=== PATIENT | female | born 1940 | race Caucasian/White ===

== ENCOUNTER 2019-07-05 15:13 | Outpatient (CLI) | payer MEDICARE, SELFPAY ==
--- NOTE | ~2019-07-05 | MM_ITS ---
EXAMINATION: MM screening [facility] BI w malika HISTORY: Screening mammogram TECHNIQUE: Craniocaudal and mediolateral oblique 3-D tomosynthesis images were obtained and synthetic 2-D images were generated. CAD analysis was submitted and interpreted. COMPARISON: 05/12/2018, 04/06/2017, 03/13/2016 BREAST PARENCHYMAL COMPOSITION: The breasts are heterogeneously dense, which may obscure small masses . FINDINGS: There is no evidence of suspicious mass, calcification, or architectural distortion to sugg est malignancy in either breast. There has been no suspicious interval change. IMPRESSION: 1. No mammographic evidence of malignancy. 2. Recommend routine screening mammography while the patient remains in good health. BI-RADS Category 1: Negative Reviewed, dictated and finalized at location A. 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 No mammographic evidence of malignancy. 2. Recommend routine screening mammography while the patient remains in good he alth. BI-RADS Category 1: Negative
== END 2019-07-05 15:14 | disposition home or self-care (01) ==
LOC: CHSIMG 15:14
PROVIDERS: PCP Internal Medicine; Visit Provider Internal Medicine
DX: Z12.31 Encounter for screening mammogram for malignant neoplasm of breast (principal)
CPT/HCPCS: 77063; 77067

== ENCOUNTER 2019-12-20 14:01 | Outpatient (CLI) | payer MEDICARE, SELFPAY ==
--- NOTE | ~2019-12-20 | XR_ITS ---
XR shoulder RT min 2V DATE: 12/20/2019 14:32 INDICATION: Acute right shoulder pain TECHNIQUE: 4 views COMPARISON: None FINDINGS: Right internal jugular Port-A-Cath catheter overlying superior vena cava. Dual-lead left-si ded pacemaker device. Moderate osteopenia. No fracture or dislocation, periosteal reaction or bone destruction or abnormal soft tissue calcifica tion of the right shoulder. IMPRESSION: Osteopenia Right Port-A-Cath Dual-lead left pacemaker device Reviewed, dictated and finalized at location B.
== END 2019-12-20 14:02 | disposition home or self-care (01) ==
PROVIDERS: PCP Internal Medicine; Visit Provider Internal Medicine Hematology & Oncology
DX: M85.811 Other specified disorders of bone density and structure, right shoulder (principal); Z95.0 Presence of cardiac pacemaker
CPT/HCPCS: 73030

== ENCOUNTER 2020-07-22 11:31 | Outpatient (CLI) | payer MEDICARE, SELFPAY ==
--- NOTE | ~2020-07-22 | XR_ITS ---
EXAMINATION: XR knee LT 3V DATE: 07/22/2020 12:00 INDICATION: Left knee pain. TECHNIQUE: 3 views of left knee were obtained. COMPARISON: None. FINDINGS: Bone alignment is normal. No fracture. There is mild tricompartmental osteoarthritis. There is chondrocalcinosis of the menisci. No knee joint effusion. IMPRESSION: 1. Mild left knee osteoarthritis. Reviewed, dictated and finalized at location A. 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
[2020-07-22 11:52] LABS: Basophils Absolute Auto 0.04 K/mm3 (0.00-0.10); Basophils Percent Auto 0.7 % (0.0-1.0); Eosinophils Absolute Auto 0.08 K/mm3 (0.02-0.50); Eosinophils Percent Auto 1.4 % (1.0-6.0); Hemoglobin 12.2 g/dL (11.7-13.8); Immature Granulocyte Absolute 0.02 K/mm3 (0.00-0.00); Immature Granulocyte Percent A 0.3 % (0.0-0.0); Lymphocytes Absolute Auto 1.53 K/mm3 (1.10-4.50); Lymphocytes Percent Auto 25.9 % (18.0-42.0); Mean Platelet Volume 9.5 fl (9.2-11.8); Monocytes Absolute Auto 0.82 K/mm3 (0.10-0.90); Monocytes Percent Auto 13.9 % (2.0-11.0); Neutrophils Absolute Auto 3.4 K/mm3 (1.7-7.2); Neutrophils Percent Auto 57.8 % (50.0-70.0); Nucleated Red Blood Cells Absolute Auto 0.02 K/mm3 (0.00-0.00); Nucleated Red Blood Cells Perc 0.3 % (0-0.0); Platelet Count Result 266 K/mm3 (150-420); Red Cell Distribution Width 13.5 % (11.6-14.4); White Blood Count 5.9 K/mm3 (4.8-10.8)
[2020-07-22 12:04] LABS: Add Urine Microscopic? NO; Appearance Urine Clear (Clear); Bilirubin Urine Negative (Negative); Blood Urine Negative (Negative); Color Urine Yellow (Yellow); Glucose Urine UA Negative (Negative); Ketones Urine Negative (Negative); Leukocyte Esterase Ur Negative (Negative); Nitrate Urine Negative (Negative); Protein Urine Negative (Negative); Urobilinogen Urine 0.2 mg/dL (0.2-1.0)
[2020-07-22 13:01] LABS: Alanine Aminotransferase 24 U/L (14-59); Albumin Level 4.1 g/dL (3.4-5.0); Alkaline Phosphatase 52 U/L (46-116); Anion Gap 7 mmol/L (8-16); Aspartate Amino Transferase 12 U/L (15-37); Bilirubin,Total 0.5 mg/dL (0.00-1.00); Blood Urea Nitrogen 26 mg/dL (7-18); Calcium 11.8 mg/dL (8.5-10.1); Carbon Dioxide 29 mmol/L (21-32); Chloride 98 mmol/L (98-108); Cholesterol 204 mg/dL (0-200); Estimated Glomerular Filt Rate 42; Ferritin 66 ng/mL (8-252); Glucose 102 mg/dL (70-99); HDL Direct 66 mg/dL (40-60); Iron 49 ug/dL (50-170); LDL Cholesterol Calculated 108 mg/dL (<130); Osmolality Calculated 282 mOsm/kg (285-295); Percent Iron Saturation 17 % (12-57); Potassium 4.6 mmol/L (3.5-5.1); Sodium 134 mmol/L (136-145); Total Protein 6.6 g/dL (6.4-8.2); Triglycerides 148 mg/dL (0-150); Vitamin B12 877 pg/mL (193-986)
[2020-07-24 12:11] LABS: Parathyroid Intact 44 pg/mL (14-64); Vitamin D 25 Hydroxy 36 ng/mL (30-100)
== END 2020-07-22 11:32 | disposition home or self-care (01) ==
LOC: CHSLAB 11:33
PROVIDERS: PCP Internal Medicine; Visit Provider Internal Medicine
DX: S89.92XA Unspecified injury of left lower leg, initial encounter (principal); I10 Essential (primary) hypertension; E21.0 Primary hyperparathyroidism; C90.00 Multiple myeloma not having achieved remission; M81.0 Age-related osteoporosis without current pathological fracture
CPT/HCPCS: 36415; 73562; 80053; 80061; 81003; 82306; 82607; 82728; 83540; 83550; 83970; 85025

== ENCOUNTER 2020-07-24 16:34 | Outpatient (CLI) | payer MEDICARE, SELFPAY ==
[2020-07-30 12:42] LABS: Parathyroid Intact 93 pg/mL (14-64)
== END 2020-07-24 16:35 | disposition home or self-care (01) ==
LOC: CHSLAB 16:37
PROVIDERS: PCP Internal Medicine; Visit Provider Internal Medicine
DX: E83.52 Hypercalcemia (principal)
CPT/HCPCS: 36415; 82330; 83970

== ENCOUNTER 2020-08-01 13:47 | Outpatient (CLI) | payer MEDICARE, SELFPAY ==
--- NOTE | ~2020-08-01 | CT_ITS ---
EXAMINATION: CT knee LT wo con DATE: 08/01/2020 14:07 INDICATION: Left knee pain post fall 6 months prior. TECHNIQUE: High resolution computed tomography (CT) of the left knee was performed without intravenou s contrast. Additional sagittal and coronal reconstructions were performed. Automated exposure contro l and iterative reconstruction technique were employed. The dose-length product was 445.01 mGy-cm. COMPARISON: Radiograph dated 07/22/2020 FINDINGS: Bone alignment is normal. No fracture. Chondrocalcinosis in the medial compartment along the posterio r weightbearing medial femoral condyle and in the lateral compartment along the tibial plateau, anter ior weightbearing lateral femoral condyle and body of the lateral meniscus. Mild joint space narrowin g in the medial and lateral compartments which could be underestimated on nonweightbearing imaging. T here is subarticular cystic change suggesting overlying high-grade chondromalacia at the central and posterior medial aspects of the lateral tibial plateau as well as along the patellar apical ridge. No joint effusion. Nonspecific asymmetric mild to moderate fatty atrophy of the medial head of the mary carmen rocnemius muscle relative to the lateral head. IMPRESSION: 1. Chondrocalcinosis and mild tricompartmental osteoarthritis with centimeters cystic change suggesti ng overlying high-grade chondral malacia the lateral tibial plateau and patellar apical ridge. 2. Nonspecific asymmetric mild to moderate fatty atrophy of the medial head of the gastrocnemius whic h could be related to prior trauma or denervation. Reviewed, dictated and finalized at location B. IMPRESSION: 1. Chondrocalcinosis and mild tricompartmental osteoarthritis with centimeters cystic change suggesting overlying high-grade chondral malacia the lateral tibi al plateau and patellar apical ridge. 2. Nonspecific asymmetric mild to moderate fatty atrophy of the medial head of the gastrocnemius which could be related to prior trauma or denervation.
== END 2020-08-01 13:48 | disposition home or self-care (01) ==
LOC: CHSIMG 13:48
PROVIDERS: PCP Internal Medicine; Visit Provider Internal Medicine
DX: M25.562 Pain in left knee (principal)
CPT/HCPCS: 73700

== ENCOUNTER 2020-08-06 17:03 | Outpatient (RCR) | payer MEDICARE, SELFPAY ==
--- NOTE | 2020-08-06 18:09 | PTOPEVAL ---
Thank you for referring Aurea Hussein to [facility].? The patient is scheduled to be seen for therapy? ____x/week for ___ weeks. Please review, sign, date and return this plan of care SHANNON. I agree with and certify that the following plan of care is medically necessary. Referring Physician Date Admitting Provider: Attending Provider: Eros Layne MD Referring Provider: *PT Outpatient Evaluation Start: 08/06/20 17:08 Freq: Status: Active Protocol: Document 08/06/20 17:00 ACR (Rec: 08/06/20 18:08 ACR [id number]) Therapy Assessment Status Assessment Status Assessment Status Evaluation Evaluation Information Problem Diagnosis L knee pain, unsteadiness Onset 10/07/19 Subjective Information Patient states she fell last Query Text:As Reported By Patient/ summer and has been having Family trouble with it since. She states that when she walks she feels the joint is slipping. Patient states she has multiple myeloma and the chemo has zapped her strength. She has been in treatment since last february. Patient states she lives alone and has family near and watches her great grand daughter all day. Patient states she is having difficulty with lifting, walking long distances, standing for long periods of time, navigating stairs, bending to get something off of the floor. Prior Level of Function Activity Level (Last 3 Months) Occupation retired Hand Dominance Right Activity of Daily Living Ability Independent Indoor/Home Mobility Independent Community Mobility Independent Stairs Ability Independent Functional Cognition (Planning, Shopping Independent , Taking Medications) Cooking Yes Cleaning Yes Laundry Yes Shopping Yes Driving Yes Pain Assessment Timing of Pain Assessment Timing of Pain Assessment Pre-Treatment Pain Scale Pain Scale Used Numeric (1 - 10) Self Report Pain Assessment Left Knee(s) Reported Pain Level 4 Pain Score Pain Score 4: Self Report Interventions Used Interventions Used By Clinicians Activity or ADL's
--- NOTE | 2020-09-05 17:55 | PTOPEVAL ---
Thank you for referring Aurea Hussein to [facility].? The patient is scheduled to be seen for therapy? ____x/week for ___ weeks. Please review, sign, date and return this plan of care SHANNON. I agree with and certify that the following plan of care is medically necessary. Referring Physician Date Admitting Provider: Attending Provider: Eros Layne MD Referring Provider: *PT Outpatient Evaluation Start: 08/06/20 17:08 Freq: Status: Active Protocol: Document 09/05/20 16:55 ACR (Rec: 09/05/20 17:55 ACR [id number]) Therapy Assessment Status Assessment Status Assessment Status Discharge Evaluation Information Problem Diagnosis L knee pain, unsteadiness Onset 10/07/19 Subjective Information Patient states that her Query Text:As Reported By Patient/ balance is the same and she is Family weak, but feels that she is going to be this way until she is done with the chemo treatments and is unsure when that is going to be. The patient has not fallen, but becomes unsteady easily and is unable to pick something off of the floor without holding onto something. She states that when she has the cane, she does fine on the stairs but standing and walking for long periods of time is difficult because her body aches. Pain Assessment Timing of Pain Assessment Timing of Pain Assessment Pre-Treatment Pain Scale Pain Scale Used Numeric (1 - 10) Self Report Pain Assessment Left Knee(s) Reported Pain Level 0 Greatest Pain Intensity 0 Pain Score Pain Score 0: Self Report Interventions Used Interventions Used By Clinicians Activity or ADL's,Education, Exercise Balance Assessment Tinetti Balance Assessment Sitting Balance Steady, safe Ability to Arise Able, uses arms to help Attempts to Arise Arises on 1st attempt Immediate Standing Balance Steady with support Standing Balance Steady, wide stance Nudged Response Staggers, catches self Standing with Eyes Closed Unsteady Step Pattern Turning 360 Degrees Continuous steps Stability Turning 360 Degrees Steady Sitting Down Uses arms or unsteady Initiation of Gait No hesitancy Right Foot Step Length Does p
== END 2020-09-05 18:18 | disposition home or self-care (01) ==
LOC: CHSPT 17:03
PROVIDERS: PCP Internal Medicine; Visit Provider Internal Medicine
DX: M25.562 Pain in left knee (principal); R26.89 Other abnormalities of gait and mobility
CPT/HCPCS: 97110; 97112; 97161

== ENCOUNTER 2020-09-06 17:19 | Outpatient (CLI) | payer MEDICARE, SELFPAY ==
[2020-09-06 18:41] LABS: Anion Gap 5 mmol/L (8-16); Blood Urea Nitrogen 27 mg/dL (7-18); Calcium 10.5 mg/dL (8.5-10.1); Carbon Dioxide 28 mmol/L (21-32); Chloride 102 mmol/L (98-108); Estimated Glomerular Filt Rate 40; Glucose 106 mg/dL (70-99); Osmolality Calculated 285 mOsm/kg (285-295); Potassium 4.4 mmol/L (3.5-5.1); Sodium 135 mmol/L (136-145)
[2020-09-11 05:54] LABS: Ionized Calcium 6.1 mg/dL (4.8-5.6)
== END 2020-09-06 17:20 | disposition home or self-care (01) ==
LOC: CHSLAB 17:20
PROVIDERS: PCP Internal Medicine; Visit Provider Internal Medicine
DX: E21.0 Primary hyperparathyroidism (principal)
CPT/HCPCS: 36415; 80048; 82330

== ENCOUNTER 2020-09-09 14:52 | Outpatient (CLI) | payer MEDICARE, SELFPAY | END 2020-09-09 14:53 | disposition home or self-care (01) | PROVIDERS: PCP Internal Medicine; Visit Provider Internal Medicine | DX: Z53.8 Procedure and treatment not carried out for other reasons (principal) | CPT/HCPCS: 99199 ==

== ENCOUNTER 2020-09-30 08:08 | Outpatient (CLI) | payer MEDICARE, SELFPAY ==
--- NOTE | ~2020-09-30 | US_ITS ---
EXAMINATION: US thyroid DATE: 09/30/2020 08:47 INDICATION: Hyperparathyroidism. TECHNIQUE: Multiple ultrasound images of the thyroid were obtained. COMPARISON: Ultrasound 12/14/2017 FINDINGS: The right thyroid lobe measures 4.7 x 1.3 x 1.2 cm. The left thyroid lobe measures 3.9 x 1.0 x 1.2 c m. There are multiple subcentimeter nodules in the thyroid. In the right thyroid lobe, there is a 6 mm peripherally calcified nodule where shadowing obscures the interior of the nodule. In the left thy roid lobe, there is a 5 mm solid, hypoechoic, [id number] nodule with lobulated margin without ec hogenic foci (TI-RADS TR4). IMPRESSION: 1. Stable thyroid nodules, likely not clinically significant. No follow-up is needed. Reviewed, dictated and finalized at location A. IMPRESSION: 1. Stable thyroid nodules, likely not clinically significant. No follow-up is n eeded.
--- NOTE | ~2020-09-30 | NM_ITS ---
EXAMINATION: NM thyroid scan w uptake DATE: 10/01/2020 08:42 INDICATION: Hypercalcemia. Hyperparathyroidism. Abnormal thyroid. COMPARISON: Thyroid ultrasound 09/30/2020 TECHNIQUE: 0.2 mCi I-123 was administered orally. Scintigraphic images of the thyroid gland were obt ained at 24 hours. Thyroid uptake was calculated by the technologist. FINDINGS: The thyroid uptake is 14% (normal 10-30%). There is no focal area of decreased or increased activity to suggest hypofunctioning or hyperfunctioning nodule. IMPRESSION: 1. Normal thyroid scintigraphy and 24-hour iodine uptake. Reviewed, dictated and finalized at location A.
== END 2020-09-30 08:09 | disposition home or self-care (01) ==
LOC: CHSIMG 08:09
PROVIDERS: PCP Internal Medicine; Visit Provider Internal Medicine
DX: E21.3 Hyperparathyroidism, unspecified (principal); R94.6 Abnormal results of thyroid function studies; N19 Unspecified kidney failure
CPT/HCPCS: 76536; 78014; A9516

== ENCOUNTER 2020-10-07 07:00 | Outpatient (CLI) | payer MEDICARE, SELFPAY ==
--- NOTE | ~2020-10-07 | MM_ITS ---
EXAMINATION: MM screening [facility] BI w malika HISTORY: Screening mammogram TECHNIQUE: Craniocaudal and mediolateral oblique 3-D tomosynthesis images were obtained and synthetic 2-D images were generated. CAD analysis was submitted and interpreted. COMPARISON: 07/05/2019, 05/12/2018, 04/06/2017 bilateral digital screening mammogram examinations BREAST PARENCHYMAL COMPOSITION: The breasts are heterogeneously dense, which may obscure small masses . FINDINGS: There is no evidence of suspicious mass, calcification, or architectural distortion to sugg est malignancy in either breast. There has been no suspicious interval change. IMPRESSION: 1. No mammographic evidence of malignancy. 2. Recommend routine screening mammography in one year. BI-RADS Category 1: Negative Reviewed, dictated and finalized at location A.
== END 2020-10-07 07:01 | disposition home or self-care (01) ==
LOC: CHSIMG 07:03
PROVIDERS: PCP Internal Medicine; Visit Provider Internal Medicine
DX: Z12.31 Encounter for screening mammogram for malignant neoplasm of breast (principal)
CPT/HCPCS: 77063; 77067

== ENCOUNTER 2020-11-22 06:55 | Outpatient (CLI) | payer MEDICARE, SELFPAY ==
[2020-11-22 08:15] LABS: Albumin Level 3.9 g/dL (3.4-5.0); Anion Gap 13 mmol/L (8-16); Blood Urea Nitrogen 14 mg/dL (7-18); Calcium 9.5 mg/dL (8.5-10.1); Carbon Dioxide 23 mmol/L (21-32); Chloride 105 mmol/L (98-108); Estimated Glomerular Filt Rate 58; Glucose 92 mg/dL (70-99); Osmolality Calculated 292 mOsm/kg (285-295); Phosphorus 2.6 mg/dL (2.6-4.7); Potassium 4.8 mmol/L (3.5-5.1); Sodium 141 mmol/L (136-145)
[2020-11-24 23:14] LABS: Ionized Calcium 5.7 mg/dL (4.8-5.6)
[2020-11-26 00:46] LABS: Vitamin D 1,25 (OH)2 Total 74 pg/mL (18-72); Vitamin D2 1,25 (OH)2 <8 pg/mL; Vitamin D3 1,25 (OH)2 74 pg/mL
[2020-11-26 11:01] LABS: Parathyroid Intact 245 pg/mL (14-64)
[2020-11-26 20:02] LABS: Vitamin D 25 Hydroxy 29 ng/mL (30-100)
== END 2020-11-22 06:56 | disposition home or self-care (01) ==
LOC: CHSLAB 06:58
PROVIDERS: PCP Internal Medicine; Visit Provider Internal Medicine Endocrinology, Diabetes & Metabolism
DX: C90.00 Multiple myeloma not having achieved remission (principal); N18.4 Chronic kidney disease, stage 4 (severe); D63.1 Anemia in chronic kidney disease; E83.52 Hypercalcemia; M81.0 Age-related osteoporosis without current pathological fracture
CPT/HCPCS: 36415; 80069; 82306; 82330; 82652; 83519; 83970

== ENCOUNTER 2020-12-05 07:44 | Outpatient (CLI) | payer MEDICARE, SELFPAY ==
--- NOTE | ~2020-12-05 | DEXA_ITS ---
Bone Density Report Name: Aurea Hussein Age: 80 Sex: Female Ethnicity: White Date of : 1940 Indication: postmenopausal osteoporosis; prior fracture; cancer; Referring Provider: Delmi Chen Study: Bone densitometry was performed. Exam Date: December 05, 2020 Accession number: [id number] Bone Density: Region BMD T-score Z-score Classification AP Spine(L1, L2, L4) 0.821 -1.9 0.8 Osteopenia Femoral Neck (Left) 0.486 -3.3 -0.9 Osteoporosis Total Hip (Left) 0.615 -2.7 -0.5 Osteoporosis Femoral Neck (Right) 0.500 -3.1 -0.8 Osteoporosis Total Hip (Right) 0.614 -2.7 -0.5 Osteoporosis Femoral Neck Mean 0.493 -3.2 -0.8 Osteoporosis Total Hip Mean 0.614 -2.7 -0.5 Osteoporosis World Health Organization criteria for BMD impression classify patients as: Normal (T-score at or above -1.0), Osteopenia (T-score between -1.0 and -2.5), or Osteoporosis (T-score at or below -2.5). 10-year Fracture Risk: FRAX not reported because: Some T-score for Spine Total or Hip Total or Femoral Neck at or below -2.5 Previous Exams: Region Exam Age BMD T-score BMD Change BMD Change Date g/cm2 vs Baseline vs Previous AP Spine (L1-L2,L4) 12/05/2020 80 0.821 -1.9 0.070 (9.3%)# -0.076 (-8.5%) 08/13/2017 77 0.897 -1.2 0.146 (19.5%)* 0.044 (5.1%)* 01/25/2015 74 0.853 -1.6 0.102 (13.6%)* 0.087 (11.3%)* 01/02/2013 72 0.767 -2.4 0.016 (2.1%)! 0.016 (2.1%) 06/22/2008 68 0.751 -2.6 Total Hip(Left) 12/05/2020 80 0.615 -2.7 -0.027 (-4.2%) -0.001 (-0.1%) 08/13/2017 77 0.615 -2.7 -0.026 (-4.0%) -0.025 (-4.0%) 01/25/2015 74 0.641 -2.5 -0.001 (-0.1%) 0.024 (4.0%) 01/02/2013 72 0.616 -2.7 -0.025 (-3.9%) -0.045 (-6.8%) 11/28/2010 70 0.661 -2.3 0.020 (3.1%) 0.020 (3.1%) 06/22/2008 68 0.641 -2.5 Total Hip(Right) 12/05/2020 80 0.614 -2.7 -0.022 (-3.5%) 0.012 (2.0%)# 01/02/2013 72 0.602 -2.8 -0.035 (-5.4%) -0.019 (-3.0%) 11/28/2010 70 0.620 -2.6 -0.016 (-2.5%) -0.016 (-2.5%) 06/22/2008 68 0.636 -2.5 *Denotes significance at 95% confidence level, LSC for AP Spine = 0.022 g/cm2, LSC for Total Hip = 0.027 g/cm2 # Denotes dissimilar scan types or analysis methods Clinical Information Provided by Patient: Has had a low trauma fracture Has used the following medications: Vitamin D, Calcium Has the following medical conditions: Cancer No regular weight bearing exercise Onset of menses at age 13 Number of children 1
--- NOTE | ~2020-12-05 | NM_ITS ---
EXAMINATION: NM parathyroid imaging w spect DATE: 12/05/2020 12:15 INDICATION: Hypercalcemia TECHNIQUE: 19.7 mCi Tc99m sestamibi (Cardiolite) was administered by intravenous route. Anterior imag es of the neck were obtained at 10 minutes and 3 hours. COMPARISON: None. FINDINGS/IMPRESSION: There is no focus of persistent activity in the area of the thyroid or mediastinum to suggest parathy roid adenoma. Reviewed, dictated and finalized at location A.
== END 2020-12-05 07:45 | disposition home or self-care (01) ==
PROVIDERS: PCP Internal Medicine; Visit Provider Internal Medicine Endocrinology, Diabetes & Metabolism
DX: M81.0 Age-related osteoporosis without current pathological fracture (principal); E83.52 Hypercalcemia; R79.89 Other specified abnormal findings of blood chemistry
CPT/HCPCS: 77080; 78071; A9500

== ENCOUNTER 2021-06-02 09:52 | Outpatient (CLI) | payer MEDICARE, SELFPAY ==
[2021-06-02 13:53] LABS: Anion Gap 9 mmol/L (8-16); Blood Urea Nitrogen 23 mg/dL (7-17); Calcium 10.5 mg/dL (8.4-10.2); Carbon Dioxide 22 mmol/L (22-30); Chloride 102 mmol/L (98-107); Estimated Glomerular Filt Rate 48; Glucose 95 mg/dL (65-110); Phosphorus 2.8 mg/dL (2.5-4.5); Potassium 4.3 mmol/L (3.4-5.0); Sodium 133 mmol/L (137-145)
[2021-06-02 14:02] LABS: Vitamin D 25 Hydroxy 61.4 ng/mL
[2021-06-02 14:05] LABS: Parathyroid Intact 177.7 pg/mL (7.5-53.5)
[2021-06-05 20:46] LABS: Vitamin D 1,25 (OH)2 Total 59 pg/mL (18-72); Vitamin D2 1,25 (OH)2 <8 pg/mL; Vitamin D3 1,25 (OH)2 59 pg/mL
== END 2021-06-02 09:53 | disposition home or self-care (01) ==
LOC: ANHWCLAB 09:55
PROVIDERS: PCP Internal Medicine; Visit Provider Internal Medicine Endocrinology, Diabetes & Metabolism
DX: M81.0 Age-related osteoporosis without current pathological fracture (principal); E83.52 Hypercalcemia
CPT/HCPCS: 36415; 80069; 82306; 82652; 83970

== ENCOUNTER 2021-06-25 17:39 | Outpatient (CLI) | payer MEDICARE, SELFPAY ==
--- NOTE | ~2021-06-25 | XR_ITS ---
XR pelvis 1-2V DATE: 06/25/2021 18:07 INDICATION: Acute low back pain radiating down right leg TECHNIQUE: AP pelvis COMPARISON: None FINDINGS: Prominent rotatory levoscoliosis and multilevel degenerative disc disease of the lumbar spi ne with leftward translation at L3-4. There is degenerative change at the pubic symphysis, without displacement. The sacroiliac joints are intact. Osteopenia. No pelvic fracture or bone destruction is detected. Hip joint spaces appear symmetric and relatively preserved. 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
--- NOTE | ~2021-06-25 | XR_ITS ---
XR lumbar spine 2-3V DATE: 06/25/2021 18:07 INDICATION: Acute low back pain radiating to right lower extremity TECHNIQUE: AP, lateral, coned lateral lumbosacral views COMPARISON: None FINDINGS: There is diffuse osteopenia. There is prominent rotatory levoscoliosis of the lumbar spine, measuring 44 degrees from T12 to L4. T here is associated degenerative disc disease, particularly prominent on the right at L2-3 and L3-4 an d on the left at L4-5. There is approximately 1.1 cm leftward translation at L3 with respect to L4. No lumbar spine fracture or bone destruction is evident. The sacroiliac joints are intact. IMPRESSION: Diffuse osteopenia 44 degrees rotatory levoscoliosis of the lumbar spine with associated multilevel severe degenerative disc disease, 1.1 cm leftward translation at L3-4 Reviewed, dictated and finalized at location A. 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
== END 2021-06-25 17:40 | disposition home or self-care (01) ==
LOC: CHSIMG 17:42
PROVIDERS: PCP Internal Medicine; Visit Provider Internal Medicine
DX: M54.50 Low back pain, unspecified (principal); C90.00 Multiple myeloma not having achieved remission
CPT/HCPCS: 72100; 72170

== ENCOUNTER 2021-06-27 15:48 | Outpatient (CLI) | payer MEDICARE, SELFPAY ==
--- NOTE | ~2021-06-27 | CT_ITS ---
EXAMINATION: CT lumbar spine wo con DATE: 06/27/2021 16:15 INDICATION: Right-sided low back pain radiating down the right leg. TECHNIQUE: Computed tomography (CT) of the lumbar spine was performed without intravenous contrast. A utomated exposure control and iterative reconstruction technique were employed. The dose-length produ ct was 473.35 mGy-cm. COMPARISON: Lumbar spine radiographs 06/25/21 FINDINGS: There is 35 degrees levoscoliosis of lumbar spine. Vertebral body heights are normal. There is mildly decreased disc height at L1-L2, severely decreased disc height at L2-L3, moderately decrea sed disc height at L3-L4 and L4-L5, and severely decreased disc height at L5-S1 with endplate remodel ing. The following disc levels are specifically discussed: L1-L2: The disc is bulging. There is mild bilateral facet joint osteoarthritis. There is mild bilater al neural foraminal stenosis. There is mild central canal stenosis. L2-L3: The disc is bulging. There is moderate right and mild left facet joint osteoarthritis. There i s moderate right and mild left neural foraminal stenosis. There is mild central canal stenosis. L3-L4: The disc is bulging. There is mild right and moderate left facet joint osteoarthritis. There i s mild bilateral neural foraminal stenosis. There is mild central canal stenosis. L4-L5: The disc is bulging. There is mild right and severe left facet joint osteoarthritis. There is mild bilateral neural foraminal stenosis. There is mild central canal stenosis. L5-S1: The disc is bulging. There is severe bilateral facet joint osteoarthritis. There is mild bilat eral neural foraminal stenosis. There is mild central canal stenosis. IMPRESSION: 1. Severe lumbar spondylosis. 2. Lumbar levoscoliosis. Reviewed, dictated and finalized at location E. R MIXER
== END 2021-06-27 15:49 | disposition home or self-care (01) ==
LOC: CHSIMG 15:49
PROVIDERS: PCP Internal Medicine; Visit Provider Internal Medicine
DX: M54.16 Radiculopathy, lumbar region (principal)
CPT/HCPCS: 72131

== ENCOUNTER 2021-07-01 15:57 | Outpatient (RCR) | payer MEDICARE, SELFPAY ==
--- NOTE | 2021-07-01 16:51 | PTOPEVAL ---
Thank you for referring Aurea Hussein to [facility].? The patient is scheduled to be seen for therapy? ____x/week for ___ weeks. Please review, sign, date and return this plan of care SHANNON. I agree with and certify that the following plan of care is medically necessary. Referring Physician Date Admitting Provider: Attending Provider: Eros Layne MD Referring Provider: *PT Outpatient Evaluation Start: 07/01/21 16:11 Freq: Status: Active Protocol: Document 07/01/21 16:10 [facility] (Rec: 07/01/21 16:51 [facility] [id number]) Therapy Assessment Status Assessment Status Assessment Status Evaluation Evaluation Information Problem Diagnosis lumbar radiculopathy Onset 06/23/21 Additional Evaluation Detail oswestry = 76% functionally declined Subjective Information patient reports she has had a Query Text:As Reported By Patient/ CT scan of the lumbar spine. Family she reports she has been told she has a bulged disc pressing on a nerve. she reports the pain goes down the R side from the hip down to the knee. she reports the pain runs from her R side lower back/ posterior hip and then down the side of the hip and R LE. she reports has been having symptoms for about 1 week. she reports no injury. she reports no falls. she reports usese a cane for ambulation. she reports she reports she lives alone. she reports she has trouble with any weight bearing/standing/walking activities. she reports she has relief of pain with pain meds, sitting in recliner, and using heating pad. Prior Level of Function Comments Additional Prior Level of Function prior to a week ago, no issues Comments with the lower back or the R LE. Pain Assessment Timing of Pain Assessment Timing of Pain Assessment Assessment Pain Scale Pain Scale Used Numeric (1 - 10) Self Report Pain Assessment Right Lower Back Reported Pain Level 5 Pain Radiation Right Leg Greatest Pain Intensity 10 Pain Score Pain Score 5: Self Report Interventions Used Interventions Used By Clinicians
--- NOTE | 2021-07-30 10:43 | PTOPEVAL ---
Thank you for referring Aurea Hussein to [facility].? The patient is scheduled to be seen for therapy? ____x/week for ___ weeks. Please review, sign, date and return this plan of care SHANNON. I agree with and certify that the following plan of care is medically necessary. Referring Physician Date Admitting Provider: Attending Provider: Eros Layne MD Referring Provider: *PT Outpatient Evaluation Start: 07/01/21 16:11 Freq: Status: Active Protocol: Document 07/25/21 17:00 [facility] (Rec: 07/30/21 10:42 [facility] [id number]) Therapy Assessment Status Assessment Status Assessment Status Evaluation Evaluation Information Problem Diagnosis lumbar radiculopathy Onset 06/23/21 Additional Evaluation Detail oswestry = 60% functionally declined Subjective Information patient reports she feels Query Text:As Reported By Patient/ About the same this date. she Family reports she continues to have pain in the R hip and LE. she reports she does not feel her symptoms have changed much with therapy. she reports she is going to ask her MD about injections. Pain Assessment Timing of Pain Assessment Timing of Pain Assessment Assessment Pain Scale Pain Scale Used Numeric (1 - 10) Self Report Pain Assessment Right Lower Back Reported Pain Level 6 Pain Score Pain Score 6: Self Report Interventions Used Interventions Used By Clinicians Activity or ADL's,Education, Exercise,Mobilization,Manual Therapy Techniques Cervical and Lumbar ROM Lumbar ROM Lumbar Flexion Active Knee Query Text:Hands to: Lumbar Extension (0-40) 0 Query Text:Active in Degrees Lumbar Lateral Flexion Right (0-40) 20 Query Text:Active in Degrees Lumbar Lateral Flexion Left (0-40) 15 Query Text:Active in Degrees Lower Extremity Range of Motion General Lower Extremity Range of Motion Gross Lower Extremity Range of Motion WFL bilateral hip and knee Comments mobility bilateral ankle mobility limited to 0 degrees passive DF bilaterally Lower Extremity Muscle Strength Testing General Lower Extremity Strength Gross Lower Extremity Strength 3+/5 bilateral hip flex 4/5 bilateral knee ext 4+/5 bilateral knee flex 3+/5 bilateral ankle DF Muscle Length Testing Muscle Length Testing Left Hamstring Length
== END 2021-07-25 14:14 | disposition home or self-care (01) ==
LOC: CHSPT 15:57
PROVIDERS: PCP Internal Medicine; Visit Provider Internal Medicine
DX: M54.16 Radiculopathy, lumbar region (principal); M51.36 Other intervertebral disc degeneration, lumbar region
CPT/HCPCS: 97110; 97140; 97161

== ENCOUNTER 2021-10-20 15:13 | Outpatient (CLI) | payer MEDICARE, SELFPAY ==
--- NOTE | ~2021-10-20 | MM_ITS ---
EXAMINATION: MM screening [facility] BI w malika HISTORY: Screening mammogram TECHNIQUE: Craniocaudal and mediolateral oblique 3-D tomosynthesis images were obtained and synthetic 2-D images were generated. CAD analysis was submitted and interpreted. COMPARISON: 10/07/2020, 07/05/2019, 05/12/2018 BREAST PARENCHYMAL COMPOSITION: The breasts are heterogeneously dense, which may obscure small masses . FINDINGS: There is no suspicious mass, calcification, or architectural distortion to suggest malignan cy in either breast. There has been no suspicious interval change. IMPRESSION: 1. No mammographic evidence of malignancy. 2. Recommend routine screening mammography while the patient remains in good health. BI-RADS Category 1: Negative Reviewed, dictated and finalized at location A. IMPRESSION: 1. No mammographic evidence of malignancy. 2. Recommend routine screening mammography while the patient remains in good he alth. BI-RADS Category 1: Negative
== END 2021-10-20 15:14 | disposition home or self-care (01) ==
LOC: CHSIMG 15:15
PROVIDERS: PCP Internal Medicine; Visit Provider Internal Medicine
DX: Z12.31 Encounter for screening mammogram for malignant neoplasm of breast (principal)
CPT/HCPCS: 77063; 77067

== ENCOUNTER 2021-12-06 08:39 | Outpatient (CLI) | payer MEDICARE, SELFPAY ==
[2021-12-06 08:52] LABS: Add Urine Microscopic? NO; Appearance Urine Clear (Clear); Basophils Absolute Auto 0.03 K/mm3 (0.00-0.10); Basophils Percent Auto 0.4 % (0.0-1.0); Bilirubin Urine Negative (Negative); Blood Urine Negative (Negative); Color Urine Light Yellow (Yellow); Eosinophils Absolute Auto 0.13 K/mm3 (0.02-0.50); Eosinophils Percent Auto 1.9 % (1.0-6.0); Glucose Urine UA Negative (Negative); Hemoglobin 11.7 g/dL (11.7-13.8); Immature Granulocyte Absolute 0.01 K/mm3 (0.00-0.00); Immature Granulocyte Percent A 0.1 % (0.0-0.0); Ketones Urine Negative (Negative); Leukocyte Esterase Ur Negative (Negative); Lymphocytes Absolute Auto 1.14 K/mm3 (1.10-4.50); Mean Corpuscular HGB Conc 32.5 g/dL (32.0-36.0); Mean Corpuscular Hemoglobin 33.1 pg (27.0-31.0); Mean Platelet Volume 9.7 fl (9.2-11.8); Monocytes Absolute Auto 0.84 K/mm3 (0.10-0.90); Monocytes Percent Auto 12.6 % (2.0-11.0); Neutrophils Absolute Auto 4.5 K/mm3 (1.7-7.2); Nitrate Urine Negative (Negative); Platelet Count Result 234 K/mm3 (150-420); Protein Urine Negative (Negative); Red Blood Count 3.53 M/mm3 (4.20-5.40); Red Cell Distribution Width 12.5 % (11.6-14.4); Specific Grav Ur <= 1.005 (1.010-1.020); Urobilinogen Urine 0.2 mg/dL (0.2-1.0); White Blood Count 6.7 K/mm3 (4.8-10.8)
[2021-12-06 09:58] LABS: Alanine Aminotransferase 22 U/L (14-59); Albumin Level 3.7 g/dL (3.4-5.0); Alkaline Phosphatase 58 U/L (46-116); Anion Gap 6 mmol/L (8-16); Aspartate Amino Transferase 14 U/L (15-37); Bilirubin,Total 0.5 mg/dL (0.00-1.00); Blood Urea Nitrogen 18 mg/dL (7-18); Calcium 10.6 mg/dL (8.5-10.1); Carbon Dioxide 28 mmol/L (21-32); Chloride 103 mmol/L (98-108); Cholesterol 164 mg/dL (0-200); Estimated Glomerular Filt Rate 49; Ferritin 67 ng/mL (8-252); Free T3 2.15 pg/mL (2.18-3.98); Free T4 Free Thyroxine 1.05 ng/dL (0.76-1.46); Glucose 98 mg/dL (70-99); HDL Direct 63 mg/dL (40-60); Iron 56 ug/dL (50-170); LDL Cholesterol Calculated 85 mg/dL (<130); Osmolality Calculated 285 mOsm/kg (285-295); Percent Iron Saturation 22 % (12-57); Potassium 4.6 mmol/L (3.5-5.1); Sodium 137 mmol/L (136-145); Thyroid Stimulating Hormone 2.73 uIU/mL (0.36-3.74); Triglycerides 81 mg/dL (0-150); Vitamin B12 716 pg/mL (193-986)
[2021-12-10 20:58] LABS: Vitamin D 25 Hydroxy 32 ng/mL (30-100)
== END 2021-12-06 08:40 | disposition home or self-care (01) ==
LOC: CHSLAB 08:41
PROVIDERS: PCP Internal Medicine; Visit Provider Internal Medicine
DX: E21.0 Primary hyperparathyroidism (principal); D63.8 Anemia in other chronic diseases classified elsewhere; I12.9 Hypertensive chronic kidney disease with stage 1 through stage 4 chronic kidney disease, or unspecified chronic kidney disease; N18.30 Chronic kidney disease, stage 3 unspecified; M81.0 Age-related osteoporosis without current pathological fracture
CPT/HCPCS: 36415; 80053; 80061; 81003; 82306; 82607; 82728; 83540; 83550; 84439; 84443; 84481; 85025

== ENCOUNTER 2022-05-21 08:03 | Outpatient (CLI) | payer MEDICARE, SELFPAY ==
[2022-05-21 08:15] LABS: Basophils Absolute Auto 0.04 K/mm3 (0.00-0.10); Basophils Percent Auto 0.6 % (0.0-1.0); Eosinophils Absolute Auto 0.01 K/mm3 (0.02-0.50); Eosinophils Percent Auto 0.1 % (1.0-6.0); Hematocrit 33.6 % (35.0-42.0); Hemoglobin 10.8 g/dL (11.7-13.8); Immature Granulocyte Absolute 0.03 K/mm3 (0.00-0.00); Immature Granulocyte Percent A 0.4 % (0.0-0.0); Lymphocytes Absolute Auto 1.59 K/mm3 (1.10-4.50); Mean Corpuscular HGB Conc 32.1 g/dL (32.0-36.0); Mean Corpuscular Volume 105.7 fL (78.0-102.0); Mean Platelet Volume 9.4 fl (9.2-11.8); Monocytes Absolute Auto 0.89 K/mm3 (0.10-0.90); Monocytes Percent Auto 12.9 % (2.0-11.0); Neutrophils Absolute Auto 4.4 K/mm3 (1.7-7.2); Platelet Count Result 248 K/mm3 (150-420); Red Blood Count 3.18 M/mm3 (4.20-5.40); Red Cell Distribution Width 13.7 % (11.6-14.4); White Blood Count 6.9 K/mm3 (4.8-10.8)
[2022-05-21 08:21] LABS: Add Urine Microscopic? YES; Appearance Urine Clear (Clear); Bilirubin Urine Negative (Negative); Blood Urine 1+ (Negative); Color Urine Light Yellow (Yellow); Glucose Urine UA Negative (Negative); Ketones Urine Negative (Negative); Leukocyte Esterase Ur Trace (Negative); Nitrate Urine Negative (Negative); Protein Urine Negative (Negative); Urobilinogen Urine 0.2 mg/dL (0.2-1.0)
[2022-05-21 08:26] LABS: Bacteria Urine Trace /hpf; Squamous Epithelial Cell Urine Few /hpf (Few); WBC Urine None seen /hpf (0-3)
[2022-05-21 08:43] LABS: Alanine Aminotransferase 27 U/L (14-59); Albumin Level 3.6 g/dL (3.4-5.0); Alkaline Phosphatase 60 U/L (46-116); Anion Gap 5 mmol/L (8-16); Aspartate Amino Transferase 20 U/L (15-37); Bilirubin,Total 0.3 mg/dL (0.00-1.00); Blood Urea Nitrogen 26 mg/dL (7-18); Calcium 10.3 mg/dL (8.5-10.1); Carbon Dioxide 30 mmol/L (21-32); Chloride 101 mmol/L (98-108); Estimated Glomerular Filt Rate 41; Glucose 84 mg/dL (70-99); Osmolality Calculated 285 mOsm/kg (285-295); Potassium 4.4 mmol/L (3.5-5.1); Sodium 136 mmol/L (136-145); Total Protein 7.5 g/dL (6.4-8.2)
[2022-05-26 20:38] LABS: Vitamin D 25 Hydroxy 39 ng/mL (30-100)
== END 2022-05-21 08:04 | disposition home or self-care (01) ==
LOC: CHSLAB 08:05
PROVIDERS: PCP Internal Medicine; Visit Provider Internal Medicine
DX: M81.0 Age-related osteoporosis without current pathological fracture (principal); I10 Essential (primary) hypertension; C90.00 Multiple myeloma not having achieved remission; D63.8 Anemia in other chronic diseases classified elsewhere
CPT/HCPCS: 36415; 80053; 81001; 82306; 85025

== ENCOUNTER 2022-09-25 03:00 | Day surgery (SDC) | payer MEDICARE, SELFPAY ==
[2022-09-24 14:16] VITALS: BMI 18.5
[2022-09-25] VITALS (8 sets, daily range): BP systolic 137–154; BP diastolic 61–78; PULSE 63–71; RESP 16–17; TEMP 36.6; O2SAT 97–100; BMI 18.5
--- NOTE | ~2022-09-25 | BM_ITS ---
EXAMINATION: CCL bone marrow asp w bx diag ORDER COMPLETED DATE: 09/25/2022 17:05 INDICATION: Multiple myeloma not having exceeded remission TECHNIQUE: A time-out was performed to verify the patient's name, date of , and procedure to b e performed. The procedure including the risks and benefits was discussed with the patient. Risks dis cussed included bleeding, infection, nerve injury and allergic reaction. The patient understood the r isks and agreed to proceed. The skin overlying the right posterior iliac spine was prepped and draped in usual sterile fashion. Anesthetic was administered with 1% lidocaine subcutaneously. Moderate co nscious sedation was achieved with 50 mcg fentanyl IV. An 11 gauge needle was inserted into the right ilium with fluoroscopic guidance. Bone marrow was aspirated. An 8 gauge needle was then inserted int o the right ilium with fluoroscopic guidance. A core bone marrow biopsy was obtained. The needle was removed and the entry site was cleaned and dressed. There were no immediate complications. A total o f 6 fluoroscopic images were recorded. Fluoroscopy exposure time was 0.1 minutes. FINDINGS: Real-time fluoroscopy demonstrates the biopsy needle tip overlying the right posterior mirna c spine. IMPRESSION: 1. Successful fluoroscopic guided bone marrow aspiration. 2. Successful fluoroscopic guided bone marrow biopsy. Reviewed, dictated and finalized at location A.
[2022-09-25 08:25] LABS: Hematocrit 34.3 % (37.0-47.0); Hemoglobin 11.1 g/dL (12.0-15.0); Mean Corpuscular HGB Conc 32.4 g/dl (32-36); Mean Corpuscular Hemoglobin 33.8 pg (26-34); Mean Corpuscular Volume 104.6 fl (80-100); Mean Platelet Volume 9.2 fl (7.4-10.4); Platelet Count Result 270 k/mm3 (150-375); Red Blood Count 3.28 M/mm3 (4.2-5.4); Red Cell Distribution Width 14.8 % (11.5-14.5); White Blood Count 5.1 K/mm3 (4.5-10.0)
[2022-09-25 08:37] LABS: Prothrombin Time 13.5 Seconds (11.1-14.7)
--- NOTE | 2022-09-25 09:03 | WPDMODSED ---
Moderate Sedation Note-Pt Data Patient Data Diagnosis: multiple myeloma Present Complaint: multiple myeloma Procedure to be performed/Plan: bone marrow biopsy Allergies Allergy/AdvReac Type Severity Reaction Status Date / Time clams Allergy Severe Difficulty Verified 09/25/22 08:20 Breathing crab Allergy Severe Difficulty Verified 09/25/22 08:20 Breathing spironolactone Allergy Severe RASH, Verified 09/25/22 08:20 FACIAL SWELLING tramadol Allergy Severe SEVERE RASH Verified 09/25/22 08:20 Iodinated Contrast Media Allergy Intermediate DIZZY, Verified 09/25/22 08:20 HEADACHE shellfish derived Allergy Intermediate Rash Verified 09/25/22 08:20 Sulfa (Sulfonamide Allergy Intermediate Rash Verified 09/25/22 08:20 Antibiotics) amlodipine Allergy Unknown Rash Verified 09/25/22 08:20 banana Allergy Unknown Rash Verified 09/25/22 08:20 clindamycin Allergy Unknown Rash Verified 09/25/22 08:20 codeine Allergy Unknown Rash Verified 09/25/22 08:20 iodine Allergy Unknown Rash Verified 09/25/22 08:20 kiwi Allergy Unknown Rash Verified 09/25/22 08:20 latex Allergy Unknown Rash Verified 09/25/22 08:20 lisinopril AdvReac Unknown Cough Verified 09/25/22 08:20 Lobster Allergy Severe CONGESTION, Uncoded 09/16/22 09:55 DIFFICULTY BREATHING Home Medications Medication Instructions Recorded Confirmed Type carvedilol 25 mg tablet 25 mg PO BID 03/29/19 09/24/22 History furosemide 20 mg tablet 20 mg PO DAILY 03/29/19 09/24/22 History losartan 100 mg tablet 100 mg PO DAILY 03/29/19 09/24/22 History multivitamin 1 tablet PO DAILY 03/29/19 09/24/22 History ondansetron HCl 4 mg tablet 4 mg PO Q8H PRN Nausea 03/29/19 09/24/22 History verapamil 240 mg tablet,extended 240 mg PO BID 03/29/19 09/24/22 History release ferrous sulfate 325 mg (65 mg 325 mg PO EVERY OTHER DAY 06/15/19 09/24/22 History iron) tablet aspirin 81 mg tablet,delayed 81 mg PO DAILY 05/20/20 09/24/22 History release omeprazole magnesium 20 mg 20 mg PO DAILY 11/05/20 09/24/22 History tablet,delayed release (Prilosec OTC) hydralazine 10 mg tablet See Rx Instructions .Route .COMPLEX 12/02/20 09/24/22 History cetirizine 10 mg tablet 10 mg PO DAILY 01/26/22 09/24/22 History Sedation/Anesthesia: No previous sedation/anesthesia problems (including family history). [facility] Past Medical History Medical History (Updated 05/19/22 @ 19:14 by Roberto Carlos Gonzalez MD) Allergies Cancer Family History Family History (Updated 11/05/20 @ 16:19 by Rene Davila) Other Cerebrovascular accident Family history of migraine headaches Heart disease Hypertension Malignant neoplasm of prostate Social History Social History Smoking status: Never smoker Second hand tobacco smoke exposure: Yes Alcohol intake: never Substance use: never Substance use type: does not use Living arrangements: alone Spiritual care concerns: No Mod Sed Physical Exam Physical Exam Pre Procedural Exam: Normal: Appearance, Throat, Lungs, Heart Rate, Heart Rhythm and Abdomen Hours since solid foods: 9 Hours since liquid intake: 9 Mallampati Classification: class III Internal Medicine - PN: Obj Da Vital Signs Vital Signs: Vital Signs - 24 hr 09/25/22 08:21 Temperature 97.8 F Pulse Rate 69 Respiratory Rate 17 Blood Pressure 137/68 Pulse Oximetry 98 Oxygen Delivery Room Air Labs 09/25/22 08:16 Labs: Laboratory Results - last 24 hr 09/25/22 08:16 WBC 5.1 RBC 3.28 L Hgb 11.1 L Hct 34.3 L MCV 104.6 H MCH 33.8 MCHC 32.4 RDW 14.8 H Plt Count 270 MPV 9.2 PT 13.5 INR 1.0 ASA Classification/Sedation ASA Classification/Sedation ASA Class: III Emergent: No Risks: Risks, benefits and alternatives explained and patient/family accepted plan for sedation. Patient re-evaluated immediately prior to sedation.
[2022-09-25] MEDS: HYDROcodone/acetaminophen (*CRX) 5-325 MG TABLET 1 TAB PO (10:07)
== END 2022-09-25 12:00 | disposition home or self-care (01) ==
LOC: ANHCATHLAB 03:06 → ANHCPCTRAN 07:57 → ANHCATHLAB 08:01
PROVIDERS: PCP Internal Medicine; Referring Provider Internal Medicine Hematology & Oncology; Visit Provider Radiology Diagnostic Radiology
DX: C90.00 Multiple myeloma not having achieved remission (principal); Z79.82 Long term (current) use of aspirin
CPT/HCPCS: 36415; 38222; 85027; 85610; 88184; 88185; 88305; 88311; 88313; A9270; J1642; J2250; J3010; J7040

== ENCOUNTER 2022-09-28 10:06 | Outpatient (CLI) | payer MEDICARE, SELFPAY ==
--- NOTE | ~2022-09-28 | XR_ITS ---
Left Knee Technique: AP, lateral, and sunrise views were obtained. Clinical History: Pain Findings: No fracture or dislocation is seen. Osseous alignment is anatomic. Minimal degenerative spu rring noted. Soft tissues are unremarkable. No joint effusion is seen. Impression: Minimal degenerative spurring. Reviewed, dictated and finalized at location . Impression: Minimal degenerative spurring.
--- NOTE | ~2022-09-28 | XR_ITS ---
Lumbosacral Spine: AP and lateral views Clinical History: Pain COMPARISON: 06/25/2021 Findings: There is 38 degrees levoscoliosis, which is similar to prior exam. There is severe degenera tive disc narrowing at L2-L3 at L3-L4. There is moderate to advanced facet arthropathy throughout the lumbar spine. The intervertebral disc spaces are preserved. The sacroiliac joints are normally outl ined. Impression: 38 degrees levoscoliosis with moderate to advanced degenerative spondylosis, which is similar in appe arance to prior exam. Reviewed, dictated and finalized at location . Impression: 38 degrees levoscoliosis with moderate to advanced degenerative spondylosis, wh ich is similar in appearance to prior exam.
--- NOTE | ~2022-09-28 | XR_ITS ---
AP view of the pelvis and AP and lateral views of the bilateral hips Clinical history: Pain Findings: No acute fracture or dislocation is seen. Osseous alignment is anatomic. Bilateral hip and SI joint spaces are preserved. Small calcified fibroid present. Impression: No significant abnormality is seen. Reviewed, dictated and finalized at [facility]. Impression: No significant abnormality is seen.
== END 2022-09-28 10:07 | disposition home or self-care (01) ==
LOC: CHSIMG 10:09
PROVIDERS: PCP Internal Medicine; Visit Provider Internal Medicine
DX: C90.00 Multiple myeloma not having achieved remission (principal); M25.552 Pain in left hip; M25.551 Pain in right hip; M54.50 Low back pain, unspecified; M43.06 Spondylolysis, lumbar region; M41.86 Other forms of scoliosis, lumbar region
CPT/HCPCS: 72100; 73521; 73562

== ENCOUNTER 2022-10-28 16:02 | Outpatient (CLI) | payer MEDICARE, SELFPAY ==
--- NOTE | ~2022-10-28 | XR_ITS ---
EXAMINATION: XR sacroiliac jt inj w imag LT DATE: 10/28/2022 19:07 INDICATION: Left sacroiliac joint pain. TECHNIQUE: A time-out was performed to verify the patient's name, date of , and procedure to b e performed. The procedure including the risks, benefits, and alternatives was discussed with the pat ient. Risks discussed included bleeding and infection. The patient understood the risks and agreed to proceed. The skin overlying the left sacroiliac joint was prepped and draped in usual sterile fashi on. Anesthetic was administered with 1% lidocaine subcutaneously. A 22 G needle was advanced under fluoroscopic guidance into the joint. Subsequently, injectate consisting of 2 mL 1% lidocaine, 1 mL 40 mg/mL Kenalog, and 1 mL 4 mg/mL dexamethasone was instilled. The needle was removed and the entry site was cleaned and dressed. There were no immediate complications. Fluoroscopy exposure time was 0.1 minutes. The total number of images was 1. FINDINGS: Real-time fluoroscopy demonstrates the needle in the left sacroiliac joint. Patient's pain prior to procedure:4/10. Patient's pain following the procedure: 0/10. IMPRESSION: 1. Fluoroscopy guided left sacroiliac joint injection of local anesthetic and steroid with decrease i n the patient's presenting pain. Reviewed, dictated and finalized at location A. IMPRESSION: 1. Fluoroscopy guided left sacroiliac joint injection of local anesthetic and s teroid with decrease in the patient's presenting pain.
== END 2022-10-28 16:03 | disposition home or self-care (01) ==
LOC: ANHIMG 16:03
PROVIDERS: PCP Internal Medicine; Visit Provider Internal Medicine
DX: M53.3 Sacrococcygeal disorders, not elsewhere classified (principal); M54.16 Radiculopathy, lumbar region
CPT/HCPCS: 27096; G0260; J1100; J3301

== ENCOUNTER 2022-12-03 17:47 | Emergency (ER) | payer MEDICARE, SELFPAY ==
--- NOTE | ~2022-12-03 | XR_ITS ---
EXAMINATION: XR chest 2V Exam Date/Time: 12/03/2022 19:35 CDT HISTORY: cough AND SHORT OF BREATH X 1 DAY Comparison: 03/10/2019, 09/24/2008. RESULT: Lines, tubes, and devices: Implanted right chest port terminating at the cavoatrial junction. Left c hest pacer with intact leads. Lungs and pleura: Senescent and emphysematous change. Mild bilateral costophrenic angle blunting str eaky bibasilar subsegmental opacities. Cardiomediastinal silhouette: Stable. Other: No acute osseous or upper abdominal finding. IMPRESSION: Bibasilar subsegmental opacities, likely atelectasis, infection is not excluded. Small bilateral effu sions. Reviewed, dictated and finalized at location K. IMPRESSION: Bibasilar subsegmental opacities, likely atelectasis, infection is not excluded . Small bilateral effusions.
[2022-12-03 17:57] VITALS: BP 144/74; PULSE 67; RESP 21; TEMP 36.5; O2SAT 96
--- NOTE | 2022-12-03 17:59 | ECG_ITS ---
Measurements Intervals [place] Rate: 64 P: 92 NV: 151 QRS: 34 QRSD: 89 T: 44 QT: 386 QTc: 400 Interpretive Statements SINUS RHYTHM BASELINE ARTIFACT- I, III, AVR, AVL, AVF NORMAL ECG COMPARED TO ECG 08/10/2018 15:44:34 NO SIGNIFICANT CHANGES Electronically Signed On 12-03-2022 21:04:51 CDT by Darrian Butcher D.O.
[2022-12-03 18:26] LABS: Basophils Percent Auto 0.3 % (0.2-1.2); Hematocrit 28.6 % (37.0-47.0); Hemoglobin 9.1 g/dL (12.0-15.0); Immature Granulocyte Absolute 0.31 K/mm3 (0.00-0.031); Lymphocytes Absolute Auto 0.61 K/mm3 (0.9-3.2); Lymphocytes Percent Auto 7.9 % (18.3-44.2); Mean Corpuscular HGB Conc 31.8 g/dl (32-36); Mean Corpuscular Volume 103.6 fl (80-100); Monocytes Absolute Auto 1.1 K/mm3 (0.1-0.6); Monocytes Percent Auto 13.9 % (2.6-8.5); Neutrophils Absolute Auto 5.7 K/mm3 (1.3-6.7); Neutrophils Percent Auto 73.9 % (45.5-73.1); Nucleated Red Blood Cells Absolute Auto 0.1 K/mm3 (0.0-0.012); Nucleated Red Blood Cells Perc 1.4 % (0.0-0.2); Platelet Count Result 380 k/mm3 (150-375); Red Blood Count 2.76 M/mm3 (4.2-5.4); Red Cell Distribution Width 13.3 % (11.5-14.5); White Blood Count 7.7 K/mm3 (4.5-10.0)
[2022-12-03 18:40] LABS: Alanine Aminotransferase 34 U/L (6-35); Albumin Level 3.1 g/dL (3.5-5.1); Alkaline Phosphatase 60 U/L (38-126); Anion Gap 5 mmol/L (8-16); Aspartate Amino Transferase 29 U/L (14-36); Bilirubin,Total 0.2 mg/dL (0.2-1.3); Blood Urea Nitrogen 25 mg/dL (7-17); Calcium 9.2 mg/dL (8.4-10.2); Carbon Dioxide 23 mmol/L (22-30); Chloride 104 mmol/L (98-107); Estimated CRCL calculation 29 ml/min; Estimated Glomerular Filt Rate 53; Glucose 83 mg/dL (65-110); Potassium 3.9 mmol/L (3.4-5.0); Sodium 132 mmol/L (137-145)
[2022-12-03 20:08] LABS: Appearance Urine Clear (Clear); Bilirubin Urine Negative (Negative); Blood Urine Negative (Negative); Color Urine Yellow (Yellow); Glucose Urine UA Negative (Negative); Ketones Urine Negative (Negative); Leukocyte Esterase Ur Negative LEU/UL (Negative); Nitrate Urine Negative (Negative); Protein Urine Negative (Negative); Specific Grav Ur 1.013 (1.001-1.035); Urobilinogen Urine 0.2 mg/dL (<2.0); pH Urine 6.5 (5.0-9.0)
[2022-12-03 20:22] VITALS: PULSE 62; RESP 16; O2SAT 97
[2022-12-03 20:24] LABS: Add Urine Microscopic? NO
--- NOTE | 2022-12-03 21:04 | ED.GENADULT ---
HPI - General Adult General Chief complaint: Recheck/Abnormal Lab/Rx Stated complaint: shaky, sob, low blood count Time Seen by Provider: 12/03/22 19:21 History of Present Illness HPI narrative: Patient is an 82-year-old female who presents ER with shortness of breath and weakness. Patient is receiving chemotherapy treatments for multiple myeloma. She reports that she had a recent low hemoglobin. She has had also cough for several days. Is productive of blackwell sputum. No fevers or chills or sweats. No chest pain or chest pressure. She is without any nausea or vomiting. No additional concerns. No falls. Related Data Home Medications Medication Instructions Recorded Confirmed carvedilol 25 mg tablet 25 mg PO BID 03/29/19 12/01/22 furosemide 20 mg tablet 20 mg PO DAILY 03/29/19 12/01/22 losartan 100 mg tablet 100 mg PO DAILY 03/29/19 12/01/22 multivitamin 1 tablet PO DAILY 03/29/19 12/01/22 ondansetron HCl 4 mg tablet 4 mg PO Q8H PRN Nausea 03/29/19 12/01/22 verapamil 240 mg tablet,extended 240 mg PO BID 03/29/19 12/01/22 release ferrous sulfate 325 mg (65 mg 325 mg PO DAILY 06/15/19 12/01/22 iron) tablet aspirin 81 mg tablet,delayed 81 mg PO DAILY 05/20/20 12/01/22 release omeprazole magnesium 20 mg 20 mg PO DAILY 11/05/20 12/01/22 tablet,delayed release (Prilosec OTC) hydralazine 10 mg tablet See Rx Instructions .Route .COMPLEX 12/02/20 12/01/22 cetirizine 10 mg tablet 10 mg PO DAILY 01/26/22 12/01/22 Allergies Allergy/AdvReac Type Severity Reaction Status Date / Time clams Allergy Severe Difficulty Verified 12/01/22 09:40 Breathing crab Allergy Severe Difficulty Verified 12/01/22 09:40 Breathing spironolactone Allergy Severe RASH, Verified 12/01/22 09:40 FACIAL SWELLING tramadol Allergy Severe SEVERE RASH Verified 12/01/22 09:40 Iodinated Contrast Media Allergy Intermediate DIZZY, Verified 12/01/22 09:40 HEADACHE shellfish derived Allergy Intermediate Rash Verified 12/01/22 09:40 Sulfa (Sulfonamide Allergy Intermediate Rash Verified 12/01/22 09:40 Antibiotics) amlodipine Allergy Unknown Rash Verified 12/01/22 09:40 banana Allergy Unknown Rash Verified 12/01/22 09:40 clindamycin Allergy Unknown Rash Verified 12/01/22 09:40 codeine Allergy Unknown Rash Verified 12/01/22 09:40 iodine Allergy Unknown Rash Verified 12/01/22 09:40 kiwi Allergy Unknown Rash Verified 12/01/22 09:40 latex Allergy Unknown Rash Verified 12/01/22 09:40 lisinopril AdvReac Unknown Cough Verified 12/01/22 09:40 Lobster Allergy Severe CONGESTION, Uncoded 12/01/22 09:40 DIFFICULTY BREATHING Review of Systems Review of Systems: All systems reviewed & are unremarkable except as noted in HPI and below Constitutional: Constitutional: Denies chills, Reports fatigue and Denies fever(s) ENT: Denies nasal congestion and Denies sore throat Cardiovascular: Cardiovascular: Denies chest pain, Denies rapid heart rate and Denies radiating jaw, neck or arm pain Respiratory: Respiratory: Reports cough, Reports dyspnea and Denies wheezing Gastrointestinal: Gastrointestinal: Denies abdominal pain, Denies nausea and Denies vomiting [facility] [place] Past Medical History Medical History (Updated 12/03/22 @ 21:13 by Ankur Isaac MD) Allergies Bone metastases Cancer Hyperparathyroidism Multiple myeloma Family History Family History (Updated 11/05/20 @ 16:19 by Rene Davila) Other Cerebrovascular accident Family history of migraine headaches Heart disease Hypertension Malignant neoplasm of prostate Social History Social History Smoking status: Never smoker Second hand tobacco smoke exposure: Yes Alcohol intake: never Substance use: never Substance use type: does not use Living arrangements: alone Spiritual care concerns: No Exam Narrative: GENERAL: Frail-appearing, and in no acute distress. HEAD: Normocepha
[2022-12-03 21:26] VITALS: BP 138/106; PULSE 66; RESP 20; TEMP 36.6; O2SAT 98
== END 2022-12-03 21:27 | disposition home or self-care (01) ==
PROVIDERS: Emergency Provider Emergency Medicine; PCP Internal Medicine
DX: J18.9 Pneumonia, unspecified organism (principal); R53.1 Weakness; C90.00 Multiple myeloma not having achieved remission; C79.51 Secondary malignant neoplasm of bone; E21.3 Hyperparathyroidism, unspecified; Z79.82 Long term (current) use of aspirin; Z79.899 Other long term (current) drug therapy
CPT/HCPCS: 36415; 71046; 80053; 81003; 85025; 93005; 99283

== ENCOUNTER 2022-12-07 15:25 | Outpatient (CLI) | payer MEDICARE, SELFPAY ==
--- NOTE | ~2022-12-07 | XR_ITS ---
Clinical Indication: Cough PA and lateral views of the chest: Comparison: 12/03/2022 Findings: Right-sided Mediport in place. Stable probable COPD pattern of the lungs. No definite conso lidation or pleural effusion.. Cardiomediastinal silhouette is stable, with pacemaker device. Bones and soft tissues are unremarkable. Impression: COPD pattern of the lungs. Mediport and pacemaker device remain in place. Reviewed, dictated and finalized at location . Impression: COPD pattern of the lungs. Mediport and pacemaker device remain in place.
[2022-12-07 15:47] LABS: Hematocrit 29.6 % (35.0-42.0); Hemoglobin 9.8 g/dL (11.7-13.8); Mean Corpuscular HGB Conc 33.1 g/dL (32.0-36.0); Mean Corpuscular Hemoglobin 34.6 pg (27.0-31.0); Mean Corpuscular Volume 104.6 fL (78.0-102.0); Platelet Count Result 433 K/mm3 (150-420); Red Blood Count 2.83 M/mm3 (4.20-5.40); Red Cell Distribution Width 14.2 % (11.6-14.4); White Blood Count 8.4 K/mm3 (4.8-10.8)
[2022-12-07 16:09] LABS: Alanine Aminotransferase 31 U/L (14-59); Albumin Level 2.6 g/dL (3.4-5.0); Alkaline Phosphatase 73 U/L (46-116); Anion Gap 10 mmol/L (8-16); Aspartate Amino Transferase 20 U/L (15-37); Bilirubin,Total 0.2 mg/dL (0.00-1.00); Blood Urea Nitrogen 20 mg/dL (7-18); Calcium 10.1 mg/dL (8.5-10.1); Carbon Dioxide 22 mmol/L (21-32); Chloride 102 mmol/L (98-108); Estimated Glomerular Filt Rate 50; Glucose 103 mg/dL (70-99); NT Pro B Type Natriuretic Pept 905 pg/mL (0-450); Osmolality Calculated 280 mOsm/kg (285-295); Potassium 4.4 mmol/L (3.5-5.1); Sodium 134 mmol/L (136-145); Total Protein 5.9 g/dL (6.4-8.2)
[2022-12-07 16:48] LABS: Band Neutrophils Percent 0 % (0-6); Basophils Percent Manual 0 % (0-1); Eosinophils Absolute Manual 0.08 K/mm3 (0.02-0.5); Eosinophils Percent Manual 1 % (1-6); Lymphocytes Absolute Manual 0.84 K/mm3 (1.1-4.5); Lymphocytes Percent Manual 10 % (18-44); Monocytes Absolute Manual 0.75 K/mm3 (0.1-0.90); Monocytes Percent Manual 9 % (3-9); Myelocytes Percent 1 %; Neutrophils Absolute Manual 6.63 K/mm3 (1.7-7.2); Neutrophils Percent Manual 79 % (46-73); Nucleated Red Blood Cells 1 %; Platelet Estimate Adequate (Adequate); Total Cells Counted 100
== END 2022-12-07 15:26 | disposition home or self-care (01) ==
LOC: CHSLAB 15:28
PROVIDERS: PCP Internal Medicine; Visit Provider Internal Medicine
DX: R05.9 Cough, unspecified (principal); R50.9 Fever, unspecified; R06.00 Dyspnea, unspecified; J44.9 Chronic obstructive pulmonary disease, unspecified; Z95.0 Presence of cardiac pacemaker
CPT/HCPCS: 36415; 71046; 80053; 83880; 85025; 87040

== ENCOUNTER 2022-12-25 16:38 | Emergency (ER) | payer MEDICARE, SELFPAY ==
[2022-12-25] VITALS (9 sets, daily range): BP systolic 103–123; BP diastolic 61–71; PULSE 59–65; RESP 14–20; TEMP 36.2–37.1; O2SAT 97–98
[2022-12-25 17:01] LABS: Glucose Point of Care 132 mg/dl (65-105)
--- NOTE | 2022-12-25 17:14 | ED.GENADULT ---
HPI - General Adult General Chief complaint: Weakness Stated complaint: low blood pressure at home Time Seen by Provider: 12/25/22 17:14 Source: patient and family Mode of arrival: ambulatory Limitations: no limitations History of Present Illness HPI narrative: patient is 82-year-old white female with history of multiple myeloma fish for chemotherapy today and she said she has had feelings of shakiness for the last 2 months since starting chemo. She said her blood pressure at home was 54/40. Here it was 119/54 complain of generalized weakness she said when she was at the chemotherapy place they gave her some fluids before they sent her home after an hour and half. She denies any chest pain nausea vomiting does feel shaky her blood sugar was 132 denies any problems walking talking seeing or hearing although she said the other day she lost her balance and fell to the ground without injury. She uses a walker. Denies any problems eating or drinking voiding or stooling bleeding or bruising lumps or bumps or swelling numbness or weakness. She has had a tremor for the last 2 months. Denies any cough shortness of breath she has had a little bit of runny nose. denies any sore throat or fever. She has had some tingling in the tips of her fingers at times. Past medical history multiple myeloma hyperparathyroidism she has a port in her right chest she has a pacemaker has history of emphysema. No history of [place] congestive heart failure AFib or venous thromboembolism. Related Data Home Medications Medication Instructions Recorded Confirmed carvedilol 25 mg tablet 25 mg PO BID 03/29/19 12/25/22 furosemide 20 mg tablet 20 mg PO DAILY 03/29/19 12/25/22 losartan 100 mg tablet 100 mg PO DAILY 03/29/19 12/25/22 multivitamin 1 tablet PO DAILY 03/29/19 12/25/22 ondansetron HCl 4 mg tablet 4 mg PO Q8H PRN Nausea 03/29/19 12/25/22 verapamil 240 mg tablet,extended 240 mg PO BID 03/29/19 12/25/22 release ferrous sulfate 325 mg (65 mg 325 mg PO DAILY 06/15/19 12/25/22 iron) tablet aspirin 81 mg tablet,delayed 81 mg PO DAILY 05/20/20 12/25/22 release omeprazole magnesium 20 mg 20 mg PO DAILY 11/05/20 12/25/22 tablet,delayed release (Prilosec OTC) hydralazine 10 mg tablet See Rx Instructions .Route .COMPLEX 12/02/20 12/25/22 cetirizine 10 mg tablet 10 mg PO DAILY 01/26/22 12/25/22 Allergies Allergy/AdvReac Type Severity Reaction Status Date / Time clams Allergy Severe Difficulty Verified 12/25/22 09:57 Breathing crab Allergy Severe Difficulty Verified 12/25/22 09:57 Breathing spironolactone Allergy Severe RASH, Verified 12/25/22 09:57 FACIAL SWELLING tramadol Allergy Severe SEVERE RASH Verified 12/25/22 09:57 Iodinated Contrast Media Allergy Intermediate DIZZY, Verified 12/25/22 09:57 HEADACHE shellfish derived Allergy Intermediate Rash Verified 12/25/22 09:57 Sulfa (Sulfonamide Allergy Intermediate Rash Verified 12/25/22 09:57 Antibiotics) amlodipine Allergy Unknown Rash Verified 12/25/22 09:57 banana Allergy Unknown Rash Verified 12/25/22 09:57 clindamycin Allergy Unknown Rash Verified 12/25/22 09:57 codeine Allergy Unknown Rash Verified 12/25/22 09:57 iodine Allergy Unknown Rash Verified 12/25/22 09:57 kiwi Allergy Unknown Rash Verified 12/25/22 09:57 latex Allergy Unknown Rash Verified 12/25/22 09:57 lisinopril AdvReac Unknown Cough Verified 12/25/22 09:57 Lobster Allergy Severe CONGESTION, Uncoded 12/25/22 09:57 DIFFICULTY BREATHING Review of Systems Review of Systems: All systems reviewed & are unremarkable except as noted in HPI and below PMFSH Past Medical History Medical History (Updated 12/25/22 @ 19:02 by Bimal Capellan MD) Allergies Bone metastases Cancer Hyperparathyroidism Multiple myeloma Family History Family History (Updated 11/05/20 @ 16:19 by Rene Davila) Other Cerebrovascular accident Family history of migraine headaches Heart disease Hyperte
[2022-12-25 17:34] LABS: Hematocrit 28.4 % (35.0-42.0); Hemoglobin 9.2 g/dL (11.7-13.8); Mean Corpuscular HGB Conc 32.4 g/dL (32.0-36.0); Mean Corpuscular Hemoglobin 33.8 pg (27.0-31.0); Mean Corpuscular Volume 104.4 fL (78.0-102.0); Mean Platelet Volume 11.2 fl (9.2-11.8); Platelet Count Result 204 K/mm3 (150-420); Red Blood Count 2.72 M/mm3 (4.20-5.40); Red Cell Distribution Width 14.2 % (11.6-14.4); White Blood Count 3.5 K/mm3 (4.8-10.8)
[2022-12-25 17:53] LABS: Lactic Acid Reflex 1.3 mmol/L (0.4-2.0)
[2022-12-25 17:57] LABS: Appearance Urine Clear (Clear); Bilirubin Urine Negative (Negative); Blood Urine Negative (Negative); Color Urine Light Yellow (Yellow); Glucose Urine UA Negative (Negative); Ketones Urine Negative (Negative); Leukocyte Esterase Ur Negative LEU/UL (Negative); Nitrate Urine Negative (Negative); Protein Urine Negative (Negative); Urobilinogen Urine 0.2 mg/dL (0.2-1.0)
[2022-12-25 17:58] LABS: Add Urine Microscopic? NO
[2022-12-25 18:03] LABS: Alanine Aminotransferase 18 U/L (14-59); Albumin Level 2.8 g/dL (3.4-5.0); Alkaline Phosphatase 64 U/L (46-116); Anion Gap 8 mmol/L (8-16); Aspartate Amino Transferase 10 U/L (15-37); Bilirubin,Total 0.5 mg/dL (0.00-1.00); Blood Urea Nitrogen 28 mg/dL (7-18); Calcium 8.6 mg/dL (8.5-10.1); Carbon Dioxide 26 mmol/L (21-32); Chloride 103 mmol/L (98-108); Estimated CRCL calculation 26 ml/min; Estimated Glomerular Filt Rate 46; Glucose 127 mg/dL (70-99); Magnesium 2.1 mg/dL (1.8-2.4); Osmolality Calculated 291 mOsm/kg (285-295); Sodium 137 mmol/L (136-145); Total Protein 5.7 g/dL (6.4-8.2); Troponin I 9.8 ng/L (0.00-60.4)
[2022-12-25] MEDS: SODIUM CHLORIDE 0.9% IV 1,000 ML 500 ML IV CONT (18:03)
--- NOTE | 2022-12-25 18:26 | PC.NURSE ---
pt resting eyes closed. call jordan in reach.
--- NOTE | 2022-12-25 18:47 | PC.NURSE ---
report to abdulaziz clarke. all questions answered.
== END 2022-12-25 19:21 | disposition home or self-care (01) ==
PROVIDERS: Emergency Provider Emergency Medicine; PCP Internal Medicine
DX: R25.1 Tremor, unspecified (principal); E86.9 Volume depletion, unspecified; C90.00 Multiple myeloma not having achieved remission; Z79.82 Long term (current) use of aspirin; Z79.899 Other long term (current) drug therapy
CPT/HCPCS: 36415; 80053; 81003; 82948; 83605; 83735; 84484; 85027; 96360; 99284; J7030

== ENCOUNTER 2023-01-31 11:41 | Inpatient (IN) | payer MEDICARE, SELFPAY ==
[2023-01-31] VITALS (49 sets, daily range): BP systolic 125–177; BP diastolic 66–110; PULSE 60–72; RESP 12–20; TEMP 36.3–36.5; O2SAT 98–100; BMI 18.1
--- NOTE | ~2023-01-31 | XR_ITS ---
MODIFIED ESOPHAGRAM HISTORY: Failed bedside swallow evaluation TECHNIQUE: Modified barium esophagram was performed on 02/03/2023. I administered fluoroscopy and perf ormed the exam with speech pathologist. Patient was seated for lateral fluoroscopic imaging for henna stion of thin liquids, pudding, solids and quantified amounts, followed by thin liquids in uncontroll ed amounts. This was recorded on tape. A single fluoroscopic spot image was also recorded. The DAP fo r this procedure was 1.2 Gycm2. The amount of fluoroscopy time used during this procedure was 1.9 min utes. FINDINGS: Oral stage: Adequate function. Pharyngeal stage: Reduced laryngeal elevation. Flash laryngeal penetration with uncontrolled thin liq uids without aspiration. Cervical/esophageal stage: There is a posteriorly bulging cricopharyngeal bar. IMPRESSION: Bulging cricopharyngeal bar and mild pharyngeal dysphagia resulting in flash laryngeal pe netration without aspiration with thin liquids. Please correlate with speech pathologist findings an d specific feeding recommendations. Reviewed, dictated and finalized at location A. IMPRESSION: Bulging cricopharyngeal bar and mild pharyngeal dysphagia resulting in flash laryngeal penetration without aspiration with thin liquids. Please c orrelate with speech pathologist findings and specific feeding recommendations.
--- NOTE | ~2023-01-31 | XR_ITS ---
XR ankle LT min 3V DATE: 01/31/2023 13:47 INDICATION: Fall. Pain and bruising of both ankles. TECHNIQUE: 4 views COMPARISON: August 26, 2014 left foot FINDINGS: There is mild medial soft tissue swelling. There is an approximately 1.2 x 5 mm bony density overlying the dorsal aspect of the anterior process of the talus, not present on August 26, 2014, likely representing an interval cortical avulsion fract ure of the anterior process of the talus of uncertain age. No other fracture or dislocation of the ankle or disruption of the ankle mortise is detected. Diffuse osteopenia. IMPRESSION: Cortical avulsion fracture from the anterior process of the talus of undetermined age Mild medial left ankle soft tissue swelling Osteopenia Reviewed, dictated and finalized at location A. IMPRESSION: Cortical avulsion fracture from the anterior process of the talus o f undetermined age Mild medial left ankle soft tissue swelling Osteopenia
--- NOTE | ~2023-01-31 | XR_ITS ---
XR chest 2V DATE: 01/31/2023 12:29 INDICATION: Cough TECHNIQUE: AP and lateral views COMPARISON: 12/03/2022 PA and lateral chest FINDINGS: Right Port-A-Cath catheter is again noted in superior vena cava. Left dual-lead pacemaker d evice with leads overlying right atrium and right ventricle. Stable cardiomediastinal silhouette. Aortic arch calcification. No hilar or mediastinal mass lesion o r adenopathy is evident. The lungs are hyperinflated but clear of infiltrate or consolidation. Diffuse osteopenia. Thoracic dextroscoliosis. IMPRESSION: No active cardiopulmonary disease or significant change since 12/03/2022 Reviewed, dictated and finalized at location A. IMPRESSION: No active cardiopulmonary disease or significant change since 2022
--- NOTE | ~2023-01-31 | US_ITS ---
EXAMINATION:US venous doppler LE BI INDICATION:Bilateral lower extremity edema TECHNIQUE: Multiple grayscale, color flow and Doppler images of the right and left lower extremity de ep venous systems were obtained and reviewed. COMPARISON:No prior studies for comparison. FINDINGS: The common femoral, superficial femoral and popliteal veins demonstrate normal respiratory variation, augmentation and compressibility. Color flow is also seen within the posterior tibial, pe roneal, greater saphenous and profunda veins. IMPRESSION: 1: No lower extremity deep venous thrombosis. Reviewed, dictated and finalized at location A.
--- NOTE | ~2023-01-31 | CT_ITS ---
EXAMINATION: CT brain wo con DATE: 01/31/2023 13:37 INDICATION: Fall. TECHNIQUE: Computed tomography (CT) of the head was performed without intravenous contrast. The mA wa s adjusted according to patient size. Iterative reconstruction technique was employed. Exam dose: 60 5.33 mGy-cm total exam DLP. COMPARISON: None FINDINGS: There is nonspecific diminished attenuation of the cerebral white matter, likely due to chr onic small vessel ischemic changes. No intracranial mass lesion or hemorrhage or cerebrovascular accident is evident. No midline shift or mass effect. Moderately prominent central and cortical cerebral and cerebellar vo lume loss. No subdural or epidural hematoma is detected. Mild mucoperiosteal thickening of the maxillary sinuses. The remainder of the paranasal sinuses and t he mastoid air cells are normally developed and aerated. No fracture or bone destruction of the cranial vault. IMPRESSION: No skull fracture or acute intracranial finding Reviewed, dictated and finalized at Location A. Reviewed, dictated and finalized at location A.
--- NOTE | ~2023-01-31 | CT_ITS ---
EXAMINATION: CT cervical spine wo con DATE: 01/31/2023 13:37 INDICATION: Fall. TECHNIQUE: Computed tomography (CT) of the cervical spine was performed without intravenous contrast. Automated exposure control and iterative reconstruction technique were employed. Exam dose: 94.98 m Gy-cm total exam DLP. COMPARISON: None FINDINGS: Levoscoliosis of the cervical spine. C1 and C2 are normally aligned and the odontoid process is intact. There is degenerative disc disease throughout the cervical spine, moderately severe at C2 and C3-4 wi th retrolisthesis at each of these levels. Severe degenerative disc disease noted at C5-6 and C6-7 as well. There is degenerative change at the apophyseal and uncovertebral joints throughout the cervical spine .. IMPRESSION: Cervical spondylosis; no fracture or dislocation or locked facet is detected Reviewed, dictated and finalized at Location A. Reviewed, dictated and finalized at location A. IMPRESSION: Cervical spondylosis; no fracture or dislocation or locked facet i s detected
--- NOTE | ~2023-01-31 | XR_ITS ---
XR ankle RT min 3V DATE: 01/31/2023 13:48 INDICATION: Fall. Pain, swelling TECHNIQUE: 4 views COMPARISON: None FINDINGS: There is osteopenia. There is generalized moderate soft tissue swelling of the right ankle. No fracture or dislocation of the ankle or disruption of the ankle mortise is detected. No periosteal reaction or bone destruction. IMPRESSION: Right ankle soft tissue swelling; no fracture or dislocation Osteopenia Reviewed, dictated and finalized at location A.
--- NOTE | 2023-01-31 11:48 | ECG_ITS ---
Measurements Intervals [place] Rate: 66 P: 91 OR: 155 QRS: 27 QRSD: 89 T: 91 QT: 391 QTc: 410 Interpretive Statements SINUS RHYTHM NONSPECIFIC ST & T-WAVE ABNORMALITY- DIFFUSE LEADS BASELINE ARTIFACT- I, II, III, AVR, AVL, AVF, V1-V6 BORDERLINE ECG COMPARED TO ECG 12/03/2022 18:06:49 ST-T WAVE ABNORMALITY NOW PRESENT Electronically Signed On 01-31-2023 15:59:01 CDT by Darrian Butcher D.O.
[2023-01-31 12:11] LABS: Hemoglobin 8.4 g/dL (12.0-15.0); Immature Platelet Fraction Pct 16.7 % (0.9-11.2); Mean Corpuscular HGB Conc 33.6 g/dl (32-36); Mean Corpuscular Hemoglobin 33.9 pg (26-34); Mean Corpuscular Volume 100.8 fl (80-100); Mean Platelet Volume 14.7 fl (7.4-10.4); Platelet Count Result 36 k/mm3 (150-375); Red Blood Count 2.48 M/mm3 (4.2-5.4); Red Cell Distribution Width 15.2 % (11.5-14.5); White Blood Count 5.8 K/mm3 (4.5-10.0)
[2023-01-31 12:25] LABS: Band Neutrophils Percent 11 % (0-6); Hypochromasia 1+ (NORMAL); Lymphocytes Absolute Manual 0.81 K/mm3 (1.1-4.5); Monocytes Absolute Manual 0.23 K/mm3 (0.1-0.90); Monocytes Percent Manual 4 % (3-9); Neutrophils Absolute Manual 4.75 K/mm3 (1.7-7.2); Neutrophils Percent Manual 71 % (46-73); Nucleated Red Blood Cells 3 %; Platelet Estimate Decreased (Adequate); Schistocytes None Seen (NORMAL); Total Cells Counted 100
[2023-01-31 12:36] LABS: Alanine Aminotransferase 28 U/L (6-35); Albumin Level 2.8 g/dL (3.5-5.1); Alkaline Phosphatase 50 U/L (38-126); Anion Gap 4 mmol/L (8-16); Aspartate Amino Transferase 40 U/L (14-36); Bilirubin,Total 0.5 mg/dL (0.2-1.3); Blood Urea Nitrogen 34 mg/dL (7-17); Calcium 9.3 mg/dL (8.4-10.2); Carbon Dioxide 25 mmol/L (22-30); Chloride 98 mmol/L (98-107); Estimated CRCL calculation 16 ml/min; Estimated Glomerular Filt Rate 25; Glucose 104 mg/dL (65-110); Potassium 2.6 mmol/L (3.4-5.0); Sodium 127 mmol/L (137-145)
[2023-01-31 12:58] LABS: Appearance Urine Clear (Clear); Bilirubin Urine Negative (Negative); Blood Urine Negative (Negative); Color Urine Yellow (Yellow); Glucose Urine UA Negative (Negative); Ketones Urine Negative (Negative); Leukocyte Esterase Ur Negative LEU/UL (Negative); Nitrate Urine Negative (Negative); Protein Urine Negative (Negative); Specific Grav Ur 1.012 (1.001-1.035); Urobilinogen Urine 0.2 mg/dL (<2.0); pH Urine 5.5 (5.0-9.0)
[2023-01-31 13:04] LABS: Add Urine Microscopic? NO
--- NOTE | 2023-01-31 13:12 | ED.WEAKNESS ---
HPI - Weakness General Chief complaint: Weakness Stated complaint: weakness post cx treatment Time Seen by Provider: 01/31/23 12:27 History of Present Illness HPI Narrative: Patient is an 82-year-old female with a history of multiple myeloma, hypertension, GERD presenting after a fall. Patient had chemotherapy approximately 2 days ago. Family states that she often has a lot of diarrhea following the shots which she has had for the last 2 days. Patient states that she fell sometime in the middle of the night and was too weak to stand up so she laid there until morning when she thought it was an appropriate time to call her family. Family came and found her on the floor. They were able to help her up and she was able to dress herself. She went to the bathroom and was unable to stand up after sitting on the toilet. Currently, she denies any complaints. She does not think she struck her head but she is not sure. No headache, chest pain, abdominal pain, hip pain. Patient complains of acute on chronic bilateral ankle pain. Related Data Home Medications Medication Instructions Recorded Confirmed carvedilol 25 mg tablet (Coreg) 25 mg PO BID 03/29/19 02/04/23 losartan 100 mg tablet (Cozaar) 100 mg PO DAILY 03/29/19 02/04/23 multivitamin (Daily Multi-Vitamin 1 tablet PO DAILY 03/29/19 02/04/23 tablet) ondansetron HCl 4 mg tablet 4 mg PO Q8H PRN Nausea 03/29/19 02/04/23 verapamil 240 mg tablet,extended 240 mg PO BID 03/29/19 02/04/23 release ferrous sulfate 325 mg (65 mg 325 mg PO DAILY 06/15/19 02/04/23 iron) tablet (Iron (ferrous sulfate)) aspirin 81 mg tablet,delayed 81 mg PO DAILY 05/20/20 02/04/23 release (Adult Low Dose Aspirin) omeprazole magnesium 20 mg 20 mg PO DAILY 11/05/20 02/04/23 tablet,delayed release (Prilosec OTC) hydralazine 10 mg tablet See Rx Instructions .Route .COMPLEX 12/02/20 02/04/23 cetirizine 10 mg tablet (Zyrtec) 10 mg PO DAILY 01/26/22 02/04/23 furosemide 20 mg tablet (Lasix) 20 mg PO DAILY 01/31/23 02/04/23 Allergies Allergy/AdvReac Type Severity Reaction Status Date / Time clams Allergy Severe Difficulty Verified 01/31/23 12:02 Breathing crab Allergy Severe Difficulty Verified 01/31/23 12:02 Breathing spironolactone Allergy Severe RASH, Verified 01/31/23 12:02 FACIAL SWELLING tramadol Allergy Severe SEVERE RASH Verified 01/31/23 12:02 Iodinated Contrast Media Allergy Intermediate DIZZY, Verified 01/31/23 12:02 HEADACHE shellfish derived Allergy Intermediate Rash Verified 01/31/23 12:02 Sulfa (Sulfonamide Allergy Intermediate Rash Verified 01/31/23 12:02 Antibiotics) amlodipine Allergy Unknown Rash Verified 01/31/23 12:02 banana Allergy Unknown Rash Verified 01/31/23 12:02 clindamycin Allergy Unknown Rash Verified 01/31/23 12:02 codeine Allergy Unknown Rash Verified 01/31/23 12:02 iodine Allergy Unknown Rash Verified 01/31/23 12:02 kiwi Allergy Unknown Rash Verified 01/31/23 12:02 latex Allergy Unknown Rash Verified 01/31/23 12:02 lisinopril AdvReac Unknown Cough Verified 01/31/23 12:02 Lobster Allergy Severe CONGESTION, Uncoded 01/31/23 12:02 DIFFICULTY BREATHING Review of Systems Review of Systems: All systems reviewed & are unremarkable except as noted in HPI and below PMFSH Past Medical History Medical History Chronic anemia Chronic kidney disease, stage 3 Hyperparathyroidism Multiple myeloma Osteoporosis Surgical History Surgical History History of bilateral cataract extraction History of permanent cardiac pacemaker placement Family History Family History Father Malignant neoplasm of prostate Acute myocardial infarction Heart disease Sibling Chronic obstructive pulmonary disease Other Family history of migraine headaches Social History Socia
[2023-01-31] MEDS: POTASSIUM CHLORIDE INJ 40 MEQ in SODIUM CHLORIDE 0.9% IV 500 ML 130 MEQ IVPB (13:59)
[2023-01-31] MEDS: SODIUM CHLORIDE 0.9% IV 1,000 ML 999 ML IV CONT (14:00)
[2023-01-31 14:40] LABS: Creatine Kinase 161 U/L (30-135); Lactic Acid Reflex 0.7 mmol/L (0.7-2.0)
[2023-01-31 14:41] LABS: Magnesium 2.1 mg/dL (1.6-2.3)
--- NOTE | 2023-01-31 18:30 | ADMGEN ---
This patient, Aurea Hussein, was admitted to Medical Room 248-01. Patient/family oriented to hospital policies and general routines including ID bracelet, bed and alarms, visiting hours, pain management, procedures, bathroom and other care routines, personal items, smoking policy, room service/diet, and visiting hours. Information on how to activate the Rapid Response Team has been discussed. Patient/Family are encouraged to report perceived risks to care and to ask questions if they do not understand what they are told or what they should do.
[2023-01-31 20:40] LABS: Potassium 3.2 mmol/L (3.4-5.0)
--- NOTE | 2023-01-31 22:09 | PM.IMHP ---
H&P: [facility] History of Present Illness Date/Time: 01/31/23 21:30 Chief Complaint: Weakness. Narrative: This is a very pleasant 82-year-old female with multiple myeloma, chronic kidney disease, anemia, and hypertension who presented to the emergency department via EMS from home for evaluation of weakness. The patient provides the following history. She is a patient of Dr. Gonzalez and she had her last chemotherapy treatment 2 days ago. It is not unusual for her to have quite a bit of diarrhea following this treatment and this time was no different. She went to bed last night around 21:00 and sometime in the middle the night she got up to have a bowel movement. She was extremely weak at that time and she tells me she was unable to hold herself up and she fell down onto the ground onto her bottom. She was unable to get herself up and she did not want to disturb her family members so she lie on the floor until morning. She thinks that she rolled her ankles in the fall and was complaining of ankle discomfort on arrival to the ED. She denied head trauma and loss of consciousness in the fall. Her vital signs have been stable since arrival to the ED. Her labs were significant for hemoglobin of 8.4 which is near baseline, platelet 36, 11% bands, sodium 127, potassium 2.6, BUN 34, creatinine 1.90, lactic acid 0.7, total protein 5.0, albumin 2.8. Left ankle x-ray showed a cortical avulsion fracture from the anterior process of the talus of undetermined age and mild medial ankle soft tissue swelling. Right ankle soft tissue swelling was also noted on x-ray. CT of the head and cervical spine showed no acute findings. Chest x-ray was unremarkable. She is being admitted in this setting for IV fluid rehydration and potassium replacement. Review of Systems Review of Systems: Twelve systems were reviewed. She denies syncope and near syncope. No fever, chills, or sweats. No sinus congestion, sore throat, or cough. She denies chest pain, pleuritic pain, palpitations, and sensations of racing heart. No shortness of breath. Appetite has been diminished. She denies vomiting. Frequent diarrhea detailed in HPI. No melena or hematochezia. Except as documented, all other systems were reviewed and are negative. [facility] Past Medical History Medical History (Updated 01/31/23 @ 22:28 by Teresa Barcenas PA-C) Chronic anemia Chronic kidney disease, stage 3 Hyperparathyroidism Multiple myeloma Osteoporosis Surgical History Surgical History (Updated 01/31/23 @ 22:16 by Teresa Barcenas PA-C) History of bilateral cataract extraction History of permanent cardiac pacemaker placement Family History Family History Father Malignant neoplasm of prostate Acute myocardial infarction Heart disease Sibling Chronic obstructive pulmonary disease Other Family history of migraine headaches Social History Social History (Updated 01/31/23 @ 22:17 by Teresa Barcenas PA-C) Social History: Surrogate medical decision maker: Shirley or Jem Oliver (daughter and son-in-law). Code status: Full code. Smoking status: Never smoker Second hand tobacco smoke exposure: No Alcohol intake: never Substance use: never Substance use type: does not use Lack of Transportation: No Lack of Food: Never True Current Housing: I Have Housing Concerned About Future Housing: No Difficulty Paying Gas/Electric Bills: No Difficulty Paying for Meds: No Currently Unemployed: No Education: Trade/Vocational Certificate Difficulty w/ Childcare or Family Care: No Living arrangements: alone Spiritual care concerns: Yes (would like teacher home therapy) Meds Home Medications and Allergies Home Medications Medication Instructions Recorded Confirmed Type carvedilol 25 mg tablet (Coreg) 25 mg PO BID 03/29/19 01/31/23 History losartan 100 mg tablet (Cozaar) 100 mg PO DAILY 03/29/19 01/31/23 History multivitami
[2023-02-01] VITALS (23 sets, daily range): BP systolic 95–152; BP diastolic 49–84; PULSE 61–72; RESP 12–18; TEMP 36.1–36.9; O2SAT 96–100; BMI 18.1
[2023-02-01] MEDS: POTASSIUM CHLORIDE 20 MEQ PACKET (FOR LIQUID) 40 MEQ PO (00:21)
[2023-02-01] MEDS: PIPERACILLN/TAZ 3.375GM/NS50ML 3.375 GM/50 ML BAG IVPB (00:22)
[2023-02-01] MEDS: VERAPAMIL HCL ER 240 MG TABLET.ER PO ×2 (00:22→08:24)
[2023-02-01] MEDS: carvediloL 25 MG TABLET PO ×2 (00:22→08:23)
[2023-02-01] MEDS: SODIUM CHLORIDE 0.9% IV 1,000 ML 75 ML IV CONT (00:23)
[2023-02-01 05:57] LABS: Immature Granulocyte Absolute 0.11 K/mm3 (0.00-0.031); Immature Granulocyte Percent A 3.5 % (0-0.5); Immature Platelet Fraction Pct 12.1 % (0.9-11.2); Lymphocytes Absolute Auto 0.21 K/mm3 (0.9-3.2); Lymphocytes Percent Auto 6.8 % (18.3-44.2); Mean Corpuscular HGB Conc 32.5 g/dl (32-36); Mean Corpuscular Hemoglobin 33.7 pg (26-34); Mean Corpuscular Volume 103.5 fl (80-100); Monocytes Absolute Auto 0.6 K/mm3 (0.1-0.6); Monocytes Percent Auto 19.6 % (2.6-8.5); Neutrophils Absolute Auto 2.2 K/mm3 (1.3-6.7); Neutrophils Percent Auto 70.1 % (45.5-73.1); Nucleated Red Blood Cells Absolute Auto 0.1 K/mm3 (0.0-0.012); Nucleated Red Blood Cells Perc 2.3 % (0.0-0.2); Platelet Count Result 26 k/mm3 (150-375); Red Blood Count 2.02 M/mm3 (4.2-5.4); Red Cell Distribution Width 15.3 % (11.5-14.5); White Blood Count 3.1 K/mm3 (4.5-10.0)
[2023-02-01] MEDS: PIPERACILLIN/TAZ 2.25G/NS 50ML 2.25 GM/50 ML BAG IVPB ×3 (06:04→22:00)
[2023-02-01 06:08] LABS: Hematocrit 20.9 % (37.0-47.0); Hemoglobin 6.8 g/dL (12.0-15.0)
[2023-02-01 06:09] LABS: Alanine Aminotransferase 26 U/L (6-35); Albumin Level 2.4 g/dL (3.5-5.1); Alkaline Phosphatase 44 U/L (38-126); Anion Gap 3 mmol/L (8-16); Aspartate Amino Transferase 34 U/L (14-36); Bilirubin,Total 0.5 mg/dL (0.2-1.3); Blood Urea Nitrogen 26 mg/dL (7-17); Calcium 8.4 mg/dL (8.4-10.2); Carbon Dioxide 22 mmol/L (22-30); Chloride 106 mmol/L (98-107); Creatine Kinase 101 U/L (30-135); Estimated CRCL calculation 21 ml/min; Estimated Glomerular Filt Rate 33; Glucose 71 mg/dL (65-110); Potassium 3.5 mmol/L (3.4-5.0); Sodium 131 mmol/L (137-145)
--- NOTE | 2023-02-01 06:23 | PC.NURSE ---
pt's Hgb 6.8. Dr Infante notified via phone. New orders received to transfuse 1 unit of packed RBCs. order entered and critical results charted.
--- NOTE | 2023-02-01 06:24 | PC.NURSE ---
stool specomen needed. pt did not have a BM during this shift. Hat for stool sample placed in pt's toilet
[2023-02-01] MEDS: MULTIVITAMINS THERAPEUTIC TAB (*BKC) 1 TABLET PO (08:23)
[2023-02-01] MEDS: FERROUS SULFATE 325 MG TABLET DR BY MOUTH (08:24)
[2023-02-01] MEDS: PANTOPRAZOLE 40 MG TABLET PO (08:24)
[2023-02-01] MEDS: LORATADINE 10 MG TABLET PO (08:25)
--- NOTE | 2023-02-01 09:10 | PCPTNOTE ---
Pt has a known fracture in R foot and pending US for DVTs. Attempted to contact hospitalist to see if there was any precautions for therapy, but hospitalist did not answer. Will follow.
--- NOTE | 2023-02-01 10:24 | PM.IMPN ---
Progress Note: A&P Assessment and Plan (1) Acute on chronic kidney failure: Code(s): N17.9 - Acute kidney failure, unspecified; N18.9 - Chronic kidney disease, unspecified Status: Acute Assessment and Plan: She is dehydrated from ongoing diarrhea and has acute on chronic kidney injury. BUN and creatinine on admission 34/1.9 Continue IV fluid rehydration. BUN creatinine today 20/1.4 Continue to monitor (2) Fall from ground level: Code(s): W18.30XA - Fall on same level, unspecified, initial encounter Status: Acute Assessment and Plan: Patient had a ground level fall at home. She has had increasing weakness. Avulsion fracture of the left foot without pain. Continue to monitor this. Patient not experience loss of consciousness or hit her head. PT and OT ordered. (3) Generalized weakness: Code(s): R53.1 - Weakness Status: Acute Assessment and Plan: Likely due to diarrhea and dehydration. PT and OT ordered. (4) Chemotherapy induced diarrhea: Code(s): K52.1 - Toxic gastroenteritis and colitis; T45.1X5A - Adverse effect of antineoplastic and immunosuppressive drugs, initial encounter Status: Acute Assessment and Plan: She has had multiple episodes of diarrhea since she received chemotherapy 2 days ago and that is not necessarily unusual for her. Diarrhea has since resolved. Continue IV antibiotics. (5) Dehydration: Code(s): E86.0 - Dehydration Status: Acute Assessment and Plan: Dehydration likely due to diarrhea. Continue IV fluids. (6) Hypokalemia: Code(s): E87.6 - Hypokalemia Status: Acute Assessment and Plan: Please from Diarrhea Replace as necessary. (7) Multiple myeloma: Code(s): C90.00 - Multiple myeloma not having achieved remission Status: Acute Assessment and Plan: Receiving chemotherapy (8) Chronic anemia: Code(s): D64.9 - Anemia, unspecified Status: Acute Assessment and Plan: Likely due to cancer. Patient sees Hematology/Oncology. H&H is morning was 6.8/20.9. 1 unit of PRBCs ordered and repeat H&H 1 hour post transfusion. (9) Thrombocytopenia: Code(s): D69.6 - Thrombocytopenia, unspecified Status: Acute Assessment and Plan: Sees hematology/oncology Likely from cancer /Chemotherapy (10) Avulsion fracture of talus: Code(s): S92.153A - Displaced avulsion fracture (chip fracture) of unspecified talus, initial encounter for closed fracture Status: Acute Assessment and Plan: Patient not having any active pain. No intervention necessary at this time. If she develops pain will put in walking boot and have her follow-up with orthopedics. (11) Lower extremity edema: Code(s): R60.0 - Localized edema Status: Acute Assessment and Plan: Patient states that she does get and intermittent edema and she has to be on a water pill for it. Doppler ultrasounds negative for DVT Plan Abdominal exam is benign thus will hold on imaging for now. Her diarrhea is likely related to the chemotherapy however as she is technically immunocompromised and she has an increased number of bands on her differential, she will be started on empiric Zosyn pending stool studies. Hemoglobin and hematocrit are stable on review of previous labs. Her platelet count is lower than what she typically runs, likely due to the chemotherapy. She sustained an avulsion fracture of the left talus in the fall. Analgesics available as needed. Her home medications will be reviewed and resumed as appropriate. Subjective Date/time seen: 02/01/23 10:24 Interval history: Patient doing well today. She states that her diarrhea has stopped. She does feel increasing weakness in PT and OT year going to evaluate air. She was found have a hemoglobin of 6.8 and will rece
[2023-02-01 11:20] LABS: Iron 49 ug/dL (37-170)
[2023-02-01 11:29] LABS: Percent Iron Saturation 22 % (20-50)
[2023-02-01 11:53] LABS: Transferrin 124 mg/dL (206-381)
[2023-02-01] MEDS: SODIUM CHLORIDE 0.9% IV 250 ML 30 ML IV CONT (12:50)
[2023-02-01] MEDS: TUBING, BLOOD PLUM PUMP TUBING 1 EACH XX (13:04)
[2023-02-01 13:05] LABS: Folic Acid > 20.0 ng/mL (2.76->20)
--- NOTE | 2023-02-01 14:34 | PC.NURSE ---
Physical assessment by Student Nurse Tiff Engel/[facility] reviewed. Agree with same. Any procedures, care or medications that were given by student nurse were completed under direct supervision of this instructor or assigned staff nurse. Of note, patient was present for infusion of unit of PRBC ordered for today and assisted with assessment and reassessment of patient during this time.
[2023-02-01 19:32] LABS: Hemoglobin 8.7 g/dL (12.0-15.0)
[2023-02-02] VITALS (14 sets, daily range): BP systolic 81–160; BP diastolic 52–89; PULSE 63–83; RESP 16–18; TEMP 36.2–36.9; O2SAT 98–100
--- NOTE | 2023-02-02 | ECHO_ITS ---
Patient Info Name: Aurea Hussein Age: 82 years : 1940 Gender: Female Ht: 67 in Wt: 121 lbs BSA: 1.60 m2 HR: 76 bpm Heart Rhythm: Sinus Rhythm Technical Quality: Good Exam Date: 02/02/2023 1:36 PM Exam Location: [facility] Patient Status: Inpatient Admit Date: 02/01/2023 Staff Ordering Physician: Bonnie Seymour PA-C Slide Attendant: Carlos Bradley RDCS Attending Provider: Racquel Wiley MD Referring Physician: Lion SIDHU; Exam Type: CA echo doppler color flow Study Info Indications - Lower extremity swelling Complete two-dimensional, color flow and Doppler transthoracic echocardiogram is performed. Summary 1. Complete two-dimensional, color flow and Doppler transthoracic echocardiogram is performed. 2. Left ventricular chamber dimension is normal. 3. Left ventricular systolic function is normal, estimated at 60-65%. 4. There is mildly increased left ventricular wall thickness. 5. The left ventricular diastolic function is grade I diastolic dysfunction. 6. Right ventricular systolic function is normal. 7. Left atrial chamber dimension is mildly enlarged. 8. There is mild to moderate mitral valve regurgitation. 9. There is mild tricuspid valve regurgitation. Left Ventricle Left ventricular chamber dimension is normal. Left ventricular systolic function is normal, estimated at 60-65%. There is mildly increased left ventricular wall thickness. The left ventricular diastolic function is grade I diastolic dysfunction. Right Ventricle Right ventricular chamber dimension is normal. Right ventricular systolic function is normal. Left Atria Left atrial chamber dimension is mildly enlarged. Right Atria Right atrial chamber dimension is normal. Atrial Septum Intact interatrial septum visualized by color flow imaging. Aortic Valve There is mild aortic valve sclerosis. There is no aortic valve stenosis. There is no aortic valve regurgitation. Pulmonic Valve The pulmonic valve is not well visualized. Mitral Valve There is mild to moderate mitral valve regurgitation. Tricuspid Valve There is mild tricuspid valve regurgitation. Pericardium/Pleural There is no pericardial effusion. Inferior Vena Cava Dilated inferior vena cava with <50% collapse upon inspiration consistent with elevated right atrial pressure, 15 mmHg. Aorta The aortic root size at the sinus of Valsalva is normal. Left Ventricular Outflow Tract Name Value Normal LVOT 2D LVOT Diameter 1.7 cm LVOT Doppler LVOT Peak Gradient 8 mmHg LVOT Mean Gradient 4 mmHg LVOT VTI 35 cm LVOT VTI/AV VTI Ratio 0.8 LVOT Stroke Volume 80 ml LVOT CO 5.1 l/min LVOT CI 3.2 l/min/m2 Pulmonic Valve Name Value Normal RVOT Doppler RVOT Peak Gradient 1
[2023-02-02 05:54] LABS: Alanine Aminotransferase 26 U/L (6-35); Albumin Level 2.5 g/dL (3.5-5.1); Alkaline Phosphatase 47 U/L (38-126); Anion Gap 3 mmol/L (8-16); Aspartate Amino Transferase 33 U/L (14-36); Bilirubin,Total 0.6 mg/dL (0.2-1.3); Blood Urea Nitrogen 20 mg/dL (7-17); Calcium 8.3 mg/dL (8.4-10.2); Carbon Dioxide 23 mmol/L (22-30); Chloride 103 mmol/L (98-107); Estimated CRCL calculation 26 ml/min; Estimated Glomerular Filt Rate 43; Glucose 78 mg/dL (65-110); Hematocrit 26.4 % (37.0-47.0); Hemoglobin 8.8 g/dL (12.0-15.0); Immature Platelet Fraction Pct 11.8 % (0.9-11.2); Mean Corpuscular HGB Conc 33.3 g/dl (32-36); Mean Corpuscular Hemoglobin 31.2 pg (26-34); Mean Corpuscular Volume 93.6 fl (80-100); Potassium 3.4 mmol/L (3.4-5.0); Red Blood Count 2.82 M/mm3 (4.2-5.4); Red Cell Distribution Width 19.4 % (11.5-14.5); Sodium 129 mmol/L (137-145); White Blood Count 4.7 K/mm3 (4.5-10.0)
[2023-02-02 06:11] LABS: Platelet Count Result 23 k/mm3 (150-375)
[2023-02-02] MEDS: PIPERACILLIN/TAZ 2.25G/NS 50ML 2.25 GM/50 ML BAG IVPB (06:34)
[2023-02-02] MEDS: FERROUS SULFATE 325 MG TABLET DR BY MOUTH (09:15)
[2023-02-02] MEDS: PANTOPRAZOLE 40 MG TABLET PO (09:15)
[2023-02-02] MEDS: MULTIVITAMINS THERAPEUTIC TAB (*BKC) 1 TABLET PO (09:16)
[2023-02-02] MEDS: LORATADINE 10 MG TABLET PO (09:18)
[2023-02-02] MEDS: VERAPAMIL HCL ER 240 MG TABLET.ER PO (09:18)
[2023-02-02] MEDS: carvediloL 25 MG TABLET PO (09:20)
--- NOTE | 2023-02-02 12:48 | PM.IMPN ---
Progress Note: A&P Assessment and Plan (1) Acute on chronic kidney failure: Code(s): N17.9 - Acute kidney failure, unspecified; N18.9 - Chronic kidney disease, unspecified Status: Acute Assessment and Plan: She is dehydrated from ongoing diarrhea and has acute on chronic kidney injury. BUN and creatinine on admission 34/1.9 Continue IV fluid rehydration. BUN creatinine today 20/1.2 Continue to monitor (2) Fall from ground level: Code(s): W18.30XA - Fall on same level, unspecified, initial encounter Status: Acute Assessment and Plan: Patient had a ground level fall at home. She has had increasing weakness. Avulsion fracture of the left foot without pain. Continue to monitor this. Patient not experience loss of consciousness or hit her head. PT and OT ordered. (3) Generalized weakness: Code(s): R53.1 - Weakness Status: Acute Assessment and Plan: Likely due to diarrhea and dehydration. PT and OT ordered. (4) Chemotherapy induced diarrhea: Code(s): K52.1 - Toxic gastroenteritis and colitis; T45.1X5A - Adverse effect of antineoplastic and immunosuppressive drugs, initial encounter Status: Acute Assessment and Plan: She has had multiple episodes of diarrhea since she received chemotherapy 2 days ago and that is not necessarily unusual for her. Diarrhea has since resolved. IV antibiotics discontinued due to this most likely being from chemotherapy.. (5) Dehydration: Code(s): E86.0 - Dehydration Status: Acute Assessment and Plan: Dehydration likely due to diarrhea. Continue IV fluids. (6) Hypokalemia: Code(s): E87.6 - Hypokalemia Status: Acute Assessment and Plan: Please from Diarrhea Replace as necessary. (7) Multiple myeloma: Code(s): C90.00 - Multiple myeloma not having achieved remission Status: Acute Assessment and Plan: Receiving chemotherapy oncology consulted (8) Chronic anemia: Code(s): D64.9 - Anemia, unspecified Status: Acute Assessment and Plan: Likely due to cancer. Patient sees Hematology/Oncology. 02/01 H&H is morning was 6.8/20.9. 1 unit of PRBCs ordered and repeat H&H 1 hour post transfusion. 02/02 H&H has remained 8.8/26.4 (9) Thrombocytopenia: Code(s): D69.6 - Thrombocytopenia, unspecified Status: Acute Assessment and Plan: Sees hematology/oncology Likely from cancer /Chemotherapy Platelet count 23 this morning. Transfuse if less than 15 (10) Avulsion fracture of talus: Code(s): S92.153A - Displaced avulsion fracture (chip fracture) of unspecified talus, initial encounter for closed fracture Status: Acute Assessment and Plan: Patient not having any active pain. No intervention necessary at this time. If she develops pain will put in walking boot and have her follow-up with orthopedics. (11) Lower extremity edema: Code(s): R60.0 - Localized edema Status: Acute Assessment and Plan: Patient states that she does get and intermittent edema and she has to be on a water pill for it. Doppler ultrasounds negative for DVT lower extremity edema could very well be to chemotherapy. Hold off on diuretics due to MIGUELITO low sodium. Echocardiogram ordered. Subjective Date/time seen: 02/02/23 12:48 Interval history: Patient doing well today. She continues to have lower extremity edema which is usual for her. She is not have any tenderness over fracture site. She continues to have weakness. Having difficulty on placement due to her receiving chemotherapy. Waiting on acceptance from [facility]. Exam Narrative: GENERAL: Comfortable, no acute distress HENMT: moist mucous membranes EYES: EOM intact b/l NECK: no lymphadenopathy RESPIRATORY: clear to auscultation CARDIO: RRR GI: s
--- NOTE | 2023-02-02 17:44 | PCSTNOTE ---
Please refer to the Bedside Swallow Evaluation in the EMR. Please note, silent aspiration cannot be ruled out at bedside.
--- NOTE | 2023-02-02 18:59 | PDONCCN ---
HPI - Date of Consult Date/Time: 02/02/23 18:59 Requesting Physician: Racquel Wiley MD Primary Care Provider: Eros Layne MD - Consult Narrative Reason for consult: Multiple myeloma Narrative: Aurea Hussein is a 82 year old female with history of multiple myeloma status post bone marrow aspiration and biopsy that showed bone marrow involvement with 63% plasma cell neoplasm. She started chemotherapy with VRD regimen on November 10, 2022. Previously she was on Darzalex maintenance treatment but was discontinued due to progressive disease. She came into the hospital with generalized weakness and diarrhea after the treatment. Her last treatment was about 5 days ago. Labs on admission showed hemoglobin of 8.4 [place] [address]. Creatinine was elevated at 1.9. Subsequent labs showed hemoglobin of 6.8. Patient received 1 unit of packed red blood cell with improvement in hemoglobin. She denies any bleeding. CT head showed no acute findings. Doppler studies were performed due to swelling that showed no evidence of DVT. Other labs showed normal iron of 49 with iron saturation of 22%. Vitamin B12 was elevated at 950. Serum protein electrophoresis done on January 26 showed drop in M spike down to 0.2 g from 1.5 g previously. Review of Systems - Review of Systems All systems reviewed & are unremarkable except as noted in HPI and [facility] Medical History: Medical History (Last Updated 01/31/23 @ 22:17 by Teresa Barcenas PA-C) Chronic anemia Chronic kidney disease, stage 3 Hyperparathyroidism Multiple myeloma Osteoporosis Surgical History: Surgical History (Last Updated 01/31/23 @ 22:16 by Teresa Barcenas PA-C) History of bilateral cataract extraction History of permanent cardiac pacemaker placement Family History: Family History (Last Reviewed 01/31/23 @ 22:17 by Teresa Barcenas PA-C) Father Malignant neoplasm of prostate Acute myocardial infarction Heart disease Sibling Chronic obstructive pulmonary disease Other Family history of migraine headaches - Social History Social History: Social History (Last Updated 01/31/23 @ 22:17 by Teresa Barcenas PA-C) Alcohol Use: Alcohol intake: never Substance Use: Substance use: never Substance use type: does not use Others: Spiritual care concerns: No Living Arrangements: Living arrangements: alone Smoking Status: Smoking status: Never smoker Second hand tobacco smoke exposure: No Social Determinants of Health: Has the Lack of Transportation Kept You From Medical Appointments or From Getting Medications?: No Within the Past 12 Months, Were You Worried Whether Your Food Would Run Out Before You Got Money to Buy More?: Never True What is Your Housing Situation Today?: I Have Housing Are You Worried That in the Next 2 Months, You May Not Have Your Own Housing to Live In?: No Do You Have Trouble Paying Your Heating Or Electricity Bill?: No Do You Have Trouble Paying For Medicines?: No Are You Currently Unemployed and Looking for Work?: No Highest Level of Education Completed: Trade/Vocational Certific Do You Have Trouble With Childcare or the Care of a Family Member?: No Exam - Vital Signs Vital Signs - 24 hr 02/01/23 19:43 02/01/23 19:49 02/01/23 19:52 Temperature 36.6 C 36.7 C 36.9 C Pulse Rate 63 72 68 Respiratory Rate 18 18 18 Blood Pressure 132/71 131/84 108/52 L Pulse Oximetry 100 100 99 Oxygen Delivery 02/01/23 22:00 02/01/23 20:00 02/02/23 00:00 Temperature 36.6 C Pulse Rate 63 63 66 Respiratory Rate 18 Blood Pressure 152/67 H Pulse Oximetry 99 Oxygen Delivery 02/02/23 04:00 02/02/23 06:00 02/02/23 09:20 Temperature 36.9 C Pulse Rate 63 63 83 Respiratory Rate 18 Blood Pressure 156/89 H Pulse Oximetry 99 Oxygen Delivery 02/02/23 09:20 02/02/23 14:30 02/02/23 08:00 Temperatu
[2023-02-03] VITALS (17 sets, daily range): BP systolic 92–166; BP diastolic 48–91; PULSE 60–82; RESP 16–18; TEMP 36.1–37.1; O2SAT 100
[2023-02-03 06:24] LABS: Hematocrit 27.1 % (37.0-47.0); Hemoglobin 8.9 g/dL (12.0-15.0); Immature Platelet Fraction Pct 11.8 % (0.9-11.2); Mean Corpuscular HGB Conc 32.8 g/dl (32-36); Mean Corpuscular Hemoglobin 31.7 pg (26-34); Mean Corpuscular Volume 96.4 fl (80-100); Platelet Count Result 35 k/mm3 (150-375); Red Blood Count 2.81 M/mm3 (4.2-5.4); Red Cell Distribution Width 19.2 % (11.5-14.5); White Blood Count 4.3 K/mm3 (4.5-10.0)
[2023-02-03 06:39] LABS: Alanine Aminotransferase 25 U/L (6-35); Albumin Level 2.5 g/dL (3.5-5.1); Alkaline Phosphatase 42 U/L (38-126); Anion Gap 2 mmol/L (8-16); Aspartate Amino Transferase 31 U/L (14-36); Bilirubin,Total 0.7 mg/dL (0.2-1.3); Blood Urea Nitrogen 16 mg/dL (7-17); Calcium 8.5 mg/dL (8.4-10.2); Carbon Dioxide 25 mmol/L (22-30); Chloride 102 mmol/L (98-107); Estimated CRCL calculation 36 ml/min; Estimated Glomerular Filt Rate 60; Glucose 81 mg/dL (65-110); Potassium 3.9 mmol/L (3.4-5.0); Sodium 129 mmol/L (137-145)
[2023-02-03] MEDS: carvediloL 25 MG TABLET PO ×2 (09:18→20:16)
[2023-02-03] MEDS: MULTIVITAMINS THERAPEUTIC TAB (*BKC) 1 TABLET PO (09:18)
[2023-02-03] MEDS: PANTOPRAZOLE 40 MG TABLET PO (09:18)
[2023-02-03] MEDS: FUROSEMIDE 20 MG TABLET PO (09:18)
[2023-02-03] MEDS: FERROUS SULFATE 325 MG TABLET DR BY MOUTH (09:18)
[2023-02-03] MEDS: VERAPAMIL HCL ER 240 MG TABLET.ER PO ×2 (09:18→20:16)
[2023-02-03] MEDS: LORATADINE 10 MG TABLET PO (09:18)
[2023-02-03] MEDS: LOSARTAN POTASSIUM 100 MG TABLET PO (09:18)
--- NOTE | 2023-02-03 09:58 | PCSTNOTE ---
Please refer to the Modified Barium Swallow Evaluation in the EMR.
--- NOTE | 2023-02-03 14:00 | PM.IMPN ---
Progress Note: A&P Assessment and Plan (1) Acute on chronic kidney failure: Qualifiers: Acute renal failure type: unspecified Chronic kidney disease stage: unspecified stage Qualified Code(s): N17.9 - Acute kidney failure, unspecified; N18.9 - Chronic kidney disease, unspecified Code(s): N17.9 - Acute kidney failure, unspecified; N18.9 - Chronic kidney disease, unspecified Status: Acute Assessment and Plan: BUN and creatinine on admission 34/1.9 Baseline creatinine 0.90-1.30 Chronic kidney disease appears to be stage 3a with a GFR of 36-60 Related to dehydration from diarrhea Discontinue fluids as BP is elevated BUN creatinine back to normal at 16/0.90 Continue to monitor Appears resolved Restart BP medications (2) Fall from ground level: Code(s): W18.30XA - Fall on same level, unspecified, initial encounter Status: Acute Assessment and Plan: Presented to the ED after sustaining a ground level fall Avulsion fracture of the left foot without pain Patient not experience loss of consciousness or hit her head. PT and OT ordered. PRN [place] and Tylenol ordered Fall precautions (3) Generalized weakness: Code(s): R53.1 - Weakness Status: Acute Assessment and Plan: Likely due to diarrhea and dehydration. Could also be related to chemo therapy PT and OT ordered. (4) Chemotherapy induced diarrhea: Code(s): K52.1 - Toxic gastroenteritis and colitis; T45.1X5A - Adverse effect of antineoplastic and immunosuppressive drugs, initial encounter Status: Acute Assessment and Plan: Multiple episodes of diarrhea noted since receiving chemotherapy 2 days ago Happens when she gets Chemo Diarrhea has since resolved. (5) Hypokalemia: Code(s): E87.6 - Hypokalemia Status: Acute Assessment and Plan: Potassium 2.6 as outpatient current K is 3.9 Secondary to diarrhea No arrhythmias noted Replace as indicated (6) Multiple myeloma: Qualifiers: Multiple myeloma remission status: in relapse Qualified Code(s): C90.02 - Multiple myeloma in relapse Code(s): C90.00 - Multiple myeloma not having achieved remission Status: Acute Assessment and Plan: Receiving chemotherapy oncology consulted (7) Chronic anemia: Code(s): D64.9 - Anemia, unspecified Status: Acute Assessment and Plan: Likely due to cancer. Hematology/Oncology consulted thank you for your help 02/01 H&H is morning was 6.8/20.9. 1 unit of PRBCs given on 02/01/ H/H trending up currently at 8.9/27.1 Continue to trend labs (8) Thrombocytopenia: Code(s): D69.6 - Thrombocytopenia, unspecified Status: Acute Assessment and Plan: hematology/oncology consulted Likely from cancer/Chemotherapy Platelet count 35 this morning. Transfuse if PLT is less 15 (9) Avulsion fracture of talus: Qualifiers: Encounter type: initial encounter Fracture alignment: nondisplaced Fracture type: closed Laterality: unspecified laterality Qualified Code(s): S92.156A - Nondisplaced avulsion fracture (chip fracture) of unspecified talus, initial encounter for closed fracture Code(s): S92.153A - Displaced avulsion fracture (chip fracture) of unspecified talus, initial encounter for closed fracture Status: Acute Assessment and Plan: Patient not having any active pain. No intervention necessary at this time. If she develops pain will put in walking boot and have her follow-up with orthopedics. (10) Lower extremity edema: Code(s): R60.0 - Localized edema Status: Acute Assessment and Plan: Presented with bilateral lower extremity edema Doppler ultrasounds negative for DVT lower extremity edema could very well be to chemotherapy. restart furosemide as renal funct
--- NOTE | 2023-02-03 14:00 | P.PNIM_ITS ---
Progress Note: A&P Assessment and Plan (1) Acute on chronic kidney failure: Qualifiers: Acute renal failure type: unspecified Chronic kidney disease stage: unspecified stage Qualified Code(s): N17.9 - Acute kidney failure, unspecified; N18.9 - Chronic kidney disease, unspecified Code(s): N17.9 - Acute kidney failure, unspecified; N18.9 - Chronic kidney disease, unsp ecified Status: Acute Assessment and Plan: * BUN and creatinine on admission 34/1.9 * Baseline creatinine 0.90-1.30 * Chronic kidney disease appears to be stage 3a with a GFR of 36-60 * Related to dehydration from diarrhea * Discontinue fluids as BP is elevated * BUN creatinine back to normal at 16/0.90 * Continue to monitor * Appears resolved * Restart BP medications (2) Fall from ground level: Code(s): W18.30XA - Fall on same level, unspecified, initial encounter Status: Acute Assessment and Plan: * Presented to the ED after sustaining a ground level fall * Avulsion fracture of the left foot without pain * Patient not experience loss of consciousness or hit her head. * PT and OT ordered. * PRN [place] and Tylenol ordered * Fall precautions (3) Generalized weakness: Code(s): R53.1 - Weakness Status: Acute Assessment and Plan: * Likely due to diarrhea and dehydration. * Could also be related to chemo therapy * PT and OT ordered. (4) Chemotherapy induced diarrhea: Code(s): K52.1 - Toxic gastroenteritis and colitis; T45.1X5A - Adverse effect of antineoplastic and immunosuppressive drugs, initial encounter Status: Acute Assessment and Plan: * Multiple episodes of diarrhea noted since receiving chemotherapy 2 days ago * Happens when she gets Chemo * Diarrhea has since resolved. (5) Hypokalemia: Code(s): E87.6 - Hypokalemia Status: Acute Assessment and Plan: * Potassium 2.6 as outpatient * current K is 3.9 * Secondary to diarrhea * No arrhythmias noted * Replace as indicated (6) Multiple myeloma: Qualifiers: Multiple myeloma remission status: in relapse Qualified Code(s): C90.02 - Multiple myeloma in relapse Code(s): C90.00 - Multiple myeloma not having achieved remission Status: Acute Assessment and Plan: * Receiving chemotherapy * oncology consulted (7) Chronic anemia: Code(s): D64.9 - Anemia, unspecified Status: Acute Assessment and Plan: * Likely due to cancer. * Hematology/Oncology consulted thank you for your help * 02/01 H&H is morning was 6.8/20.9. * 1 unit of PRBCs given on 02/01/23 * H/H trending up currently at 8.9/27.1 * Continue to trend labs (8) Thrombocytopenia: Code(s): D69.6 - Thrombocytopenia, unspecified Status: Acute Assessment and Plan: * hematology/oncology consulted * Likely from cancer/Chemotherapy * Platelet count 35 this morning. * Transfuse if PLT is less 15 (9) Avulsion fracture of talus: Qualifiers: Encounter type: initial encounter Fracture alignment: nondisplaced Fracture type: closed Laterality: unspecified laterality Qualified Code(s): S92.156A - Nondisplaced avulsion fracture (chip fracture) of unspecified talus, initial encounter for closed fracture Code(s): S92.153A - Displaced avulsion fracture (chip fracture) of unspecified talus, initial encounter for clos
--- NOTE | 2023-02-03 15:00 | PCPTNOTE ---
Attempted to see patient for PT, however patient was working with OT.
[2023-02-03] MEDS: FUROSEMIDE INJ 40 MG/4 ML VIAL IV PUSH (16:57)
[2023-02-03] MEDS: ALBUMIN HUMAN 25% 25 GM/100 ML 100 ML IVPB (16:58)
[2023-02-03 18:30] LABS: IFOB Positive Control Positive; Immunochemical Fecal Occult Bl Positive (N)
[2023-02-03 19:06] LABS: Toxigenic C. Diff NEGATIVE (NEGATIVE)
[2023-02-04] VITALS (8 sets, daily range): BP systolic 103–145; BP diastolic 57–71; PULSE 65–72; RESP 18; TEMP 36.9; O2SAT 98–99
[2023-02-04 06:43] LABS: Basophils Percent Auto 0.2 % (0.2-1.2); Eosinophils Percent Auto 0.5 % (0-4.4); Hematocrit 25.6 % (37.0-47.0); Hemoglobin 8.3 g/dL (12.0-15.0); Immature Granulocyte Absolute 0.04 K/mm3 (0.00-0.031); Immature Granulocyte Percent A 0.9 % (0-0.5); Lymphocytes Absolute Auto 0.35 K/mm3 (0.9-3.2); Lymphocytes Percent Auto 8.2 % (18.3-44.2); Mean Corpuscular HGB Conc 32.4 g/dl (32-36); Mean Corpuscular Hemoglobin 31.2 pg (26-34); Mean Corpuscular Volume 96.2 fl (80-100); Mean Platelet Volume 11.8 fl (7.4-10.4); Monocytes Absolute Auto 1.1 K/mm3 (0.1-0.6); Monocytes Percent Auto 24.9 % (2.6-8.5); Neutrophils Absolute Auto 2.8 K/mm3 (1.3-6.7); Neutrophils Percent Auto 65.3 % (45.5-73.1); Platelet Count Result 90 k/mm3 (150-375); Red Blood Count 2.66 M/mm3 (4.2-5.4); Red Cell Distribution Width 19.1 % (11.5-14.5); White Blood Count 4.3 K/mm3 (4.5-10.0)
[2023-02-04 06:49] LABS: Alanine Aminotransferase 22 U/L (6-35); Albumin Level 2.6 g/dL (3.5-5.1); Alkaline Phosphatase 38 U/L (38-126); Anion Gap -1 mmol/L (8-16); Aspartate Amino Transferase 25 U/L (14-36); Bilirubin,Total 0.7 mg/dL (0.2-1.3); Blood Urea Nitrogen 16 mg/dL (7-17); Calcium 8.4 mg/dL (8.4-10.2); Carbon Dioxide 29 mmol/L (22-30); Chloride 100 mmol/L (98-107); Estimated CRCL calculation 40 ml/min; Estimated Glomerular Filt Rate > 60; Glucose 82 mg/dL (65-110); Magnesium 1.6 mg/dL (1.6-2.3); Potassium 3.4 mmol/L (3.4-5.0); Sodium 128 mmol/L (137-145)
[2023-02-04] MEDS: VERAPAMIL HCL ER 240 MG TABLET.ER PO (08:29)
[2023-02-04] MEDS: LOSARTAN POTASSIUM 100 MG TABLET PO (08:29)
[2023-02-04] MEDS: FERROUS SULFATE 325 MG TABLET DR BY MOUTH (08:29)
[2023-02-04] MEDS: FUROSEMIDE 20 MG TABLET PO (08:30)
[2023-02-04] MEDS: PANTOPRAZOLE 40 MG TABLET PO (08:30)
[2023-02-04] MEDS: MULTIVITAMINS THERAPEUTIC TAB (*BKC) 1 TABLET PO (08:30)
[2023-02-04] MEDS: LORATADINE 10 MG TABLET PO (08:30)
[2023-02-04] MEDS: POTASSIUM CHLORIDE 20 MEQ ER TABLET 40 MEQ PO (09:43)
[2023-02-04] MEDS: MAGNESIUM SULF 4 GM/WATER100ML 4 GM/100 ML BAG IVPB (09:43)
--- NOTE | 2023-02-04 10:30 | P.DS_ITS ---
DS: Admitting Diagnosis Discharge Date 02/04/23 1030 Admitting Diagnosis Fall, MIGUELITO DS: Discharge Diagnosis Discharge Diagnosis (1) Acute on chronic kidney failure: Qualifiers: Acute renal failure type: unspecified Chronic kidney disease stage: unspecified stage Qualified Code(s): N17.9 - Acute kidney failure, unspecified; N18.9 - Chronic kidney disease, unspecified Code(s): N17.9 - Acute kidney failure, unspecified; N18.9 - Chronic kidney disease, unspecified Status: Acute Assessment and Plan: * BUN and creatinine on admission 34/1.9 * Baseline creatinine 0.90-1.30 * Chronic kidney disease appears to be stage 3a with a GFR of 36-60 * Related to dehydration from diarrhea * Discontinue fluids as BP is elevated * BUN creatinine back to normal at 16/0.90 * Continue to monitor * Appears resolved * Restart BP medications (2) Fall from ground level: Code(s): W18.30XA - Fall on same level, unspecified, initial encounter Status: Acute Assessment and Plan: * Presented to the ED after sustaining a ground level fall * Avulsion fracture of the left foot without pain * Patient not experience loss of consciousness or hit her head. * PT and OT ordered. * PRN [place] and Tylenol ordered * Fall precautions (3) Generalized weakness: Code(s): R53.1 - Weakness Status: Acute Assessment and Plan: * Likely due to diarrhea and dehydration. * Could also be related to chemo therapy * PT and OT ordered. (4) Chemotherapy induced diarrhea: Code(s): K52.1 - Toxic gastroenteritis and colitis; T45.1X5A - Adverse effect of antineoplastic and immunosuppressive drugs, initial encounter Status: Acute Assessment and Plan: * Multiple episodes of diarrhea noted since receiving chemotherapy 2 days ago * Happens when she gets Chemo * Diarrhea has since resolved. (5) Hypokalemia: Code(s): E87.6 - Hypokalemia Status: Acute Assessment and Plan: * Potassium 2.6 as outpatient * current K is 3.9 * Secondary to diarrhea * No arrhythmias noted * Replace as indicated (6) Multiple myeloma: Qualifiers: Multiple myeloma remission status: in relapse Qualified Code(s): C90.02 - Multiple myeloma in relapse Code(s): C90.00 - Multiple myeloma not having achieved remission Status: Acute Assessment and Plan: * Receiving chemotherapy * oncology consulted (7) Chronic anemia: Code(s): D64.9 - Anemia, unspecified Status: Acute Assessment and Plan: * Likely due to cancer. * Hematology/Oncology consulted thank you for your help * 02/01 H&H is morning was 6.8/20.9. * 1 unit of PRBCs given on 02/01/23 * H/H trending up currently at 8.9/27.1 * Continue to trend labs * Continue procrit and epogen as prescribed (8) Thrombocytopenia: Code(s): D69.6 - Thrombocytopenia, unspecified Status: Acute Assessment and Plan: * hematology/oncology consulted * Likely from cancer/Chemotherapy * Platelet count 35 this morning. * Transfuse if PLT is less 15 (9) Avulsion fracture of talus: Qualifiers: Encounter type: initial encounter Fracture alignment: nondisplaced Fracture type: closed Laterality: unspecified laterality Qualified Code(s): S92.156A - Nondisplaced avulsion fracture (chip fracture) of unspecified talus, in
--- NOTE | 2023-02-04 10:30 | PM.DS ---
DS: Admitting Diagnosis Discharge Date 02/04/23 1030 Admitting Diagnosis Fall, MIGUELITO DS: Discharge Diagnosis Discharge Diagnosis (1) Acute on chronic kidney failure: Qualifiers: Acute renal failure type: unspecified Chronic kidney disease stage: unspecified stage Qualified Code(s): N17.9 - Acute kidney failure, unspecified; N18.9 - Chronic kidney disease, unspecified Code(s): N17.9 - Acute kidney failure, unspecified; N18.9 - Chronic kidney disease, unspecified Status: Acute Assessment and Plan: BUN and creatinine on admission 34/1.9 Baseline creatinine 0.90-1.30 Chronic kidney disease appears to be stage 3a with a GFR of 36-60 Related to dehydration from diarrhea Discontinue fluids as BP is elevated BUN creatinine back to normal at 16/0.90 Continue to monitor Appears resolved Restart BP medications (2) Fall from ground level: Code(s): W18.30XA - Fall on same level, unspecified, initial encounter Status: Acute Assessment and Plan: Presented to the ED after sustaining a ground level fall Avulsion fracture of the left foot without pain Patient not experience loss of consciousness or hit her head. PT and OT ordered. PRN [place] and Tylenol ordered Fall precautions (3) Generalized weakness: Code(s): R53.1 - Weakness Status: Acute Assessment and Plan: Likely due to diarrhea and dehydration. Could also be related to chemo therapy PT and OT ordered. (4) Chemotherapy induced diarrhea: Code(s): K52.1 - Toxic gastroenteritis and colitis; T45.1X5A - Adverse effect of antineoplastic and immunosuppressive drugs, initial encounter Status: Acute Assessment and Plan: Multiple episodes of diarrhea noted since receiving chemotherapy 2 days ago Happens when she gets Chemo Diarrhea has since resolved. (5) Hypokalemia: Code(s): E87.6 - Hypokalemia Status: Acute Assessment and Plan: Potassium 2.6 as outpatient current K is 3.9 Secondary to diarrhea No arrhythmias noted Replace as indicated (6) Multiple myeloma: Qualifiers: Multiple myeloma remission status: in relapse Qualified Code(s): C90.02 - Multiple myeloma in relapse Code(s): C90.00 - Multiple myeloma not having achieved remission Status: Acute Assessment and Plan: Receiving chemotherapy oncology consulted (7) Chronic anemia: Code(s): D64.9 - Anemia, unspecified Status: Acute Assessment and Plan: Likely due to cancer. Hematology/Oncology consulted thank you for your help 02/01 H&H is morning was 6.8/20.9. 1 unit of PRBCs given on 02/01/ H/H trending up currently at 8.9/27.1 Continue to trend labs Continue procrit and epogen as prescribed (8) Thrombocytopenia: Code(s): D69.6 - Thrombocytopenia, unspecified Status: Acute Assessment and Plan: hematology/oncology consulted Likely from cancer/Chemotherapy Platelet count 35 this morning. Transfuse if PLT is less 15 (9) Avulsion fracture of talus: Qualifiers: Encounter type: initial encounter Fracture alignment: nondisplaced Fracture type: closed Laterality: unspecified laterality Qualified Code(s): S92.156A - Nondisplaced avulsion fracture (chip fracture) of unspecified talus, initial encounter for closed fracture Code(s): S92.153A - Displaced avulsion fracture (chip fracture) of unspecified talus, initial encounter for closed fracture Status: Acute Assessment and Plan: Patient not having any active pain. No intervention necessary at this time. If she develops pain will put in walking boot and have her follow-up with orthopedics. (10) Lower extremity edema: Code(s): R60.0 - Localized edema Status: Acute Assessment and Plan: Presented with bilateral lower extremity edema
--- NOTE | 2023-02-04 13:06 | PC.NURSE ---
On 02/04/23, the student, [Howard Traore], provided care and completed [facility] documentation on this patient. I have reviewed the student's documentation and agree with the findings.
== END 2023-02-04 13:25 | disposition swing bed (61) | DRG 683 ==
LOC: ANHED 12:27 → ANH2MED 17:51
PROVIDERS: Emergency Medicine; Internal Medicine Critical Care Medicine; Physician Assistant; Admitting Provider Family Medicine; Emergency Provider Emergency Medicine; PCP Internal Medicine; Visit Provider Nurse Practitioner
DX: N17.9 Acute kidney failure, unspecified (principal); C90.02 Multiple myeloma in relapse; K52.1 Toxic gastroenteritis and colitis; I13.0 Hypertensive heart and chronic kidney disease with heart failure and stage 1 through stage 4 chronic kidney disease, or unspecified chronic kidney disease; S92.152A Displaced avulsion fracture (chip fracture) of left talus, initial encounter for closed fracture; W18.30XA Fall on same level, unspecified, initial encounter; K21.9 Gastro-esophageal reflux disease without esophagitis; N18.31 Chronic kidney disease, stage 3a; I50.9 Heart failure, unspecified; E86.0 Dehydration; D69.59 Other secondary thrombocytopenia; T45.1X5A Adverse effect of antineoplastic and immunosuppressive drugs, initial encounter; D63.1 Anemia in chronic kidney disease; E87.6 Hypokalemia; D63.0 Anemia in neoplastic disease; M81.0 Age-related osteoporosis without current pathological fracture; K64.9 Unspecified hemorrhoids; Z79.82 Long term (current) use of aspirin; Z98.42 Cataract extraction status, left eye; Z98.41 Cataract extraction status, right eye; Z95.0 Presence of cardiac pacemaker
CPT/HCPCS: 36415; 36430; 70450; 71046; 72125; 73610; 80053; 81003; 82274; 82550; 82607; 82728; 82746; 83540; 83550; 83605; 83735; 84132; 84443; 84466; 85014; 85018; 85025; 85027; 85055; 86850; 86900; 86901; 86920; 87040; 87045; 87269; 87272; 87427; 87449; 87493; 92610; 92611; 93005; 93306; 93970; 96365; 96366; 96367; 96376; 97110; 97161; 97165; 97530; 97535; 99285; A9270; G0378; J1940; J2543; J3475; J3480; J7030; J7040; J7050; P9016; P9047

== ENCOUNTER 2023-02-04 13:57 | Inpatient (IN) | payer MEDICARE, SELFPAY ==
--- NOTE | ~2023-02-04 | US_ITS ---
EXAMINATION: US venous doppler LE RT DATE: 02/12/2023 09:56 INDICATION: Right lower limb pain TECHNIQUE: Grayscale ultrasound images without and with compression and Doppler ultrasound images of the right lower extremity veins were obtained. COMPARISON: None. FINDINGS: The visualized portions of right common femoral vein, profunda (deep) femoral vein, femoral vein, pop liteal vein, peroneal trunk, posterior tibial veins, peroneal veins, gastrocnemius vein and greater s aphenous vein outflow are patent. IMPRESSION: 1. No deep venous thrombosis in the right lower limb. Reviewed, dictated and finalized at location A.
--- NOTE | 2023-02-04 14:16 | PM.IMHP ---
H&P: HPI History of Present Illness Date/Time: 02/04/23 14:16 Chief Complaint: weakness, multiple myeloma Narrative: This is a pleasant 82-year-old female patient is admitted to swing bed program after acute hospitalization for diarrhea due to chemotherapy for treatment multiple myeloma. Patient reports she had multiple episodes of diarrhea after receiving recent dose of chemotherapy. This caused her to be acutely dehydrated and cause acute kidney injury with serum creatinine climbing to 1.9. this has improved back to normal reading of 0.8, baseline appears to be 0.9. Patient reports that she has become much weaker after this round of chemotherapy and bout of diarrhea. She reports that she is not able to stand and ambulate like usual. Most of the time patient is able to live independently and care for her great granddaughter but now she is having trouble transferring bed to chair and. Patient complains of lower extremity swelling bilaterally worse on the right. She notes bilateral ankle discomfort due to swelling. X-ray finding showed an avulsion fracture left talus but no point tenderness and unknown length of time for this injury. Labs indicate pancytopenia related to multiple myeloma and cancer treatment. Patient did receive 1 unit PRBC transfusion and had an improvement in platelet level without transfusion during acute hospitalization. Review of Systems Review of Systems: All systems reviewed & are unremarkable except as noted in HPI and below PMFSH Past Medical History Medical History Chronic anemia Chronic kidney disease, stage 3 Hyperparathyroidism Multiple myeloma Osteoporosis Surgical History Surgical History History of bilateral cataract extraction History of permanent cardiac pacemaker placement Family History Family History Father Malignant neoplasm of prostate Acute myocardial infarction Heart disease Sibling Chronic obstructive pulmonary disease Other Family history of migraine headaches Social History Social History Social History: Surrogate medical decision maker: Shirley or Jem Boyd (daughter and son-in-law). Code status: Full code. Smoking status: Never smoker Second hand tobacco smoke exposure: Yes Alcohol intake: never Substance use: never Substance use type: does not use Lack of Transportation: No Lack of Food: Never True Current Housing: I Have Housing Concerned About Future Housing: No Difficulty Paying Gas/Electric Bills: No Difficulty Paying for Meds: No Currently Unemployed: No Education: Trade/Vocational Certificate Difficulty w/ Childcare or Family Care: No Living arrangements: alone Spiritual care concerns: No Meds Home Medications and Allergies Home Medications Medication Instructions Recorded Confirmed Type carvedilol 25 mg tablet (Coreg) 25 mg PO BID 03/29/19 02/04/23 History losartan 100 mg tablet (Cozaar) 100 mg PO DAILY 03/29/19 02/04/23 History multivitamin (Daily Multi-Vitamin 1 tablet PO DAILY 03/29/19 02/04/23 History tablet) ondansetron HCl 4 mg tablet 4 mg PO Q8H PRN Nausea 03/29/19 02/04/23 History verapamil 240 mg tablet,extended 240 mg PO BID 03/29/19 02/04/23 History release ferrous sulfate 325 mg (65 mg 325 mg PO DAILY 06/15/19 02/04/23 History iron) tablet (Iron (ferrous sulfate)) aspirin 81 mg tablet,delayed 81 mg PO DAILY 05/20/20 02/04/23 History release (Adult Low Dose Aspirin) omeprazole magnesium 20 mg 20 mg PO DAILY 11/05/20 02/04/23 History tablet,delayed release (Prilosec OTC) hydralazine 10 mg tablet See Rx Instructions .Route .COMPLEX 12/02/20 02/04/23 History cetirizine 10 mg tablet (Zyrtec) 10 mg PO DAILY 01/26/22 02/04/23 History furosemide 20
[2023-02-04 14:24] VITALS: BMI 19.1
[2023-02-04 14:45] VITALS: BP 145/75; PULSE 72; RESP 16; TEMP 35.9; O2SAT 98
--- NOTE | 2023-02-04 14:55 | PC.NURSE ---
Report called from Tameka at [facility] at 1335. Patient arrived to hospital at 1405 via private vehicle in [facility], accompanied by her granddaughter. Patient admitted to room 209 and was able to transfer from [facility] to bed with 1 assist gait belt and walker. Patient educated on bed controls, call light, fall risk level and precautions, isolation precautions, use of rapid response, visiting hours and general hospital environment. Patient and family member voiced understanding. Patient has a closed abrasion, scabbed over, on her Right outer calf. Patient c/o pain at 1 to 2 in bilateral ankles with the Left a bit worse than the Right. Patient asked about flu shot for upcoming season and would like to get her flu shot at discharge.
--- NOTE | 2023-02-04 15:07 | PC.NURSE ---
vitor vee aware of admit and request for tx. aware of her c/o food getting stuck quite freq in throat. she will be here in am. wants to leave her on puree/level 4 diet til seen. patient is aware.
[2023-02-04 16:00] VITALS: BP 139/67; PULSE 70; RESP 16; TEMP 35.8; O2SAT 99
[2023-02-04 20:00] VITALS: PULSE 63; RESP 16; O2SAT 99
[2023-02-04] MEDS: LOPERAMIDE HCL 2 MG CAPSULE PO (20:15)
[2023-02-04] MEDS: VERAPAMIL HCL ER 120 MG TABLET 240 MG PO (20:16)
[2023-02-04 20:17] VITALS: PULSE 63
[2023-02-04] MEDS: carvediloL 12.5 MG TABLET 25 MG PO (20:17)
[2023-02-05] VITALS: BP 108/60; PULSE 63; RESP 16; TEMP 36.2; O2SAT 97
--- NOTE | 2023-02-05 01:18 | PC.NURSE ---
On 02/05/23, the INFECTIOUS DISEASE TECHNICIAN, Trudy Khan, provided care and completed [facility] documentation on this patient. I have reviewed the INFECTIOUS DISEASE TECHNICIAN's documentation and agree with the findings.
[2023-02-05 07:44] VITALS: BP 135/79; PULSE 70; RESP 16; TEMP 35.6; O2SAT 97
[2023-02-05 08:30] VITALS: PULSE 70
[2023-02-05] MEDS: carvediloL 12.5 MG TABLET 25 MG PO ×2 (08:30→20:53)
[2023-02-05] MEDS: ASPIRIN 81 MG ENTERIC TABLET PO (08:30)
[2023-02-05] MEDS: FERROUS SULFATE 325 MG TABLET DR PO (08:31)
[2023-02-05] MEDS: LORATADINE 10 MG TABLET PO (08:32)
[2023-02-05] MEDS: LOSARTAN POTASSIUM 50 MG TABLET 100 MG PO (08:32)
[2023-02-05] MEDS: FUROSEMIDE 20 MG TABLET PO (08:32)
[2023-02-05] MEDS: MULTIVITAMINS THERAPEUTIC TAB (*BKC) 1 TABLET PO (08:33)
[2023-02-05] MEDS: PANTOPRAZOLE 40 MG TABLET PO (08:33)
[2023-02-05] MEDS: VERAPAMIL HCL ER 120 MG TABLET 240 MG PO ×2 (08:34→20:54)
[2023-02-05 11:21] LABS: Hematocrit 26.1 % (35.0-42.0); Hemoglobin 8.4 g/dL (11.7-13.8); Mean Corpuscular HGB Conc 32.2 g/dL (32.0-36.0); Mean Corpuscular Hemoglobin 31.7 pg (27.0-31.0); Mean Corpuscular Volume 98.5 fL (78.0-102.0); Mean Platelet Volume 10.3 fl (9.2-11.8); Platelet Count Result 183 K/mm3 (150-420); Red Blood Count 2.65 M/mm3 (4.20-5.40); Red Cell Distribution Width 19.8 % (11.6-14.4); White Blood Count 5.1 K/mm3 (4.8-10.8)
[2023-02-05 16:00] VITALS: BP 97/58; PULSE 63; RESP 16; TEMP 36.1; O2SAT 100
[2023-02-05 20:00] VITALS: PULSE 70; RESP 16; O2SAT 100
[2023-02-05 20:53] VITALS: PULSE 70
[2023-02-06] VITALS: BP 159/88; PULSE 68; RESP 16; TEMP 36.1; O2SAT 99
[2023-02-06] MEDS: LOPERAMIDE HCL 2 MG CAPSULE PO ×2 (03:21→20:53)
--- NOTE | 2023-02-06 06:37 | PC.NURSE ---
On 02/06/23, the MED SURG RN, [ Forrest Khan], provided care and completed [facility] documentation on this patient. I have reviewed the MED SURG RN's documentation and agree with the findings.
[2023-02-06 08:00] VITALS: BP 116/81; PULSE 63; RESP 16; TEMP 35.8; O2SAT 99
[2023-02-06 08:16] VITALS: PULSE 70
[2023-02-06] MEDS: carvediloL 12.5 MG TABLET 25 MG PO ×2 (08:16→20:38)
[2023-02-06] MEDS: MULTIVITAMINS THERAPEUTIC TAB (*BKC) 1 TABLET PO (08:16)
[2023-02-06] MEDS: VERAPAMIL HCL ER 120 MG TABLET 240 MG PO ×2 (08:16→20:38)
[2023-02-06] MEDS: PANTOPRAZOLE 40 MG TABLET PO (08:17)
[2023-02-06] MEDS: FERROUS SULFATE 325 MG TABLET DR PO (08:17)
[2023-02-06] MEDS: ASPIRIN 81 MG ENTERIC TABLET PO (08:17)
[2023-02-06] MEDS: LORATADINE 10 MG TABLET PO (08:17)
[2023-02-06] MEDS: LOSARTAN POTASSIUM 50 MG TABLET 100 MG PO (08:17)
[2023-02-06] MEDS: FUROSEMIDE 20 MG TABLET PO (08:17)
[2023-02-06 16:00] VITALS: BP 91/59; PULSE 64; RESP 17; TEMP 36.8; O2SAT 98
[2023-02-06 20:38] VITALS: PULSE 62
[2023-02-06 23:33] VITALS: BP 98/58; PULSE 62; RESP 16; TEMP 36.3; O2SAT 97
[2023-02-07 06:00] LABS: Hematocrit 25.7 % (35.0-42.0); Hemoglobin 8.1 g/dL (11.7-13.8); Mean Corpuscular HGB Conc 31.5 g/dL (32.0-36.0); Mean Corpuscular Hemoglobin 31.5 pg (27.0-31.0); Mean Platelet Volume 9.8 fl (9.2-11.8); Platelet Count Result 253 K/mm3 (150-420); Red Blood Count 2.57 M/mm3 (4.20-5.40); Red Cell Distribution Width 20.3 % (11.6-14.4); White Blood Count 4.9 K/mm3 (4.8-10.8)
[2023-02-07 06:08] LABS: Anion Gap 5 mmol/L (8-16); Blood Urea Nitrogen 17 mg/dL (7-18); Carbon Dioxide 26 mmol/L (21-32); Chloride 104 mmol/L (98-108); Estimated CRCL calculation 33 ml/min; Estimated Glomerular Filt Rate 54; Glucose 85 mg/dL (70-99); Osmolality Calculated 280 mOsm/kg (285-295); Potassium 4.7 mmol/L (3.5-5.1); Sodium 135 mmol/L (136-145)
[2023-02-07 08:00] VITALS: BP 119/63; PULSE 64; RESP 14; TEMP 36.1; O2SAT 95
[2023-02-07 09:40] VITALS: PULSE 68
[2023-02-07] MEDS: carvediloL 12.5 MG TABLET 25 MG PO ×2 (09:40→20:07)
[2023-02-07] MEDS: VERAPAMIL HCL ER 120 MG TABLET 240 MG PO ×2 (09:40→20:07)
[2023-02-07] MEDS: FUROSEMIDE 20 MG TABLET PO (09:41)
[2023-02-07] MEDS: LOSARTAN POTASSIUM 50 MG TABLET 100 MG PO (09:41)
[2023-02-07] MEDS: MULTIVITAMINS THERAPEUTIC TAB (*BKC) 1 TABLET PO (09:41)
[2023-02-07] MEDS: ASPIRIN 81 MG ENTERIC TABLET PO (09:41)
[2023-02-07] MEDS: LORATADINE 10 MG TABLET PO (09:41)
[2023-02-07] MEDS: FERROUS SULFATE 325 MG TABLET DR PO (09:42)
[2023-02-07] MEDS: PANTOPRAZOLE 40 MG TABLET PO (09:42)
[2023-02-07 16:00] VITALS: BP 123/63; PULSE 66; RESP 16; TEMP 36.3; O2SAT 96
--- NOTE | 2023-02-07 16:06 | PC.NURSE ---
Patient sitting in chair watching baseball game on TV. Alert and answers questions appropriately. Denies pain. Chair alarm on. Call light and belongings within reach.
--- NOTE | 2023-02-07 18:11 | PC.NURSE ---
Patient up in chair for supper. Patient taking small bites of soft food, not c/o difficulty swallowing. Patient called nurse into room 30 minutes later and stated she had an thrown up . Nurse observed patient having yellow bile with small amount of undigested food present. Nurse assisted with cleaning patient up and fresh warm blankets applied. Patient states she has no more nausea.
[2023-02-07] MEDS: ONDANSETRON HCL ODT 4 MG TABLET PO (19:09)
--- NOTE | 2023-02-07 19:15 | PC.NURSE ---
Patient complaining of being nauseous and belching a lot from gas. PRN Zofran given. Denies emesis. Patient sitting in chair watching TV with BLE's elevated. Call light in reach.
[2023-02-07 20:07] VITALS: PULSE 80
--- NOTE | 2023-02-07 20:29 | PC.NURSE ---
Patient assisted to bed with walker and gait belt with CGA. Patient denies nausea but says she continues to be very gassy and keeps belching. HOB elevated. BLE's elevated. ASHWINI hose removed. Call light in reach.
[2023-02-07] MEDS: ACETAMINOPHEN 325 MG TABLET 650 MG PO (22:55)
[2023-02-08] VITALS: BP 106/78; PULSE 80; RESP 16; TEMP 36.4; O2SAT 98
[2023-02-08] MEDS: ACETAMINOPHEN 325 MG TABLET 650 MG PO ×2 (05:58→20:17)
[2023-02-08 08:00] VITALS: BP 110/76; PULSE 68; RESP 14; TEMP 36.6; O2SAT 98
[2023-02-08 09:15] VITALS: PULSE 68
[2023-02-08] MEDS: carvediloL 12.5 MG TABLET 25 MG PO ×2 (09:15→20:16)
[2023-02-08] MEDS: FERROUS SULFATE 325 MG TABLET DR PO (09:15)
[2023-02-08] MEDS: ASPIRIN 81 MG ENTERIC TABLET PO (09:15)
[2023-02-08] MEDS: LOSARTAN POTASSIUM 50 MG TABLET 100 MG PO (09:15)
[2023-02-08] MEDS: FUROSEMIDE 20 MG TABLET PO (09:15)
[2023-02-08] MEDS: PANTOPRAZOLE 40 MG TABLET PO (09:16)
[2023-02-08] MEDS: MULTIVITAMINS THERAPEUTIC TAB (*BKC) 1 TABLET PO (09:16)
[2023-02-08] MEDS: VERAPAMIL HCL ER 120 MG TABLET 240 MG PO ×2 (09:16→20:17)
[2023-02-08] MEDS: LORATADINE 10 MG TABLET PO (09:16)
[2023-02-08 16:00] VITALS: BP 101/57; PULSE 65; RESP 14; TEMP 37; O2SAT 100
[2023-02-08 20:00] VITALS: PULSE 63; RESP 14; O2SAT 100
[2023-02-08 20:16] VITALS: PULSE 63
[2023-02-08] MEDS: LOPERAMIDE HCL 2 MG CAPSULE PO (20:25)
[2023-02-09] VITALS: BP 137/77; PULSE 63; RESP 16; TEMP 36.3; O2SAT 97
[2023-02-09 08:00] VITALS: BP 104/74; PULSE 76; RESP 20; TEMP 35.7; O2SAT 95
[2023-02-09] MEDS: VERAPAMIL HCL ER 120 MG TABLET 240 MG PO ×2 (08:52→20:29)
[2023-02-09] MEDS: LOSARTAN POTASSIUM 50 MG TABLET 100 MG PO (08:53)
[2023-02-09] MEDS: PANTOPRAZOLE 40 MG TABLET PO (08:53)
[2023-02-09] MEDS: carvediloL 12.5 MG TABLET 25 MG PO ×2 (08:53→20:30)
[2023-02-09] MEDS: MULTIVITAMINS THERAPEUTIC TAB (*BKC) 1 TABLET PO (08:53)
[2023-02-09] MEDS: ASPIRIN 81 MG ENTERIC TABLET PO (08:53)
[2023-02-09] MEDS: FERROUS SULFATE 325 MG TABLET DR PO (08:53)
[2023-02-09] MEDS: LORATADINE 10 MG TABLET PO (08:53)
[2023-02-09] MEDS: FUROSEMIDE 20 MG TABLET PO (08:53)
[2023-02-09] MEDS: ACETAMINOPHEN 325 MG TABLET 650 MG PO ×2 (09:52→16:56)
[2023-02-09 16:00] VITALS: BP 93/59; PULSE 65; RESP 16; TEMP 36.4; O2SAT 95
[2023-02-09 20:00] VITALS: PULSE 63; RESP 16; O2SAT 95
[2023-02-09 20:30] VITALS: PULSE 63
[2023-02-09] MEDS: HYDROcodone/acetaminophen (*CRX) 5-325 MG TABLET 1 TAB PO (21:56)
[2023-02-10] VITALS: BP 118/62; PULSE 63; RESP 16; TEMP 36.1; O2SAT 96
--- NOTE | 2023-02-10 02:09 | PC.NURSE ---
On 02/10/23, the STRUCTURES ENGINEER, [ Forrest Khan], provided care and completed [facility] documentation on this patient. I have reviewed the STRUCTURES ENGINEER's documentation and agree with the findings.
[2023-02-10 08:00] VITALS: BP 140/63; PULSE 72; RESP 14; TEMP 36.4; O2SAT 100
[2023-02-10] MEDS: LORATADINE 10 MG TABLET PO (09:00)
[2023-02-10] MEDS: FERROUS SULFATE 325 MG TABLET DR PO (09:00)
[2023-02-10] MEDS: ASPIRIN 81 MG ENTERIC TABLET PO (09:00)
[2023-02-10] MEDS: PANTOPRAZOLE 40 MG TABLET PO (09:00)
[2023-02-10] MEDS: MULTIVITAMINS THERAPEUTIC TAB (*BKC) 1 TABLET PO (09:00)
[2023-02-10] MEDS: FUROSEMIDE 20 MG TABLET PO (09:00)
[2023-02-10] MEDS: ACETAMINOPHEN 325 MG TABLET 650 MG PO (09:01)
[2023-02-10] MEDS: VERAPAMIL HCL ER 120 MG TABLET 240 MG PO ×2 (09:02→20:36)
[2023-02-10] MEDS: LOSARTAN POTASSIUM 50 MG TABLET 100 MG PO (09:02)
[2023-02-10 09:04] VITALS: PULSE 72
[2023-02-10] MEDS: carvediloL 12.5 MG TABLET 25 MG PO ×2 (09:04→20:35)
--- NOTE | 2023-02-10 13:13 | PM.EVENT ---
Event Note Event Note Event Note: Patient is up in the recliner chair as she is not having any energy . I will add a supplement with ther meals today per speech recommendation .
[2023-02-10 16:00] VITALS: BP 108/70; PULSE 63; RESP 16; TEMP 36.2; O2SAT 96
[2023-02-10 20:00] VITALS: PULSE 67; RESP 16; O2SAT 96
[2023-02-10] MEDS: HYDROcodone/acetaminophen (*CRX) 5-325 MG TABLET 1 TAB PO (20:34)
[2023-02-10 20:35] VITALS: PULSE 67
[2023-02-10] MEDS: LOPERAMIDE HCL 2 MG CAPSULE PO (20:36)
[2023-02-11] VITALS: BP 169/84; PULSE 67; RESP 16; TEMP 36.1; O2SAT 97
[2023-02-11 08:00] VITALS: BP 91/60; PULSE 69; RESP 16; TEMP 36.1; O2SAT 98
[2023-02-11] MEDS: MULTIVITAMINS THERAPEUTIC TAB (*BKC) 1 TABLET PO (10:22)
[2023-02-11] MEDS: FUROSEMIDE 20 MG TABLET PO (10:22)
[2023-02-11] MEDS: LOSARTAN POTASSIUM 50 MG TABLET 100 MG PO (10:22)
[2023-02-11] MEDS: PANTOPRAZOLE 40 MG TABLET PO (10:22)
[2023-02-11] MEDS: ASPIRIN 81 MG ENTERIC TABLET PO (10:22)
[2023-02-11] MEDS: FERROUS SULFATE 325 MG TABLET DR PO (10:22)
[2023-02-11] MEDS: VERAPAMIL HCL ER 120 MG TABLET 240 MG PO ×2 (10:23→20:18)
[2023-02-11] MEDS: ACETAMINOPHEN 325 MG TABLET 650 MG PO (10:23)
[2023-02-11] MEDS: LORATADINE 10 MG TABLET PO (10:23)
[2023-02-11 16:00] VITALS: BP 114/62; PULSE 75; RESP 17; TEMP 36.6; O2SAT 98
[2023-02-11 20:00] VITALS: PULSE 64; RESP 17; O2SAT 98
[2023-02-11 20:18] VITALS: PULSE 64
[2023-02-11] MEDS: HYDROcodone/acetaminophen (*CRX) 5-325 MG TABLET 1 TAB PO (20:18)
[2023-02-11] MEDS: carvediloL 12.5 MG TABLET 25 MG PO (20:18)
[2023-02-12] VITALS: BP 111/64; PULSE 64; RESP 16; TEMP 36.4; O2SAT 97
[2023-02-12] MEDS: HYDROcodone/acetaminophen (*CRX) 5-325 MG TABLET 1 TAB PO ×2 (05:04→20:24)
[2023-02-12 08:00] VITALS: BP 108/61; PULSE 76; RESP 17; TEMP 36.1; O2SAT 98
--- NOTE | 2023-02-12 08:00 | PC.NURSE ---
Pt c/o right hip pain and does not want to get out of bed for breakfast.
[2023-02-12] MEDS: ACETAMINOPHEN 325 MG TABLET 650 MG PO (09:53)
[2023-02-12 09:54] VITALS: PULSE 76
[2023-02-12] MEDS: LORATADINE 10 MG TABLET PO (09:54)
[2023-02-12] MEDS: PANTOPRAZOLE 40 MG TABLET PO (09:54)
[2023-02-12] MEDS: carvediloL 12.5 MG TABLET 25 MG PO ×2 (09:54→20:23)
[2023-02-12] MEDS: MULTIVITAMINS THERAPEUTIC TAB (*BKC) 1 TABLET PO (09:54)
[2023-02-12] MEDS: FUROSEMIDE 20 MG TABLET PO (09:54)
[2023-02-12] MEDS: FERROUS SULFATE 325 MG TABLET DR PO (09:54)
[2023-02-12] MEDS: ASPIRIN 81 MG ENTERIC TABLET PO (09:54)
[2023-02-12] MEDS: VERAPAMIL HCL ER 120 MG TABLET 240 MG PO ×2 (09:55→20:23)
[2023-02-12] MEDS: LOSARTAN POTASSIUM 50 MG TABLET 100 MG PO (09:55)
--- NOTE | 2023-02-12 10:16 | WPDPN ---
Progress Note: A&P Assessment and Plan (1) Generalized weakness: Code(s): R53.1 - Weakness Status: Acute Assessment and Plan: patient admitted to swing bed program for increased therapy related to generalized weakness due to chemotherapy treatment for multiple myeloma (2) Multiple myeloma: Qualifiers: Multiple myeloma remission status: in relapse Qualified Code(s): C90.02 - Multiple myeloma in relapse Code(s): C90.00 - Multiple myeloma not having achieved remission Status: Acute Assessment and Plan: undergoing chemotherapy, see 1. (3) Chemotherapy induced diarrhea: Code(s): K52.1 - Toxic gastroenteritis and colitis; T45.1X5A - Adverse effect of antineoplastic and immunosuppressive drugs, initial encounter Status: Acute Assessment and Plan: ongoing, stool assay negative with only salmonella pending, maintain hydration and may consider use of p.r.n. loperamide (4) Pancytopenia: Code(s): D61.818 - Other pancytopenia Status: Acute Assessment and Plan: Patient received 1 unit PRBC transfusion acute hospitalization, platelets were critically low but responded without transfusion (5) Hypokalemia: Code(s): E87.6 - Hypokalemia Status: Acute Assessment and Plan: Treated and improved, 3.4 on discharge, replace potassium due to GI loss and check twice weekly (6) Lower extremity edema: Code(s): R60.0 - Localized edema Status: Acute Assessment and Plan: Venous duplex ultrasound lower extremities negative for DVT. Pavan hose for compression. (7) Avulsion fracture of talus: Code(s): S92.153A - Displaced avulsion fracture (chip fracture) of unspecified talus, initial encounter for closed fracture Status: Acute Assessment and Plan: Likely chronic, no point tenderness to area of concern. Bilateral ankle pain related to swelling. (8) Dysphagia: Code(s): R13.10 - Dysphagia, unspecified Status: Acute Assessment and Plan: Difficulty swallowing feeling like food gets hung up, patient did not pass bedside swallow screen so modified barium swallow was completed with speech therapy recommendations for thin liquids and pureed diet (Level 4). consulted speech therapy with hope to moved to soft diet level 5 or 6 Plan Admit to swing bed PT OT and speech therapy to evaluate and treat Continue pureed diet at this time, consider soft diet if ST believes this is possible complaints of foot pain swelling Ultrasound negative for blood clot patient is able to get up she will have a appointment today for reevaluation Subjective Date/time seen: 02/12/23 10:16 Interval history: patient is complaining of severe pain in the leg and foot ultrasound is negative we ill continue to have her monitor . Patient is schedule for a care conference to decide the next step. We will monitor and follow according to plan accordingly Exam Narrative: GENERAL: Generally well appearing, alert and oriented, in no apparent distress. She is pleasant and conversant in full sentences. HEENT: Pupils are equally round and briskly reactive to light. Extraocular muscles are intact. Oral mucous membranes are moist without lesions. No gum bleeding NECK: The patient has no noted JVD. No adenopathy is appreciated. CHEST/LUNGS: Lungs are clear bilaterally without rhonchi, rales, or wheezes. There is no subcutaneous air appreciated. Pacemaker noted left upper chest HEART: The patient has a regular rate and rhythm. No murmurs, rubs, or gallops are appreciated. Distal pulses are 2+. ABDOMEN: The patient's abdomen is soft, nontender, and nondistended. Bowel sounds are positive. No peritoneal signs EXTREMITIES: The patient has bilateral lower extremity swelling especially around the foot and ankle, no open wounds. There is no focal long bone tenderness or deformity. No point tenderness to left talus area SKIN: The patient's skin is
[2023-02-12] MEDS: LIDOCAINE 5% PATCH 1 PATCH TRANSDERM (10:57)
[2023-02-12 16:00] VITALS: BP 112/60; PULSE 61; RESP 17; TEMP 36.6; O2SAT 98
[2023-02-12 20:23] VITALS: PULSE 65
[2023-02-13] VITALS (7 sets, daily range): BP systolic 95–125; BP diastolic 49–69; PULSE 61–72; RESP 16–18; TEMP 36.3–36.6; O2SAT 97
[2023-02-13 05:15] LABS: Hematocrit 26.7 % (35.0-42.0); Hemoglobin 8.8 g/dL (11.7-13.8); Mean Corpuscular Hemoglobin 31.7 pg (27.0-31.0); Mean Platelet Volume 8.9 fl (9.2-11.8); Platelet Count Result 267 K/mm3 (150-420); Red Blood Count 2.78 M/mm3 (4.20-5.40); Red Cell Distribution Width 18.9 % (11.6-14.4); White Blood Count 4.2 K/mm3 (4.8-10.8)
[2023-02-13 05:26] LABS: Anion Gap 8 mmol/L (8-16); Blood Urea Nitrogen 15 mg/dL (7-18); Calcium 9.2 mg/dL (8.5-10.1); Carbon Dioxide 24 mmol/L (21-32); Chloride 97 mmol/L (98-108); Estimated CRCL calculation 36 ml/min; Estimated Glomerular Filt Rate 59; Glucose 95 mg/dL (70-99); Osmolality Calculated 268 mOsm/kg (285-295); Potassium 4.3 mmol/L (3.5-5.1); Sodium 129 mmol/L (136-145)
--- NOTE | 2023-02-13 07:49 | PC.NURSE ---
Patient was able to stand with assistance and ambulate to chair. c/o weakness in right knee
[2023-02-13] MEDS: LOSARTAN POTASSIUM 50 MG TABLET 100 MG PO (08:47)
[2023-02-13] MEDS: FUROSEMIDE 20 MG TABLET PO (08:47)
[2023-02-13] MEDS: carvediloL 12.5 MG TABLET 25 MG PO (08:48)
[2023-02-13] MEDS: ASPIRIN 81 MG ENTERIC TABLET PO (08:48)
[2023-02-13] MEDS: LORATADINE 10 MG TABLET PO (08:49)
[2023-02-13] MEDS: MULTIVITAMINS THERAPEUTIC TAB (*BKC) 1 TABLET PO (08:49)
[2023-02-13] MEDS: VERAPAMIL HCL ER 120 MG TABLET 240 MG PO ×2 (08:49→20:03)
[2023-02-13] MEDS: FERROUS SULFATE 325 MG TABLET DR PO (08:49)
[2023-02-13] MEDS: PANTOPRAZOLE 40 MG TABLET PO (08:50)
[2023-02-13] MEDS: ACETAMINOPHEN 325 MG TABLET 650 MG PO (08:50)
[2023-02-13] MEDS: LIDOCAINE 5% PATCH 1 PATCH TRANSDERM (08:50)
--- NOTE | 2023-02-13 11:20 | PC.NURSE ---
LENS GAUGER aware of new c/o of right ankle pain and decrease in mobility
[2023-02-13] MEDS: HYDROcodone/acetaminophen (*CRX) 5-325 MG TABLET 1 TAB PO (20:04)
[2023-02-14] VITALS: BP 91/50; PULSE 61; RESP 16; TEMP 36.4; O2SAT 98
[2023-02-14 08:00] VITALS: BP 117/50; PULSE 78; RESP 16; TEMP 36.9; O2SAT 96
[2023-02-14] MEDS: LIDOCAINE 5% PATCH 1 PATCH TRANSDERM (09:03)
[2023-02-14] MEDS: FERROUS SULFATE 325 MG TABLET DR PO (09:04)
[2023-02-14] MEDS: MULTIVITAMINS THERAPEUTIC TAB (*BKC) 1 TABLET PO (09:04)
[2023-02-14] MEDS: ASPIRIN 81 MG ENTERIC TABLET PO (09:04)
[2023-02-14] MEDS: FUROSEMIDE 20 MG TABLET PO (09:04)
[2023-02-14 09:05] VITALS: PULSE 72
[2023-02-14] MEDS: HYDROcodone/acetaminophen (*CRX) 5-325 MG TABLET 1 TAB PO ×2 (09:05→20:11)
[2023-02-14] MEDS: carvediloL 12.5 MG TABLET 25 MG PO ×2 (09:05→20:10)
[2023-02-14] MEDS: LOSARTAN POTASSIUM 50 MG TABLET 100 MG PO (09:06)
[2023-02-14] MEDS: VERAPAMIL HCL ER 120 MG TABLET 240 MG PO ×2 (09:06→20:10)
[2023-02-14] MEDS: LORATADINE 10 MG TABLET PO (09:06)
[2023-02-14] MEDS: PANTOPRAZOLE 40 MG TABLET PO (09:07)
[2023-02-14 16:00] VITALS: BP 124/72; PULSE 66; RESP 16; TEMP 36.6; O2SAT 100
[2023-02-14 20:00] VITALS: PULSE 73; RESP 16; O2SAT 100
[2023-02-14 20:10] VITALS: PULSE 73
[2023-02-14] MEDS: ACETAMINOPHEN 325 MG TABLET 650 MG PO (22:36)
[2023-02-15] VITALS: BP 140/79; PULSE 73; RESP 16; TEMP 36.2; O2SAT 98
--- NOTE | 2023-02-15 02:00 | PC.NURSE ---
Pt called staff to use bathroom, pt sitting on bedside independently, attempted to transfer pt with walker and gait belt, pt unable to stand, jorje nathalia used, pt required extensive 2 assist to stand and transfer to bedside commode. 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 Pt stated I'm not doing this to be stubborn, I can't control my legs. Once in bed pt required staff to assist to place legs in bed and assist to side lying position. Pt tearful, states I'm not doing this on purpose .
[2023-02-15] MEDS: HYDROcodone/acetaminophen (*CRX) 5-325 MG TABLET 1 TAB PO ×2 (02:57→20:14)
[2023-02-15 07:46] VITALS: BP 144/83; PULSE 94; RESP 16; TEMP 36.4; O2SAT 98
[2023-02-15] MEDS: ACETAMINOPHEN 325 MG TABLET 650 MG PO (09:25)
[2023-02-15] MEDS: LIDOCAINE 5% PATCH 1 PATCH TRANSDERM (09:25)
[2023-02-15] MEDS: VERAPAMIL HCL ER 120 MG TABLET 240 MG PO ×2 (09:26→20:14)
[2023-02-15 09:27] VITALS: PULSE 92
[2023-02-15] MEDS: carvediloL 12.5 MG TABLET 25 MG PO ×2 (09:27→20:14)
[2023-02-15] MEDS: FUROSEMIDE 20 MG TABLET PO (09:27)
[2023-02-15] MEDS: ASPIRIN 81 MG ENTERIC TABLET PO (09:27)
[2023-02-15] MEDS: MULTIVITAMINS THERAPEUTIC TAB (*BKC) 1 TABLET PO (09:27)
[2023-02-15] MEDS: LORATADINE 10 MG TABLET PO (09:28)
[2023-02-15] MEDS: PANTOPRAZOLE 40 MG TABLET PO (09:28)
[2023-02-15] MEDS: FERROUS SULFATE 325 MG TABLET DR PO (09:28)
[2023-02-15] MEDS: LOSARTAN POTASSIUM 50 MG TABLET 100 MG PO (09:28)
[2023-02-15 12:06] LABS: Basophils Absolute Auto 0.06 K/mm3 (0.00-0.10); Basophils Percent Auto 1.1 % (0.0-1.0); Eosinophils Absolute Auto 0.13 K/mm3 (0.02-0.50); Eosinophils Percent Auto 2.4 % (1.0-6.0); Hematocrit 29.1 % (35.0-42.0); Hemoglobin 9.5 g/dL (11.7-13.8); Immature Granulocyte Absolute 0.02 K/mm3 (0.00-0.00); Immature Granulocyte Percent A 0.4 % (0.0-0.0); Lymphocytes Percent Auto 10.9 % (18.0-42.0); Mean Corpuscular HGB Conc 32.6 g/dL (32.0-36.0); Mean Platelet Volume 9.3 fl (9.2-11.8); Monocytes Absolute Auto 0.58 K/mm3 (0.10-0.90); Monocytes Percent Auto 10.5 % (2.0-11.0); Neutrophils Absolute Auto 4.1 K/mm3 (1.7-7.2); Neutrophils Percent Auto 74.7 % (50.0-70.0); Platelet Count Result 265 K/mm3 (150-420); Red Blood Count 2.97 M/mm3 (4.20-5.40); Red Cell Distribution Width 18.5 % (11.6-14.4); White Blood Count 5.5 K/mm3 (4.8-10.8)
[2023-02-15 12:21] LABS: Alanine Aminotransferase 18 U/L (14-59); Albumin Level 2.3 g/dL (3.4-5.0); Alkaline Phosphatase 71 U/L (46-116); Anion Gap 7 mmol/L (8-16); Aspartate Amino Transferase 16 U/L (15-37); Bilirubin,Total 0.4 mg/dL (0.00-1.00); Blood Urea Nitrogen 14 mg/dL (7-18); Calcium 8.7 mg/dL (8.5-10.1); Carbon Dioxide 24 mmol/L (21-32); Chloride 93 mmol/L (98-108); Estimated CRCL calculation 37 ml/min; Estimated Glomerular Filt Rate > 60; Glucose 93 mg/dL (70-99); Osmolality Calculated 258 mOsm/kg (285-295); Potassium 4.3 mmol/L (3.5-5.1); Sodium 124 mmol/L (136-145); Total Protein 4.7 g/dL (6.4-8.2)
--- NOTE | 2023-02-15 15:03 | PM.EVENT ---
Event Note Event Note Event Note: Subjective: Patient reports increased weakness. Objective: Patient has not been progressing with therapy and in fact has been digressing over the past several days per nursing and therapy reports. Assessment/Plan: Assessment of patient is grossly unchanged from prior but she is reporting overall weakness as well as reporting pain in both feet and entirety of right leg. Ordered urinalysis and labs. Chemistry panel results worsening hyponatremia. Ordered sodium tablets 1 g BID and will redraw labs tomorrow afternoon after 2 doses. If patient over corrects or does not improve/worsens will consider moving to acute care or transferring to [place] for Nephrology consult. Exam: GENERAL: Generally well appearing, alert and oriented, in no apparent distress. She is pleasant and conversant in full sentences. HEENT: Pupils are equally round and briskly reactive to light. Extraocular muscles are intact. Oral mucous membranes are moist without lesions. No gum bleeding NECK: The patient has no noted JVD. No adenopathy is appreciated. CHEST/LUNGS: Lungs are clear bilaterally without rhonchi, rales, or wheezes. There is no subcutaneous air appreciated.? Pacemaker noted left upper chest HEART: The patient has a regular rate and rhythm. No murmurs, rubs, or gallops are appreciated. Distal pulses are 2+. ABDOMEN: The patient's abdomen is soft, nontender, and nondistended. Bowel sounds are positive. No peritoneal signs EXTREMITIES: The patient has bilateral lower extremity swelling especially around the foot and ankle, no open wounds. There is no focal long bone tenderness or deformity. No point tenderness to left talus area SKIN: The patient's skin is warm and dry, without rashes or lesions. No petechiae PSYCHIATRIC: The patient has normal mental status and has an appropriate affect. NEUROLOGIC:? There are no gross deficits to the cranial nerves. ? Patient moves all extremities 5-/5 strength lower extremities, 5-/5 upper extremities Time spent with patient: 15-25 minutes
[2023-02-15 16:30] VITALS: BP 119/66; PULSE 62; RESP 16; TEMP 36.2; O2SAT 100
[2023-02-15] MEDS: SODIUM CHLORIDE 1 GM TABLET PO (17:21)
[2023-02-15 20:00] VITALS: PULSE 65; RESP 16; O2SAT 100
[2023-02-15 20:14] VITALS: PULSE 65
[2023-02-16] VITALS: BP 127/57; PULSE 66; RESP 16; TEMP 36.8; O2SAT 99
--- NOTE | 2023-02-16 07:15 | PC.NURSE ---
Pt called out to go to the bathroom. Pt was unable to maintain balance while sitting on side of bed. Two nurses attempted to stand her with walker. Pt stated she can't put her left leg down. Pt was seated again on bed and assisted by two nurses with jorje steady to the bsc and then to chair.
[2023-02-16 08:00] VITALS: BP 125/59; PULSE 68; RESP 16; TEMP 36.4; O2SAT 98
[2023-02-16 09:54] VITALS: PULSE 68
[2023-02-16] MEDS: LOSARTAN POTASSIUM 50 MG TABLET 100 MG PO (09:54)
[2023-02-16] MEDS: VERAPAMIL HCL ER 120 MG TABLET 240 MG PO ×2 (09:54→20:26)
[2023-02-16] MEDS: carvediloL 12.5 MG TABLET 25 MG PO ×2 (09:54→20:26)
[2023-02-16] MEDS: MULTIVITAMINS THERAPEUTIC TAB (*BKC) 1 TABLET PO (09:54)
[2023-02-16] MEDS: FERROUS SULFATE 325 MG TABLET DR PO (09:54)
[2023-02-16] MEDS: LORATADINE 10 MG TABLET PO (09:54)
[2023-02-16] MEDS: LIDOCAINE 5% PATCH 1 PATCH TRANSDERM (09:54)
[2023-02-16] MEDS: ASPIRIN 81 MG ENTERIC TABLET PO (09:54)
[2023-02-16] MEDS: PANTOPRAZOLE 40 MG TABLET PO (09:54)
[2023-02-16] MEDS: SODIUM CHLORIDE 1 GM TABLET PO ×2 (09:54→18:10)
[2023-02-16] MEDS: FUROSEMIDE 20 MG TABLET PO (09:54)
[2023-02-16 14:24] LABS: Anion Gap 6 mmol/L (8-16); Blood Urea Nitrogen 17 mg/dL (7-18); Calcium 8.7 mg/dL (8.5-10.1); Carbon Dioxide 24 mmol/L (21-32); Chloride 96 mmol/L (98-108); Estimated CRCL calculation 36 ml/min; Estimated Glomerular Filt Rate > 60; Glucose 114 mg/dL (70-99); Osmolality Calculated 264 mOsm/kg (285-295); Potassium 4.1 mmol/L (3.5-5.1); Sodium 126 mmol/L (136-145)
[2023-02-16 16:00] VITALS: BP 124/68; PULSE 62; RESP 15; TEMP 36.3; O2SAT 99
[2023-02-16 16:20] LABS: Appearance Urine Clear (Clear); Bilirubin Urine Negative (Negative); Blood Urine Negative (Negative); Color Urine Light Yellow (Yellow); Glucose Urine UA Negative (Negative); Ketones Urine Negative (Negative); Leukocyte Esterase Ur Negative LEU/UL (Negative); Nitrate Urine Negative (Negative); Protein Urine Negative (Negative)
[2023-02-16 16:29] LABS: Add Urine Microscopic? NO
[2023-02-16 20:26] VITALS: PULSE 64
[2023-02-16] MEDS: HYDROcodone/acetaminophen (*CRX) 5-325 MG TABLET 1 TAB PO (20:26)
[2023-02-16 23:43] VITALS: BP 119/59; PULSE 64; RESP 16; TEMP 36.1; O2SAT 96
[2023-02-17 08:00] VITALS: BP 154/82; PULSE 69; RESP 17; TEMP 36.1; O2SAT 98
[2023-02-17] MEDS: SODIUM CHLORIDE 1 GM TABLET PO ×2 (09:13→17:41)
[2023-02-17] MEDS: PANTOPRAZOLE 40 MG TABLET PO (09:13)
[2023-02-17] MEDS: MULTIVITAMINS THERAPEUTIC TAB (*BKC) 1 TABLET PO (09:13)
[2023-02-17] MEDS: ACETAMINOPHEN 325 MG TABLET 650 MG PO (09:13)
[2023-02-17] MEDS: LIDOCAINE 5% PATCH 1 PATCH TRANSDERM (09:13)
[2023-02-17] MEDS: ASPIRIN 81 MG ENTERIC TABLET PO (09:13)
[2023-02-17 09:14] VITALS: PULSE 68
[2023-02-17] MEDS: FERROUS SULFATE 325 MG TABLET DR PO (09:14)
[2023-02-17] MEDS: carvediloL 12.5 MG TABLET 25 MG PO ×2 (09:14→20:56)
[2023-02-17] MEDS: VERAPAMIL HCL ER 120 MG TABLET 240 MG PO ×2 (09:14→20:56)
[2023-02-17] MEDS: LORATADINE 10 MG TABLET PO (09:14)
[2023-02-17] MEDS: FUROSEMIDE 20 MG TABLET PO (09:14)
[2023-02-17] MEDS: LOSARTAN POTASSIUM 50 MG TABLET 100 MG PO (09:14)
[2023-02-17 14:49] LABS: Basophils Absolute Auto 0.04 K/mm3 (0.00-0.10); Basophils Percent Auto 0.8 % (0.0-1.0); Eosinophils Absolute Auto 0.16 K/mm3 (0.02-0.50); Eosinophils Percent Auto 3.2 % (1.0-6.0); Hematocrit 27.6 % (35.0-42.0); Immature Granulocyte Absolute 0.02 K/mm3 (0.00-0.00); Immature Granulocyte Percent A 0.4 % (0.0-0.0); Lymphocytes Percent Auto 11.9 % (18.0-42.0); Mean Corpuscular HGB Conc 32.6 g/dL (32.0-36.0); Mean Corpuscular Hemoglobin 31.9 pg (27.0-31.0); Mean Corpuscular Volume 97.9 fL (78.0-102.0); Mean Platelet Volume 9.1 fl (9.2-11.8); Monocytes Absolute Auto 0.61 K/mm3 (0.10-0.90); Monocytes Percent Auto 12.1 % (2.0-11.0); Neutrophils Absolute Auto 3.6 K/mm3 (1.7-7.2); Neutrophils Percent Auto 71.6 % (50.0-70.0); Platelet Count Result 272 K/mm3 (150-420); Red Blood Count 2.82 M/mm3 (4.20-5.40); Red Cell Distribution Width 18.4 % (11.6-14.4); White Blood Count 5.1 K/mm3 (4.8-10.8)
[2023-02-17 15:08] LABS: Anion Gap 7 mmol/L (8-16); Blood Urea Nitrogen 13 mg/dL (7-18); Calcium 8.8 mg/dL (8.5-10.1); Carbon Dioxide 22 mmol/L (21-32); Chloride 96 mmol/L (98-108); Estimated CRCL calculation 40 ml/min; Estimated Glomerular Filt Rate > 60; Glucose 103 mg/dL (70-99); Osmolality Calculated 260 mOsm/kg (285-295); Potassium 4.5 mmol/L (3.5-5.1); Sodium 125 mmol/L (136-145)
[2023-02-17 16:00] VITALS: BP 124/54; PULSE 68; RESP 15; TEMP 36.3; O2SAT 98
[2023-02-17 20:56] VITALS: PULSE 64
[2023-02-17] MEDS: HYDROcodone/acetaminophen (*CRX) 5-325 MG TABLET 1 TAB PO (20:57)
[2023-02-18] VITALS: BP 135/86; PULSE 64; RESP 18; TEMP 36.1; O2SAT 98
[2023-02-18] MEDS: HYDROcodone/acetaminophen (*CRX) 5-325 MG TABLET 1 TAB PO ×3 (03:10→20:28)
[2023-02-18 05:33] LABS: Anion Gap 5 mmol/L (8-16); Blood Urea Nitrogen 11 mg/dL (7-18); Calcium 8.7 mg/dL (8.5-10.1); Carbon Dioxide 24 mmol/L (21-32); Chloride 97 mmol/L (98-108); Estimated CRCL calculation 45 ml/min; Estimated Glomerular Filt Rate > 60; Glucose 92 mg/dL (70-99); Osmolality Calculated 261 mOsm/kg (285-295); Potassium 4.3 mmol/L (3.5-5.1); Sodium 126 mmol/L (136-145)
[2023-02-18 08:00] VITALS: BP 140/80; PULSE 70; RESP 18; TEMP 36.1; O2SAT 94
[2023-02-18 08:54] VITALS: PULSE 88
[2023-02-18] MEDS: carvediloL 12.5 MG TABLET 25 MG PO ×2 (08:54→20:29)
[2023-02-18] MEDS: FUROSEMIDE 20 MG TABLET PO (08:55)
[2023-02-18] MEDS: MULTIVITAMINS THERAPEUTIC TAB (*BKC) 1 TABLET PO (08:55)
[2023-02-18] MEDS: PANTOPRAZOLE 40 MG TABLET PO (08:55)
[2023-02-18] MEDS: LOSARTAN POTASSIUM 50 MG TABLET 100 MG PO (08:55)
[2023-02-18] MEDS: VERAPAMIL HCL ER 120 MG TABLET 240 MG PO ×2 (08:55→20:28)
[2023-02-18] MEDS: ASPIRIN 81 MG ENTERIC TABLET PO (08:55)
[2023-02-18] MEDS: LORATADINE 10 MG TABLET PO (08:55)
[2023-02-18] MEDS: LIDOCAINE 5% PATCH 1 PATCH TRANSDERM (08:56)
[2023-02-18] MEDS: SODIUM CHLORIDE 1 GM TABLET PO ×3 (08:56→17:33)
[2023-02-18] MEDS: FERROUS SULFATE 325 MG TABLET DR PO (08:56)
[2023-02-18 16:00] VITALS: BP 138/78; PULSE 88; RESP 18; TEMP 36.1; O2SAT 94
[2023-02-18 17:56] LABS: Influenza A QL RT-PCR Negative (Negative); Influenza B QL RT-PCR Negative (Negative); SARS-CoV-2 RNA PCR Negative (Negative)
[2023-02-18 18:14] LABS: RSV RNA, RT-PCR Negative (Negative)
[2023-02-18 20:00] VITALS: PULSE 64; RESP 18; O2SAT 94
[2023-02-18 20:29] VITALS: PULSE 64
[2023-02-19] VITALS: BP 112/83; PULSE 64; RESP 18; TEMP 36.1; O2SAT 96
--- NOTE | 2023-02-19 04:12 | PC.NURSE ---
On 02/19/23, the DIRECTOR OF CATERING, Trduy Khan, provided care and completed [facility] documentation on this patient. I have reviewed the DIRECTOR OF CATERING's documentation and agree with the findings.
[2023-02-19 05:39] LABS: Anion Gap 4 mmol/L (8-16); Blood Urea Nitrogen 12 mg/dL (7-18); Calcium 8.8 mg/dL (8.5-10.1); Carbon Dioxide 23 mmol/L (21-32); Chloride 96 mmol/L (98-108); Estimated CRCL calculation 43 ml/min; Estimated Glomerular Filt Rate > 60; Glucose 89 mg/dL (70-99); Osmolality Calculated 254 mOsm/kg (285-295); Potassium 4.7 mmol/L (3.5-5.1); Sodium 123 mmol/L (136-145)
[2023-02-19 08:00] VITALS: BP 134/84; PULSE 85; RESP 18; TEMP 36.1; O2SAT 96
[2023-02-19] MEDS: LIDOCAINE 5% PATCH 1 PATCH TRANSDERM (08:43)
[2023-02-19] MEDS: HYDROcodone/acetaminophen (*CRX) 5-325 MG TABLET 1 TAB PO (08:44)
[2023-02-19] MEDS: SODIUM CHLORIDE 1 GM TABLET PO ×3 (08:44→16:35)
[2023-02-19] MEDS: VERAPAMIL HCL ER 120 MG TABLET 240 MG PO ×2 (08:44→20:20)
[2023-02-19 08:45] VITALS: PULSE 82
[2023-02-19] MEDS: MULTIVITAMINS THERAPEUTIC TAB (*BKC) 1 TABLET PO (08:45)
[2023-02-19] MEDS: LORATADINE 10 MG TABLET PO (08:45)
[2023-02-19] MEDS: carvediloL 12.5 MG TABLET 25 MG PO ×2 (08:45→20:20)
[2023-02-19] MEDS: ASPIRIN 81 MG ENTERIC TABLET PO (08:46)
[2023-02-19] MEDS: LOSARTAN POTASSIUM 50 MG TABLET 100 MG PO (08:46)
[2023-02-19] MEDS: PANTOPRAZOLE 40 MG TABLET PO (08:46)
[2023-02-19] MEDS: FUROSEMIDE 20 MG TABLET PO (08:46)
[2023-02-19] MEDS: FERROUS SULFATE 325 MG TABLET DR PO (08:46)
--- NOTE | 2023-02-19 15:00 | PC.NURSE ---
PT WORKING WITH THERAPY AT THIS TIME.
[2023-02-19 16:00] VITALS: BP 129/70; PULSE 80; RESP 16; TEMP 36.7; O2SAT 95
[2023-02-19 16:31] LABS: Sodium 121 mmol/L (136-145)
--- NOTE | 2023-02-19 17:10 | P.PNCROSS_ITS ---
Event Note Event Note Event Note: Patient was on trach to discharge to detention today however her BNP came ba ck this morning with a sodium dropped to 123. Cancel the discharge and plan is to repeat a BMP this afternoon. Repeat sodium is 121 despite free water restriction and salt tabs. She continues to have lower extremity weakness. She needs to transfer to [place] for nephrology consult.
[2023-02-19] MEDS: SODIUM CHLORIDE 0.9% IV 1,000 ML 100 ML IV CONT (17:40)
--- NOTE | 2023-02-19 18:03 | PM.TDS ---
Transfer Discharge Sum: Prov Provider Date of admission: 02/04/23 13:57 Primary care physician: Eros Layne MD Admitting clinician: Petar Awad MD Consults: 02/12/23 Consult to Home Health Routine Reason for Consult:: RN/[facility] Occupational Therapy Physical Therapy DS: Admitting Diagnosis Discharge Date 02/19 Admitting Diagnosis swing bed for therapy, now with hyponatremia DS: Discharge Diagnosis Discharge Diagnosis Plan This is a pleasant 82-year-old female patient is admitted to swing bed program after acute hospitalization for diarrhea due to chemotherapy for treatment multiple myeloma.? Patient reports she had multiple episodes of diarrhea after receiving recent dose of chemotherapy.? This caused her to be acutely dehydrated and cause acute kidney injury with serum creatinine climbing to 1.9.? this has improved back to normal reading of 0.8, baseline appears to be 0.9.? Patient reports that she has become much weaker after this round of chemotherapy and bout of diarrhea.? She reports that she is not able to stand and ambulate like usual.? Most of the time patient is able to live independently and care for her great granddaughter but now she is having trouble transferring bed to chair and.? Patient complains of lower extremity swelling bilaterally worse on the right.? She notes bilateral ankle discomfort due to swelling.? X-ray finding showed an avulsion fracture left talus but no point tenderness and unknown length of time for this injury. Labs indicate pancytopenia related to multiple myeloma and cancer treatment.? Patient did receive 1 unit PRBC transfusion and had an improvement in platelet level without transfusion during acute hospitalization. 02/19-Her sodium was repeated this morning for discharge. Unfortunately it had declined to 123. Free water restricted and re-checked this afternoon with a repeat level of 121. Placed on NS at 100 ml per hour. Will need to transfer for nephrology consult. Transfer Discharge Sum: Med Medications Active and Home Medications: Home Medications carvedilol 25 mg tablet (Coreg) 25 mg PO BID 03/29/19 [History Confirmed 02/04/23] losartan 100 mg tablet (Cozaar) 100 mg PO DAILY 03/29/19 [History Confirmed 02/04/23] multivitamin (Daily Multi-Vitamin tablet) 1 tablet PO DAILY 03/29/19 [History Confirmed 02/04/23] ondansetron HCl 4 mg tablet 4 mg PO Q8H PRN Nausea 03/29/19 [History Confirmed 02/04/23] verapamil 240 mg tablet,extended release 240 mg PO BID 03/29/19 [History Confirmed 02/04/23] ferrous sulfate 325 mg (65 mg iron) tablet (Iron (ferrous sulfate)) 325 mg PO DAILY 06/15/19 [History Confirmed 02/04/23] aspirin 81 mg tablet,delayed release (Adult Low Dose Aspirin) 81 mg PO DAILY 05/20/20 [History Confirmed 02/04/23] omeprazole magnesium 20 mg tablet,delayed release (Prilosec OTC) 20 mg PO DAILY 11/05/20 [History Confirmed 02/04/23] hydralazine 10 mg tablet See Rx Instructions .Route .COMPLEX 12/02/20 [History Confirmed 02/04/23] cetirizine 10 mg tablet (Zyrtec) 10 mg PO DAILY 01/26/22 [History Confirmed 02/04/23] furosemide 20 mg tablet (Lasix) 20 mg PO DAILY 01/31/23 [History Confirmed 02/04/23] hydrocodone 5 mg-acetaminophen 325 mg tablet 5 - 325 tablet PO Q6H PRN Pain #10 tabs 02/04/23 [Rx Confirmed 02/04/23] Active Medications Acetaminophen (Acetaminophen 325 Mg Tablet) 650 mg PO Q6H PRN PRN Reason: Pain Rated 5 or Less Last Admin: 02/17/23 09:13 Dose: 650 mg Hydrocodone Bitart/Acetaminophen (Hydrocodone/Acetaminophen (*Crx) 5-325 Mg Tablet) 1 tab PO Q6H PRN PRN Reason: Pain Rated 6 or Greater Last Admin: 02/19/23 08:44 Dose: 1 tab Aspirin (Aspirin 81 Mg Enteric Tablet) 81 mg PO DAILY [facility] Last Admin: 02/19/23 08:46 Dose: 81 mg Carvedilol (Carvedilol 12.5 Mg Tablet) 25 mg PO Q12HR [facility] Last Admin: 02/19/23 08:45 Dose: 25 mg Ferrous Sulfate (Ferrous Sulfate [address]) 325 mg P
--- NOTE | 2023-02-19 18:55 | PC.NURSE ---
N.O. TO OBTAIN URINE, ASSISTED PATIENT WITH 2 ASSIST AND [place] STEADY TO BS. VOIDED 400ML, URINE COLLECTED AND TAKEN TO LAB. PT ASSISTED FROM BSC WITH 2 ASSIST AND [place] STEADY, PT REQUIRES MODERATE/MAX ASSIST, ASSISTED INTO BED, BLE ELEVATED, BELONGINGS IN REACH. IV INFUSING WITHOUT DIFFICULTY.
[2023-02-19 19:14] LABS: Creatinine Urine 54.44 mg/dL (40-278); Sodium Urine Random 49 mmol/L (20-110)
[2023-02-19 19:16] LABS: NT Pro B Type Natriuretic Pept 578 pg/mL (0-450); Thyroid Stimulating Hormone 5.42 uIU/mL (0.36-3.74)
[2023-02-19 20:00] VITALS: PULSE 63; RESP 16; O2SAT 98
[2023-02-19 20:20] VITALS: PULSE 63
[2023-02-19 21:25] LABS: Anion Gap 5 mmol/L (8-16); Blood Urea Nitrogen 13 mg/dL (7-18); Carbon Dioxide 23 mmol/L (21-32); Chloride 94 mmol/L (98-108); Estimated CRCL calculation 40 ml/min; Estimated Glomerular Filt Rate > 60; Free T3 1.77 pg/mL (2.18-3.98); Glucose 104 mg/dL (70-99); Osmolality Calculated 254 mOsm/kg (285-295); Potassium 4.3 mmol/L (3.5-5.1); Sodium 122 mmol/L (136-145)
--- NOTE | 2023-02-19 21:44 | PC.NURSE ---
This RN spoke w/Leeann the material handling warehouse supervisor for [facility] for a progress update on a possible room number for the pt. During report it was communicated to shift lab technician that the pt was accepted to the facility and was awaiting a room number. During the conversation wBobby; Leeann had stated that the pt was not accepted yet, and she will contact Teresa the SHIPYARD PAINTER HELPER for [place] on an update. Awaiting call back from Leeann.
--- NOTE | 2023-02-19 22:03 | PC.NURSE ---
Leeann from [facility] contacted this facility to inform this hemodialysis charge nurse that Teresa the PRODUCT MANAGENT INTERN at [facility] has accepted the pt for transfer. Pt will be going to room 248 and Trudy DWYER will be giving report to Ton STERN at [facility] by using the number [phone].
--- NOTE | 2023-02-19 22:09 | PC.NURSE ---
Call placed to [facility] for pt transfer from this facility to [place].
--- NOTE | 2023-02-19 22:12 | PC.NURSE ---
spoke with Ton Hercules at [facility] to give report on this patient. report given and patient is to go to room 248. [facility] to transport patient. awaiting ambulancfe service at this time.
--- NOTE | 2023-02-19 22:44 | PC.NURSE ---
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
--- NOTE | 2023-02-19 22:50 | PC.NURSE ---
[facility] BLS transporting pt to [place], IV fluids discontinued prior to transfer. personal belongings sent with patient.
--- NOTE | 2023-02-19 22:54 | PC.NURSE ---
This charge nurse spoke w/Gabriella Samaniego DIGITAL IMAGER to inform her that [facility] cannot transfer pt while she is on fluids. DIGITAL IMAGER stated it is fine to DC fluids at this time, so pt can transfer via telephone order readback.
[2023-02-23 07:17] LABS: T4 Thyroxine 6.5 mcg/dL (5.9-10.3)
[2023-02-23 20:11] LABS: Osmolality, Urine 368 mOsm/kg (50-1200)
== END 2023-02-19 22:50 | disposition short-term general hospital (02) | DRG 947 ==
PROVIDERS: Nurse Practitioner; Nurse Practitioner Acute Care; Admitting Provider Internal Medicine; PCP Internal Medicine; Visit Provider Internal Medicine
DX: R53.1 Weakness (principal); D61.810 Antineoplastic chemotherapy induced pancytopenia; C90.00 Multiple myeloma not having achieved remission; K52.1 Toxic gastroenteritis and colitis; E87.1 Hypo-osmolality and hyponatremia; N18.30 Chronic kidney disease, stage 3 unspecified; E87.6 Hypokalemia; E21.3 Hyperparathyroidism, unspecified; R13.10 Dysphagia, unspecified; M81.0 Age-related osteoporosis without current pathological fracture; T45.1X5A Adverse effect of antineoplastic and immunosuppressive drugs, initial encounter; Z20.822 Contact with and (suspected) exposure to COVID-19; Z23 Encounter for immunization; S92.102D Unspecified fracture of left talus, subsequent encounter for fracture with routine healing; Z79.82 Long term (current) use of aspirin
CPT/HCPCS: 36415; 80048; 80053; 81003; 82570; 83880; 83930; 83935; 84295; 84300; 84436; 84443; 84481; 84540; 85025; 85027; 87637; 90471; 90694; 92526; 92610; 93971; 97110; 97140; 97161; 97165; 97530; 97535; A9270; G0008; J7030

== ENCOUNTER 2023-02-19 23:44 | Inpatient (IN) | payer MEDICARE, SELFPAY ==
--- NOTE | ~2023-02-19 | XR_ITS ---
EXAMINATION: XR shoulder RT min 2V DATE: 02/28/2023 10:13 INDICATION: Right shoulder pain. Fall. TECHNIQUE: 4 views of right shoulder were obtained. COMPARISON: None. FINDINGS: There is thoracic dextroscoliosis. No fracture. There is moderate osteoarthritis of the acr omioclavicular joint and mild osteoarthritis of glenohumeral joint. There is a right internal jugular port with tip at superior cavoatrial junction. Pacer wires are noted. IMPRESSION: 1. Polyarticular osteoarthritis. Reviewed, dictated and finalized at location A.
--- NOTE | ~2023-02-19 | XR_ITS ---
EXAMINATION: XR shoulder LT min 2V DATE: 02/28/2023 10:13 INDICATION: Left shoulder pain. Fall. TECHNIQUE: 3 views of left shoulder were obtained. COMPARISON: None. FINDINGS: There is thoracic dextroscoliosis. No fracture. There is mild osteoarthritis of glenohumera l joint and acromioclavicular joint. Partially visualized is a left chest pacer. There is a right int ernal jugular port. IMPRESSION: 1. Mild polyarticular osteoarthritis. Reviewed, dictated and finalized at location A.
--- NOTE | ~2023-02-19 | CT_ITS ---
EXAMINATION: CT thoracic lumbar wo con DATE: 02/24/2023 17:37 INDICATION: Lower extremity dysfunction TECHNIQUE: Computed tomography (CT) of the thoracic and lumbar spine was performed without intravenou s contrast. The dose-length product (DLP) was 577.47 mGy-cm. Iterative reconstruction was used. COMPARISON: 06/27/2021 FINDINGS: Thoracic Spine: There are 15 degrees of thoracic dextroscoliosis. The vertebral body heights are main tained. There is mild loss of intervertebral disc space height at multiple levels in the thoracic spi ne. No fracture is identified. Small pleural effusions are noted. There is mild dependent atelectasis of the lungs. Lumbar Spine: There are 45 degrees of lumbar levoscoliosis. There are 6 mm of leftward subluxation of the L3 vertebral body on L4. There is severe asymmetric loss of intervertebral disc space height on the right at L2-3 and L3-4. There is severe loss of intervertebral disc space height at L4-5 and L5-S 1. No fracture is identified. There is multilevel moderate facet joint osteoarthritis. There is moder ate central canal stenosis at L3-4. IMPRESSION: 1. Dextroscoliosis and moderate thoracic spondylosis without acute findings. 2. Levoscoliosis and severe lumbar spondylosis without acute findings. Reviewed, dictated and finalized at location F.
--- NOTE | ~2023-02-19 | CT_ITS ---
CT hip RT wo con DATE: 02/20/2023 07:59 INDICATION: Right hip pain after fall TECHNIQUE: Axial images through the right hip with sagittal and coronal reconstructions Exam dose: 462.58 mGy-cm total exam DLP. COMPARISON: 09/28/2022 bilateral hip radiographs FINDINGS: Very subtle cortical irregularity at the medial aspect of the femoral neck and to a lesser extent lateral femoral neck suggest very subtle nondisplaced subcapital femoral neck fracture. The right acetabulum, in addition and superior and inferior pubic rami are intact. IMPRESSION: Very subtle nondisplaced subcapital femoral neck fracture is suspected. Consider plain ra diograph and possibly MR hip correlation as clinically appropriate. Reviewed, dictated and finalized at Location A. Reviewed, dictated and finalized at location A. IMPRESSION: Very subtle nondisplaced subcapital femoral neck fracture is suspec rochelle. Consider plain radiograph and possibly MR hip correlation as clinically ap propriate.
--- NOTE | ~2023-02-19 | CT_ITS ---
EXAMINATION: 1. XR_MY2+_CR 2. CT cervical spine w con 3. CT thoracic lumbar w con DATE: 02/26/2023 10:21 INDICATION: Lower limb weakness. Fall. TECHNIQUE: The procedure including the risks, benefits, and alternatives was discussed with the patie nt. Risks discussed included spinal headache, bleeding, and infection. The patient understood the ris ks and agreed to proceed. A timeout was performed to verify the patient's name, date of , and procedure to be performed. The skin overlying the L2-L3 level was prepped and draped in usual steri le fashion. Subcutaneous 1% lidocaine was used for local anesthesia. A 22 gauge spinal needle was a dvanced under fluoroscopic guidance. 10 mL Omnipaque 300 was injected. The needle was removed and the entry site was cleaned and dressed. There were no immediate complications. Fluoroscopy exposure antonina e was 0.1 minutes. The total number of images was 2. Computed tomography (CT) of the cervical, thorac ic, and lumbar spine was performed without intravenous contrast. Automated exposure control and itera tive reconstruction technique were employed. The dose-length product was 586 mGy-cm. COMPARISON: CT 02/24/2023 FINDINGS: MYELOGRAM: Real-time fluoroscopy demonstrates the needle at the L2-L3 level. There is indentation of the thecal sac at multiple levels that will be further described on the postmyelogram CT. Due to the patient's poor mobility, few fluoroscopic images were obtained. POST-MYELOGRAM CERVICAL SPINE CT: There is 2 mm retrolisthesis of C3 on C4. Vertebral body heights a re normal. There is severely decreased disc height at C2-C3 and C3-C4, moderately decreased disc heig ht at C4-C5, and severely decreased disc height at C5-C6 and C6-C7. The following disc levels are spe cifically discussed: C2-C3: There is moderate right and severe left uncovertebral joint osteoarthritis. There is severe ri ght and moderate left facet joint osteoarthritis. There is mild left neural foraminal stenosis. There is mild central canal stenosis. C3-C4: There is severe bilateral uncovertebral joint osteoarthritis. There is severe bilateral facet joint osteoarthritis. There is mild bilateral neural foraminal stenosis. There is mild central canal stenosis. C4-C5: There is mild bilateral uncovertebral joint osteoarthritis. There is mild right and severe lef t facet joint osteoarthritis. There is mild left neural foraminal stenosis. There is mild central can al stenosis. C5-C6: There is severe bilateral uncovertebral joint osteoarthritis. There is mild bilateral facet avelina int osteoarthritis. There is mild bilateral neural foraminal stenosis. There is mild central canal st enosis. C6-C7: There is severe bilateral uncovertebral joint osteoarthritis. There is mild bilateral facet avelina int osteoarthritis. There is mild bilateral neural foraminal stenosis. There is mild central canal st enosis. C7-T1: There is no uncovertebral joint osteoarthritis. There is severe bilateral facet joint osteoart hritis. There is mild right neural foraminal stenosis. There is no central canal stenosis. POST-MYELOGRAM THORACIC SPINE CT: There is mild scarring at the lung apices. There are moderate-sized pleural effusions. There is dependent atelectasis bilaterally. There are pacer wires in right atrium and right ventricle. There is a right internal jugular port with tip in superior cavoatrial junction . There is 42 degrees dextroscoliosis of thoracic spine. There is kyphosis of thoracic spine. There i s mild chronic anterior wedging of T7, T8, T9, T10, T11, and T12 vertebral bodies. There is mildly de creased disc height at T2-T3 and T3-T4, severely decreased disc height from T4-T5 through T9-T10, and mildly decreased disc height at T10-T11 and T11-T12. There is multilevel mild to moderate facet join t osteoarthritis. There is no neural foraminal stenosis. The discs do not extend beyond the endplate margins. Ther
--- NOTE | ~2023-02-19 | XR_ITS ---
EXAMINATION: XR surgery orthopedic INDICATION: Right hip pinning TECHNIQUE: Three intraoperative fluoroscopic images are submitted for review. Total fluoroscopic time was 203.1 seconds. COMPARISON: CT, 02/20/2023 FINDINGS: Fluoroscopic images demonstrate screw fixation of the nondisplaced femoral neck fracture. P lease refer to procedure note for full details. IMPRESSION: 1. Please refer to procedure note for full details. Reviewed, dictated and finalized at location F.
[2023-02-19 23:42] VITALS: PULSE 64
[2023-02-19 23:47] VITALS: BMI 18.5
[2023-02-20] VITALS (15 sets, daily range): BP systolic 90–127; BP diastolic 45–82; PULSE 62–78; RESP 14–21; TEMP 36.3–36.8; O2SAT 98–100
[2023-02-20 01:23] LABS: Anion Gap 3 mmol/L (8-16); Blood Urea Nitrogen 13 mg/dL (7-17); Calcium 8.6 mg/dL (8.4-10.2); Carbon Dioxide 22 mmol/L (22-30); Chloride 95 mmol/L (98-107); Estimated CRCL calculation 44 ml/min; Estimated Glomerular Filt Rate > 60; Glucose 92 mg/dL (65-110); Potassium 3.9 mmol/L (3.4-5.0); Sodium 120 mmol/L (137-145)
--- NOTE | 2023-02-20 02:24 | PM.IMHP ---
H&P: HPI History of Present Illness Date/Time: 02/19/23 23:55 Chief Complaint: Hyponatremia. Narrative: This is a very pleasant 82-year-old female with multiple myeloma, chronic kidney disease, anemia, and hypertension who is being directly admitted from an outside facility for evaluation of hyponatremia. The patient provides the following history. She is known to myself and the hospitalist service from a recent admission in which she was admitted for acute on chronic kidney failure due to dehydration from chemotherapy-induced diarrhea. She was discharged on 02/04/2023 to a swing bed at the [facility]. It does not sound as though she has been progressing much in therapy and she reports that she just feels weak overall. Her sodium level has continued to trend downwards while at that facility and she was started on sodium bicarbonate tablets without benefit. Fluid restriction was implemented however her sodium declined further and she was then started on normal saline at 100 mL an hour. Transfer was initiated to [place] for Nephrology consultation. At the time my evaluation she complains of ongoing pain in the right hip which has seemed to be getting worse instead of better following a fall several weeks ago just prior to her 1st admission. She sustained a cortical avulsion fracture from the anterior process of the left talus in that fall but it does not look like her hip was imaged. She denies lightheadedness, dizziness, confusion, nausea, and vomiting. Her appetite has been good. She has not noticed any significant edema or change from baseline. No orthopnea or paroxysmal nocturnal dyspnea. She denies chest pain shortness a breath. Review of Systems Review of Systems: Twelve systems were reviewed and are negative except for as per HPI. [facility] Past Medical History Medical History Chronic anemia Chronic kidney disease, stage 3 Hyperparathyroidism Multiple myeloma Osteoporosis Surgical History Surgical History History of bilateral cataract extraction History of permanent cardiac pacemaker placement Family History Family History Father Malignant neoplasm of prostate Acute myocardial infarction Heart disease Sibling Chronic obstructive pulmonary disease Other Family history of migraine headaches Social History Social History Social History: Surrogate medical decision maker: Shirley or Jem Gambinoehaus (daughter and son-in-law). Code status: Full code. Smoking status: Never smoker Second hand tobacco smoke exposure: Yes Alcohol intake: never Substance use: never Substance use type: does not use Lack of Transportation: No Lack of Food: Never True Current Housing: I Have Housing Concerned About Future Housing: No Difficulty Paying Gas/Electric Bills: No Difficulty Paying for Meds: No Currently Unemployed: No Education: High School Diploma/GED Difficulty w/ Childcare or Family Care: No Living arrangements: alone Spiritual care concerns: No Meds Home Medications and Allergies Home Medications Medication Instructions Recorded Confirmed Type carvedilol 25 mg tablet (Coreg) 25 mg PO BID 03/29/19 02/19/23 History losartan 100 mg tablet (Cozaar) 100 mg PO DAILY 03/29/19 02/19/23 History multivitamin (Daily Multi-Vitamin 1 tablet PO DAILY 03/29/19 02/19/23 History tablet) ondansetron HCl 4 mg tablet 4 mg PO Q8H PRN Nausea 03/29/19 02/20/23 History verapamil 240 mg tablet,extended 240 mg PO BID 03/29/19 02/20/23 History release ferrous sulfate 325 mg (65 mg 325 mg PO DAILY 06/15/19 02/20/23 History iron) tablet (Iron (ferrous sulfate)) aspirin 81 mg tablet,delayed 81 mg PO DAILY 05/20/20 02/20/23 History release (Adult Low Dos
[2023-02-20 05:55] LABS: Hematocrit 27.6 % (37.0-47.0); Hemoglobin 9.1 g/dL (12.0-15.0); Mean Corpuscular Hemoglobin 31.8 pg (26-34); Mean Corpuscular Volume 96.5 fl (80-100); Mean Platelet Volume 8.7 fl (7.4-10.4); Platelet Count Result 240 k/mm3 (150-375); Red Blood Count 2.86 M/mm3 (4.2-5.4); Red Cell Distribution Width 17.8 % (11.5-14.5); White Blood Count 4.7 K/mm3 (4.5-10.0)
[2023-02-20 06:09] LABS: Anion Gap 0 mmol/L (8-16); Blood Urea Nitrogen 12 mg/dL (7-17); Calcium 8.3 mg/dL (8.4-10.2); Carbon Dioxide 22 mmol/L (22-30); Chloride 97 mmol/L (98-107); Estimated CRCL calculation 44 ml/min; Estimated Glomerular Filt Rate > 60; Glucose 87 mg/dL (65-110); Magnesium 1.8 mg/dL (1.6-2.3); Sodium 119 mmol/L (137-145)
[2023-02-20 06:20] LABS: Creatinine Urine 26.3 mg/dL; Urea Random Urine 251 MG/DL
[2023-02-20 06:23] LABS: Sodium Urine Random 50 meq/L
--- NOTE | 2023-02-20 07:19 | PM.IMPN ---
Progress Note: A&P Assessment and Plan (1) Hyponatremia: Code(s): E87.1 - Hypo-osmolality and hyponatremia Status: Acute Assessment and Plan: Acute on chronic hyponatremia. Na was 123 on 02/19 with further downtrend to 121 Transfer to [place] for nephrology consult BMP Q 3 hours Na this morning is 119, reaching out to nephrology for assistance with management TSH, T3, T4 Urine studies collected serum osmo pending I spoke with Dr Ryan who recommends PO Lasix 20 mg TID, Na+ tablets 1 gram TID, and fluid restriction. (2) Right hip pain: Code(s): M25.551 - Pain in right hip Status: Acute Assessment and Plan: History of fall prior to this recent admission, several weeks ago in which she sustained a cortical of urgent fracture from the anterior process of the left talus Complaining of right hip pain and has been progressively getting worse CT right hip ordered PT/OT consults and rec's appreciated Fall precautions Acetaminophen for pain Ct shows possibly a minimally displaced right hip. Recommend MRI for further imaging. Study has been ordered and consult requested for orthopedics, recommendations are appreciated. (3) Multiple myeloma: Qualifiers: Multiple myeloma remission status: in relapse Qualified Code(s): C90.02 - Multiple myeloma in relapse Code(s): C90.00 - Multiple myeloma not having achieved remission Status: Acute Assessment and Plan: Currently receiving chemotherapy treatment pancytopenia related to this diagnosis (4) Chronic anemia: Code(s): D64.9 - Anemia, unspecified Status: Acute Assessment and Plan: Stable hgb 9.1/27.6 (5) Chronic kidney disease, stage 3: Code(s): N18.30 - Chronic kidney disease, stage 3 unspecified Status: Acute Assessment and Plan: CKD III Cr 0.70/BUN 12 Crcl 44 Plan Feeding:heart healthy diet Analgesia:acetaminophen Thromboembolic prophylaxis: scd Ulcer prophylaxis: protonix Glycemic control: n/a Bowel regimen: miralax Lines: PIV Antibiotics: n/a Started on NS at 100 ml per hour Nephrology consult and rec's appreciated. Subjective Date/time seen: 02/20/23 07:19 Interval history: Patient is known to me from yesterday, caring for her at our [place] location. She was admitted at [place] as a swing bed after an acute hospitalization for diarrhea due to chemotherapy for multiple myeloma. She was participating in therapy but has had continued episodes of acute on chronic hyponatremia and weakness. She was going to discharge yesterday but her morning labs showed a sodium of 123. There were concerns for her having increased water intake so I instituted a water restriction and rechecked her labs in the afternoon. Unfortunately her sodium dropped to 121 so it was decided to transfer her to [place] for a nephrology consult. 02/20- This morning her sodium is 119. I spoke with Dr. Ryan this morning and discussed her case. He recommended restarting salt tabs 1 g t.i.d. and adding Lasix 20 mg t.i.d. as well. Will recheck her sodium at noon today. I went ahead and added on Q 3 are BMP as well. Aurea is seen resting in bed this morning. Her swelling to her lower extremities, particularly her feet seem increased from yesterday she has +2-3 pitting edema. Her lower extremities appear okay but she also has Pavan hose in place. She is complaining about this right hip pain that travels through her right leg that she describes as sharp, shooting and constant. This is the 1st time she has mention it to me. A CT of her right hip has been obtained and we are just waiting on the read. PT and OT are consulted to follow again with her and recommendations are appreciated. I added on low-dose oxycodone p.r.n. q.4 hours for pain. Review of Systems Review of Systems: All systems reviewed & are unremarkable except as noted in HPI and below Exam [facility]
[2023-02-20] MEDS: FUROSEMIDE 20 MG TABLET PO ×3 (09:49→17:49)
[2023-02-20] MEDS: SODIUM CHLORIDE 1 GM TABLET PO ×3 (09:49→17:49)
[2023-02-20] MEDS: ASPIRIN 81 MG ENTERIC TABLET PO (09:49)
[2023-02-20] MEDS: VERAPAMIL HCL ER 240 MG TABLET.ER PO ×2 (09:49→17:49)
[2023-02-20] MEDS: PANTOPRAZOLE 40 MG TABLET PO (09:49)
[2023-02-20] MEDS: polyethylene glycoL 3350 17 GM POWD.PACK PO (09:50)
[2023-02-20] MEDS: carvediloL 25 MG TABLET PO ×2 (09:50→21:16)
[2023-02-20] MEDS: LORATADINE 10 MG TABLET PO (09:50)
[2023-02-20] MEDS: FERROUS SULFATE 325 MG TABLET DR BY MOUTH (09:50)
[2023-02-20] MEDS: MULTIVITAMINS THERAPEUTIC TAB (*BKC) 1 TABLET PO (09:50)
[2023-02-20] MEDS: LOSARTAN POTASSIUM 100 MG TABLET PO (09:50)
[2023-02-20 12:48] LABS: Anion Gap 1 mmol/L (8-16); Blood Urea Nitrogen 12 mg/dL (7-17); Calcium 8.5 mg/dL (8.4-10.2); Carbon Dioxide 23 mmol/L (22-30); Chloride 95 mmol/L (98-107); Estimated CRCL calculation 47 ml/min; Estimated Glomerular Filt Rate > 60; Glucose 88 mg/dL (65-110); Potassium 4.4 mmol/L (3.4-5.0); Sodium 119 mmol/L (137-145)
--- NOTE | 2023-02-20 13:42 | PM.CNNEP ---
Assessment and Plan Assessment and plan (1) Hyponatremia: Code(s): E87.1 - Hypo-osmolality and hyponatremia Status: Acute Assessment and Plan: The patient has hyponatremia is been going on for a long time The chronic hyponatremia may be due to several issues. She is on omeprazole which can do this. She is also on hydrocodone which can do this as well. Her thyroid level is okay. We can check a cortisol level to be sure she does not have adrenal insufficiency. She has no history of cancer other than the multiple myeloma and no [employer] or pulmonary issues that would contribute to the hyponatremia. She has multiple myeloma. Her anion gap is very low consistent with some positively charged light chain. Sometimes these lead to a falsely low sodium. The acute aspect of the hyponatremia could be due to the increase in water intake due to swallowing of her multiple medication. She also was on narcotics because of her pain which can reduced the ability to excrete free water properly. Omeprazole can also play a role. At this point will stop the omeprazole and switch to Pepcid. We will continue the as needed narcotics because she does have a lot of pain. Will place on a fluid restriction and also give Lasix plus salt tablets. Will also get a cortisol level. Serum and urine osmolalities are pending. (2) Chronic anemia: Code(s): D64.9 - Anemia, unspecified Status: Acute Assessment and Plan: Hemoglobin is mildly low. Most likely due to the myeloma. (3) Multiple myeloma: Qualifiers: Multiple myeloma remission status: in relapse Qualified Code(s): C90.02 - Multiple myeloma in relapse Code(s): C90.00 - Multiple myeloma not having achieved remission Status: Acute Assessment and Plan: She is on chemotherapy for this. She follows with Oncology. (4) Osteoporosis: Code(s): M81.0 - Age-related osteoporosis without current pathological fracture Status: Acute Assessment and Plan: Her GFR is okay. Consider a bisphosphonate? (5) Right hip pain: Code(s): M25.551 - Pain in right hip Status: Acute Assessment and Plan: CT showed a very small and subtle fracture in the right hip. History of Present Illness Reason for Consult Consult date: 02/20/23 Chief Complaint Chief complaint: Hyponatremia History of Present Illness Narrative: Aurea is a very pleasant 82-year-old lady who has multiple medical problems including multiple myeloma, hypertension, anemia, and chronic kidney disease. The patient also has had hyponatremia chronically for the last few years. Her sodium levels run from 129-132. A while back the patient was admitted to [facility] for dehydration and renal failure. The patient had had diarrhea induced by her most recent chemotherapy. The patient's creatinine improved with fluids. She was admitted to a swing bed to get stronger and there her chemistries were monitored and her sodium was noted to be lower. This was followed the sodium continued to drop in spite of getting some IV fluids. Eventually she was transferred to [facility] for further care. The patient has been drinking lots of fluids to try to switch wall 0 her medications. She does not have a history of cancer other than her multiple myeloma. She does not have any pulmonary disease; her chest x-ray is unremarkable.. She has had a CT scan of the head which was negative. He does not have any thyroid issues. Her latest TSH was normal. She does not take antidepressants. She does not take any thiazide diuretics. She does take furosemide 20mg once a day. She does take omeprazole and hydrocodone as well. Patient feels okay. She is mentating normally. Has no tremor, myoclonus, or seizures. Review of Systems Constitutional: Constitutional: Reports no additional constitutional complaints Eyes: Eyes: Reports no additional eye complaints ENT: Reports system re
[2023-02-20 17:39] LABS: Anion Gap 3 mmol/L (8-16); Blood Urea Nitrogen 13 mg/dL (7-17); Calcium 8.9 mg/dL (8.4-10.2); Carbon Dioxide 22 mmol/L (22-30); Chloride 95 mmol/L (98-107); Estimated CRCL calculation 41 ml/min; Estimated Glomerular Filt Rate > 60; Glucose 85 mg/dL (65-110); Potassium 4.2 mmol/L (3.4-5.0); Sodium 120 mmol/L (137-145)
--- NOTE | 2023-02-20 18:20 | PM.CNOR ---
Assessment and Plan Assessment and plan (1) Fracture of femoral neck, right: Code(s): S72.001A - Fracture of unspecified part of neck of right femur, initial encounter for closed fracture Status: Acute Plan Right subcapital femoral neck fracture based on CT and exm. Patient unable to walk and has pain with any motion. When medicaly cleared recommend Pinning. High risk surgery because of patients medical problems. Nonperative treatment may lead to Fracture displacement. History of Present Illness HPI Consult date: 02/20/23 Consult reason: joint pain Chief complaint: Hyponatremia Narrative: 82 you WF admitted with hyponatremia and multiple myeloma Review of Systems Musculoskeletal: Musculoskeletal: Reports abnormal gait and Reports muscle weakness PMFSH Past Medical History Medical History Chronic anemia Chronic kidney disease, stage 3 Hyperparathyroidism Multiple myeloma Osteoporosis Surgical History Surgical History History of bilateral cataract extraction History of permanent cardiac pacemaker placement Family History Family History Father Malignant neoplasm of prostate Acute myocardial infarction Heart disease Sibling Chronic obstructive pulmonary disease Other Family history of migraine headaches Social History Social History Social History: Surrogate medical decision maker: Shirley or Jem Boyd (daughter and son-in-law). Code status: Full code. Smoking status: Never smoker Second hand tobacco smoke exposure: Yes Alcohol intake: never Substance use: never Substance use type: does not use Lack of Transportation: No Lack of Food: Never True Current Housing: I Have Housing Concerned About Future Housing: No Difficulty Paying Gas/Electric Bills: No Difficulty Paying for Meds: No Currently Unemployed: No Education: High School Diploma/GED Difficulty w/ Childcare or Family Care: No Living arrangements: alone Spiritual care concerns: No Meds Home Medications and Allergies Home Medications Medication Instructions Recorded Confirmed Type carvedilol 25 mg tablet (Coreg) 25 mg PO BID 03/29/19 02/19/23 History losartan 100 mg tablet (Cozaar) 100 mg PO DAILY 03/29/19 02/19/23 History multivitamin (Daily Multi-Vitamin 1 tablet PO DAILY 03/29/19 02/19/23 History tablet) ondansetron HCl 4 mg tablet 4 mg PO Q8H PRN Nausea 03/29/19 02/20/23 History verapamil 240 mg tablet,extended 240 mg PO BID 03/29/19 02/20/23 History release ferrous sulfate 325 mg (65 mg 325 mg PO DAILY 06/15/19 02/20/23 History iron) tablet (Iron (ferrous sulfate)) aspirin 81 mg tablet,delayed 81 mg PO DAILY 05/20/20 02/20/23 History release (Adult Low Dose Aspirin) omeprazole magnesium 20 mg 20 mg PO DAILY 11/05/20 02/20/23 History tablet,delayed release (Prilosec OTC) hydralazine 10 mg tablet See Rx Instructions .Route .COMPLEX 12/02/20 02/20/23 History cetirizine 10 mg tablet (Zyrtec) 10 mg PO DAILY 01/26/22 02/20/23 History furosemide 20 mg tablet (Lasix) 20 mg PO DAILY 01/31/23 02/20/23 History hydrocodone 5 mg-acetaminophen 325 5 - 325 tablet PO Q6H PRN Pain 02/20/23 02/20/23 History mg tablet (Scale Score 4-6) Allergies Allergy/AdvReac Type Severity Reaction Status Date / Time clams Allergy Severe Difficulty Verified 01/31/23 12:02 Breathing crab Allergy Severe Difficulty Verified 01/31/23 12:02 Breathing spironolactone Allergy Severe RASH, Verified 01/31/23 12:02 FACIAL SWELLING tramadol Allergy Severe SEVERE RASH Verified 01/31/23 12:02 Iodinated Contrast Media Allergy Intermediate DIZZY, Verified 01/31/23 12:02 HEADACHE shellfish derived Allergy Intermediate Rash Verified 01/31/23 12:02 Sulfa (Sulf
[2023-02-20] MEDS: FAMOTIDINE 20 MG TABLET PO (21:16)
[2023-02-20 23:15] LABS: Sodium 120 mmol/L (137-145)
[2023-02-21] VITALS (13 sets, daily range): BP systolic 94–155; BP diastolic 50–86; PULSE 60–79; RESP 14–16; TEMP 36.7–37.1; O2SAT 97–99
[2023-02-21 01:22] LABS: Anion Gap 1 mmol/L (8-16); Blood Urea Nitrogen 13 mg/dL (7-17); Calcium 8.6 mg/dL (8.4-10.2); Carbon Dioxide 24 mmol/L (22-30); Chloride 96 mmol/L (98-107); Estimated CRCL calculation 36 ml/min; Estimated Glomerular Filt Rate > 60; Glucose 90 mg/dL (65-110); Potassium 4.4 mmol/L (3.4-5.0); Sodium 121 mmol/L (137-145)
[2023-02-21 05:44] LABS: Basophils Absolute Auto 0.1 K/mm3 (0.0-0.1); Basophils Percent Auto 1.1 % (0.2-1.2); Eosinophils Absolute Auto 0.1 K/mm3 (0-0.3); Eosinophils Percent Auto 1.9 % (0-4.4); Hematocrit 28.3 % (37.0-47.0); Hemoglobin 9.4 g/dL (12.0-15.0); Immature Granulocyte Absolute 0.02 K/mm3 (0.00-0.031); Immature Granulocyte Percent A 0.4 % (0-0.5); Lymphocytes Absolute Auto 0.63 K/mm3 (0.9-3.2); Lymphocytes Percent Auto 13.5 % (18.3-44.2); Mean Corpuscular HGB Conc 33.2 g/dl (32-36); Mean Corpuscular Hemoglobin 31.8 pg (26-34); Mean Corpuscular Volume 95.6 fl (80-100); Mean Platelet Volume 9.2 fl (7.4-10.4); Monocytes Absolute Auto 0.6 K/mm3 (0.1-0.6); Monocytes Percent Auto 12.4 % (2.6-8.5); Neutrophils Absolute Auto 3.3 K/mm3 (1.3-6.7); Neutrophils Percent Auto 70.7 % (45.5-73.1); Platelet Count Result 256 k/mm3 (150-375); Red Blood Count 2.96 M/mm3 (4.2-5.4); Red Cell Distribution Width 17.9 % (11.5-14.5); White Blood Count 4.7 K/mm3 (4.5-10.0)
[2023-02-21 05:51] LABS: Anion Gap 3 mmol/L (8-16); Blood Urea Nitrogen 12 mg/dL (7-17); Calcium 8.8 mg/dL (8.4-10.2); Carbon Dioxide 24 mmol/L (22-30); Chloride 95 mmol/L (98-107); Estimated CRCL calculation 37 ml/min; Estimated Glomerular Filt Rate > 60; Glucose 88 mg/dL (65-110); Magnesium 1.9 mg/dL (1.6-2.3); Sodium 122 mmol/L (137-145)
--- NOTE | 2023-02-21 07:13 | PM.IMPN ---
Progress Note: A&P Assessment and Plan (1) Hyponatremia: Code(s): E87.1 - Hypo-osmolality and hyponatremia Status: Acute Assessment and Plan: Acute on chronic hyponatremia. Na was 123 on 02/19 with further downtrend to 121 Transfer to [place] for nephrology consult BMP Q 3 hours Na this morning is 119, reaching out to nephrology for assistance with management TSH, T3, T4 Urine studies collected serum osmo pending I spoke with Dr Ryan who recommends PO Lasix 20 mg TID, Na+ tablets 1 gram TID, and fluid restriction. Also stopped her omeprazole and switched to pepcid. Na today 02/21 is 122 Nephrology plans to add 3% sodium chloride Monitor BMP Na+ goal of 128 for surgery (2) Right hip pain: Code(s): M25.551 - Pain in right hip Status: Acute Assessment and Plan: History of fall prior to this recent admission, several weeks ago in which she sustained a cortical of urgent fracture from the anterior process of the left talus Complaining of right hip pain and has been progressively getting worse CT right hip ordered PT/OT consults and rec's appreciated Fall precautions Acetaminophen for pain Ct shows possibly a minimally displaced right hip. Recommend MRI for further imaging. Study has been ordered and consult requested for orthopedics, recommendations are appreciated. Ortho recommends pinning when medically cleared (3) Multiple myeloma: Qualifiers: Multiple myeloma remission status: in relapse Qualified Code(s): C90.02 - Multiple myeloma in relapse Code(s): C90.00 - Multiple myeloma not having achieved remission Status: Acute Assessment and Plan: Currently receiving chemotherapy treatment pancytopenia related to this diagnosis (4) Chronic anemia: Code(s): D64.9 - Anemia, unspecified Status: Acute Assessment and Plan: Stable hgb 9.4/28.3 (5) Chronic kidney disease, stage 3: Code(s): N18.30 - Chronic kidney disease, stage 3 unspecified Status: Acute Assessment and Plan: CKD III Cr 0.80/BUN 12 Crcl 44 Plan Feeding:heart healthy diet with free water fluid restriction of 1 L Analgesia:acetaminophen and low dose oxycodone for pain Thromboembolic prophylaxis: scd Ulcer prophylaxis: pepcid Glycemic control: n/a Bowel regimen: miralax Lines: PIV Antibiotics: n/a Awaiting sodium to increase Needs surgery with ortho after approval from nephrology Subjective Date/time seen: 02/21/23 07:13 Interval history: Patient is known to me from yesterday, caring for her at our [place] location. She was admitted at [place] as a swing bed after an acute hospitalization for diarrhea due to chemotherapy for multiple myeloma. She was participating in therapy but has had continued episodes of acute on chronic hyponatremia and weakness. She was going to discharge yesterday but her morning labs showed a sodium of 123. There were concerns for her having increased water intake so I instituted a water restriction and rechecked her labs in the afternoon. Unfortunately her sodium dropped to 121 so it was decided to transfer her to [place] for a nephrology consult. 02/20- This morning her sodium is 119. I spoke with Dr. Ryan this morning and discussed her case. He recommended restarting salt tabs 1 g t.i.d. and adding Lasix 20 mg t.i.d. as well. Will recheck her sodium at noon today. I went ahead and added on Q 3 are BMP as well. Aurea is seen resting in bed this morning. Her swelling to her lower extremities, particularly her feet seem increased from yesterday she has +2-3 pitting edema. Her lower extremities appear okay but she also has Pavan hose in place. She is complaining about this right hip pain that travels through her right leg that she describes as sharp, shooting and constant. This is the 1st time she has mention it to me. A CT of her right hip has been obtained and we are just
--- NOTE | 2023-02-21 08:13 | PM.PNORT ---
Progress Note: A&P Assessment and Plan (1) Fracture of femoral neck, right: Code(s): S72.001A - Fracture of unspecified part of neck of right femur, initial encounter for closed fracture Status: Acute Assessment and Plan: This shows a fracture based on CT scan right hip. Fracture is nondisplaced this time. Complicating factors are affected her sodium is only 122. When she is cleared for surgery will plantar I have discussed this with the patient risks benefits limitations and alternatives. Subjective Subjective Date/Time Seen: 02/21/23 08:13 Principal diagnosis: Patient complaining of hip pain right. She has a fracture based on CT scan Exam Narrative: Patient is neurologically intact has pain with any motion of her Right hip. But able to bear weight at this time. Objective Data Vital Signs Vital Signs: Vital Signs - 24 hr 02/20/23 09:48 02/20/23 09:50 02/20/23 09:50 Temperature Pulse Rate 63 63 Respiratory Rate 14 Blood Pressure 127/69 Pulse Oximetry 100 Oxygen Delivery Room Air 02/20/23 12:00 02/20/23 12:42 02/20/23 15:03 Temperature 98.2 F Pulse Rate 62 63 62 Respiratory Rate 14 16 Blood Pressure 102/63 90/50 L Pulse Oximetry 100 98 Oxygen Delivery 02/20/23 16:00 02/20/23 17:48 02/20/23 20:25 Temperature 97.6 F Pulse Rate 78 69 62 Respiratory Rate 14 21 H Blood Pressure 115/70 106/52 L Pulse Oximetry 100 100 Oxygen Delivery 02/20/23 21:16 02/20/23 20:00 02/21/23 00:00 Temperature Pulse Rate 63 62 60 Respiratory Rate Blood Pressure Pulse Oximetry Oxygen Delivery 02/21/23 04:00 02/21/23 04:37 Temperature 98.8 F Pulse Rate 67 60 Respiratory Rate 16 Blood Pressure 132/61 Pulse Oximetry 99 Oxygen Delivery Intake/Output Intake/Output: Intake & Output 02/18/23 02/19/23 02/20/23 02/21/23 23:59 23:59 23:59 23:59 Intake Total 1220 100 Output Total 1000 1100 Balance 220 -1000 Meds/Results Medications: Active Medications Generic Name Dose Route Start Last Admin Trade Name Freq PRN Reason Stop Dose Admin Acetaminophen 650 mg 02/19/23 23:44 Acetaminophen 325 Mg Tablet PO Q4H PRN Mild Pain (1-3) or Fever Aspirin 81 mg 02/20/23 09:00 02/20/23 09:49 Aspirin 81 Mg Enteric Tablet PO 81 mg DAILY MARI Administration Carvedilol 25 mg 02/20/23 09:00 02/20/23 21:16 Carvedilol 25 Mg Tablet PO 25 mg Q12HR MARI Administration Famotidine 20 mg 02/20/23 21:00 02/20/23 21:16 Famotidine 20 Mg Tablet PO 20 mg Q12HR MARI Administration Ferrous Sulfate 325 mg 02/20/23 09:00 02/20/23 09:50 Ferrous Sulfate [address] BY MOUTH 325 mg DAILY MARI Administration Furosemide 20 mg 02/20/23 09:00 02/20/23 17:49 Furosemide 20 Mg Tablet PO 20 mg TID MARI Administration Sodium Chloride 1,000 mls @ 100 mls/hr 02/20/23 08:00 02/20/23 10:30 Normal Saline Iv IV CONT Not Given .Q10H MARI Loratadine 10 mg 02/20/23 09:00 02/20/23 09:50 Loratadine 10 Mg Tablet PO 10 mg QAM MARI Administration Losartan Potassium 100 mg 02/20/23 09:00 02/20/23 09:50 Losartan Potassium 100 Mg Tablet PO 100 mg DAILY MARI Administration Multivitamins Therapeutic 1 tablet 02/20/23 09:00 02/20/23 09:50 Multivitamins Therapeutic Tab (*Bkc) PO 1 tablet DAILY MARI Administration Oxycodone HCl 2.5 mg 02/20/23 10:34 Oxycodone Hcl (*Crx) 2.5 Mg Tab Ir PO Q4H PRN Pain Rated 7-10 Polyethylene Glycol 17 gm 02/20/23 09:00 02/20/23 09:50 Polyethylene Glycol 3350 17 Gm Powd.Pack PO 17 gm QAM MARI Administration Sodium Chloride 1 gm 02/20/23 09:00 02/20/23 17:49 Sodium Chloride 1 Gm Tablet PO 1 gm TID MARI Administration Verapamil HCl 240 mg 02/20/23 08:00 02/20/23 17:49 Verapamil Hcl Er 240 Mg Tablet.Er PO 240 mg BIDWM MARI Administration Radiology Results: ITS Impressions Hip CT 1
[2023-02-21] MEDS: SODIUM CHLORIDE 3% 300 ML 75 ML IV CONT (09:07)
[2023-02-21] MEDS: polyethylene glycoL 3350 17 GM POWD.PACK PO (09:14)
[2023-02-21] MEDS: MULTIVITAMINS THERAPEUTIC TAB (*BKC) 1 TABLET PO (09:15)
[2023-02-21] MEDS: VERAPAMIL HCL ER 240 MG TABLET.ER PO ×2 (09:15→17:21)
[2023-02-21] MEDS: LORATADINE 10 MG TABLET PO (09:15)
[2023-02-21] MEDS: FERROUS SULFATE 325 MG TABLET DR BY MOUTH (09:15)
[2023-02-21] MEDS: LOSARTAN POTASSIUM 100 MG TABLET PO (09:15)
[2023-02-21] MEDS: SODIUM CHLORIDE 1 GM TABLET PO ×2 (09:15→12:32)
[2023-02-21] MEDS: FAMOTIDINE 20 MG TABLET PO ×2 (09:16→20:32)
[2023-02-21] MEDS: ASPIRIN 81 MG ENTERIC TABLET PO (09:16)
[2023-02-21] MEDS: carvediloL 25 MG TABLET PO ×2 (09:21→20:33)
[2023-02-21] MEDS: FUROSEMIDE 20 MG TABLET PO (09:21)
--- NOTE | 2023-02-21 10:28 | PM.PNNEP ---
Progress Note: A&P Assessment and Plan (1) Hyponatremia: Code(s): E87.1 - Hypo-osmolality and hyponatremia Status: Acute Assessment and Plan: The patient has hyponatremia is been going on for a long time The chronic hyponatremia may be due to several issues Including Omeprazole and the multiple myeloma. the patient also has acute hyponatremia. TSH is okay. Cortisol level is a little bit low. She was drinking a lot of water when she was in rehab. She is also on narcotics. She was on a PPI and is now on Pepcid. Will check a Cortrosyn stim test today. The patient is on fluid restriction, sodium chloride tabs, and furosemide her sodium level has stalled. Will give 3% saline to get her into the mid to high 120s. The patient is getting surgery on her hip and hopefully will be able to have that done tomorrow if she is in the high 120s. (2) Chronic anemia: Code(s): D64.9 - Anemia, unspecified Status: Acute Assessment and Plan: Hemoglobin is mildly low. Most likely due to the myeloma. (3) Multiple myeloma: Qualifiers: Multiple myeloma remission status: in relapse Qualified Code(s): C90.02 - Multiple myeloma in relapse Code(s): C90.00 - Multiple myeloma not having achieved remission Status: Acute Assessment and Plan: She is on chemotherapy for this. She follows with Oncology. (4) Osteoporosis: Code(s): M81.0 - Age-related osteoporosis without current pathological fracture Status: Acute Assessment and Plan: Her GFR is okay. Consider a bisphosphonate? (5) Right hip pain: Code(s): M25.551 - Pain in right hip Status: Acute Assessment and Plan: CT showed a very small and subtle fracture in the right hip. Orthopedics wants to do surgery on this. Subjective Date/time seen: 02/21/23 10:28 Interval history: Aurea is feeling a little better today. She still has some pain. Review of Systems Cardiovascular: Cardiovascular: Reports no additional cardiovascular complaints Respiratory: Respiratory: Reports no additional respiratory complaints Gastrointestinal: Gastrointestinal: Reports no additional gastrointestinal complaints Genitourinary: Genitourinary: Reports no additional female genitourinary complaints Exam Narrative: WDWN in NAD skin no rash head ncat lungs clear cor reg no rub abd BS+ nontender and soft ext no edema. Objective Data Vital Signs Vital Signs: Vital Signs - 24 hr 02/20/23 12:00 02/20/23 12:42 02/20/23 15:03 Temperature 98.2 F Pulse Rate 62 63 62 Respiratory Rate 14 16 Blood Pressure 102/63 90/50 L Pulse Oximetry 100 98 02/20/23 16:00 02/20/23 17:48 02/20/23 20:25 Temperature 97.6 F Pulse Rate 78 69 62 Respiratory Rate 14 21 H Blood Pressure 115/70 106/52 L Pulse Oximetry 100 100 02/20/23 21:16 02/20/23 20:00 02/21/23 00:00 Temperature Pulse Rate 63 62 60 Respiratory Rate Blood Pressure Pulse Oximetry 02/21/23 04:00 02/21/23 04:37 02/21/23 09:20 Temperature 98.8 F Pulse Rate 67 60 76 Respiratory Rate 16 14 Blood Pressure 132/61 155/86 H Pulse Oximetry 99 97 02/21/23 09:21 Temperature Pulse Rate 76 Respiratory Rate Blood Pressure Pulse Oximetry Intake/Output Intake/Output: Intake & Output 02/18/23 02/19/23 02/20/23 02/21/23 23:59 23:59 23:59 23:59 Intake Total 1220 340 Output Total 1000 1100 Balance 220 -760 Meds/Results Medications: Active Medications Generic Name Dose Route Start Last Admin Trade Name Kevinq PRN Reason Stop Dose Admin Acetaminophen 650 mg 02/19/23 23:44 Acetaminophen 325 Mg Tablet PO Q4H PRN Mild Pain (1-3) or Fever Aspirin 81 mg 02/20/23 09:00 02/21/23 09:16 Aspirin 81 Mg Enteric Tablet PO 81 mg DAILY MARI Administration Carvedilol 25 mg 02/20/23 09:00 02/21/23 09:21 Carvedilol 25 Mg Tablet PO 25 mg
[2023-02-21] MEDS: GABAPENTIN 100 MG CAPSULE PO ×2 (12:32→17:21)
[2023-02-21] MEDS: COSYNTROPIN 0.25 MG/ML VIAL IV PUSH (13:25)
[2023-02-21 16:10] LABS: Sodium 124 mmol/L (137-145)
[2023-02-21] MEDS: SODIUM CHLORIDE 3% 150 ML 50 ML IV CONT (17:21)
[2023-02-21 21:45] LABS: Anion Gap 2 mmol/L (8-16); Blood Urea Nitrogen 12 mg/dL (7-17); Calcium 8.7 mg/dL (8.4-10.2); Carbon Dioxide 24 mmol/L (22-30); Chloride 100 mmol/L (98-107); Estimated CRCL calculation 37 ml/min; Estimated Glomerular Filt Rate > 60; Glucose 129 mg/dL (65-110); Potassium 3.9 mmol/L (3.4-5.0); Sodium 126 mmol/L (137-145)
[2023-02-22] VITALS (12 sets, daily range): BP systolic 90–144; BP diastolic 41–66; PULSE 60–87; RESP 14–18; TEMP 36.3–37; O2SAT 97–98; BMI 17.2
--- NOTE | 2023-02-22 05:46 | PC.NURSE ---
This nurse was called to room d/t pt complaining of increased left leg weakness and numbness. Pulses palpable and equal bilaterally. This nurse and charge nurse performed neurovascular check. Pt repositioned and ASHWINI hose removed. Will continue to monitor patient.
[2023-02-22 06:03] LABS: Basophils Percent Auto 0.4 % (0.2-1.2); Eosinophils Percent Auto 0.6 % (0-4.4); Hematocrit 26.2 % (37.0-47.0); Hemoglobin 8.6 g/dL (12.0-15.0); Immature Granulocyte Absolute 0.02 K/mm3 (0.00-0.031); Immature Granulocyte Percent A 0.4 % (0-0.5); Lymphocytes Absolute Auto 0.57 K/mm3 (0.9-3.2); Lymphocytes Percent Auto 11.6 % (18.3-44.2); Mean Corpuscular HGB Conc 32.8 g/dl (32-36); Mean Corpuscular Hemoglobin 31.7 pg (26-34); Mean Corpuscular Volume 96.7 fl (80-100); Mean Platelet Volume 9.1 fl (7.4-10.4); Monocytes Absolute Auto 0.7 K/mm3 (0.1-0.6); Monocytes Percent Auto 13.5 % (2.6-8.5); Neutrophils Absolute Auto 3.6 K/mm3 (1.3-6.7); Neutrophils Percent Auto 73.5 % (45.5-73.1); Platelet Count Result 251 k/mm3 (150-375); Red Blood Count 2.71 M/mm3 (4.2-5.4); Red Cell Distribution Width 18.5 % (11.5-14.5); White Blood Count 4.9 K/mm3 (4.5-10.0)
[2023-02-22 06:17] LABS: Alanine Aminotransferase 18 U/L (6-35); Albumin Level 2.3 g/dL (3.5-5.1); Alkaline Phosphatase 57 U/L (38-126); Anion Gap 2 mmol/L (8-16); Aspartate Amino Transferase 23 U/L (14-36); Bilirubin,Total 0.3 mg/dL (0.2-1.3); Blood Urea Nitrogen 12 mg/dL (7-17); Calcium 8.7 mg/dL (8.4-10.2); Carbon Dioxide 23 mmol/L (22-30); Chloride 101 mmol/L (98-107); Estimated CRCL calculation 41 ml/min; Estimated Glomerular Filt Rate > 60; Glucose 94 mg/dL (65-110); Magnesium 1.9 mg/dL (1.6-2.3); Phosphorus 2.6 mg/dL (2.5-4.5); Potassium 3.8 mmol/L (3.4-5.0); Sodium 126 mmol/L (137-145)
--- NOTE | 2023-02-22 07:44 | PM.PNORT ---
Progress Note: A&P Assessment and Plan (1) Fracture of femoral neck, right: Code(s): S72.001A - Fracture of unspecified part of neck of right femur, initial encounter for closed fracture Status: Acute Plan The patient is a nondisplaced hip fracture awaiting for sodium to level to return towards normal. Recommend hip pinning. Subjective Subjective Date/Time Seen: 02/22/23 07:44 Principal diagnosis: Hip fracture right. Interval history: Awaiting surgery sodium returns to more normal levels. Review of Systems Musculoskeletal: Musculoskeletal: Reports arthralgias Exam Narrative: Patient wiggles toes has pain with any manipulation of the hip. Objective Data Vital Signs Vital Signs: Vital Signs - 24 hr 02/21/23 09:20 02/21/23 09:21 02/21/23 09:20 Temperature Pulse Rate 76 76 Respiratory Rate 14 Blood Pressure 155/86 H Pulse Oximetry 97 Oxygen Delivery Room Air 02/21/23 12:31 02/21/23 08:00 02/21/23 12:00 Temperature Pulse Rate 61 79 71 Respiratory Rate 14 Blood Pressure 94/50 L Pulse Oximetry 97 Oxygen Delivery 02/21/23 14:00 02/21/23 16:00 02/21/23 20:33 Temperature 98.6 F Pulse Rate 63 62 72 Respiratory Rate 16 Blood Pressure 115/59 L Pulse Oximetry 98 Oxygen Delivery 02/21/23 20:00 02/21/23 21:55 02/22/23 00:00 Temperature 98.1 F Pulse Rate 60 60 60 Respiratory Rate 16 Blood Pressure 96/58 L Pulse Oximetry 99 Oxygen Delivery 02/22/23 04:00 02/22/23 05:30 Temperature 98.6 F Pulse Rate 62 66 Respiratory Rate 14 Blood Pressure 144/66 H Pulse Oximetry 98 Oxygen Delivery Intake/Output Intake/Output: Intake & Output 02/19/23 02/20/23 02/21/23 02/22/23 23:59 23:59 23:59 23:59 Intake Total 1220 1270 100 Output Total 1000 2420 Balance 220 -1150 100 Meds/Results Medications: Active Medications Generic Name Dose Route Start Last Admin Trade Name Freq PRN Reason Stop Dose Admin Acetaminophen 650 mg 02/19/23 23:44 Acetaminophen 325 Mg Tablet PO Q4H PRN Mild Pain (1-3) or Fever Aspirin 81 mg 02/20/23 09:00 02/21/23 09:16 Aspirin 81 Mg Enteric Tablet PO 81 mg DAILY MARI Administration Carvedilol 25 mg 02/20/23 09:00 02/21/23 20:33 Carvedilol 25 Mg Tablet PO 25 mg Q12HR MARI Administration Famotidine 20 mg 02/20/23 21:00 02/21/23 20:32 Famotidine 20 Mg Tablet PO 20 mg Q12HR MARI Administration Ferrous Sulfate 325 mg 02/20/23 09:00 02/21/23 09:15 Ferrous Sulfate [address] BY MOUTH 325 mg DAILY MARI Administration Gabapentin 100 mg 02/21/23 13:00 02/21/23 17:21 Gabapentin 100 Mg Capsule PO 100 mg TID MARI Administration Sodium Chloride 1,000 mls @ 100 mls/hr 02/20/23 08:00 02/20/23 10:30 Normal Saline Iv IV CONT Not Given .Q10H MARI Loratadine 10 mg 02/20/23 09:00 02/21/23 09:15 Loratadine 10 Mg Tablet PO 10 mg QAM MARI Administration Losartan Potassium 100 mg 02/20/23 09:00 02/21/23 09:15 Losartan Potassium 100 Mg Tablet PO 100 mg DAILY MARI Administration Multivitamins Therapeutic 1 tablet 02/20/23 09:00 02/21/23 09:15 Multivitamins Therapeutic Tab (*Bkc) PO 1 tablet DAILY MARI Administration Oxycodone HCl 2.5 mg 02/20/23 10:34 Oxycodone Hcl (*Crx) 2.5 Mg Tab Ir PO Q4H PRN Pain Rated 7-10 Polyethylene Glycol 17 gm 02/20/23 09:00 02/21/23 09:14 Polyethylene Glycol 3350 17 Gm Powd.Pack PO 17 gm QAM MARI Administration Verapamil HCl 240 mg 02/20/23 08:00 02/21/23 17:21 Verapamil Hcl Er 240 Mg Tablet.Er PO 240 mg BIDWM MARI Administration Radiology Results: ITS Impressions Hip CT 02/20/23 10:02 IMPRESSION: Very subtle nondisplaced subcapital femoral neck fracture is suspected. Consider plain radiograph and possibly MR hip correlation as clinically appropriate. Labs Labs: Laboratory Results - last 24 hr 02/21
[2023-02-22] MEDS: MULTIVITAMINS THERAPEUTIC TAB (*BKC) 1 TABLET PO (08:30)
[2023-02-22] MEDS: VERAPAMIL HCL ER 240 MG TABLET.ER PO ×2 (08:30→17:29)
[2023-02-22] MEDS: ASPIRIN 81 MG ENTERIC TABLET PO (08:30)
[2023-02-22] MEDS: carvediloL 25 MG TABLET PO (08:30)
[2023-02-22] MEDS: FERROUS SULFATE 325 MG TABLET DR BY MOUTH (08:30)
[2023-02-22] MEDS: GABAPENTIN 100 MG CAPSULE PO ×3 (08:30→17:29)
[2023-02-22] MEDS: LORATADINE 10 MG TABLET PO (08:30)
[2023-02-22] MEDS: FAMOTIDINE 20 MG TABLET PO ×2 (08:30→20:14)
[2023-02-22] MEDS: LOSARTAN POTASSIUM 100 MG TABLET PO (08:30)
--- NOTE | 2023-02-22 08:32 | PM.PNORT ---
Subjective Subjective Date/Time Seen: 02/22/23 08:32 Principal diagnosis: Hip Pain Objective Data Vital Signs Vital Signs: Vital Signs - 24 hr 02/21/23 09:20 02/21/23 09:21 02/21/23 09:20 Temperature Pulse Rate 76 76 Respiratory Rate 14 Blood Pressure 155/86 H Pulse Oximetry 97 Oxygen Delivery Room Air 02/21/23 12:31 02/21/23 12:00 02/21/23 14:00 Temperature 98.6 F Pulse Rate 61 71 63 Respiratory Rate 14 16 Blood Pressure 94/50 L 115/59 L Pulse Oximetry 97 98 Oxygen Delivery 02/21/23 16:00 02/21/23 20:33 02/21/23 20:00 Temperature Pulse Rate 62 72 60 Respiratory Rate Blood Pressure Pulse Oximetry Oxygen Delivery 02/21/23 21:55 02/22/23 00:00 02/22/23 04:00 Temperature 98.1 F Pulse Rate 60 60 62 Respiratory Rate 16 Blood Pressure 96/58 L Pulse Oximetry 99 Oxygen Delivery 02/22/23 05:30 02/22/23 08:30 Temperature 98.6 F Pulse Rate 66 87 Respiratory Rate 14 Blood Pressure 144/66 H Pulse Oximetry 98 Oxygen Delivery Intake/Output Intake/Output: Intake & Output 02/19/23 02/20/23 02/21/23 02/22/23 23:59 23:59 23:59 23:59 Intake Total 1220 1270 100 Output Total 1000 2420 Balance 220 -1150 100 Meds/Results Medications: Active Medications Generic Name Dose Route Start Last Admin Trade Name Freq PRN Reason Stop Dose Admin Acetaminophen 650 mg 02/19/23 23:44 Acetaminophen 325 Mg Tablet PO Q4H PRN Mild Pain (1-3) or Fever Aspirin 81 mg 02/20/23 09:00 02/22/23 08:30 Aspirin 81 Mg Enteric Tablet PO 81 mg DAILY MARI Administration Carvedilol 25 mg 02/20/23 09:00 02/22/23 08:30 Carvedilol 25 Mg Tablet PO 25 mg Q12HR MARI Administration Famotidine 20 mg 02/20/23 21:00 02/22/23 08:30 Famotidine 20 Mg Tablet PO 20 mg Q12HR MARI Administration Ferrous Sulfate 325 mg 02/20/23 09:00 02/22/23 08:30 Ferrous Sulfate [address] BY MOUTH 325 mg DAILY MARI Administration Gabapentin 100 mg 02/21/23 13:00 02/22/23 08:30 Gabapentin 100 Mg Capsule PO 100 mg TID MARI Administration Sodium Chloride 1,000 mls @ 100 mls/hr 02/20/23 08:00 02/20/23 10:30 Normal Saline Iv IV CONT Not Given .Q10H MARI Loratadine 10 mg 02/20/23 09:00 02/22/23 08:30 Loratadine 10 Mg Tablet PO 10 mg QAM MARI Administration Losartan Potassium 100 mg 02/20/23 09:00 02/22/23 08:30 Losartan Potassium 100 Mg Tablet PO 100 mg DAILY MARI Administration Multivitamins Therapeutic 1 tablet 02/20/23 09:00 02/22/23 08:30 Multivitamins Therapeutic Tab (*Bkc) PO 1 tablet DAILY MARI Administration Oxycodone HCl 2.5 mg 02/20/23 10:34 Oxycodone Hcl (*Crx) 2.5 Mg Tab Ir PO Q4H PRN Pain Rated 7-10 Polyethylene Glycol 17 gm 02/20/23 09:00 02/22/23 08:31 Polyethylene Glycol 3350 17 Gm Powd.Pack PO Not Given QAM MARI Verapamil HCl 240 mg 02/20/23 08:00 02/22/23 08:30 Verapamil Hcl Er 240 Mg Tablet.Er PO 240 mg BIDWM MARI Administration Radiology Results: ITS Impressions Hip CT 02/20/23 10:02 IMPRESSION: Very subtle nondisplaced subcapital femoral neck fracture is suspected. Consider plain radiograph and possibly MR hip correlation as clinically appropriate. Labs Labs: Laboratory Results - last 24 hr 02/21/23 02/21/23 02/21/23 12:50 13:46 14:05 WBC RBC Hgb Hct MCV MCH MCHC RDW Plt Count MPV Immature Gran % (Auto) Neut % (Auto) Lymph % (Auto) [place] % (Auto) Eos % (Auto) Baso % (Auto) Lymph # (Auto) [place] # (Auto) Eos # (Auto) Baso # (Auto) Abs Immat Gran (auto) Absolute Neuts (auto) Absolute Nucleated RBC Nucleated RBC % Sodium Potassium Chloride Carbon Dioxide Anion Gap BUN Creatinine Estim Creat Clear Calc Estimated GFR Glucose Calcium Phosphorus Magnesium Total Hector
--- NOTE | 2023-02-22 10:15 | PM.PNNEP ---
Progress Note: A&P Assessment and Plan (1) Hyponatremia: Code(s): E87.1 - Hypo-osmolality and hyponatremia Status: Acute Assessment and Plan: acute on chronic chronic aspect due to PPI use and probaly multiple myeloma acute aspect probably due to: pain/pain medications continued PPI use increased free water intake while in rehab evaluation to date: TSH okay cortisol little low but stim test okay serum/urine osmo pending check SPEP/UPEP on fluid restriction was on salt tabs + lasix but no significant improvement s/p 3% saline yesterday with improvement in sodium to 126mmol/L will resume salt tabs and lasix if repeat sodium this afternoon worse or unchanged, will plan for another round of 3% saline (2) Right hip pain: Code(s): M25.551 - Pain in right hip Status: Acute Assessment and Plan: CT showed a very small and subtle fracture in the right hip Orthopedics following -- planning surgery once sodium optimized pain control (3) Chronic anemia: Code(s): D64.9 - Anemia, unspecified Status: Acute Assessment and Plan: low but stable presumably due to multiple myeloma (4) Multiple myeloma: Qualifiers: Multiple myeloma remission status: in relapse Qualified Code(s): C90.02 - Multiple myeloma in relapse Code(s): C90.00 - Multiple myeloma not having achieved remission Status: Acute Assessment and Plan: follows with Hem/Onc on chemotherapy Will continue to follow. Subjective Date/time seen: 02/22/23 10:15 Interval history: Follow-up for acute on chronic hyponatremia Chart reviewed -- assuming care from Dr. Ryan; s/p 3% saline yesterday as salt tabs + lasix had improved sodium level; sodium up to 126 yesterday evening as well as by AM labs; current medications appear to be controlling her pain although it does flare when she attempts sudden movement. Exam Narrative: General: elderly female in NAD Heart: normal S1 and S2; no rub Lungs: clear to auscultation Abdomen: soft, nontender, nondistended, positive bowel sounds Extremities: no cyanosis or clubbing; no edema Skin: warm and dry Objective Data Vital Signs Vital Signs: Vital Signs Temp Pulse Resp BP Pulse Ox O2 Del Method 02/22/23 08:00 87 14 98 Room Air 02/22/23 08:30 87 02/22/23 05:30 98.6 F 66 14 144/66 H 98 02/22/23 04:00 62 02/22/23 00:00 60 02/21/23 21:55 98.1 F 60 16 96/58 L 99 02/21/23 20:00 60 02/21/23 20:33 72 02/21/23 16:00 62 02/21/23 14:00 98.6 F 63 16 115/59 L 98 02/21/23 12:00 71 02/21/23 12:31 61 14 94/50 L 97 Intake/Output Intake/Output: Intake & Output 02/19/23 02/20/23 02/21/23 02/22/23 23:59 23:59 23:59 23:59 Intake Total 1220 1270 100 Output Total 1000 2420 Balance 220 -1150 100 Meds/Results Medications: Active Medications Generic Name Dose Route Start Last Admin Trade Name Freq PRN Reason Stop Dose Admin Acetaminophen 650 mg 02/19/23 23:44 Acetaminophen 325 Mg Tablet PO Q4H PRN Mild Pain (1-3) or Fever Aspirin 81 mg 02/20/23 09:00 02/22/23 08:30 Aspirin 81 Mg Enteric Tablet PO 81 mg DAILY MARI Administration Carvedilol 25 mg 02/20/23 09:00 02/22/23 08:30 Carvedilol 25 Mg Tablet PO 25 mg Q12HR MARI Administration Famotidine 20 mg 02/20/23 21:00 02/22/23 08:30 Famotidine 20 Mg Tablet PO 20 mg Q12HR MARI Administration Ferrous Sulfate 325 mg 02/20/23 09:00 02/22/23 08:30 Ferrous Sulfate [address] BY MOUTH 325 mg DAILY MARI Administration Gabapentin 100 mg 02/21/23 13:00 02/22/23 08:30 Gabapentin 100 Mg Capsule PO 100 mg TID MARI Administration Sodium Chloride 1,000 mls @ 100 mls/hr 02/20/23 08:00 02/20/23 10:30 Normal Saline Iv IV CONT Not Given .Q10H MARI Loratadine 10 mg 02/20/23 0
--- NOTE | 2023-02-22 10:15 | P.PNNP_ITS ---
Progress Note: A&P Assessment and Plan (1) Hyponatremia: Code(s): E87.1 - Hypo-osmolality and hyponatremia Status: Acute Assessment and Plan: * acute on chronic * chronic aspect due to PPI use and probaly multiple myeloma * acute aspect probably due to: * pain/pain medications * continued PPI use * increased free water intake while in rehab * evaluation to date: * TSH okay * cortisol little low but stim test okay * serum/urine osmo pending * check SPEP/UPEP * on fluid restriction * was on salt tabs + lasix but no significant improvement * s/p 3% saline yesterday with improvement in sodium to 126mmol/L * will resume salt tabs and lasix * if repeat sodium this afternoon worse or unchanged, will plan for another round of 3% saline (2) Right hip pain: Code(s): M25.551 - Pain in right hip Status: Acute Assessment and Plan: * CT showed a very small and subtle fracture in the right hip * Orthopedics following -- planning surgery once sodium optimized * pain control (3) Chronic anemia: Code(s): D64.9 - Anemia, unspecified Status: Acute Assessment and Plan: * low but stable * presumably due to multiple myeloma (4) Multiple myeloma: Qualifiers: Multiple myeloma remission status: in relapse Qualified Code(s): C90.02 - Multiple myeloma in relapse Code(s): C90.00 - Multiple myeloma not having achieved remission Status: Acute Assessment and Plan: * follows with Hem/Onc * on chemotherapy Will continue to follow. Subjective Date/time seen: 02/22/23 10:15 Interval history: Follow-up for acute on chronic hyponatremia Chart reviewed -- assuming care from Dr. Ryan; s/p 3% saline yesterday as salt tabs + lasix had improved sodium level; sodium up to 126 yesterday evening as well as by AM labs; current medications appear to be controlling her pain although it does flare when she attempts sudden movement. Exam Narrative: General: elderly female in NAD Heart: normal S1 and S2; no rub Lungs: clear to auscultation Abdomen: soft, nontender, nondistended, positive bowel sounds Extremities: no cyanosis or clubbing; no edema Skin: warm and dry Objective Data Vital Signs Vital Signs: Vital Signs Temp Pulse Resp BP Pulse Ox O2 Del Method 02/22/23 08:00 87 14 98 Room Air 02/22/23 08:30 87 02/22/23 05:30 98.6 F 66 14 144/66 H 98 02/22/23 04:00 62 02/22/23 00:00 60 02/21/23 21:55 98.1 F 60 16 96/58 L 99 02/21/23 20:00 60 02/21/23 20:33 72 02/21/23 16:00 62 02/21/23 14:00 98.6 F 63 16 115/59 L 98 02/21/23 12:00 71 02/21/23 12:31 61 14 94/50 L 97 Intake/Output Intake/Output: Intake & Output 02/19/23 02/20/23 02/21/23 02/22/23 23:59 23:59 23:59 23:59 Intake Total 1220 1270 100 Output Total 1000 2420 Balance 220 -1150 100 Meds/Results Medications: Active Medications Generic Name Dose Route Start Last Admin Trade Name Kevinq PRN Reason Stop Dose Admin Acetaminophen 650 mg 02/19/23 23:44 Acetaminophen 325
[2023-02-22] MEDS: FUROSEMIDE 20 MG TABLET PO (13:50)
[2023-02-22] MEDS: SODIUM CHLORIDE 1 GM TABLET PO (13:51)
[2023-02-22 15:14] LABS: Sodium 125 mmol/L (137-145)
[2023-02-22] MEDS: SODIUM CHLORIDE 3% 150 ML 50 ML IV CONT (16:36)
[2023-02-22 20:40] LABS: Sodium 126 mmol/L (137-145)
[2023-02-22 23:31] LABS: Sodium 125 mmol/L (137-145)
[2023-02-23] VITALS (21 sets, daily range): BP systolic 106–187; BP diastolic 63–103; PULSE 62–81; RESP 12–20; TEMP 36.1–37.1; O2SAT 96–100
[2023-02-23] MEDS: SODIUM CHLORIDE 3% 180 ML 60 ML IV CONT (01:26)
[2023-02-23 05:50] LABS: Basophils Percent Auto 0.7 % (0.2-1.2); Eosinophils Absolute Auto 0.1 K/mm3 (0-0.3); Eosinophils Percent Auto 1.7 % (0-4.4); Hematocrit 28.6 % (37.0-47.0); Hemoglobin 9.3 g/dL (12.0-15.0); Immature Granulocyte Absolute 0.02 K/mm3 (0.00-0.031); Immature Granulocyte Percent A 0.5 % (0-0.5); Lymphocytes Absolute Auto 0.54 K/mm3 (0.9-3.2); Lymphocytes Percent Auto 12.7 % (18.3-44.2); Mean Corpuscular HGB Conc 32.5 g/dl (32-36); Mean Corpuscular Hemoglobin 31.7 pg (26-34); Mean Corpuscular Volume 97.6 fl (80-100); Mean Platelet Volume 8.8 fl (7.4-10.4); Monocytes Absolute Auto 0.5 K/mm3 (0.1-0.6); Monocytes Percent Auto 11.6 % (2.6-8.5); Neutrophils Absolute Auto 3.1 K/mm3 (1.3-6.7); Neutrophils Percent Auto 72.8 % (45.5-73.1); Platelet Count Result 254 k/mm3 (150-375); Red Blood Count 2.93 M/mm3 (4.2-5.4); Red Cell Distribution Width 18.1 % (11.5-14.5); White Blood Count 4.2 K/mm3 (4.5-10.0)
[2023-02-23 06:08] LABS: Anion Gap 2 mmol/L (8-16); Blood Urea Nitrogen 10 mg/dL (7-17); Calcium 8.5 mg/dL (8.4-10.2); Carbon Dioxide 22 mmol/L (22-30); Chloride 105 mmol/L (98-107); Estimated CRCL calculation 47 ml/min; Estimated Glomerular Filt Rate > 60; Glucose 92 mg/dL (65-110); Magnesium 1.9 mg/dL (1.6-2.3); Potassium 3.8 mmol/L (3.4-5.0); Sodium 129 mmol/L (137-145)
[2023-02-23 06:24] LABS: INR 1.1; Prothrombin Time 14.3 Seconds (11.1-14.7)
[2023-02-23 06:25] LABS: Partial Thromboplastin Time 28.4 SECONDS (22.3-36.8)
--- NOTE | 2023-02-23 08:48 | P.PNIM_ITS ---
Progress Note: A&P Assessment and Plan (1) Hyponatremia: Code(s): E87.1 - Hypo-osmolality and hyponatremia Status: Acute Assessment and Plan: Acute on chronic hyponatremia. * Na was 123 on 02/19 with further downtrend to 121 * Transfer to [place] for nephrology consult * BMP Q 3 hours * Na this morning is 119, reaching out to nephrology for assistance with management * TSH, T3, T4 * Urine studies collected * serum osmo pending * I spoke with Dr Ryan who recommends PO Lasix 20 mg TID, Na+ tablets 1 gram TID, and fluid restriction. Also stopped her omeprazole and switched to pepcid. * Na today 02/22 is 126 * Nephrology plans to add 3% sodium chloride * Monitor BMP * Na+ goal of 128 for surgery (2) Right hip pain: Code(s): M25.551 - Pain in right hip Status: Acute Assessment and Plan: History of fall prior to this recent admission, several weeks ago in which she sustained a cortical of urgent fracture from the anterior process of the left talus * Complaining of right hip pain and has been progressively getting worse * CT right hip ordered * PT/OT consults and rec's appreciated * Fall precautions * Acetaminophen for pain * Ct shows possibly a minimally displaced right hip. Recommend MRI for further imaging. Study has been ordered and consult requested for orthopedics, recommendations are appreciated. * Ortho recommends pinning when medically cleared * Plan for ortho intervention on 02/23 at 1400 (3) Multiple myeloma: Qualifiers: Multiple myeloma remission status: in relapse Qualified Code(s): C90.02 - Multiple myeloma in relapse Code(s): C90.00 - Multiple myeloma not having achieved remission Status: Acute Assessment and Plan: Currently receiving chemotherapy treatment * pancytopenia related to this diagnosis (4) Chronic anemia: Code(s): D64.9 - Anemia, unspecified Status: Acute Assessment and Plan: Stable * hgb 9.4/28.3 (5) Chronic kidney disease, stage 3: Code(s): N18.30 - Chronic kidney disease, stage 3 unspecified Status: Acute Assessment and Plan: CKD III * Cr 0.80/BUN 12 * Crcl 44 Plan Feeding:heart healthy diet with free water fluid restriction of 1 L Analgesia:acetaminophen and low dose oxycodone for pain Thromboembolic prophylaxis: scd Ulcer prophylaxis: pepcid Glycemic control: n/a Bowel regimen: miralax Lines: PIV Antibiotics: n/a Sodium is increasing, re-check this afternoon. Goal is 128 for surgery Plan for OR tomorrow. PT/OT eval tomorrow after surgery Subjective Date/time seen: 02/23/23 08:48 Interval history: Patient is known to me from yesterday, caring for her at our [place] location. She was admitted at [place] as a swing bed after an acute hospitalization for diarrhea due to chemotherapy for multiple myeloma. She was participating in therapy but has had continued episodes of acute on chronic hyponatremia and weakness. She was going to discharge yesterday but her morning labs showed a sodium of 123. There were concerns for her having increased water intake so I instituted a water restriction and rechecked her labs in the afternoon. Unfortunately her sodium dropped to 121 so it was decided to transfer her to [place] for a nephrology consult. 02/20- This morning her sodium is 119. I spoke with Dr. Ryan this morning and discussed her case. He recommended restarting salt tabs 1 g t.i.d. and adding Lasix 20 mg t.i.d. as well. Will recheck her sodium at noon today.
--- NOTE | 2023-02-23 08:48 | PM.IMPN ---
Progress Note: A&P Assessment and Plan (1) Hyponatremia: Code(s): E87.1 - Hypo-osmolality and hyponatremia Status: Acute Assessment and Plan: Acute on chronic hyponatremia. Na was 123 on 02/19 with further downtrend to 121 Transfer to [place] for nephrology consult BMP Q 3 hours Na this morning is 119, reaching out to nephrology for assistance with management TSH, T3, T4 Urine studies collected serum osmo pending I spoke with Dr Ryan who recommends PO Lasix 20 mg TID, Na+ tablets 1 gram TID, and fluid restriction. Also stopped her omeprazole and switched to pepcid. Na today 02/22 is 126 Nephrology plans to add 3% sodium chloride Monitor BMP Na+ goal of 128 for surgery (2) Right hip pain: Code(s): M25.551 - Pain in right hip Status: Acute Assessment and Plan: History of fall prior to this recent admission, several weeks ago in which she sustained a cortical of urgent fracture from the anterior process of the left talus Complaining of right hip pain and has been progressively getting worse CT right hip ordered PT/OT consults and rec's appreciated Fall precautions Acetaminophen for pain Ct shows possibly a minimally displaced right hip. Recommend MRI for further imaging. Study has been ordered and consult requested for orthopedics, recommendations are appreciated. Ortho recommends pinning when medically cleared Plan for ortho intervention on 02/23 at 1400 (3) Multiple myeloma: Qualifiers: Multiple myeloma remission status: in relapse Qualified Code(s): C90.02 - Multiple myeloma in relapse Code(s): C90.00 - Multiple myeloma not having achieved remission Status: Acute Assessment and Plan: Currently receiving chemotherapy treatment pancytopenia related to this diagnosis (4) Chronic anemia: Code(s): D64.9 - Anemia, unspecified Status: Acute Assessment and Plan: Stable hgb 9.4/28.3 (5) Chronic kidney disease, stage 3: Code(s): N18.30 - Chronic kidney disease, stage 3 unspecified Status: Acute Assessment and Plan: CKD III Cr 0.80/BUN 12 Crcl 44 Plan Feeding:heart healthy diet with free water fluid restriction of 1 L Analgesia:acetaminophen and low dose oxycodone for pain Thromboembolic prophylaxis: scd Ulcer prophylaxis: pepcid Glycemic control: n/a Bowel regimen: miralax Lines: PIV Antibiotics: n/a Sodium is increasing, re-check this afternoon. Goal is 128 for surgery Plan for OR tomorrow. PT/OT nirav tomorrow after surgery Subjective Date/time seen: 02/23/23 08:48 Interval history: Patient is known to me from yesterday, caring for her at our [facility] location. She was admitted at [facility] as a swing bed after an acute hospitalization for diarrhea due to chemotherapy for multiple myeloma. She was participating in therapy but has had continued episodes of acute on chronic hyponatremia and weakness. She was going to discharge yesterday but her morning labs showed a sodium of 123. There were concerns for her having increased water intake so I instituted a water restriction and rechecked her labs in the afternoon. Unfortunately her sodium dropped to 121 so it was decided to transfer her to [place] for a nephrology consult. 02/20- This morning her sodium is 119. I spoke with Dr. Ryan this morning and discussed her case. He recommended restarting salt tabs 1 g t.i.d. and adding Lasix 20 mg t.i.d. as well. Will recheck her sodium at noon today. I went ahead and added on Q 3 are BMP as well. Aurea is seen resting in bed this morning. Her swelling to her lower extremities, particularly her feet seem increased from yesterday she has +2-3 pitting edema. Her lower extremities appear okay but she also has Pavan hose in place. She is complaining about this right hip pain that travels through her right leg that she describes as sharp, shooting and constant. This is the 1s
[2023-02-23] MEDS: VERAPAMIL HCL ER 240 MG TABLET.ER PO ×2 (09:29→17:58)
[2023-02-23] MEDS: LOSARTAN POTASSIUM 100 MG TABLET PO (09:29)
[2023-02-23] MEDS: carvediloL 25 MG TABLET PO ×2 (09:29→21:06)
--- NOTE | 2023-02-23 10:05 | P.PNNP_ITS ---
Progress Note: A&P Assessment and Plan (1) Hyponatremia: Code(s): E87.1 - Hypo-osmolality and hyponatremia Status: Acute Assessment and Plan: * slow improvement noted * acute on chronic * chronic aspect due to PPI use and probably multiple myeloma * acute aspect probably due to: * pain/pain medications * continued PPI use * increased free water intake while in rehab * evaluation to date: * TSH okay * cortisol little low but stim test okay * serum/urine osmo pending * check SPEP/UPEP * on fluid restriction * was on salt tabs + lasix but no significant improvement * s/p 3% saline x 2 yesterday with improvement in sodium * follow trend (2) Right hip pain: Code(s): M25.551 - Pain in right hip Status: Acute Assessment and Plan: * CT showed a very small and subtle fracture in the right hip * Orthopedics following -- planning surgery today * pain control (3) Chronic anemia: Code(s): D64.9 - Anemia, unspecified Status: Acute Assessment and Plan: * low but stable * presumably due to multiple myeloma (4) Multiple myeloma: Qualifiers: Multiple myeloma remission status: in relapse Qualified Code(s): C90.02 - Multiple myeloma in relapse Code(s): C90.00 - Multiple myeloma not having achieved remission Status: Acute Assessment and Plan: * follows with Hem/Onc * on chemotherapy Will continue to follow. Subjective Date/time seen: 02/23/23 10:05 Interval history: Follow-up for acute on chronic hyponatremia Given 3% saline x 2 yesterday afternoon/evening to improve sodium level which appears to have been successful; tentative on OR schedule this afternoon for hip surgery; no apparent distress noted at the time of my visit. Exam Narrative: General: elderly female in NAD Heart: normal S1 and S2; no rub Lungs: clear to auscultation Abdomen: soft, nontender, nondistended, positive bowel sounds Extremities: no cyanosis or clubbing; no edema Skin: warm and intact Objective Data Vital Signs Vital Signs: Vital Signs Temp Pulse Resp BP Pulse Ox O2 Del Method 02/23/23 09:30 81 14 184/94 H 100 02/23/23 09:29 81 02/23/23 06:00 98.1 F 68 18 167/92 H 99 02/23/23 04:00 68 10/10/23 00:00 64 02/22/23 20:00 60 02/22/23 20:15 90/41 L 02/22/23 20:10 90/41 L 02/22/23 20:00 Room Air 02/22/23 20:01 98.2 F 60 18 90/41 L 97 02/22/23 16:00 64 02/22/23 12:00 64 02/22/23 14:26 97.4 F L 60 16 101/54 L 98 Intake/Output Intake/Output: Intake & Output 02/20/23 02/21/23 02/22/23 02/23/23 23:59 23:59 23:59 23:59 Intake Total 1220 1270 460 Output Total 1000 2420 1225 1000 Balance 220 -1150 -765 -1000 Meds/Results Medications: Active Medications Generic Name Dose Route Start Last Admin Trade Name Freq PRN Reason Stop Dose Admin Acetaminophen 650 mg 02/19/23 23:44 Acetaminophen 325 Mg Tablet PO Q4H PRN Mild Pain (1-3) or Fever Aspirin 81 mg 02/20/23 09:00 02/22/23 08:3
--- NOTE | 2023-02-23 10:05 | PM.PNNEP ---
Progress Note: A&P Assessment and Plan (1) Hyponatremia: Code(s): E87.1 - Hypo-osmolality and hyponatremia Status: Acute Assessment and Plan: slow improvement noted acute on chronic chronic aspect due to PPI use and probably multiple myeloma acute aspect probably due to: pain/pain medications continued PPI use increased free water intake while in rehab evaluation to date: TSH okay cortisol little low but stim test okay serum/urine osmo pending check SPEP/UPEP on fluid restriction was on salt tabs + lasix but no significant improvement s/p 3% saline x 2 yesterday with improvement in sodium follow trend (2) Right hip pain: Code(s): M25.551 - Pain in right hip Status: Acute Assessment and Plan: CT showed a very small and subtle fracture in the right hip Orthopedics following -- planning surgery today pain control (3) Chronic anemia: Code(s): D64.9 - Anemia, unspecified Status: Acute Assessment and Plan: low but stable presumably due to multiple myeloma (4) Multiple myeloma: Qualifiers: Multiple myeloma remission status: in relapse Qualified Code(s): C90.02 - Multiple myeloma in relapse Code(s): C90.00 - Multiple myeloma not having achieved remission Status: Acute Assessment and Plan: follows with Hem/Onc on chemotherapy Will continue to follow. Subjective Date/time seen: 02/23/23 10:05 Interval history: Follow-up for acute on chronic hyponatremia Given 3% saline x 2 yesterday afternoon/evening to improve sodium level which appears to have been successful; tentative on OR schedule this afternoon for hip surgery; no apparent distress noted at the time of my visit. Exam Narrative: General: elderly female in NAD Heart: normal S1 and S2; no rub Lungs: clear to auscultation Abdomen: soft, nontender, nondistended, positive bowel sounds Extremities: no cyanosis or clubbing; no edema Skin: warm and intact Objective Data Vital Signs Vital Signs: Vital Signs Temp Pulse Resp BP Pulse Ox O2 Del Method 02/23/23 09:30 81 14 184/94 H 100 02/23/23 09:29 81 02/23/23 06:00 98.1 F 68 18 167/92 H 99 02/23/23 04:00 68 02/23/23 00:00 64 02/22/23 20:00 60 02/22/23 20:15 90/41 L 02/22/23 20:10 90/41 L 02/22/23 20:00 Room Air 02/22/23 20:01 98.2 F 60 18 90/41 L 97 02/22/23 16:00 64 02/22/23 12:00 64 02/22/23 14:26 97.4 F L 60 16 101/54 L 98 Intake/Output Intake/Output: Intake & Output 02/20/23 02/21/23 02/22/23 02/23/23 23:59 23:59 23:59 23:59 Intake Total 1220 1270 460 Output Total 1000 2420 1225 1000 Balance 220 -1150 -765 -1000 Meds/Results Medications: Active Medications Generic Name Dose Route Start Last Admin Trade Name Freq PRN Reason Stop Dose Admin Acetaminophen 650 mg 02/19/23 23:44 Acetaminophen 325 Mg Tablet PO Q4H PRN Mild Pain (1-3) or Fever Aspirin 81 mg 02/20/23 09:00 02/22/23 08:30 Aspirin 81 Mg Enteric Tablet PO 81 mg DAILY MARI Administration Carvedilol 25 mg 02/20/23 09:00 02/23/23 09:29 Carvedilol 25 Mg Tablet PO 25 mg Q12HR MARI Administration Famotidine 20 mg 02/20/23 21:00 02/22/23 20:14 Famotidine 20 Mg Tablet PO 20 mg Q12HR MARI Administration Ferrous Sulfate 325 mg 02/20/23 09:00 02/22/23 08:30 Ferrous Sulfate [address] BY MOUTH 325 mg DAILY MARI Administration Gabapentin 100 mg 02/21/23 13:00 02/22/23 17:29 Gabapentin 100 Mg Capsule PO 100 mg TID MARI Administration Sodium Chloride 1,000 mls @ 100 mls/hr 02/20/23 08:00 02/20/23 10:30 Normal Saline Iv IV CONT Not Given .Q10H MARI Loratadine 10 mg 02/20/23 09:00 02/22/23 08:30 Loratadine 10 Mg Tablet PO 10 mg QAM MARI Administration Losartan Potassium 100 mg 02/20/23 09:00
--- NOTE | 2023-02-23 12:56 | PCOTNOTE ---
Pt. scheduled for surgery today at 14:00 per chart. Pt. to be seen when appropriate after surgery, therapy orders not active until 02/24/23. Following.
--- NOTE | 2023-02-23 13:09 | WPDANESEPPF ---
Anes - Initial Pre Proc Eval Procedure: Operation Date: 02/23/23 14:00 Proposed Procedures p Right Hip Pinning - Van Pierce MD Date/Time: 02/23/23 13:09 Surgeon: Nani Mcdermott DO Pre Op Diagnosis: Hyponatremia Patient Data Age: 82 Gender: F Height: 1.7 m Weight: 49.2 kg Last Vital Signs Temp 36.7 C 02/23/23 06:00 Pulse 70 02/23/23 12:00 Resp 14 02/23/23 09:30 BP 184/94 H 02/23/23 09:30 Pulse Ox 100 02/23/23 09:30 O2 Del Method Room Air 02/23/23 09:15 Allergies Allergy/AdvReac Type Severity Reaction Status Date / Time clams Allergy Severe Difficulty Verified 01/31/23 12:02 Breathing crab Allergy Severe Difficulty Verified 01/31/23 12:02 Breathing spironolactone Allergy Severe RASH, Verified 01/31/23 12:02 FACIAL SWELLING tramadol Allergy Severe SEVERE RASH Verified 01/31/23 12:02 Iodinated Contrast Media Allergy Intermediate DIZZY, Verified 01/31/23 12:02 HEADACHE shellfish derived Allergy Intermediate Rash Verified 01/31/23 12:02 Sulfa (Sulfonamide Allergy Intermediate Rash Verified 01/31/23 12:02 Antibiotics) amlodipine Allergy Unknown Rash Verified 01/31/23 12:02 banana Allergy Unknown Rash Verified 01/31/23 12:02 clindamycin Allergy Unknown Rash Verified 01/31/23 12:02 codeine Allergy Unknown Rash Verified 01/31/23 12:02 iodine Allergy Unknown Rash Verified 01/31/23 12:02 kiwi Allergy Unknown Rash Verified 01/31/23 12:02 latex Allergy Unknown Rash Verified 01/31/23 12:02 lisinopril AdvReac Unknown Cough Verified 01/31/23 12:02 Lobster Allergy Severe CONGESTION, Uncoded 01/31/23 12:02 DIFFICULTY BREATHING Home Medications Medication Instructions Recorded Confirmed Type carvedilol 25 mg tablet (Coreg) 25 mg PO BID 03/29/19 02/19/23 History losartan 100 mg tablet (Cozaar) 100 mg PO DAILY 03/29/19 02/19/23 History multivitamin (Daily Multi-Vitamin 1 tablet PO DAILY 03/29/19 02/19/23 History tablet) ondansetron HCl 4 mg tablet 4 mg PO Q8H PRN Nausea 03/29/19 02/20/23 History verapamil 240 mg tablet,extended 240 mg PO BID 03/29/19 02/20/23 History release ferrous sulfate 325 mg (65 mg 325 mg PO DAILY 06/15/19 02/20/23 History iron) tablet (Iron (ferrous sulfate)) aspirin 81 mg tablet,delayed 81 mg PO DAILY 05/20/20 02/20/23 History release (Adult Low Dose Aspirin) omeprazole magnesium 20 mg 20 mg PO DAILY 11/05/20 02/20/23 History tablet,delayed release (Prilosec OTC) hydralazine 10 mg tablet See Rx Instructions .Route .COMPLEX 12/02/20 02/20/23 History cetirizine 10 mg tablet (Zyrtec) 10 mg PO DAILY 01/26/22 02/20/23 History furosemide 20 mg tablet (Lasix) 20 mg PO DAILY 01/31/23 02/20/23 History hydrocodone 5 mg-acetaminophen 325 5 - 325 tablet PO Q6H PRN Pain 02/20/23 02/20/23 History mg tablet (Scale Score 4-6) Laboratory Tests 02/22/23 02/22/23 02/22/23 14:46 20:13 23:00 WBC RBC Hgb Hct MCV MCH MCHC RDW Plt Count MPV Immature Gran % (Auto) Neut % (Auto) Lymph % (Auto) Edwards % (Auto) Eos % (Auto) Baso % (Auto) Lymph # (Auto) Edwards # (Auto) Eos # (Auto) Baso # (Auto) Abs Immat Gran (auto) Absolute Neuts (auto) Absolute Nucleated RBC Nucleated RBC % PT INR APTT Sodium 125 L mmol/L 126 L mmol/L 125 L mmol/L (137-145) (137-145) (137-145) Potassium Chloride Carbon Dioxide Anion Gap BUN Creatinine Estim Creat Clear Calc Estimated GFR Glucose Calcium Magnesium 02/23/23 05:28 WBC 4.2 L K/mm3 (4.5-10.0) RBC
[2023-02-23] MEDS: SODIUM CHLORIDE 0.9% IV 500 ML 30 ML IV CONT (13:43)
--- NOTE | 2023-02-23 14:07 | WPDHPUPDATE1 ---
History and Physical Update Update Date/Time: 02/23/23 14:07 History and Physical has been reviewed, including an updated exam of the patient. There are NO changes in the patient's condition. Risks, benefits, and alternatives have been discussed and questions answered. Patient agrees to proceed with procedure.
[2023-02-23] MEDS: ceFAZolin 1 GM/NS 50 ML 1 GM/50 ML BAG IVPB ×2 (14:20→21:10)
--- NOTE | 2023-02-23 15:09 | W.PM.PROC2 ---
Procedure Note - Detailed Date of Procedure 02/23/23 Pre-op Diagnosis Hyponatremia Right femoral neck fracture Post-op Diagnosis Same Procedure Performed Pinnnng Surgeon Van Pierce MD [employer] Supervisor [place] Anesthesia General Description of Procedure Patient brought to operating room 7.. Placed on the operating table sterilely prepped and draped in usual manner after a general anesthetic was administered. The patient patient was placed on the fracture table. A longitudinal incision was made at this point just lower than the greater trochanteric area. Dissection carried down to the skin fascia and a guidewire placed. 2 wires were placed around the guidewire and 3 screws placed 85,90 95. Xx-rays in the AP and lateral plane demonstrated good alignment of the screws the fracture is nondisplaced. The wound irrigated, hemostasis obtained and closed with 2. Vicryl 2-0 Vicryl and bhavna. Sterile dressing applied, patient tolerated procedure well Implants Synthesis Screws 85 90 95 Estimated Blood Loss 50 Urine Output 500 Disposition PACU [facility] Billing Surgery - Charge Forward: Surgery Billing
[2023-02-23] MEDS: GABAPENTIN 100 MG CAPSULE 200 MG PO (17:58)
[2023-02-23] MEDS: RIVAROXABAN 10 MG TABLET PO (17:58)
[2023-02-23] MEDS: SENNA/DOCUSATE SODIUM TABLET 2 TAB PO (17:58)
[2023-02-23] MEDS: FAMOTIDINE 20 MG TABLET PO (21:06)
[2023-02-24] VITALS (12 sets, daily range): BP systolic 103–136; BP diastolic 50–65; PULSE 66–80; RESP 12–18; TEMP 36.1–36.6; O2SAT 97–100
[2023-02-24] MEDS: SODIUM CHLORIDE 0.9% IV 1,000 ML 100 ML IV CONT (02:05)
[2023-02-24] MEDS: ceFAZolin 1 GM/NS 50 ML 1 GM/50 ML BAG IVPB ×2 (05:06→15:39)
[2023-02-24 05:45] LABS: Basophils Percent Auto 0.5 % (0.2-1.2); Eosinophils Absolute Auto 0.1 K/mm3 (0-0.3); Eosinophils Percent Auto 0.8 % (0-4.4); Hematocrit 23.1 % (37.0-47.0); Hemoglobin 7.4 g/dL (12.0-15.0); Immature Granulocyte Absolute 0.03 K/mm3 (0.00-0.031); Immature Granulocyte Percent A 0.5 % (0-0.5); Lymphocytes Absolute Auto 0.47 K/mm3 (0.9-3.2); Lymphocytes Percent Auto 7.2 % (18.3-44.2); Mean Corpuscular Hemoglobin 31.8 pg (26-34); Mean Corpuscular Volume 99.1 fl (80-100); Mean Platelet Volume 8.9 fl (7.4-10.4); Monocytes Absolute Auto 0.5 K/mm3 (0.1-0.6); Monocytes Percent Auto 7.5 % (2.6-8.5); Neutrophils Absolute Auto 5.4 K/mm3 (1.3-6.7); Neutrophils Percent Auto 83.5 % (45.5-73.1); Platelet Count Result 228 k/mm3 (150-375); Red Blood Count 2.33 M/mm3 (4.2-5.4); Red Cell Distribution Width 18.3 % (11.5-14.5); White Blood Count 6.5 K/mm3 (4.5-10.0)
[2023-02-24 05:58] LABS: Alanine Aminotransferase 17 U/L (6-35); Albumin Level 2.2 g/dL (3.5-5.1); Alkaline Phosphatase 62 U/L (38-126); Anion Gap 3 mmol/L (8-16); Aspartate Amino Transferase 20 U/L (14-36); Bilirubin,Total 0.3 mg/dL (0.2-1.3); Blood Urea Nitrogen 13 mg/dL (7-17); Calcium 8.6 mg/dL (8.4-10.2); Carbon Dioxide 21 mmol/L (22-30); Chloride 104 mmol/L (98-107); Estimated CRCL calculation 44 ml/min; Estimated Glomerular Filt Rate > 60; Glucose 95 mg/dL (65-110); Magnesium 1.9 mg/dL (1.6-2.3); Potassium 3.8 mmol/L (3.4-5.0); Sodium 128 mmol/L (137-145)
--- NOTE | 2023-02-24 06:47 | P.CDI_ITS ---
CDI Query Clarification Request BMI 17.2 Nutritional Diagnostic Statement Severe Protein Calorie Malnutrition as related to inadequate protein-energy intake with increased protein-energy needs in setting of chronic disease or condition (Cancer) as evidenced by significant weight loss of 5% (6lbs) in 3 weeks and moderate subcutaneous fat loss (orbital fat pads) and moderate muscle wasting(temporalis). Please refer to the comprehensive nutrition assessment for further information. Please clarify severity of protein calorie malnutrition if known: * Mild * Moderate * Severe * Other/Unspecified <Ana Brantley RN - Last Filed: 02/24/23 06:53> Clarified Diagnosis Clarified Diagnosis: Severe protein calorie malnutrition Severe Protein Calorie Malnutrition as related to inadequate protein-energy intake with increased protein-energy needs in setting of chronic disease or condition (Cancer) as evidenced by significant weight loss of 5% (6lbs) in 3 weeks and moderate subcutaneous fat loss (orbital fat pads) and moderate muscle wasting(temporalis). <Yousuf Leal APRN - Last Filed: 02/24/23 08:56>
--- NOTE | 2023-02-24 08:56 | P.PNIM_ITS ---
Progress Note: A&P Assessment and Plan (1) Hyponatremia: Code(s): E87.1 - Hypo-osmolality and hyponatremia Status: Acute Assessment and Plan: Acute on chronic hyponatremia. * Na was 123 on 02/19 with further downtrend to 121 * Transfer to [place] for nephrology consult * BMP Q 3 hours * Na this morning is 119, reaching out to nephrology for assistance with management * TSH, T3, T4 * Urine studies collected * serum osmo pending * I spoke with Dr Ryan who recommends PO Lasix 20 mg TID, Na+ tablets 1 gram TID, and fluid restriction. Also stopped her omeprazole and switched to pepcid. * Na 02/22 is 126 * Nephrology plans to add 3% sodium chloride * Monitor BMP * Na+ goal of 128 for surgery * 02/24: Sodium 128, IVF stopped. Fluid Restriction diet reordered. (2) Right hip pain: Code(s): M25.551 - Pain in right hip Status: Acute Assessment and Plan: History of fall prior to this recent admission, several weeks ago in which she sustained a cortical of urgent fracture from the anterior process of the left talus * Complaining of right hip pain and has been progressively getting worse * CT right hip ordered * PT/OT consults and rec's appreciated * Fall precautions * Acetaminophen for pain * Ct shows possibly a minimally displaced right hip. Recommend MRI for further imaging. Study has been ordered and consult requested for orthopedics, recommendations are appreciated. * Ortho recommends pinning when medically cleared * Plan for ortho intervention on 02/23 at 1400 * 02/24: post operative, PT/OT pending (3) Multiple myeloma: Qualifiers: Multiple myeloma remission status: in relapse Qualified Code(s): C90.02 - Multiple myeloma in relapse Code(s): C90.00 - Multiple myeloma not having achieved remission Status: Acute Assessment and Plan: Currently receiving chemotherapy treatment * pancytopenia related to this diagnosis (4) Chronic anemia: Code(s): D64.9 - Anemia, unspecified Status: Acute Assessment and Plan: Stable * hgb/hct 7.4/23.1 (5) Chronic kidney disease, stage 3: Code(s): N18.30 - Chronic kidney disease, stage 3 unspecified Status: Acute Assessment and Plan: CKD III * Cr 0.70/BUN 13 * Crcl 44 (6) Severe protein-calorie malnutrition: Code(s): E43 - Unspecified severe protein-calorie malnutrition Status: Acute Assessment and Plan: Severe Protein Calorie Malnutrition as related to inadequate protein-energy intake with increased protein-energy needs in setting of chronic disease or condition (Cancer) as evidenced by significant weight loss of 5% (6lbs) in 3 weeks and moderate subcutaneous fat loss (orbital fat pads) and moderate muscle wasting(temporalis). (7) Fracture of femoral neck, right: Code(s): S72.001A - Fracture of unspecified part of neck of right femur, initial encounter for closed fracture Status: Acute Assessment and Plan: See 2. Plan Feeding:heart healthy diet with free water fluid restriction of 1 L Analgesia:acetaminophen and low dose oxycodone for pain Thromboembolic prophylaxis: scd Ulcer prophylaxis: pepcid Glycemic control: n/a Bowel regimen: miralax Lines: PIV Antibiotics: n/a Sodium is stable, 128 today PT/OT Attempted to obtain MRI of spine due to lower extremity functional decline but patient has pacemaker and unable to obtain MRI Time Spent With Patient Time with patient: Greater than 35 minutes Subjective
--- NOTE | 2023-02-24 08:56 | PM.IMPN ---
Progress Note: A&P Assessment and Plan (1) Hyponatremia: Code(s): E87.1 - Hypo-osmolality and hyponatremia Status: Acute Assessment and Plan: Acute on chronic hyponatremia. Na was 123 on 02/19 with further downtrend to 121 Transfer to [place] for nephrology consult BMP Q 3 hours Na this morning is 119, reaching out to nephrology for assistance with management TSH, T3, T4 Urine studies collected serum osmo pending I spoke with Dr Ryan who recommends PO Lasix 20 mg TID, Na+ tablets 1 gram TID, and fluid restriction. Also stopped her omeprazole and switched to pepcid. Na 02/22 is 126 Nephrology plans to add 3% sodium chloride Monitor BMP Na+ goal of 128 for surgery 02/24: Sodium 128, IVF stopped. Fluid Restriction diet reordered. (2) Right hip pain: Code(s): M25.551 - Pain in right hip Status: Acute Assessment and Plan: History of fall prior to this recent admission, several weeks ago in which she sustained a cortical of urgent fracture from the anterior process of the left talus Complaining of right hip pain and has been progressively getting worse CT right hip ordered PT/OT consults and rec's appreciated Fall precautions Acetaminophen for pain Ct shows possibly a minimally displaced right hip. Recommend MRI for further imaging. Study has been ordered and consult requested for orthopedics, recommendations are appreciated. Ortho recommends pinning when medically cleared Plan for ortho intervention on 02/23 at 1400 02/24: post operative, PT/OT pending (3) Multiple myeloma: Qualifiers: Multiple myeloma remission status: in relapse Qualified Code(s): C90.02 - Multiple myeloma in relapse Code(s): C90.00 - Multiple myeloma not having achieved remission Status: Acute Assessment and Plan: Currently receiving chemotherapy treatment pancytopenia related to this diagnosis (4) Chronic anemia: Code(s): D64.9 - Anemia, unspecified Status: Acute Assessment and Plan: Stable hgb/hct 7.4/23.1 (5) Chronic kidney disease, stage 3: Code(s): N18.30 - Chronic kidney disease, stage 3 unspecified Status: Acute Assessment and Plan: CKD III Cr 0.70/BUN 13 Crcl 44 (6) Severe protein-calorie malnutrition: Code(s): E43 - Unspecified severe protein-calorie malnutrition Status: Acute Assessment and Plan: Severe Protein Calorie Malnutrition as related to inadequate protein-energy intake with increased protein-energy needs in setting of chronic disease or condition (Cancer) as evidenced by significant weight loss of 5% (6lbs) in 3 weeks and moderate subcutaneous fat loss (orbital fat pads) and moderate muscle wasting(temporalis). (7) Fracture of femoral neck, right: Code(s): S72.001A - Fracture of unspecified part of neck of right femur, initial encounter for closed fracture Status: Acute Assessment and Plan: See 2. Plan Feeding:heart healthy diet with free water fluid restriction of 1 L Analgesia:acetaminophen and low dose oxycodone for pain Thromboembolic prophylaxis: scd Ulcer prophylaxis: pepcid Glycemic control: n/a Bowel regimen: miralax Lines: PIV Antibiotics: n/a Sodium is stable, 128 today PT/OT Attempted to obtain MRI of spine due to lower extremity functional decline but patient has pacemaker and unable to obtain MRI Time Spent With Patient Time with patient: Greater than 35 minutes Subjective Date/time seen: 02/24/23 08:56 Interval history: Patient is known to me from yesterday, caring for her at our [place] location. She was admitted at [place] as a swing bed after an acute hospitalization for diarrhea due to chemotherapy for multiple myeloma. She was participating in therapy but has had continued episodes of acute on chronic hyponatremia and weakness. She was going to discharge yesterday but her morning labs showed a sodium of
[2023-02-24] MEDS: VERAPAMIL HCL ER 240 MG TABLET.ER PO ×2 (09:00→17:42)
[2023-02-24] MEDS: carvediloL 25 MG TABLET PO ×2 (09:00→20:41)
[2023-02-24] MEDS: ASPIRIN 81 MG ENTERIC TABLET PO (09:00)
[2023-02-24] MEDS: SENNA/DOCUSATE SODIUM TABLET 2 TAB PO (09:00)
[2023-02-24] MEDS: FAMOTIDINE 20 MG TABLET PO ×2 (09:01→20:41)
[2023-02-24] MEDS: GABAPENTIN 100 MG CAPSULE 200 MG PO ×3 (09:01→20:41)
[2023-02-24] MEDS: FERROUS SULFATE 325 MG TABLET DR BY MOUTH (09:01)
[2023-02-24] MEDS: LORATADINE 10 MG TABLET PO (09:01)
[2023-02-24] MEDS: LOSARTAN POTASSIUM 100 MG TABLET PO (09:01)
[2023-02-24] MEDS: polyethylene glycoL 3350 17 GM POWD.PACK PO (09:02)
--- NOTE | 2023-02-24 09:50 | PC.NURSE ---
Dr Pierce notified of patient unable to planterflex or dorsiflex right foot, Edema noted, patient can feel my hand on top and bolttom of foot. Can slightly wiggle toes.
--- NOTE | 2023-02-24 13:23 | PM.PNORT ---
Subjective Subjective Date/Time Seen: 02/24/23 13:23 Post Op day: 1 Principal diagnosis: Femoral neck Fracture Right Interval history: Rounds. Patient is comfortable she has a hard time weight-bearing toes on either foot she has decreased sensation of the dorsum of the of both of her feet of the right little bit worse than the left. Objective Data Vital Signs Vital Signs: Vital Signs - 24 hr 02/23/23 15:36 02/23/23 15:41 02/23/23 15:50 Temperature 97.5 F L Pulse Rate 63 65 67 Respiratory Rate 13 12 12 Blood Pressure 136/81 143/75 H 131/103 H Pulse Oximetry 100 100 100 Oxygen Delivery Simple Face Mask Simple Face Mask Simple Face Mask Oxygen Flow Rate 6 6 6 02/23/23 16:05 02/23/23 16:20 02/23/23 16:35 Temperature 97.0 F L 97.2 F L Pulse Rate 69 65 63 Respiratory Rate 14 12 12 Blood Pressure 187/88 H 161/68 H 158/68 H Pulse Oximetry 98 99 100 Oxygen Delivery Room Air Room Air Room Air Oxygen Flow Rate 02/23/23 16:48 02/23/23 17:03 02/23/23 17:33 Temperature 97.1 F L 96.9 F L Pulse Rate 66 68 69 Respiratory Rate 16 16 14 Blood Pressure 166/63 H 163/70 H 155/77 H Pulse Oximetry 99 96 97 Oxygen Delivery Oxygen Flow Rate 02/23/23 18:33 02/23/23 21:06 02/23/23 20:00 Temperature 96.9 F L Pulse Rate 80 80 Respiratory Rate 16 Blood Pressure 167/68 H Pulse Oximetry 97 Oxygen Delivery Room Air Oxygen Flow Rate 02/23/23 21:55 02/24/23 01:48 02/23/23 20:00 Temperature 96.9 F L 96.9 F L Pulse Rate 74 75 69 Respiratory Rate 13 12 Blood Pressure 106/72 112/60 Pulse Oximetry 100 98 Oxygen Delivery Oxygen Flow Rate 02/24/23 00:00 02/24/23 04:00 02/24/23 05:13 Temperature 97.0 F L Pulse Rate 74 66 66 Respiratory Rate 12 Blood Pressure 136/65 Pulse Oximetry 97 Oxygen Delivery Oxygen Flow Rate 02/24/23 08:00 02/24/23 08:28 02/24/23 09:00 Temperature Pulse Rate 74 Respiratory Rate Blood Pressure Pulse Oximetry 97 Oxygen Delivery Room Air Room Air Oxygen Flow Rate 02/24/23 08:00 02/24/23 10:57 Temperature 97.8 F Pulse Rate 80 77 Respiratory Rate 18 Blood Pressure 109/53 L Pulse Oximetry 100 Oxygen Delivery Oxygen Flow Rate Intake/Output Intake/Output: Intake & Output 02/21/23 02/22/23 02/23/23 02/24/23 23:59 23:59 23:59 23:59 Intake Total 1270 460 150 890 Output Total 2420 1225 1730 450 Balance -1150 -765 -1580 440 Meds/Results Medications: Active Medications Generic Name Dose Route Start Last Admin Trade Name Freq PRN Reason Stop Dose Admin Acetaminophen 650 mg 02/23/23 16:48 Acetaminophen 325 Mg Tablet PO Q6H PRN Mild Pain (1-3) or Fever Hydrocodone Bitart/Acetaminophen 1 tab 02/23/23 16:48 Hydrocodone/Acetaminophen (*Crx) 5-325 Mg Tablet PO Q3H PRN Pain Rated 4-6 Hydrocodone Bitart/Acetaminophen 2 tab 02/23/23 16:48 Hydrocodone/Acetaminophen (*Crx) 5-325 Mg Tablet PO Q6H PRN Pain Rated 7-10 Aspirin 81 mg 02/20/23 09:00 02/24/23 09:00 Aspirin 81 Mg Enteric Tablet PO 81 mg DAILY MARI Administration Carvedilol 25 mg 02/20/23 09:00 02/24/23 09:00 Carvedilol 25 Mg Tablet PO 25 mg Q12HR MARI Administration Famotidine 20 mg 02/20/23 21:00 02/24/23 09:01 Famotidine 20 Mg Tablet PO 20 mg Q12HR MARI Administration Ferrous Sulfate 325 mg 02/20/23 09:00 02/24/23 09:01 Ferrous Sulfate [address] BY MOUTH 325 mg DAILY MARI Administration Gabapentin 200 mg 02/23/23 13:00 02/24/23 09:01 Gabapentin 100 Mg Capsule PO 200 mg TID MARI Administration Cefazolin Sodium 1 gm in 50 mls @ 100 mls/hr 02/23/23 22:00 02/24/23 05:38 Ancef 1 Gm/Ns 50 Ml IVPB 02/24/23 14:29 Infused Q8H MARI Infusion Loratadine 10 mg 02/20/23 09:00 02/24/23 09:01 Loratadine 10 Mg Tablet PO 10 mg QAM MARI Administration Losartan Potassium 100 mg 02/20/23 09:00 02/24/23 09:01 Losartan Potas
--- NOTE | 2023-02-24 14:01 | PM.PNNEP ---
Progress Note: A&P Assessment and Plan (1) Hyponatremia: Code(s): E87.1 - Hypo-osmolality and hyponatremia Status: Acute Assessment and Plan: slow improvement noted acute on chronic chronic aspect due to PPI use and probably multiple myeloma acute aspect probably due to: pain/pain medications continued PPI use increased free water intake while in rehab evaluation to date: TSH okay cortisol little low but stim test okay serum/urine osmo pending on fluid restriction was on salt tabs + lasix but no significant improvement with use s/p 3% saline x 2 on 02/22/23 with improvement in sodium follow trend (2) Right hip pain: Code(s): M25.551 - Pain in right hip Status: Acute Assessment and Plan: CT showed a very small and subtle fracture in the right hip Orthopedics following -- s/p operative intervention/pinning (on 02/23/23) pain control PT/OT as tolerated (3) Chronic anemia: Code(s): D64.9 - Anemia, unspecified Status: Acute Assessment and Plan: low but stable presumably due to multiple myeloma (4) Multiple myeloma: Qualifiers: Multiple myeloma remission status: in relapse Qualified Code(s): C90.02 - Multiple myeloma in relapse Code(s): C90.00 - Multiple myeloma not having achieved remission Status: Acute Assessment and Plan: follows with Hem/Onc on chemotherapy Will continue to follow. Subjective Date/time seen: 02/24/23 14:01 Interval history: Follow-up for acute on chronic hyponatremia S/P operative intervention for right hip fracture and tolerated the interventions without any issues or problems; sodium appears relatively stable in the last 24 hours; issues noted with PT/OT as documented by therapy; no acute distress noted. Exam Narrative: General: elderly female in NAD Heart: normal S1 and S2; no rub Lungs: clear to auscultation Abdomen: soft, nontender, nondistended, positive bowel sounds Extremities: no cyanosis or clubbing; no edema Skin: no rash Objective Data Vital Signs Vital Signs: Vital Signs Temp Pulse Resp BP Pulse Ox O2 Del Method 02/24/23 14:00 97.5 F L 77 18 103/50 L 100 02/24/23 10:57 97.8 F 77 18 109/53 L 100 02/24/23 08:00 80 02/24/23 09:00 74 02/24/23 08:28 Room Air 02/24/23 08:00 97 Room Air 02/24/23 05:13 97.0 F L 66 12 136/65 97 02/24/23 04:00 66 02/24/23 00:00 74 02/23/23 20:00 69 02/24/23 01:48 96.9 F L 75 12 112/60 98 02/23/23 21:55 96.9 F L 74 13 106/72 100 02/23/23 20:00 Room Air 02/23/23 21:06 80 Intake/Output Intake/Output: Intake & Output 02/21/23 02/22/23 02/23/23 02/24/23 23:59 23:59 23:59 23:59 Intake Total 1270 460 150 940 Output Total 2420 1225 1730 700 [facility]3310 -765 -1580 240 Meds/Results Medications: Active Medications Generic Name Dose Route Start Last Admin Trade Name Freq PRN Reason Stop Dose Admin Acetaminophen 650 mg 02/23/23 16:48 Acetaminophen 325 Mg Tablet PO Q6H PRN Mild Pain (1-3) or Fever Hydrocodone Bitart/Acetaminophen 1 tab 02/23/23 16:48 Hydrocodone/Acetaminophen (*Crx) 5-325 Mg Tablet PO Q3H PRN Pain Rated 4-6 Hydrocodone Bitart/Acetaminophen 2 tab 02/23/23 16:48 Hydrocodone/Acetaminophen (*Crx) 5-325 Mg Tablet PO Q6H PRN Pain Rated 7-10 Aspirin 81 mg 02/20/23 09:00 02/24/23 09:00 Aspirin 81 Mg Enteric Tablet PO 81 mg DAILY MARI Administration Carvedilol 25 mg 02/20/23 09:00 02/24/23 09:00 Carvedilol 25 Mg Tablet PO 25 mg Q12HR MARI Administration Famotidine 20 mg 02/20/23 21:00 02/24/23 09:01 Famotidine 20 Mg Tablet PO 20 mg Q12HR MARI Administration Ferrous Sulfate 325 mg 02/20/23 09:00 02/24/23 09:01 Ferrous Sulfate [address] BY MOUTH 325 mg DAILY MARI Administration Db
--- NOTE | 2023-02-24 14:01 | P.PNNP_ITS ---
Progress Note: A&P Assessment and Plan (1) Hyponatremia: Code(s): E87.1 - Hypo-osmolality and hyponatremia Status: Acute Assessment and Plan: * slow improvement noted * acute on chronic * chronic aspect due to PPI use and probably multiple myeloma * acute aspect probably due to: * pain/pain medications * continued PPI use * increased free water intake while in rehab * evaluation to date: * TSH okay * cortisol little low but stim test okay * serum/urine osmo pending * on fluid restriction * was on salt tabs + lasix but no significant improvement with use * s/p 3% saline x 2 on 02/22/23 with improvement in sodium * follow trend (2) Right hip pain: Code(s): M25.551 - Pain in right hip Status: Acute Assessment and Plan: * CT showed a very small and subtle fracture in the right hip * Orthopedics following -- s/p operative intervention/pinning (on 02/23/23) * pain control * PT/OT as tolerated (3) Chronic anemia: Code(s): D64.9 - Anemia, unspecified Status: Acute Assessment and Plan: * low but stable * presumably due to multiple myeloma (4) Multiple myeloma: Qualifiers: Multiple myeloma remission status: in relapse Qualified Code(s): C90.02 - Multiple myeloma in relapse Code(s): C90.00 - Multiple myeloma not having achieved remission Status: Acute Assessment and Plan: * follows with Hem/Onc * on chemotherapy Will continue to follow. Subjective Date/time seen: 02/24/23 14:01 Interval history: Follow-up for acute on chronic hyponatremia S/P operative intervention for right hip fracture and tolerated the interv entions without any issues or problems; sodium appears relatively stable in the last 24 hours; issues noted with PT/OT as documented by therapy; no acute distress noted. Exam Narrative: General: elderly female in NAD Heart: normal S1 and S2; no rub Lungs: clear to auscultation Abdomen: soft, nontender, nondistended, positive bowel sounds Extremities: no cyanosis or clubbing; no edema Skin: no rash Objective Data Vital Signs Vital Signs: Vital Signs Temp Pulse Resp BP Pulse Ox O2 Del Method 02/24/23 14:00 97.5 F L 77 18 103/50 L 100 02/24/23 10:57 97.8 F 77 18 109/53 L 100 02/24/23 08:00 80 02/24/23 09:00 74 02/24/23 08:28 Room Air 02/24/23 08:00 97 Room Air 02/24/23 05:13 97.0 F L 66 12 136/65 97 02/24/23 04:00 66 02/24/23 00:00 74 02/23/23 20:00 69 02/24/23 01:48 96.9 F L 75 12 112/60 98 02/23/23 21:55 96.9 F L 74 13 106/72 100 02/23/23 20:00 Room Air 02/23/23 21:06 80 Intake/Output Intake/Output: Intake & Output 02/21/23 02/22/23 02/23/23 02/24/23 23:59 23:59 23:59 23:59 Intake Total 1270 460 150 940 Output Total 2420 1225 1730 700 [facility] -[phone] 240 Meds/Results Medications: Active Medications Generic Name Dose Route Start Last Admin Trade Name Freq PRN Reason Stop Dose Admin Acetaminophen 650 mg 02/23/23 16:48 Acetaminophen 325 Mg Ta
--- NOTE | 2023-02-24 14:08 | PM.PNORT ---
Progress Note: A&P Assessment and Plan (1) Fracture of femoral neck, right: Code(s): S72.001A - Fracture of unspecified part of neck of right femur, initial encounter for closed fracture Status: Acute Plan Patient is status post hip pinning right. She has decreased sensation both feet right a little bit worse than the left she gets swelling in her feet but not so much in her calves. She she has difficulty raising the toes on the right foot she does do it a little bit, but also has difficulty raising the toes on the left foot. I think she probably has a neuropathy and has difficulty cooperating. I think at this point will follow along and see how she does she may require an ankle-foot orthosis were signed perhaps even on both feet discussed this with the patient not sure her understanding is great. No manipulation was done at the time of surgery nor was any significant traction used. The surgery was also far away from any nerves. Subjective Subjective Date/Time Seen: 02/24/23 14:08 Post Op day: 1 Principal diagnosis: Femoral Neck FX Interval history: Patient is status post hip pinning for femoral neck fracture right. She is fairly comfortable in bed. She is slightly confused difficult to communicate with. Review of Systems Musculoskeletal: Musculoskeletal: Reports atrophy and Reports arthralgias Exam Narrative: On exam the incision is clean and then dressing applied. She has decreased sensation of the dorsum of both feet. A little bit worse on the right. She wiggles her toes a bit. Apparently neuro checks last night were with his normal however today she has got less function. Objective Data Vital Signs Vital Signs: Vital Signs - 24 hr 02/23/23 15:36 02/23/23 15:41 02/23/23 15:50 Temperature 97.5 F L Pulse Rate 63 65 67 Respiratory Rate 13 12 12 Blood Pressure 136/81 143/75 H 131/103 H Pulse Oximetry 100 100 100 Oxygen Delivery Simple Face Mask Simple Face Mask Simple Face Mask Oxygen Flow Rate 6 6 6 02/23/23 16:05 02/23/23 16:20 02/23/23 16:35 Temperature 97.0 F L 97.2 F L Pulse Rate 69 65 63 Respiratory Rate 14 12 12 Blood Pressure 187/88 H 161/68 H 158/68 H Pulse Oximetry 98 99 100 Oxygen Delivery Room Air Room Air Room Air Oxygen Flow Rate 02/23/23 16:48 02/23/23 17:03 02/23/23 17:33 Temperature 97.1 F L 96.9 F L Pulse Rate 66 68 69 Respiratory Rate 16 16 14 Blood Pressure 166/63 H 163/70 H 155/77 H Pulse Oximetry 99 96 97 Oxygen Delivery Oxygen Flow Rate 02/23/23 18:33 02/23/23 21:06 02/23/23 20:00 Temperature 96.9 F L Pulse Rate 80 80 Respiratory Rate 16 Blood Pressure 167/68 H Pulse Oximetry 97 Oxygen Delivery Room Air Oxygen Flow Rate 02/23/23 21:55 02/24/23 01:48 02/23/23 20:00 Temperature 96.9 F L 96.9 F L Pulse Rate 74 75 69 Respiratory Rate 13 12 Blood Pressure 106/72 112/60 Pulse Oximetry 100 98 Oxygen Delivery Oxygen Flow Rate 02/24/23 00:00 02/24/23 04:00 02/24/23 05:13 Temperature 97.0 F L Pulse Rate 74 66 66 Respiratory Rate 12 Blood Pressure 136/65 Pulse Oximetry 97 Oxygen Delivery Oxygen Flow Rate 02/24/23 08:00 02/24/23 08:28 02/24/23 09:00 Temperature Pulse Rate 74 Respiratory Rate Blood Pressure Pulse Oximetry 97 Oxygen Delivery Room Air Room Air Oxygen Flow Rate 02/24/23 08:00 02/24/23 10:57 Temperature 97.8 F Pulse Rate 80 77 Respiratory Rate 18 Blood Pressure 109/53 L Pulse Oximetry 100 Oxygen Delivery Oxygen Flow Rate Intake/Output Intake/Output: Intake & Output 02/21/23 02/22/23 02/23/23 02/24/23 23:59 23:59 23:59 23:59 Intake Total 1270 460 150 890 Output Total 2420 1225 1730 450 [facility] -[phone] 440 Meds/Results Medications: Active Medications Generic Name Dose Route Start Last Admin Trade Name Freq PRN Reason Stop Dose Admin Acetaminophen 650 mg 02/23/23 16:48 Acetaminophen 325
[2023-02-24] MEDS: RIVAROXABAN 10 MG TABLET PO (17:42)
[2023-02-25] VITALS (11 sets, daily range): BP systolic 90–129; BP diastolic 45–76; PULSE 62–66; RESP 12–18; TEMP 36.1–37; O2SAT 95–99
[2023-02-25] MEDS: HYDROcodone/acetaminophen (*CRX) 5-325 MG TABLET 1 TAB PO (01:11)
[2023-02-25 06:08] LABS: Basophils Percent Auto 0.2 % (0.2-1.2); Eosinophils Absolute Auto 0.1 K/mm3 (0-0.3); Eosinophils Percent Auto 2.3 % (0-4.4); Immature Granulocyte Absolute 0.02 K/mm3 (0.00-0.031); Immature Granulocyte Percent A 0.5 % (0-0.5); Lymphocytes Absolute Auto 0.62 K/mm3 (0.9-3.2); Lymphocytes Percent Auto 14.4 % (18.3-44.2); Mean Corpuscular HGB Conc 32.2 g/dl (32-36); Mean Corpuscular Hemoglobin 32.5 pg (26-34); Mean Platelet Volume 9.2 fl (7.4-10.4); Monocytes Absolute Auto 0.6 K/mm3 (0.1-0.6); Monocytes Percent Auto 13.9 % (2.6-8.5); Neutrophils Percent Auto 68.7 % (45.5-73.1); Platelet Count Result 198 k/mm3 (150-375); Red Blood Count 2.06 M/mm3 (4.2-5.4); Red Cell Distribution Width 18.4 % (11.5-14.5); White Blood Count 4.3 K/mm3 (4.5-10.0)
[2023-02-25 06:12] LABS: Hematocrit 20.8 % (37.0-47.0)
[2023-02-25 06:13] LABS: Hemoglobin 6.7 g/dL (12.0-15.0)
[2023-02-25 06:19] LABS: Alanine Aminotransferase 13 U/L (6-35); Alkaline Phosphatase 50 U/L (38-126); Anion Gap 0 mmol/L (8-16); Aspartate Amino Transferase 15 U/L (14-36); Bilirubin,Total 0.2 mg/dL (0.2-1.3); Blood Urea Nitrogen 18 mg/dL (7-17); Calcium 8.6 mg/dL (8.4-10.2); Carbon Dioxide 23 mmol/L (22-30); Chloride 104 mmol/L (98-107); Estimated CRCL calculation 59 ml/min; Estimated Glomerular Filt Rate > 60; Glucose 95 mg/dL (65-110); Potassium 3.6 mmol/L (3.4-5.0); Sodium 127 mmol/L (137-145)
[2023-02-25] MEDS: VERAPAMIL HCL ER 240 MG TABLET.ER PO ×2 (08:01→17:20)
[2023-02-25] MEDS: ASPIRIN 81 MG ENTERIC TABLET PO (08:01)
[2023-02-25] MEDS: carvediloL 25 MG TABLET PO ×2 (08:01→20:34)
[2023-02-25] MEDS: FAMOTIDINE 20 MG TABLET PO ×2 (08:01→20:35)
[2023-02-25] MEDS: LOSARTAN POTASSIUM 100 MG TABLET PO (08:02)
[2023-02-25] MEDS: LORATADINE 10 MG TABLET PO (08:02)
[2023-02-25] MEDS: GABAPENTIN 100 MG CAPSULE 200 MG PO ×3 (08:02→17:15)
[2023-02-25] MEDS: FERROUS SULFATE 325 MG TABLET DR BY MOUTH (08:02)
--- NOTE | 2023-02-25 09:24 | PCPTNOTE ---
Attempted to see patient for PT, however patient's hemoglobin is low and RN advised not to see patient at this time.
[2023-02-25] MEDS: SODIUM CHLORIDE 0.9% IV 250 ML 30 ML IV CONT (09:39)
--- NOTE | 2023-02-25 09:47 | P.PNIM_ITS ---
Progress Note: A&P Assessment and Plan (1) Hyponatremia: Code(s): E87.1 - Hypo-osmolality and hyponatremia Status: Acute Assessment and Plan: Acute on chronic hyponatremia. * Na was 123 on 02/19 with further downtrend to 121 * Transfer to [place] for nephrology consult * BMP Q 3 hours * Na this morning is 119, reaching out to nephrology for assistance with management * TSH, T3, T4 * Urine studies collected * serum osmo pending * I spoke with Dr Ryan who recommends PO Lasix 20 mg TID, Na+ tablets 1 gram TID, and fluid restriction. Also stopped her omeprazole and switched to pepcid. * Na 02/22 is 126 * Nephrology plans to add 3% sodium chloride * Monitor BMP * Na+ goal of 128 for surgery * 02/24: Sodium 128, IVF stopped. Fluid Restriction diet reordered. * 02/25: Sodium 127 (2) Right hip pain: Code(s): M25.551 - Pain in right hip Status: Acute Assessment and Plan: History of fall prior to this recent admission, several weeks ago in which she sustained a cortical of urgent fracture from the anterior process of the left talus * Complaining of right hip pain and has been progressively getting worse * CT right hip ordered * PT/OT consults and rec's appreciated * Fall precautions * Acetaminophen for pain * Ct shows possibly a minimally displaced right hip. Recommend MRI for further imaging. Study has been ordered and consult requested for orthopedics, recommendations are appreciated. * Ortho recommends pinning when medically cleared * Plan for ortho intervention on 02/23 at 1400 * 02/24: post operative, PT/OT pending * 02/25: Mild pain, difficulty participating with PT OT due to previously mentioned footdrop occasional leg. Patient will likely require long-term care and be wheelchair bound. Consult Neurosurgery for evaluation of lower extremity functional decline given L3 subluxation over L4 on CT scan. I was unable to see the images from prior L-spine CT scans to compare. (3) Multiple myeloma: Qualifiers: Multiple myeloma remission status: in relapse Qualified Code(s): C90.02 - Multiple myeloma in relapse Code(s): C90.00 - Multiple myeloma not having achieved remission Status: Acute Assessment and Plan: Currently receiving chemotherapy treatment * pancytopenia related to this diagnosis (4) Chronic anemia: Code(s): D64.9 - Anemia, unspecified Status: Acute Assessment and Plan: 02/25: Hemoglobin 6.7 hematocrit 20.8. 1 unit PRBCs transfused, no obvious bleeding. (5) Chronic kidney disease, stage 3: Code(s): N18.30 - Chronic kidney disease, stage 3 unspecified Status: Acute Assessment and Plan: 02/25: Improved. Creatinine 0.6, BUN 18, creatinine clearance 59 and GFR greater than 60 (6) Severe protein-calorie malnutrition: Code(s): E43 - Unspecified severe protein-calorie malnutrition Status: Acute Assessment and Plan: Severe Protein Calorie Malnutrition as related to inadequate protein-energy intake with increased protein-energy needs in setting of chronic disease or condition (Cancer) as evidenced by significant weight loss of 5% (6lbs) in 3 weeks and moderate subcutaneous fat loss (orbital fat pads) and moderate muscle wasting(temporalis). (7) Fracture of femoral neck, right: Code(s): S72.001A - Fracture of unspecified part of neck of right femur, initial encounter for closed fracture Status: Acute Assessment and Plan: See 2. Plan Feeding:heart healthy diet with free water fluid restriction of 1 L
--- NOTE | 2023-02-25 09:47 | PM.IMPN ---
Progress Note: A&P Assessment and Plan (1) Hyponatremia: Code(s): E87.1 - Hypo-osmolality and hyponatremia Status: Acute Assessment and Plan: Acute on chronic hyponatremia. Na was 123 on 02/19 with further downtrend to 121 Transfer to [place] for nephrology consult BMP Q 3 hours Na this morning is 119, reaching out to nephrology for assistance with management TSH, T3, T4 Urine studies collected serum osmo pending I spoke with Dr Ryan who recommends PO Lasix 20 mg TID, Na+ tablets 1 gram TID, and fluid restriction. Also stopped her omeprazole and switched to pepcid. Na 02/22 is 126 Nephrology plans to add 3% sodium chloride Monitor BMP Na+ goal of 128 for surgery 02/24: Sodium 128, IVF stopped. Fluid Restriction diet reordered. 02/25: Sodium 127 (2) Right hip pain: Code(s): M25.551 - Pain in right hip Status: Acute Assessment and Plan: History of fall prior to this recent admission, several weeks ago in which she sustained a cortical of urgent fracture from the anterior process of the left talus Complaining of right hip pain and has been progressively getting worse CT right hip ordered PT/OT consults and rec's appreciated Fall precautions Acetaminophen for pain Ct shows possibly a minimally displaced right hip. Recommend MRI for further imaging. Study has been ordered and consult requested for orthopedics, recommendations are appreciated. Ortho recommends pinning when medically cleared Plan for ortho intervention on 02/23 at 1400 02/24: post operative, PT/OT pending 02/25: Mild pain, difficulty participating with PT OT due to previously mentioned footdrop occasional leg. Patient will likely require long-term care and be wheelchair bound. Consult Neurosurgery for evaluation of lower extremity functional decline given L3 subluxation over L4 on CT scan. I was unable to see the images from prior L-spine CT scans to compare. (3) Multiple myeloma: Qualifiers: Multiple myeloma remission status: in relapse Qualified Code(s): C90.02 - Multiple myeloma in relapse Code(s): C90.00 - Multiple myeloma not having achieved remission Status: Acute Assessment and Plan: Currently receiving chemotherapy treatment pancytopenia related to this diagnosis (4) Chronic anemia: Code(s): D64.9 - Anemia, unspecified Status: Acute Assessment and Plan: 10/12: Hemoglobin 6.7 hematocrit 20.8. 1 unit PRBCs transfused, no obvious bleeding. (5) Chronic kidney disease, stage 3: Code(s): N18.30 - Chronic kidney disease, stage 3 unspecified Status: Acute Assessment and Plan: 02/25: Improved. Creatinine 0.6, BUN 18, creatinine clearance 59 and GFR greater than 60 (6) Severe protein-calorie malnutrition: Code(s): E43 - Unspecified severe protein-calorie malnutrition Status: Acute Assessment and Plan: Severe Protein Calorie Malnutrition as related to inadequate protein-energy intake with increased protein-energy needs in setting of chronic disease or condition (Cancer) as evidenced by significant weight loss of 5% (6lbs) in 3 weeks and moderate subcutaneous fat loss (orbital fat pads) and moderate muscle wasting(temporalis). (7) Fracture of femoral neck, right: Code(s): S72.001A - Fracture of unspecified part of neck of right femur, initial encounter for closed fracture Status: Acute Assessment and Plan: See 2. Plan Feeding:heart healthy diet with free water fluid restriction of 1 L Analgesia:acetaminophen and low dose oxycodone for pain Thromboembolic prophylaxis: scd Ulcer prophylaxis: pepcid Glycemic control: n/a Bowel regimen: miralax Lines: PIV Antibiotics: n/a Sodium is stable, 127 today PT/OT Transfuse 1 unit PRBCs for hemoglobin 6.7 Time Spent With Patient Time with patient: Greater than 35 minutes Subjective Date/time seen: 02/25/23 09:47 Inte
--- NOTE | 2023-02-25 12:34 | PM.PNORT ---
Progress Note: A&P Assessment and Plan (1) Fracture of femoral neck, right: Code(s): S72.001A - Fracture of unspecified part of neck of right femur, initial encounter for closed fracture Status: Acute (2) Severe protein-calorie malnutrition: Code(s): E43 - Unspecified severe protein-calorie malnutrition Status: Acute Plan Patient is status post pinning right hip. She really is complaining much in the way of pain. She can wiggle her toes a little bit but has weakness which may make it difficult for her to walk. She is getting blood today anticipate discharge to a senior care and she will need help. Follow-up in the office in 2 weeks or they can take the bhavna out of the senior care. Subjective Subjective Date/Time Seen: 02/25/23 12:34 Post Op day: 2 Principal diagnosis: Femoral Neck FX Right Interval history: Post op rounds Review of Systems Musculoskeletal: Musculoskeletal: Reports arthralgias and Reports limited range of motion Exam Narrative: Patient is postop day 2 status post pinning wound looks good. She can wiggle her toes a little bit although has difficulty with dorsiflexion both right and left not a whole lot of difference today side to side the significant difficult for her to walk. Objective Data Vital Signs Vital Signs: Vital Signs - 24 hr 02/24/23 14:25 02/24/23 18:31 02/24/23 20:41 Temperature 97.5 F L 97.3 F L Pulse Rate 77 76 73 Respiratory Rate 18 16 Blood Pressure 103/50 L 108/53 L Pulse Oximetry 100 98 Oxygen Delivery 02/24/23 20:00 02/24/23 22:00 02/25/23 05:49 Temperature 97.5 F L 96.9 F L Pulse Rate 73 73 62 Respiratory Rate 16 13 12 Blood Pressure 107/51 L 114/46 L Pulse Oximetry 98 98 95 Oxygen Delivery Room Air 02/25/23 08:01 02/25/23 08:00 02/25/23 10:11 Temperature 98.1 F Pulse Rate 62 63 Respiratory Rate 16 Blood Pressure 90/60 L Pulse Oximetry 95 96 Oxygen Delivery Room Air 02/25/23 10:29 02/25/23 11:29 02/25/23 12:27 Temperature 98.6 F 97.6 F 97.9 F Pulse Rate 66 63 65 Respiratory Rate 18 15 16 Blood Pressure 92/49 L 127/76 114/60 Pulse Oximetry 96 99 97 Oxygen Delivery Intake/Output Intake/Output: Intake & Output 02/22/23 02/23/23 02/24/23 02/25/23 23:59 23:59 23:59 23:59 Intake Total 960 196 3315 740 Output Total 1225 1730 700 250 Balance -765 -1580 360 490 Meds/Results Medications: Active Medications Generic Name Dose Route Start Last Admin Trade Name Freq PRN Reason Stop Dose Admin Acetaminophen 650 mg 02/23/23 16:48 Acetaminophen 325 Mg Tablet PO Q6H PRN Mild Pain (1-3) or Fever Hydrocodone Bitart/Acetaminophen 1 tab 02/23/23 16:48 02/25/23 01:11 Hydrocodone/Acetaminophen (*Crx) 5-325 Mg Tablet PO 1 tab Q3H PRN Administration Pain Rated 4-6 Hydrocodone Bitart/Acetaminophen 2 tab 02/23/23 16:48 Hydrocodone/Acetaminophen (*Crx) 5-325 Mg Tablet PO Q6H PRN Pain Rated 7-10 Aspirin 81 mg 02/20/23 09:00 02/25/23 08:01 Aspirin 81 Mg Enteric Tablet PO 81 mg DAILY MARI Administration Carvedilol 25 mg 02/20/23 09:00 02/25/23 08:01 Carvedilol 25 Mg Tablet PO 25 mg Q12HR MARI Administration Famotidine 20 mg 02/20/23 21:00 02/25/23 08:01 Famotidine 20 Mg Tablet PO 20 mg Q12HR MARI Administration Ferrous Sulfate 325 mg 02/20/23 09:00 02/25/23 08:02 Ferrous Sulfate [address] BY MOUTH 325 mg DAILY MARI Administration Gabapentin 200 mg 02/23/23 13:00 02/25/23 08:02 Gabapentin 100 Mg Capsule PO 200 mg TID MARI Administration Sodium Chloride 250 mls @ 30 mls/hr 02/25/23 07:03 02/25/23 09:39 Normal Saline Iv IV CONT 02/25/23 15:22 30 mls/hr .Q8H20M STA Administration Loratadine 10 mg 02/20/23 09:00 02/25/23 08:02 Loratadine 10 Mg Tablet PO 10 mg QAM MARI Administration Losartan Potassium 100 mg 02/20/23 09:00 02/25/23 08:02 Losartan Potassium 10
--- NOTE | 2023-02-25 14:37 | P.PNNP_ITS ---
Progress Note: A&P Assessment and Plan (1) Hyponatremia: Code(s): E87.1 - Hypo-osmolality and hyponatremia Status: Acute Assessment and Plan: * slow improvement noted * acute on chronic * chronic aspect due to PPI use and probably multiple myeloma * acute aspect probably due to: * pain/pain medications * continued PPI use * increased free water intake while in rehab * evaluation to date: * TSH okay * cortisol little low but stim test okay * serum/urine osmo pending * on fluid restriction * was on salt tabs + lasix but no significant improvement with use * s/p 3% saline x 2 on 02/22/23 with improvement in sodium * restart salt tabs * follow trend (2) Right hip pain: Code(s): M25.551 - Pain in right hip Status: Acute Assessment and Plan: * CT showed a very small and subtle fracture in the right hip * Orthopedics following -- s/p operative intervention/pinning (on 02/23/23) * pain control * PT/OT as tolerated (3) Chronic anemia: Code(s): D64.9 - Anemia, unspecified Status: Acute Assessment and Plan: * low this AM * PRBC transfusion per protocol * presumably due to multiple myeloma (4) Multiple myeloma: Qualifiers: Multiple myeloma remission status: in relapse Qualified Code(s): C90.02 - Multiple myeloma in relapse Code(s): C90.00 - Multiple myeloma not having achieved remission Status: Acute Assessment and Plan: * follows with Hem/Onc * on chemotherapy Will continue to follow. Subjective Date/time seen: 02/25/23 14:37 Interval history: Follow-up for acute on chronic hyponatremia Low H/H this AM so PRBC transfusion done; sodium relatively stable (down to 127 from 128 yesterday); limited participation with PT/OT due to issues related to foot drop; no apparent distress. Exam Narrative: General: elderly female in NAD Heart: normal S1 and S2; no rub Lungs: clear to auscultation Abdomen: soft, nontender, nondistended, positive bowel sounds Extremities: no cyanosis or clubbing; no edema Skin: no nodules Objective Data Vital Signs Vital Signs: Vital Signs Temp Pulse Resp BP Pulse Ox O2 Del Method 02/25/23 13:43 98.5 F 63 16 129/61 98 02/25/23 12:27 97.9 F 65 16 114/60 97 02/25/23 11:29 97.6 F 63 15 127/76 99 02/25/23 10:29 98.6 F 66 18 92/49 L 96 02/25/23 10:11 98.1 F 63 16 90/60 L 96 02/25/23 08:00 95 Room Air 02/25/23 08:01 62 02/25/23 05:49 96.9 F L 62 12 114/46 L 95 02/24/23 22:00 97.5 F L 73 13 107/51 L 98 02/24/23 20:00 73 16 98 Room Air 02/24/23 20:41 73 02/24/23 18:31 97.3 F L 76 16 108/53 L 98 Intake/Output Intake/Output: Intake & Output 02/22/23 02/23/23 02/24/23 02/25/23 23:59 23:59 23:59 23:59 Intake Total 775 558 9305 1330 Output Total 1225 1730 700 250 Balance -764 -4076 719 0286 Meds/Results Medications: Active Medications Generic Name Dose Route Start Last Admin Trade Name Freq PRN Reason Stop Dose Admin Acetaminophen 650 mg 02/23/23 16:48 Acetaminophen 325 Mg Tablet PO
--- NOTE | 2023-02-25 14:37 | PM.PNNEP ---
Progress Note: A&P Assessment and Plan (1) Hyponatremia: Code(s): E87.1 - Hypo-osmolality and hyponatremia Status: Acute Assessment and Plan: slow improvement noted acute on chronic chronic aspect due to PPI use and probably multiple myeloma acute aspect probably due to: pain/pain medications continued PPI use increased free water intake while in rehab evaluation to date: TSH okay cortisol little low but stim test okay serum/urine osmo pending on fluid restriction was on salt tabs + lasix but no significant improvement with use s/p 3% saline x 2 on 02/22/23 with improvement in sodium restart salt tabs follow trend (2) Right hip pain: Code(s): M25.551 - Pain in right hip Status: Acute Assessment and Plan: CT showed a very small and subtle fracture in the right hip Orthopedics following -- s/p operative intervention/pinning (on 02/23/23) pain control PT/OT as tolerated (3) Chronic anemia: Code(s): D64.9 - Anemia, unspecified Status: Acute Assessment and Plan: low this AM PRBC transfusion per protocol presumably due to multiple myeloma (4) Multiple myeloma: Qualifiers: Multiple myeloma remission status: in relapse Qualified Code(s): C90.02 - Multiple myeloma in relapse Code(s): C90.00 - Multiple myeloma not having achieved remission Status: Acute Assessment and Plan: follows with Hem/Onc on chemotherapy Will continue to follow. Subjective Date/time seen: 02/25/23 14:37 Interval history: Follow-up for acute on chronic hyponatremia Low H/H this AM so PRBC transfusion done; sodium relatively stable (down to 127 from 128 yesterday); limited participation with PT/OT due to issues related to foot drop; no apparent distress. Exam Narrative: General: elderly female in NAD Heart: normal S1 and S2; no rub Lungs: clear to auscultation Abdomen: soft, nontender, nondistended, positive bowel sounds Extremities: no cyanosis or clubbing; no edema Skin: no nodules Objective Data Vital Signs Vital Signs: Vital Signs Temp Pulse Resp BP Pulse Ox O2 Del Method 02/25/23 13:43 98.5 F 63 16 129/61 98 02/25/23 12:27 97.9 F 65 16 114/60 97 02/25/23 11:29 97.6 F 63 15 127/76 99 02/25/23 10:29 98.6 F 66 18 92/49 L 96 02/25/23 10:11 98.1 F 63 16 90/60 L 96 02/25/23 08:00 95 Room Air 02/25/23 08:01 62 02/25/23 05:49 96.9 F L 62 12 114/46 L 95 02/24/23 22:00 97.5 F L 73 13 107/51 L 98 02/24/23 20:00 73 16 98 Room Air 02/24/23 20:41 73 02/24/23 18:31 97.3 F L 76 16 108/53 L 98 Intake/Output Intake/Output: Intake & Output 02/22/23 02/23/23 02/24/23 02/25/23 23:59 23:59 23:59 23:59 Intake Total 396 928 0940 1330 Output Total 1225 1730 700 250 Balance -763 -9926231 414 0130 Meds/Results Medications: Active Medications Generic Name Dose Route Start Last Admin Trade Name Freq PRN Reason Stop Dose Admin Acetaminophen 650 mg 02/23/23 16:48 Acetaminophen 325 Mg Tablet PO Q6H PRN Mild Pain (1-3) or Fever Hydrocodone Bitart/Acetaminophen 1 tab 02/23/23 16:48 02/25/23 01:11 Hydrocodone/Acetaminophen (*Crx) 5-325 Mg Tablet PO 1 tab Q3H PRN Administration Pain Rated 4-6 Hydrocodone Bitart/Acetaminophen 2 tab 02/23/23 16:48 Hydrocodone/Acetaminophen (*Crx) 5-325 Mg Tablet PO Q6H PRN Pain Rated 7-10 Aspirin 81 mg 02/20/23 09:00 02/25/23 08:01 Aspirin 81 Mg Enteric Tablet PO 81 mg DAILY MARI Administration Carvedilol 25 mg 02/20/23 09:00 02/25/23 08:01 Carvedilol 25 Mg Tablet PO 25 mg Q12HR MARI Administration Famotidine 20 mg 02/20/23 21:00 02/25/23 08:01 Famotidine 20 Mg Tablet PO 20 mg Q12HR MARI Administration Ferrous Sulfate 325 mg 02/20/23 09:00 02/25/23 08:02 Ferrous Sulfate [address] BY MOUTH
[2023-02-25] MEDS: RIVAROXABAN 10 MG TABLET PO (17:16)
--- NOTE | 2023-02-25 19:14 | WPDNEUROSGCN ---
Assessment and Plan Assessment and plan (1) Generalized weakness: Code(s): R53.1 - Weakness Status: Acute (2) Osteoporosis: Code(s): M81.0 - Age-related osteoporosis without current pathological fracture Status: Acute (3) Bone metastases: Code(s): C79.51 - Secondary malignant neoplasm of bone Status: Acute Plan Ms. Hussein is an 82-year-old female with history of multiple myeloma who has had at least 1 month of generalized weakness of the lower extremities, right worse than left foot drop, numbness/weakness of the hands, and numbness of the lower legs since a fall at home. The timeline of events is somewhat difficult to determine from my discussion with the patient, but she indicated that her current symptoms started only after this fall. She apparently has been living with this femoral neck fracture for at least a month which was just recently discovered and treated surgically 2 days ago. She has had progressive difficulty working with therapy and is unable to walk the few steps from her bed to the chair due to her lower-extremity weakness. On my exam, she does have weakness and numbness of the hands and distal lower extremities, although she has good strength proximally. Based on her current imaging, it is difficult to determine the amount of stenosis/nerve compression in her lumbar spine. While her CT lumbar spine shows significant degenerative changes, I am concerned that her cervical spine could be involved given her reports of hand numbness and weakness since the fall. I ultimately recommend obtaining MRI cervical and lumbar without/with contrast given her cancer history. An alternative would be to obtain a CT myelogram given her pacemaker. The patient is open to considering either of these options, even if transfer to another hospital is required. I would also consider a Neurology consult. Plan: -Recommend obtaining MRI cervical/lumbar spine without/with contrast or a CT myelogram. If the patient remains in the hospital to obtain a CT myelogram, please notify Neurosurgery when this is complete. -Consider Neurology consult Consult date: 02/25/23 HPI: Aurea Hussein is a 82 year old female with history of multiple myeloma, HTN, CKD who was admitted from an outside facility on February 20 with hyponatremia. She was admitted last month with diarrhea from chemotherapy and was discharged on 02/04 to a facility in [place] where she developed hyponatremia. In the facility, she was complaining of worsening right hip pain which started after a fall at home at least a month ago. She was found here to have a right hip fracture for which she had surgery two days ago. She has had difficulty supporting her weight, and due to concern for leg weakness, a CT scan was obtained, and Neurosurgery was consulted. Unfortunately, she has a pacemaker and is unable to get an MRI at [place]. The patient states she was doing well until this fall at home at least 1 month ago. Since then, she feels progressive generalized weakness in her legs and feels that her legs cannot support her weight. She has apparently had a right foot drop since this fall, although this may have been present for a few months. She denies pain in the legs but has some numbness in her feet. She also reports numbness and weakness in her hands since her fall. She denies any urinary issues. Review of Systems Review of Systems: All systems reviewed & are unremarkable except as noted in HPI and below PMFSH Past Medical History Medical History Chronic anemia Chronic kidney disease, stage 3 Hyperparathyroidism Multiple myeloma Osteoporosis Surgical History Surgical History History of bilateral cataract extraction History of permanent cardiac pacemaker placement Family History Family History Father Yanna
[2023-02-25] MEDS: SODIUM CHLORIDE 1 GM TABLET PO (20:35)
[2023-02-26] VITALS (9 sets, daily range): BP systolic 102–161; BP diastolic 51–84; PULSE 63–76; RESP 16–18; TEMP 36.1–36.9; O2SAT 96–100
[2023-02-26] MEDS: HYDROcodone/acetaminophen (*CRX) 5-325 MG TABLET 2 TAB PO (01:01)
[2023-02-26 05:15] LABS: Basophils Percent Auto 0.6 % (0.2-1.2); Eosinophils Absolute Auto 0.2 K/mm3 (0-0.3); Hematocrit 26.9 % (37.0-47.0); Hemoglobin 8.8 g/dL (12.0-15.0); Immature Granulocyte Absolute 0.03 K/mm3 (0.00-0.031); Immature Granulocyte Percent A 0.6 % (0-0.5); Lymphocytes Absolute Auto 0.79 K/mm3 (0.9-3.2); Mean Corpuscular HGB Conc 32.7 g/dl (32-36); Mean Corpuscular Hemoglobin 30.8 pg (26-34); Mean Corpuscular Volume 94.1 fl (80-100); Mean Platelet Volume 8.8 fl (7.4-10.4); Monocytes Absolute Auto 0.7 K/mm3 (0.1-0.6); Monocytes Percent Auto 13.6 % (2.6-8.5); Neutrophils Absolute Auto 3.6 K/mm3 (1.3-6.7); Neutrophils Percent Auto 67.2 % (45.5-73.1); Platelet Count Result 199 k/mm3 (150-375); Red Blood Count 2.86 M/mm3 (4.2-5.4); Red Cell Distribution Width 21.4 % (11.5-14.5); White Blood Count 5.3 K/mm3 (4.5-10.0)
[2023-02-26 05:30] LABS: Alanine Aminotransferase 13 U/L (6-35); Albumin Level 2.1 g/dL (3.5-5.1); Alkaline Phosphatase 52 U/L (38-126); Anion Gap 1 mmol/L (8-16); Aspartate Amino Transferase 23 U/L (14-36); Bilirubin,Total 0.4 mg/dL (0.2-1.3); Blood Urea Nitrogen 20 mg/dL (7-17); Carbon Dioxide 23 mmol/L (22-30); Chloride 104 mmol/L (98-107); Estimated CRCL calculation 59 ml/min; Estimated Glomerular Filt Rate > 60; Glucose 93 mg/dL (65-110); Potassium 4.1 mmol/L (3.4-5.0); Sodium 128 mmol/L (137-145)
--- NOTE | 2023-02-26 09:28 | P.PNIM_ITS ---
Progress Note: A&P Assessment and Plan (1) Hyponatremia: Code(s): E87.1 - Hypo-osmolality and hyponatremia Status: Acute Assessment and Plan: Acute on chronic hyponatremia. * Na was 123 on 02/19 with further downtrend to 121 * Transfer to [place] for nephrology consult * BMP Q 3 hours * Na this morning is 119, reaching out to nephrology for assistance with management * TSH, T3, T4 * Urine studies collected * serum osmo pending * I spoke with Dr Ryan who recommends PO Lasix 20 mg TID, Na+ tablets 1 gram TID, and fluid restriction. Also stopped her omeprazole and switched to pepcid. * Na 02/22 is 126 * Nephrology plans to add 3% sodium chloride * Monitor BMP * Na+ goal of 128 for surgery * 02/24: Sodium 128, IVF stopped. Fluid Restriction diet reordered. * 02/25: Sodium 127 * 02/26: Sodium 128 (2) Right hip pain: Code(s): M25.551 - Pain in right hip Status: Acute Assessment and Plan: History of fall prior to this recent admission, several weeks ago in which she sustained a cortical of urgent fracture from the anterior process of the left talus * Complaining of right hip pain and has been progressively getting worse * CT right hip ordered * PT/OT consults and rec's appreciated * Fall precautions * Acetaminophen for pain * Ct shows possibly a minimally displaced right hip. Recommend MRI for further imaging. Study has been ordered and consult requested for orthopedics, recommendations are appreciated. * Ortho recommends pinning when medically cleared * Plan for ortho intervention on 02/23 at 1400 * 02/24: post operative, PT/OT pending * 02/25: Mild pain, difficulty participating with PT OT due to previously mentioned footdrop occasional leg. Patient will likely require long-term care and be wheelchair bound. Consult Neurosurgery for evaluation of lower extremity functional decline given L3 subluxation over L4 on CT scan. I was unable to see the images from prior L-spine CT scans to compare. * 02/26: CT myelogram completed. Dr. White reviewed. Dr. White requested Neurology consult which was ordered. EMG will be required in the future. (3) Multiple myeloma: Qualifiers: Multiple myeloma remission status: in relapse Qualified Code(s): C90.02 - Multiple myeloma in relapse Code(s): C90.00 - Multiple myeloma not having achieved remission Status: Acute Assessment and Plan: Currently receiving chemotherapy treatment * pancytopenia related to this diagnosis (4) Chronic anemia: Code(s): D64.9 - Anemia, unspecified Status: Acute Assessment and Plan: 02/26: Hemoglobin 8.8 status post PRBC transfusion yesterday (5) Chronic kidney disease, stage 3: Code(s): N18.30 - Chronic kidney disease, stage 3 unspecified Status: Acute Assessment and Plan: 02/25: Improved. Creatinine 0.6, BUN 20, creatinine clearance 59 and GFR greater than 60 (6) Severe protein-calorie malnutrition: Code(s): E43 - Unspecified severe protein-calorie malnutrition Status: Acute Assessment and Plan: Severe Protein Calorie Malnutrition as related to inadequate protein-energy intake with increased protein-energy needs in setting of chronic disease or condition (Cancer) as evidenced by significant weight loss of 5% (6lbs) in 3 weeks and moderate subcutaneous fat loss (orbital fat pads) and moderate muscle wasting(temporalis). (7) Fracture of femoral neck, right: Code(s): S72.001A - Fracture of unspecified part of neck of right femur, initial encounter for closed fractu
--- NOTE | 2023-02-26 09:28 | PM.IMPN ---
Progress Note: A&P Assessment and Plan (1) Hyponatremia: Code(s): E87.1 - Hypo-osmolality and hyponatremia Status: Acute Assessment and Plan: Acute on chronic hyponatremia. Na was 123 on 02/19 with further downtrend to 121 Transfer to [place] for nephrology consult BMP Q 3 hours Na this morning is 119, reaching out to nephrology for assistance with management TSH, T3, T4 Urine studies collected serum osmo pending I spoke with Dr Ryan who recommends PO Lasix 20 mg TID, Na+ tablets 1 gram TID, and fluid restriction. Also stopped her omeprazole and switched to pepcid. Na 02/22 is 126 Nephrology plans to add 3% sodium chloride Monitor BMP Na+ goal of 128 for surgery 02/24: Sodium 128, IVF stopped. Fluid Restriction diet reordered. 02/25: Sodium 127 02/26: Sodium 128 (2) Right hip pain: Code(s): M25.551 - Pain in right hip Status: Acute Assessment and Plan: History of fall prior to this recent admission, several weeks ago in which she sustained a cortical of urgent fracture from the anterior process of the left talus Complaining of right hip pain and has been progressively getting worse CT right hip ordered PT/OT consults and rec's appreciated Fall precautions Acetaminophen for pain Ct shows possibly a minimally displaced right hip. Recommend MRI for further imaging. Study has been ordered and consult requested for orthopedics, recommendations are appreciated. Ortho recommends pinning when medically cleared Plan for ortho intervention on 02/23 at 1400 02/24: post operative, PT/OT pending 02/25: Mild pain, difficulty participating with PT OT due to previously mentioned footdrop occasional leg. Patient will likely require long-term care and be wheelchair bound. Consult Neurosurgery for evaluation of lower extremity functional decline given L3 subluxation over L4 on CT scan. I was unable to see the images from prior L-spine CT scans to compare. 02/26: CT myelogram completed. Dr. White reviewed. Dr. White requested Neurology consult which was ordered. EMG will be required in the future. (3) Multiple myeloma: Qualifiers: Multiple myeloma remission status: in relapse Qualified Code(s): C90.02 - Multiple myeloma in relapse Code(s): C90.00 - Multiple myeloma not having achieved remission Status: Acute Assessment and Plan: Currently receiving chemotherapy treatment pancytopenia related to this diagnosis (4) Chronic anemia: Code(s): D64.9 - Anemia, unspecified Status: Acute Assessment and Plan: 02/26: Hemoglobin 8.8 status post PRBC transfusion yesterday (5) Chronic kidney disease, stage 3: Code(s): N18.30 - Chronic kidney disease, stage 3 unspecified Status: Acute Assessment and Plan: 02/25: Improved. Creatinine 0.6, BUN 20, creatinine clearance 59 and GFR greater than 60 (6) Severe protein-calorie malnutrition: Code(s): E43 - Unspecified severe protein-calorie malnutrition Status: Acute Assessment and Plan: Severe Protein Calorie Malnutrition as related to inadequate protein-energy intake with increased protein-energy needs in setting of chronic disease or condition (Cancer) as evidenced by significant weight loss of 5% (6lbs) in 3 weeks and moderate subcutaneous fat loss (orbital fat pads) and moderate muscle wasting(temporalis). (7) Fracture of femoral neck, right: Code(s): S72.001A - Fracture of unspecified part of neck of right femur, initial encounter for closed fracture Status: Acute Assessment and Plan: See 2. Plan Feeding:heart healthy diet with free water fluid restriction of 1 L Analgesia:acetaminophen and low dose oxycodone for pain Thromboembolic prophylaxis: scd Ulcer prophylaxis: pepcid Glycemic control: n/a Bowel regimen: miralax Lines: PIV Antibiotics: n/a Sodium stable, 128 today PT OT Neurology consult as re
--- NOTE | 2023-02-26 10:38 | PCNFU ---
Nutrition Follow-Up Complete: Severe Protein Calorie Malnutrition as related to inadequate protein-energy intake with increased protein-energy needs in setting of chronic diease or condition(cancer) as evidenced by significant weight loss of 5% (6 ibs) in 3 weeks and moderate subcutaneous fat loss(orbital fat pads) and moderate muscle wasting (temporalis). goal:Adequate Intake of at least 75% of meals/supplements Patient is meeting current goal. No new goal. Pt current nutrition is Regular with 1000 ml FR. Last recorded weight is 63.5 kg, up from 49.7 kg on admit. unsure on bed scale accuracy. Bowel Motility:+Bm reported 02/24 Labs Reviewed: Cr 0.6,BUN 20, Na 128, Alb 2.1,Hct 26.9,Hgb 8.8 Meds Noted:[place] Skin: Friction-saccum Additional Notes: Patient remains on regular diet with 1000 ml FR. Oral intake is 100% of meals. Patient is also receiving diet supplements of Ensure compact BID, providing an additional 220 kcals and 9 gms protein. Agree with diet orders. RD will monitor weight, labs, skin, oral intake every 7 days.
--- NOTE | 2023-02-26 11:01 | PM.PNNEP ---
Progress Note: A&P Assessment and Plan (1) Hyponatremia: Code(s): E87.1 - Hypo-osmolality and hyponatremia Status: Acute Assessment and Plan: slow improvement noted acute on chronic has had low sodium as far back as 2019 recently running around 128 - 135mmol/L chronic aspect due to PPI use and probably multiple myeloma acute aspect probably due to: pain/pain medications continued PPI use increased free water intake while in rehab evaluation to date: TSH okay cortisol little low but stim test okay serum/urine osmo pending on fluid restriction was on salt tabs + lasix but no significant improvement with use s/p 3% saline x 2 on 02/22/23 with improvement in sodium restarted salt tabs...consider adding back low dose diuretics if needed follow trend (2) Right hip pain: Code(s): M25.551 - Pain in right hip Status: Acute Assessment and Plan: CT showed a very small and subtle fracture in the right hip Orthopedics following -- s/p operative intervention/pinning (on 02/23/23) pain control PT/OT as tolerated (3) Chronic anemia: Code(s): D64.9 - Anemia, unspecified Status: Acute Assessment and Plan: low this AM PRBC transfusion per protocol presumably due to multiple myeloma (4) Multiple myeloma: Qualifiers: Multiple myeloma remission status: in relapse Qualified Code(s): C90.02 - Multiple myeloma in relapse Code(s): C90.00 - Multiple myeloma not having achieved remission Status: Acute Assessment and Plan: follows with Hem/Onc on chemotherapy Will continue to follow. Subjective Date/time seen: 02/26/23 11:01 Interval history: Follow-up for acute on chronic hyponatremia Seen by Neurosurgery yesterday afternoon and is s/p myelogram earlier this AM; she appears to be doing reasonably well at this time; no apparent distress noted; sodium remains relatively stable at this time with current interventions/therapy. Exam Narrative: General: elderly female in NAD Heart: normal S1 and S2; no rub Lungs: clear to auscultation Abdomen: soft, nontender, nondistended, positive bowel sounds Extremities: no cyanosis or clubbing; no edema Skin: warm and dry Objective Data Vital Signs Vital Signs: Vital Signs Temp Pulse Resp BP Pulse Ox O2 Del Method 02/26/23 10:19 72 17 148/81 H 98 10/13/23 10:18 68 16 161/84 H 100 02/26/23 04:02 96.9 F L 63 18 138/59 L 96 02/25/23 20:00 62 18 96 Room Air 02/25/23 20:34 62 02/25/23 19:54 98.6 F 62 18 103/45 L 96 Intake/Output Intake/Output: Intake & Output 02/23/23 02/24/23 02/25/23 02/26/23 23:59 23:59 23:59 23:59 Intake Total 150 1060 1570 840 Output Total 1730 700 650 200 Balance -1580 360 920 640 Meds/Results Medications: Active Medications Generic Name Dose Route Start Last Admin Trade Name Freq PRN Reason Stop Dose Admin Acetaminophen 650 mg 02/23/23 16:48 Acetaminophen 325 Mg Tablet PO Q6H PRN Mild Pain (1-3) or Fever Hydrocodone Bitart/Acetaminophen 1 tab 02/23/23 16:48 02/25/23 01:11 Hydrocodone/Acetaminophen (*Crx) 5-325 Mg Tablet PO 1 tab Q3H PRN Administration Pain Rated 4-6 Hydrocodone Bitart/Acetaminophen 2 tab 02/23/23 16:48 02/26/23 01:01 Hydrocodone/Acetaminophen (*Crx) 5-325 Mg Tablet PO 2 tab Q6H PRN Administration Pain Rated 7-10 Aspirin 81 mg 02/20/23 09:00 02/26/23 12:41 Aspirin 81 Mg Enteric Tablet PO 81 mg DAILY MARI Administration Carvedilol 25 mg 02/20/23 09:00 02/26/23 12:43 Carvedilol 25 Mg Tablet PO 25 mg Q12HR MARI Administration Famotidine 20 mg 02/20/23 21:00 02/26/23 12:42 Famotidine 20 Mg Tablet PO 20 mg Q12HR MARI Administration Ferrous Sulfate 325 mg 02/20/23 09:00 02/26/23 12:42 Ferrous Sulfate [address] BY MOUTH 325 mg DAILY MARI Administrati
--- NOTE | 2023-02-26 11:01 | P.PNNP_ITS ---
Progress Note: A&P Assessment and Plan (1) Hyponatremia: Code(s): E87.1 - Hypo-osmolality and hyponatremia Status: Acute Assessment and Plan: * slow improvement noted * acute on chronic * has had low sodium as far back as 2019 * recently running around 128 - 135mmol/L * chronic aspect due to PPI use and probably multiple myeloma * acute aspect probably due to: * pain/pain medications * continued PPI use * increased free water intake while in rehab * evaluation to date: * TSH okay * cortisol little low but stim test okay * serum/urine osmo pending * on fluid restriction * was on salt tabs + lasix but no significant improvement with use * s/p 3% saline x 2 on 02/22/23 with improvement in sodium * restarted salt tabs...consider adding back low dose diuretics if needed * follow trend (2) Right hip pain: Code(s): M25.551 - Pain in right hip Status: Acute Assessment and Plan: * CT showed a very small and subtle fracture in the right hip * Orthopedics following -- s/p operative intervention/pinning (on 02/23/23) * pain control * PT/OT as tolerated (3) Chronic anemia: Code(s): D64.9 - Anemia, unspecified Status: Acute Assessment and Plan: * low this AM * PRBC transfusion per protocol * presumably due to multiple myeloma (4) Multiple myeloma: Qualifiers: Multiple myeloma remission status: in relapse Qualified Code(s): C90.02 - Multiple myeloma in relapse Code(s): C90.00 - Multiple myeloma not having achieved remission Status: Acute Assessment and Plan: * follows with Hem/Onc * on chemotherapy Will continue to follow. Subjective Date/time seen: 02/26/23 11:01 Interval history: Follow-up for acute on chronic hyponatremia Seen by Neurosurgery yesterday afternoon and is s/p myelogram earlier this AM; she appears to be doing reasonably well at this time; no apparent distress noted; sodium remains relatively stable at this time with current interventions/therapy. Exam Narrative: General: elderly female in NAD Heart: normal S1 and S2; no rub Lungs: clear to auscultation Abdomen: soft, nontender, nondistended, positive bowel sounds Extremities: no cyanosis or clubbing; no edema Skin: warm and dry Objective Data Vital Signs Vital Signs: Vital Signs Temp Pulse Resp BP Pulse Ox O2 Del Method 02/26/23 10:19 72 17 148/81 H 98 02/26/23 10:18 68 16 161/84 H 100 02/26/23 04:02 96.9 F L 63 18 138/59 L 96 02/25/23 20:00 62 18 96 Room Air 02/25/23 20:34 62 02/25/23 19:54 98.6 F 62 18 103/45 L 96 Intake/Output Intake/Output: Intake & Output 02/23/23 02/24/23 02/25/23 02/26/23 23:59 23:59 23:59 23:59 Intake Total 150 1060 1570 840 Output Total 1730 700 650 200 Balance -1580 360 920 640 Meds/Results Medications: Active Medications Generic Name Dose Route Start Last Admin Trade Name Freq PRN Reason Stop Dose Admin Acetaminophen 650 mg 02/23/23 16:48 Acetaminophen 325 Mg Tablet PO Q6H PRN Mild Pain (1-3) or Fever Hydrocodone Bitart/Acetaminophen 1 tab 10
--- NOTE | 2023-02-26 11:38 | PCPTNOTE ---
Patient unable to be seen for PT at this time due to patient just getting back from procedure and must lay flat for 2 hours.
--- NOTE | 2023-02-26 12:37 | WPDNEUROSGPN ---
Progress Note: A&P Assessment and Plan (1) Multiple myeloma: Qualifiers: Multiple myeloma remission status: in relapse Qualified Code(s): C90.02 - Multiple myeloma in relapse Code(s): C90.00 - Multiple myeloma not having achieved remission Status: Acute (2) Generalized weakness: Code(s): R53.1 - Weakness Status: Acute Plan I reviewed the CT myelogram performed this morning. I do not see any stenosis in the cervical or thoracic spine. 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 I am not convinced that the degenerative lumbar stenosis is the cause of her lower-extremity symptoms. She does not have any pain in her legs or urinary symptoms, and her numbness is constant. I wonder if she could have a peripheral neuropathy causing both sensory and motor symptoms in her hands and feet. At this time, I would recommend Neurology consultation. It would also be helpful to have an EMG/nerve conduction study, although this can be completed as an outpatient. I would like to follow her closely as an outpatient in clinic. Subjective Date/time seen: 02/26/23 12:37 Objective Data Vital Signs Vital Signs: Vital Signs - 24 hr 02/25/23 13:43 02/25/23 19:54 02/25/23 20:34 Temperature 98.5 F 98.6 F Pulse Rate 63 62 62 Respiratory Rate 16 18 Blood Pressure 129/61 103/45 L Pulse Oximetry 98 96 Oxygen Delivery 02/25/23 20:00 02/26/23 04:02 02/26/23 10:18 Temperature 96.9 F L Pulse Rate 62 63 68 Respiratory Rate 18 18 16 Blood Pressure 138/59 L 161/84 H Pulse Oximetry 96 96 100 Oxygen Delivery Room Air 02/26/23 10:19 Temperature Pulse Rate 72 Respiratory Rate 17 Blood Pressure 148/81 H Pulse Oximetry 98 Oxygen Delivery Intake/Output Intake/Output: Intake & Output 02/23/23 02/24/23 02/25/23 02/26/23 23:59 23:59 23:59 23:59 Intake Total 150 1060 1570 600 Output Total 1730 700 650 200 Balance -1580 360 920 400 Meds/Results Medications: Active Medications Generic Name Dose Route Start Last Admin Trade Name Freq PRN Reason Stop Dose Admin Acetaminophen 650 mg 02/23/23 16:48 Acetaminophen 325 Mg Tablet PO Q6H PRN Mild Pain (1-3) or Fever Hydrocodone Bitart/Acetaminophen 1 tab 02/23/23 16:48 02/25/23 01:11 Hydrocodone/Acetaminophen (*Crx) 5-325 Mg Tablet PO 1 tab Q3H PRN Administration Pain Rated 4-6 Hydrocodone Bitart/Acetaminophen 2 tab 02/23/23 16:48 02/26/23 01:01 Hydrocodone/Acetaminophen (*Crx) 5-325 Mg Tablet PO 2 tab Q6H PRN Administration Pain Rated 7-10 Aspirin 81 mg 02/20/23 09:00 02/25/23 08:01 Aspirin 81 Mg Enteric Tablet PO 81 mg DAILY MARI Administration Carvedilol 25 mg 02/20/23 09:00 02/25/23 20:34 Carvedilol 25 Mg Tablet PO 25 mg Q12HR MARI Administration Famotidine 20 mg 02/20/23 21:00 02/25/23 20:35 Famotidine 20 Mg Tablet PO 20 mg Q12HR MARI Administration Ferrous Sulfate 325 mg 02/20/23 09:00 02/25/23 08:02 Ferrous Sulfate [address] BY MOUTH 325 mg DAILY MARI Administration Gabapentin 200 mg 02/23/23 13:00 02/26/23 12:10 Gabapentin 100 Mg Capsule PO Not Given TID MARI Loratadine 10 mg 02/20/23 09:00 02/25/23 08:02 Loratadine 10 Mg Tablet PO 10 mg QAM MARI Administration Losartan Potassium 100 mg 02/20/23 09:00 02/25/23 08:02 Losartan Potassium 100 Mg Tablet PO 100 mg DAILY MARI Administration Miconazole Nitrate 1 applic 02/22/23 09:00 02/25/23 20:34 Miconazole 2% Antifungal Ointment 56 Gm TOPICAL 1 applic Q12HR MARI Administration Naloxone HCl 0.1 mg 02/23/23 16:48 Naloxone Hcl 0.4 Mg/Ml Vial IV PUSH Q2M PRN Opiate Reversal Oxycodone HCl 2.5 mg 02/20/23 10:34 Oxycodone Hcl (*Crx) 2.5 Mg Tab Ir PO Q4H PRN Pain Rated 7-10 Polyethylene Glycol 17 gm
[2023-02-26] MEDS: GABAPENTIN 100 MG CAPSULE 200 MG PO ×2 (12:41→17:45)
[2023-02-26] MEDS: ASPIRIN 81 MG ENTERIC TABLET PO (12:41)
[2023-02-26] MEDS: SODIUM CHLORIDE 1 GM TABLET PO ×2 (12:42→20:17)
[2023-02-26] MEDS: FAMOTIDINE 20 MG TABLET PO ×2 (12:42→20:17)
[2023-02-26] MEDS: FERROUS SULFATE 325 MG TABLET DR BY MOUTH (12:42)
[2023-02-26] MEDS: SENNA/DOCUSATE SODIUM TABLET 2 TAB PO ×2 (12:42→17:45)
[2023-02-26] MEDS: VERAPAMIL HCL ER 240 MG TABLET.ER PO ×2 (12:42→20:18)
[2023-02-26] MEDS: carvediloL 25 MG TABLET PO ×2 (12:43→20:18)
[2023-02-26] MEDS: LORATADINE 10 MG TABLET PO (12:43)
[2023-02-26] MEDS: polyethylene glycoL 3350 17 GM POWD.PACK PO (12:43)
[2023-02-26] MEDS: LOSARTAN POTASSIUM 100 MG TABLET PO (12:43)
--- NOTE | 2023-02-26 14:34 | PCPTNOTE ---
The patient treatment was not able to be completed on 02/26/2023 due to patient on bed rest for 24 hours after procedure this morning per RN. Will plan to continue treatment per plan of care.
[2023-02-26] MEDS: RIVAROXABAN 10 MG TABLET PO (17:46)
[2023-02-27 04:32] VITALS: BP 124/51; PULSE 66; RESP 16; TEMP 37.1; O2SAT 96
[2023-02-27 05:47] LABS: Basophils Percent Auto 0.4 % (0.2-1.2); Eosinophils Absolute Auto 0.1 K/mm3 (0-0.3); Eosinophils Percent Auto 2.4 % (0-4.4); Hematocrit 24.3 % (37.0-47.0); Hemoglobin 7.8 g/dL (12.0-15.0); Immature Granulocyte Absolute 0.02 K/mm3 (0.00-0.031); Immature Granulocyte Percent A 0.4 % (0-0.5); Lymphocytes Absolute Auto 0.63 K/mm3 (0.9-3.2); Lymphocytes Percent Auto 12.7 % (18.3-44.2); Mean Corpuscular HGB Conc 32.1 g/dl (32-36); Mean Corpuscular Hemoglobin 30.6 pg (26-34); Mean Corpuscular Volume 95.3 fl (80-100); Mean Platelet Volume 8.9 fl (7.4-10.4); Monocytes Absolute Auto 0.6 K/mm3 (0.1-0.6); Monocytes Percent Auto 12.9 % (2.6-8.5); Neutrophils Absolute Auto 3.5 K/mm3 (1.3-6.7); Neutrophils Percent Auto 71.2 % (45.5-73.1); Platelet Count Result 206 k/mm3 (150-375); Red Blood Count 2.55 M/mm3 (4.2-5.4); Red Cell Distribution Width 21.2 % (11.5-14.5)
[2023-02-27 06:01] LABS: Alanine Aminotransferase 13 U/L (6-35); Alkaline Phosphatase 58 U/L (38-126); Anion Gap 1 mmol/L (8-16); Aspartate Amino Transferase 17 U/L (14-36); Bilirubin,Total 0.3 mg/dL (0.2-1.3); Blood Urea Nitrogen 20 mg/dL (7-17); Calcium 9.3 mg/dL (8.4-10.2); Carbon Dioxide 24 mmol/L (22-30); Chloride 103 mmol/L (98-107); Estimated CRCL calculation 59 ml/min; Estimated Glomerular Filt Rate > 60; Glucose 98 mg/dL (65-110); Potassium 4.3 mmol/L (3.4-5.0); Sodium 128 mmol/L (137-145)
[2023-02-27 08:00] VITALS: PULSE 66; RESP 16; O2SAT 96
[2023-02-27] MEDS: VERAPAMIL HCL ER 240 MG TABLET.ER PO ×2 (08:24→17:37)
[2023-02-27] MEDS: FAMOTIDINE 20 MG TABLET PO ×2 (08:25→20:00)
[2023-02-27] MEDS: GABAPENTIN 100 MG CAPSULE 200 MG PO ×3 (08:25→17:36)
[2023-02-27] MEDS: FERROUS SULFATE 325 MG TABLET DR BY MOUTH (08:26)
[2023-02-27] MEDS: carvediloL 25 MG TABLET PO ×2 (08:26→20:00)
[2023-02-27] MEDS: SENNA/DOCUSATE SODIUM TABLET 2 TAB PO ×2 (08:26→17:37)
[2023-02-27] MEDS: ASPIRIN 81 MG ENTERIC TABLET PO (08:26)
[2023-02-27] MEDS: LORATADINE 10 MG TABLET PO (08:26)
[2023-02-27] MEDS: SODIUM CHLORIDE 1 GM TABLET PO ×2 (08:26→17:37)
[2023-02-27] MEDS: LOSARTAN POTASSIUM 100 MG TABLET PO (08:27)
[2023-02-27] MEDS: polyethylene glycoL 3350 17 GM POWD.PACK PO (08:31)
--- NOTE | 2023-02-27 09:54 | WPDNEURCNPN ---
Assessment and Plan Assessment and plan (1) Peripheral neuropathy: Code(s): G62.9 - Polyneuropathy, unspecified Status: Acute (2) Multiple myeloma: Qualifiers: Multiple myeloma remission status: in relapse Qualified Code(s): C90.02 - Multiple myeloma in relapse Code(s): C90.00 - Multiple myeloma not having achieved remission Status: Acute (3) Generalized weakness: Code(s): R53.1 - Weakness Status: Acute Plan Ms. Hussein is an 82 year old female with a history of multiple myeloma presenting due to generalized weakness and sensory changes for the past 2-3 months. Exam is concerning for distal sensorimotor neuropathy involving upper and lower extremities. Multiple myeloma can cause peripheral neuropathy, but the onset of her symptoms seems to coincide with the initiation of her current chemotherapy regimen (bortezomib, lenalidomide), both of which are known to cause/worsen neuropathy. Also considering CIDP due to multiple myeloma given the timing and progression of her symptoms. - She will need EMG/NCS as outpatient; this may be helpful in delineating between axonal vs demyelinating neuropathy. If findings are suggestive of demyelinating neuropathy, she will need LP for evaluation of CIDP due to MM. If axonal, likely chemotherapy induced, but would plan on also checking lab work for treatable causes of neuropathy. - Follow[place]up in [facility] [place] Consult date: 02/27/23 Reason for consult: Neuropathy HPI: Aurea Hussein is a 82 year old female with a history of multiple myeloma, CKD who was admitted as a transfer for hyponatremia and femoral neck fracture. During admission there has been concerned regarding patient's strength. She fell about a month ago, and since then she has felt progressive weakness in her legs. She has also developed R foot drop as well as numbness in her hands and feet. Neurosurgery was initially consulted. Patient was noted to have severe spondylosis in the cervical, thoracic, and lumbar spine. The neurosurgeon did not feel that her symptoms were related to the imaging findings. Neurology consultation was therefore recommended for evaluation of neuropathy. Per the Oncologist's note last month she was started on VRD regimen (bortezomib, lenalidomide, and dexamethasone) in October 2022. She was previously on Darzalex (Daratumumab) maintenance therapy but this was discontinued to due progression of MM. Serum protein electrophoresis done on January 26 showed drop in M spike down to 0.2 g from 1.5 g previously. Patient reports that she was diagnosed with multiple myeloma several years ago. She feels that her weakness and the sensory changes started about 2-3 months ago. Prior to this she had been doing fine and was ambulating without assistance. Now she feels like when she stands her legs give out. Review of Systems Constitutional: Constitutional: Denies chills, Denies fever(s) and Denies weight loss Eyes: Eyes: Denies diplopia and Denies loss of vision ENT: Denies dizziness, Denies hearing loss and Denies tinnitus Cardiovascular: Cardiovascular: Denies chest pain, Denies syncope and Denies dyspnea Respiratory: Respiratory: Reports cough, Denies dyspnea and Denies wheezing Gastrointestinal: Gastrointestinal: Denies abdominal pain, Reports diarrhea and Denies vomiting Genitourinary: Genitourinary: Denies urinary incontinence Musculoskeletal: Musculoskeletal: Reports arthralgias and Denies joint swelling Integumentary/Breasts: Skin/Breast: Denies new lesions and Denies rash Neurologic: Reports as per HPI, Denies dizziness, Denies syncope and Denies loss of vision Psychiatric: Psychiatric: Denies anxiety and Denies depression Endocrine: Endocrine: Denies cold intolerance and Denies heat intolerance Hematologic/Lymphatic: Hematologic/Lymphatic: Denies easy bleeding and Denies easy bruising Allergic/Immunologic: Allergic/Immunologic: Denies n
[2023-02-27 11:05] VITALS: BMI 10.0
--- NOTE | 2023-02-27 12:26 | P.PNNP_ITS ---
Progress Note: A&P Assessment and Plan (1) Hyponatremia: Code(s): E87.1 - Hypo-osmolality and hyponatremia Status: Acute Assessment and Plan: * slow improvement noted * acute on chronic * has had low sodium as far back as 2019 * recently running around 128 - 135mmol/L * chronic aspect due to PPI use and probably multiple myeloma * acute aspect probably due to: * pain/pain medications * continued PPI use * increased free water intake while in rehab * evaluation to date: * TSH okay * cortisol little low but stim test okay * serum osmolality was equal to calculated. * Urine osmolality is not low. * Consistent with SIADH. * on fluid restriction * was on salt tabs + lasix but no significant improvement with use * s/p 3% saline x 2 on 02/22/23 with improvement in sodium * Now on salt tablets. * She will probably need some diuretics to help get rid of the free water so changed to sodium chloride and furosemide 20 mg bid. (2) Right hip pain: Code(s): M25.551 - Pain in right hip Status: Acute Assessment and Plan: * CT showed a very small and subtle fracture in the right hip * Orthopedics following -- s/p operative intervention/pinning (on 02/23/23) * pain control * PT/OT as tolerated (3) Chronic anemia: Code(s): D64.9 - Anemia, unspecified Status: Acute Assessment and Plan: * low this AM * PRBC transfusion per protocol * presumably due to multiple myeloma (4) Multiple myeloma: Qualifiers: Multiple myeloma remission status: in relapse Qualified Code(s): C90.02 - Multiple myeloma in relapse Code(s): C90.00 - Multiple myeloma not having achieved remission Status: Acute Assessment and Plan: * follows with Hem/Onc * on chemotherapy Will continue to follow. Subjective Date/time seen: 02/27/23 12:26 Interval history: Aurea is feeling a little better. She had the hip surgery done. Appetite is doing pretty well. Exam Narrative: General: elderly female in NAD Heart: normal S1 and S2; no rub or gallop Lungs: clear to auscultation Abdomen: soft, nontender, nondistended, positive bowel sounds Extremities: no cyanosis or clubbing; no edema Skin: No rash Objective Data Vital Signs Vital Signs: Vital Signs - 24 hr 02/26/23 12:40 02/26/23 12:43 02/26/23 15:27 Temperature 98.0 F Pulse Rate 76 75 65 Respiratory Rate 16 Blood Pressure 151/78 H 102/53 L Pulse Oximetry 99 100 Oxygen Delivery 02/26/23 19:29 02/26/23 20:18 02/26/23 20:00 Temperature 98.5 F Pulse Rate 66 66 66 Respiratory Rate 16 16 Blood Pressure 105/51 L Pulse Oximetry 98 98 Oxygen Delivery Room Air 02/27/23 04:32 Temperature 98.7 F Pulse Rate 66 Respiratory Rate 16 Blood Pressure 124/51 L Pulse Oximetry 96 Oxygen Delivery Intake/Output Intake/Output: Intake & Output 02/24/23 02/25/23 02/26/23 02/27/23 23:59 23:59 23:59 23:59 Intake Total 1060 1570 1200 600 Output Total 700 650 650 300 Balance 360 920 550 300 Meds/Results Medications:
--- NOTE | 2023-02-27 12:26 | PM.PNNEP ---
Progress Note: A&P Assessment and Plan (1) Hyponatremia: Code(s): E87.1 - Hypo-osmolality and hyponatremia Status: Acute Assessment and Plan: slow improvement noted acute on chronic has had low sodium as far back as 2019 recently running around 128 - 135mmol/L chronic aspect due to PPI use and probably multiple myeloma acute aspect probably due to: pain/pain medications continued PPI use increased free water intake while in rehab evaluation to date: TSH okay cortisol little low but stim test okay serum osmolality was equal to calculated. Urine osmolality is not low. Consistent with SIADH. on fluid restriction was on salt tabs + lasix but no significant improvement with use s/p 3% saline x 2 on 02/22/23 with improvement in sodium Now on salt tablets. She will probably need some diuretics to help get rid of the free water so changed to sodium chloride and furosemide 20 mg bid. (2) Right hip pain: Code(s): M25.551 - Pain in right hip Status: Acute Assessment and Plan: CT showed a very small and subtle fracture in the right hip Orthopedics following -- s/p operative intervention/pinning (on 02/23/23) pain control PT/OT as tolerated (3) Chronic anemia: Code(s): D64.9 - Anemia, unspecified Status: Acute Assessment and Plan: low this AM PRBC transfusion per protocol presumably due to multiple myeloma (4) Multiple myeloma: Qualifiers: Multiple myeloma remission status: in relapse Qualified Code(s): C90.02 - Multiple myeloma in relapse Code(s): C90.00 - Multiple myeloma not having achieved remission Status: Acute Assessment and Plan: follows with Hem/Onc on chemotherapy Will continue to follow. Subjective Date/time seen: 02/27/23 12:26 Interval history: Aurea is feeling a little better. She had the hip surgery done. Appetite is doing pretty well. Exam Narrative: General: elderly female in NAD Heart: normal S1 and S2; no rub or gallop Lungs: clear to auscultation Abdomen: soft, nontender, nondistended, positive bowel sounds Extremities: no cyanosis or clubbing; no edema Skin: No rash Objective Data Vital Signs Vital Signs: Vital Signs - 24 hr 02/26/23 12:40 02/26/23 12:43 02/26/23 15:27 Temperature 98.0 F Pulse Rate 76 75 65 Respiratory Rate 16 Blood Pressure 151/78 H 102/53 L Pulse Oximetry 99 100 Oxygen Delivery 02/26/23 19:29 02/26/23 20:18 02/26/23 20:00 Temperature 98.5 F Pulse Rate 66 66 66 Respiratory Rate 16 16 Blood Pressure 105/51 L Pulse Oximetry 98 98 Oxygen Delivery Room Air 02/27/23 04:32 Temperature 98.7 F Pulse Rate 66 Respiratory Rate 16 Blood Pressure 124/51 L Pulse Oximetry 96 Oxygen Delivery Intake/Output Intake/Output: Intake & Output 02/24/23 02/25/23 02/26/23 02/27/23 23:59 23:59 23:59 23:59 Intake Total 1060 1570 1200 600 Output Total 700 650 650 300 Balance 360 920 550 300 Meds/Results Medications: Active Medications Generic Name Dose Route Start Last Admin Trade Name Freq PRN Reason Stop Dose Admin Acetaminophen 650 mg 02/23/23 16:48 Acetaminophen 325 Mg Tablet PO Q6H PRN Mild Pain (1-3) or Fever Hydrocodone Bitart/Acetaminophen 1 tab 02/23/23 16:48 02/25/23 01:11 Hydrocodone/Acetaminophen (*Crx) 5-325 Mg Tablet PO 1 tab Q3H PRN Administration Pain Rated 4-6 Hydrocodone Bitart/Acetaminophen 2 tab 02/23/23 16:48 02/26/23 01:01 Hydrocodone/Acetaminophen (*Crx) 5-325 Mg Tablet PO 2 tab Q6H PRN Administration Pain Rated 7-10 Aspirin 81 mg 02/20/23 09:00 02/27/23 08:26 Aspirin 81 Mg Enteric Tablet PO 81 mg DAILY MARI Administration Carvedilol 25 mg 02/20/23 09:00 02/27/23 08:26 Carvedilol 25 Mg Tablet PO 25 mg Q12HR MARI Administration Famotidine 20 mg 02/20/23 21:00 02/27/23 0
--- NOTE | 2023-02-27 12:55 | PM.DS ---
DS: Summary Time Spent with Patient Time attestation: Total time spent providing and/or coordinating discharge services: DS: Data Data Completed and Pending Labs on day of discharge: Labs from last 24 hours 02/27/23 05:19 WBC 5.0 RBC 2.55 L Hgb 7.8 L Hct 24.3 L MCV 95.3 MCH 30.6 MCHC 32.1 RDW 21.2 H Plt Count 206 MPV 8.9 Immature Gran % (Auto) 0.4 Neut % (Auto) 71.2 Lymph % (Auto) 12.7 L Dane % (Auto) 12.9 H Eos % (Auto) 2.4 Baso % (Auto) 0.4 Lymph # (Auto) 0.63 L Dane # (Auto) 0.6 Eos # (Auto) 0.1 Baso # (Auto) 0.0 Abs Immat Gran (auto) 0.02 Absolute Neuts (auto) 3.5 Absolute Nucleated RBC 0.0 Nucleated RBC % 0.0 Sodium 128 L Potassium 4.3 Chloride 103 Carbon Dioxide 24 Anion Gap 1 L BUN 20 H Creatinine 0.60 L Estim Creat Clear Calc 59 Estimated GFR > 60 Glucose 98 Calcium 9.3 Magnesium 2.0 Total Bilirubin 0.3 AST 17 ALT 13 Alkaline Phosphatase 58 Total Protein 4.0 L Albumin 2.0 L Discharge Plan Discharge Attending physician on discharge: Bhavik Awad Consulting providers: Sammy Ryan; Van Pierce; Jae Archuleta; Karine White; Autumn Funk Discharging Clinician: Yousfu Leal Anticipated Discharge Date/Time: 02/27/23 12:48 Patient Disposition: NH Senior Living/Asst Living Activity: follow weight bearing status Diet: other - see discharge instructions Wound Care Instructions: incision open to air and other - see discharge instructions Patient Instructions: Antibiotic Form, Rivaroxaban (By mouth) Stand Alone Forms: General Discharge Information, Shelter Discharge Follow-up/Referrals: Van Pierce MD [Physician] - Call for Appointment Eros Layne MD [Primary Care Provider] - Call for Appointment Autumn Funk MD [Physician] - Call for Appointment Karine White MD [Physician] - Call for Appointment Discharge Medications: New hydrocodone-acetaminophen 5-325 mg Tablet 1 tablet PO Q6H PRN (Reason: severe pain) Qty: 40 0RF famotidine 20 mg Tablet 20 mg PO Q12HR Qty: 0 0RF sodium chloride 1,000 mg Tablet,Soluble 1,000 mg PO BID Qty: 0 0RF polyethylene glycol 3350 [Miralax] 17 gram Powder In Packet 17 g PO QAM Qty: 0 0RF gabapentin 100 mg Capsule 200 mg PO TID Qty: 0 0RF sennosides-docusate sodium [Senokot-S] 8.6-50 mg Tablet 2 tab PO BID Qty: 0 0RF Xarelto 10 mg Tablet 10 mg PO DAILY@17 Qty: 0 0RF furosemide 20 mg Tablet 20 mg PO BID Qty: 0 0RF Continued carvedilol [Coreg] 25 mg Tablet 25 mg PO BID losartan [Cozaar] 100 mg Tablet 100 mg PO DAILY multivitamin [Daily Multi-Vitamin] Tablet 1 tablet PO DAILY ondansetron HCl 4 mg Tablet 4 mg PO Q8H PRN (Reason: Nausea) verapamil 240 mg Tablet Extended Release 240 mg PO BID ferrous sulfate [Iron (ferrous sulfate)] 325 mg (65 mg iron) Tablet 325 mg PO DAILY aspirin [Adult Low Dose Aspirin] 81 mg Tablet,Delayed Release (Dr/Ec) 81 mg PO DAILY cetirizine [Zyrtec] 10 mg Tablet 10 mg PO DAILY omeprazole magnesium [Prilosec OTC] 20 mg tablet,delayed release (DR/EC) 20 mg PO DAILY Discontinued hydralazine 10 mg tablet See Rx Instructions .ROUTE .COMPLEX Hold Instructions: Resume on 02/20/23. Rx Instructions: 50 mg orally if sys bp greater than 150. Take 25 mg if sys bp 150 or less hydrocodone-acetaminophen 5-325 mg tablet 5 - 325 tablet PO Q6H PRN (Reason: Pain (Scale Score 4-6)) furosemide [Lasix] 20 mg tablet 20 mg PO DAILY Date of admission: 02/20/23 07:27 Primary Care Provider: Eros Layne Admitting Provider: Nain Mcdermott Attending physician on admission: Nani Mcdermott Condition: Guarded Prognosis
[2023-02-27 13:58] VITALS: BP 135/61; PULSE 65; RESP 16; TEMP 36.6; O2SAT 100
--- NOTE | 2023-02-27 14:11 | PM.IMPN ---
Progress Note: A&P Assessment and Plan (1) Hyponatremia: Code(s): E87.1 - Hypo-osmolality and hyponatremia Status: Acute Assessment and Plan: Acute on chronic hyponatremia. Na was 123 on 02/19 with further downtrend to 121 Transfer to [place] for nephrology consult BMP Q 3 hours Na this morning is 119, reaching out to nephrology for assistance with management TSH, T3, T4 Urine studies collected serum osmo pending I spoke with Dr Ryan who recommends PO Lasix 20 mg TID, Na+ tablets 1 gram TID, and fluid restriction. Also stopped her omeprazole and switched to pepcid. Na 02/22 is 126 Nephrology plans to add 3% sodium chloride Monitor BMP Na+ goal of 128 for surgery 02/24: Sodium 128, IVF stopped. Fluid Restriction diet reordered. 02/25: Sodium 127 02/26: Sodium 128 02/27: Sodium 128 (2) Right hip pain: Code(s): M25.551 - Pain in right hip Status: Acute Assessment and Plan: History of fall prior to this recent admission, several weeks ago in which she sustained a cortical of urgent fracture from the anterior process of the left talus Complaining of right hip pain and has been progressively getting worse CT right hip ordered PT/OT consults and rec's appreciated Fall precautions Acetaminophen for pain Ct shows possibly a minimally displaced right hip. Recommend MRI for further imaging. Study has been ordered and consult requested for orthopedics, recommendations are appreciated. Ortho recommends pinning when medically cleared Plan for ortho intervention on 02/23 at 1400 02/24: post operative, PT/OT pending 02/25: Mild pain, difficulty participating with PT OT due to previously mentioned footdrop occasional leg. Patient will likely require long-term care and be wheelchair bound. Consult Neurosurgery for evaluation of lower extremity functional decline given L3 subluxation over L4 on CT scan. I was unable to see the images from prior L-spine CT scans to compare. 02/26: CT myelogram completed. Dr. White reviewed. Dr. White requested Neurology consult which was ordered. EMG will be required in the future. 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 Creatinine 0.6, BUN 20, creatinine clearance 59 and GFR greater than 60 (6) Severe protein-calorie malnutrition: Code(s): E43 - Unspecified severe protein-calorie malnutrition Status: Acute Assessment and Plan: Severe Protein Calorie Malnutrition as related to inadequate protein-energy intake with increased protein-energy needs in setting of chronic disease or condition (Cancer) as evidenced by significant weight loss of 5% (6lbs) in 3 weeks and moderate subcutaneous fat loss (orbital fat pads) and moderate muscle wasting(temporalis). (7) Fracture of femoral neck, right: Code(s): S72.001A - Fracture of unspecified part of neck of right femur, initial encounter for closed fracture Status: Acute Assessment and Plan: See 2. Plan Feeding:heart healthy diet with free water fluid restriction of 1 L Analgesia:acetaminophen and low dose oxycodone for pain Thromboembolic prophylaxis: scd Ulcer prophylaxis: pepcid Glycemic control: n/a
[2023-02-27] MEDS: FUROSEMIDE 20 MG TABLET PO (17:36)
[2023-02-27] MEDS: RIVAROXABAN 10 MG TABLET PO (17:37)
[2023-02-27 19:25] VITALS: BP 109/53; PULSE 63; RESP 16; TEMP 37.1; O2SAT 98
[2023-02-27 20:00] VITALS: PULSE 63
[2023-02-28 05:00] VITALS: BP 172/70; PULSE 63; RESP 16; TEMP 36.8; O2SAT 99
[2023-02-28 05:17] LABS: Basophils Percent Auto 0.4 % (0.2-1.2); Eosinophils Absolute Auto 0.2 K/mm3 (0-0.3); Eosinophils Percent Auto 3.1 % (0-4.4); Hematocrit 25.2 % (37.0-47.0); Hemoglobin 8.2 g/dL (12.0-15.0); Immature Granulocyte Absolute 0.03 K/mm3 (0.00-0.031); Immature Granulocyte Percent A 0.6 % (0-0.5); Lymphocytes Absolute Auto 0.73 K/mm3 (0.9-3.2); Lymphocytes Percent Auto 15.2 % (18.3-44.2); Mean Corpuscular HGB Conc 32.5 g/dl (32-36); Mean Corpuscular Hemoglobin 31.2 pg (26-34); Mean Corpuscular Volume 95.8 fl (80-100); Mean Platelet Volume 8.8 fl (7.4-10.4); Monocytes Absolute Auto 0.6 K/mm3 (0.1-0.6); Monocytes Percent Auto 13.3 % (2.6-8.5); Neutrophils Absolute Auto 3.2 K/mm3 (1.3-6.7); Neutrophils Percent Auto 67.4 % (45.5-73.1); Platelet Count Result 207 k/mm3 (150-375); Red Blood Count 2.63 M/mm3 (4.2-5.4); Red Cell Distribution Width 20.6 % (11.5-14.5); White Blood Count 4.8 K/mm3 (4.5-10.0)
[2023-02-28 05:28] LABS: Alanine Aminotransferase 14 U/L (6-35); Albumin Level 2.4 g/dL (3.5-5.1); Alkaline Phosphatase 58 U/L (38-126); Anion Gap 3 mmol/L (8-16); Aspartate Amino Transferase 20 U/L (14-36); Bilirubin,Total 0.4 mg/dL (0.2-1.3); Blood Urea Nitrogen 21 mg/dL (7-17); Calcium 9.5 mg/dL (8.4-10.2); Carbon Dioxide 28 mmol/L (22-30); Chloride 99 mmol/L (98-107); Estimated CRCL calculation 51 ml/min; Estimated Glomerular Filt Rate > 60; Glucose 93 mg/dL (65-110); Magnesium 1.9 mg/dL (1.6-2.3); Phosphorus 4.1 mg/dL (2.5-4.5); Potassium 3.9 mmol/L (3.4-5.0); Sodium 130 mmol/L (137-145)
[2023-02-28] MEDS: HYDROcodone/acetaminophen (*CRX) 5-325 MG TABLET 1 TAB PO ×2 (07:51→12:33)
[2023-02-28] MEDS: VERAPAMIL HCL ER 240 MG TABLET.ER PO ×2 (07:52→16:27)
[2023-02-28 07:54] VITALS: PULSE 63; RESP 16; O2SAT 99
[2023-02-28] MEDS: SENNA/DOCUSATE SODIUM TABLET 2 TAB PO (08:12)
[2023-02-28] MEDS: GABAPENTIN 100 MG CAPSULE 200 MG PO ×3 (08:12→16:27)
[2023-02-28] MEDS: FUROSEMIDE 20 MG TABLET PO ×2 (08:12→16:27)
[2023-02-28] MEDS: ASPIRIN 81 MG ENTERIC TABLET PO (08:12)
[2023-02-28] MEDS: FERROUS SULFATE 325 MG TABLET DR BY MOUTH (08:12)
[2023-02-28] MEDS: FAMOTIDINE 20 MG TABLET PO ×2 (08:12→20:28)
[2023-02-28] MEDS: carvediloL 25 MG TABLET PO ×2 (08:12→20:28)
[2023-02-28] MEDS: LOSARTAN POTASSIUM 100 MG TABLET PO (08:13)
[2023-02-28] MEDS: SODIUM CHLORIDE 1 GM TABLET PO ×2 (08:13→16:27)
[2023-02-28] MEDS: LORATADINE 10 MG TABLET PO (08:13)
[2023-02-28] MEDS: polyethylene glycoL 3350 17 GM POWD.PACK PO (08:14)
--- NOTE | 2023-02-28 08:31 | P.PNIM_ITS ---
Progress Note: A&P Assessment and Plan (1) Hyponatremia: Code(s): E87.1 - Hypo-osmolality and hyponatremia Status: Acute Assessment and Plan: Acute on chronic hyponatremia. * Na was 123 on 02/19 with further downtrend to 121 * Transfer to [place] for nephrology consult * BMP Q 3 hours * Na this morning is 119, reaching out to nephrology for assistance with management * TSH, T3, T4 * Urine studies collected * serum osmo pending * I spoke with Dr Ryan who recommends PO Lasix 20 mg TID, Na+ tablets 1 gram TID, and fluid restriction. Also stopped her omeprazole and switched to pepcid. * Na 02/22 is 126 * Nephrology plans to add 3% sodium chloride * Monitor BMP * Na+ goal of 128 for surgery * 02/24: Sodium 128, IVF stopped. Fluid Restriction diet reordered. * 02/25: Sodium 127 * 02/26: Sodium 128 * 02/27: Sodium 128 * 02/28: sodium 130 (2) Right hip pain: Code(s): M25.551 - Pain in right hip Status: Acute Assessment and Plan: History of fall prior to this recent admission, several weeks ago in which she sustained a cortical of urgent fracture from the anterior process of the left talus * Complaining of right hip pain and has been progressively getting worse * CT right hip ordered * PT/OT consults and rec's appreciated * Fall precautions * Acetaminophen for pain * Ct shows possibly a minimally displaced right hip. Recommend MRI for further imaging. Study has been ordered and consult requested for orthopedics, recommendations are appreciated. * Ortho recommends pinning when medically cleared * Plan for ortho intervention on 02/23 at 1400 * 02/24: post operative, PT/OT pending * 02/25: Mild pain, difficulty participating with PT OT due to previously mentioned footdrop occasional leg. Patient will likely require long-term care and be wheelchair bound. Consult Neurosurgery for evaluation of lower extremity functional decline given L3 subluxation over L4 on CT scan. I was unable to see the images from prior L-spine CT scans to compare. * 02/26: CT myelogram completed. Dr. White reviewed. Dr. White requested Neurology consult which was ordered. EMG will be required in the future. 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 Creatinine 0.6, BUN 20, creatinine clearance 59 and GFR greater than 60 (6) Severe protein-calorie malnutrition: Code(s): E43 - Unspecified severe protein-calorie malnutrition Status: Acute Assessment and Plan: Severe Protein Calorie Malnutrition as related to inadequate protein-energy intake with increased protein-energy needs in setting of chronic disease or condition (Cancer) as evidenced by significant weight loss of 5% (6lbs) in 3 weeks and moderate subcutaneous fat loss (orbital fat pads) and moderate muscle wasting(tempo
--- NOTE | 2023-02-28 08:31 | PM.IMPN ---
Progress Note: A&P Assessment and Plan (1) Hyponatremia: Code(s): E87.1 - Hypo-osmolality and hyponatremia Status: Acute Assessment and Plan: Acute on chronic hyponatremia. Na was 123 on 02/19 with further downtrend to 121 Transfer to [place] for nephrology consult BMP Q 3 hours Na this morning is 119, reaching out to nephrology for assistance with management TSH, T3, T4 Urine studies collected serum osmo pending I spoke with Dr Ryan who recommends PO Lasix 20 mg TID, Na+ tablets 1 gram TID, and fluid restriction. Also stopped her omeprazole and switched to pepcid. Na 02/22 is 126 Nephrology plans to add 3% sodium chloride Monitor BMP Na+ goal of 128 for surgery 02/24: Sodium 128, IVF stopped. Fluid Restriction diet reordered. 02/25: Sodium 127 02/26: Sodium 128 02/27: Sodium 128 02/28: sodium 130 (2) Right hip pain: Code(s): M25.551 - Pain in right hip Status: Acute Assessment and Plan: History of fall prior to this recent admission, several weeks ago in which she sustained a cortical of urgent fracture from the anterior process of the left talus Complaining of right hip pain and has been progressively getting worse CT right hip ordered PT/OT consults and rec's appreciated Fall precautions Acetaminophen for pain Ct shows possibly a minimally displaced right hip. Recommend MRI for further imaging. Study has been ordered and consult requested for orthopedics, recommendations are appreciated. Ortho recommends pinning when medically cleared Plan for ortho intervention on 02/23 at 1400 02/24: post operative, PT/OT pending 02/25: Mild pain, difficulty participating with PT OT due to previously mentioned footdrop occasional leg. Patient will likely require long-term care and be wheelchair bound. Consult Neurosurgery for evaluation of lower extremity functional decline given L3 subluxation over L4 on CT scan. I was unable to see the images from prior L-spine CT scans to compare. 02/26: CT myelogram completed. Dr. White reviewed. Dr. White requested Neurology consult which was ordered. EMG will be required in the future. 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 Creatinine 0.6, BUN 20, creatinine clearance 59 and GFR greater than 60 (6) Severe protein-calorie malnutrition: Code(s): E43 - Unspecified severe protein-calorie malnutrition Status: Acute Assessment and Plan: Severe Protein Calorie Malnutrition as related to inadequate protein-energy intake with increased protein-energy needs in setting of chronic disease or condition (Cancer) as evidenced by significant weight loss of 5% (6lbs) in 3 weeks and moderate subcutaneous fat loss (orbital fat pads) and moderate muscle wasting(temporalis). (7) Fracture of femoral neck, right: Code(s): S72.001A - Fracture of unspecified part of neck of right femur, initial encounter for closed fracture Status: Acute Assessment and Plan: See 2. (8) Urinary retention: Code(s): R33.9 - Retention of urine, unspecified Status: Acute Assessment and Plan: Perez removed yesterday, patient unable to void
[2023-02-28] MEDS: oxyCODONE HCL (*CRX) 2.5 MG TAB IR PO (09:48)
[2023-02-28 12:02] LABS: Creatine Kinase 56 U/L (30-135)
--- NOTE | 2023-02-28 12:03 | P.PNNP_ITS ---
Progress Note: A&P Assessment and Plan (1) Hyponatremia: Code(s): E87.1 - Hypo-osmolality and hyponatremia Status: Acute Assessment and Plan: * Hyponatremia * acute on chronic * has had low sodium as far back as 2019 * recently running around 128 - 135mmol/L * chronic aspect due to PPI use and probably multiple myeloma * acute aspect probably due to: * pain/pain medications * continued PPI use * increased free water intake while in rehab * evaluation to date: * TSH okay * cortisol little low but stim test okay * serum osmolality was equal to calculated. * Urine osmolality is not low. * All consistent with SIADH. * on fluid restriction as well as sodium chloride tabs plus furosemide 20mg per day. * Sodium of a little bit to 130 (2) Right hip pain: Code(s): M25.551 - Pain in right hip Status: Acute Assessment and Plan: * CT showed a very small and subtle fracture in the right hip * Orthopedics following -- s/p operative intervention/pinning (on 02/23/23) * Getting physical therapy. (3) Chronic anemia: Code(s): D64.9 - Anemia, unspecified Status: Acute Assessment and Plan: * Hemoglobin balancing up and down. 8.2 today. * presumably due to multiple myeloma (4) Multiple myeloma: Qualifiers: Multiple myeloma remission status: in relapse Qualified Code(s): C90.02 - Multiple myeloma in relapse Code(s): C90.00 - Multiple myeloma not having achieved remission Status: Acute Assessment and Plan: * follows with Hem/Onc * on chemotherapy Will continue to follow. Subjective Date/time seen: 02/28/23 12:03 Interval history: Aurea is frustrated because she was unable to urinate after the urinary catheter was pulled. Now it is back in. She is hungry for some lunch. The nurse is getting her set up to eat. Exam Narrative: General: elderly female in NAD Heart: normal S1 and S2; no rub or gallop Lungs: clear bilaterally Abdomen: soft, nontender, nondistended, positive bowel sounds Extremities: no edema Skin: No rash or subQ nodules Objective Data Vital Signs Vital Signs: Vital Signs - 24 hr 02/27/23 13:58 02/27/23 19:25 02/27/23 20:00 Temperature 97.8 F 98.8 F Pulse Rate 65 63 63 Respiratory Rate 16 16 Blood Pressure 135/61 109/53 L Pulse Oximetry 100 98 Oxygen Delivery 02/27/23 20:00 02/28/23 05:00 02/28/23 07:54 Temperature 98.2 F Pulse Rate 63 63 Respiratory Rate 16 16 Blood Pressure 172/70 H Pulse Oximetry 99 99 Oxygen Delivery Room Air Room Air Intake/Output Intake/Output: Intake & Output 02/25/23 02/26/23 02/27/23 02/28/23 23:59 23:59 23:59 23:59 Intake Total 1570 1200 1280 560 Output Total 650 568 173 0094 Balance 920 550 430 -1490 Meds/Results Medications: Active Medications Generic Name Dose Route Start Last Admin Trade Name Freq PRN Reason Stop Dose Admin Acetaminophen 650 mg 02/23/23 16:48 Acetaminophen 325 Mg Tablet PO Q6H PRN Mild Pain (1-3) or Fever Hydrocodone Bitart/[place]
--- NOTE | 2023-02-28 12:03 | PM.PNNEP ---
Progress Note: A&P Assessment and Plan (1) Hyponatremia: Code(s): E87.1 - Hypo-osmolality and hyponatremia Status: Acute Assessment and Plan: Hyponatremia acute on chronic has had low sodium as far back as 2019 recently running around 128 - 135mmol/L chronic aspect due to PPI use and probably multiple myeloma acute aspect probably due to: pain/pain medications continued PPI use increased free water intake while in rehab evaluation to date: TSH okay cortisol little low but stim test okay serum osmolality was equal to calculated. Urine osmolality is not low. All consistent with SIADH. on fluid restriction as well as sodium chloride tabs plus furosemide 20mg per day. Sodium of a little bit to 130 (2) Right hip pain: Code(s): M25.551 - Pain in right hip Status: Acute Assessment and Plan: CT showed a very small and subtle fracture in the right hip Orthopedics following -- s/p operative intervention/pinning (on 02/23/23) Getting physical therapy. (3) Chronic anemia: Code(s): D64.9 - Anemia, unspecified Status: Acute Assessment and Plan: Hemoglobin balancing up and down. 8.2 today. presumably due to multiple myeloma (4) Multiple myeloma: Qualifiers: Multiple myeloma remission status: in relapse Qualified Code(s): C90.02 - Multiple myeloma in relapse Code(s): C90.00 - Multiple myeloma not having achieved remission Status: Acute Assessment and Plan: follows with Hem/Onc on chemotherapy Will continue to follow. Subjective Date/time seen: 02/28/23 12:03 Interval history: Aurea is frustrated because she was unable to urinate after the urinary catheter was pulled. Now it is back in. She is hungry for some lunch. The nurse is getting her set up to eat. Exam Narrative: General: elderly female in NAD Heart: normal S1 and S2; no rub or gallop Lungs: clear bilaterally Abdomen: soft, nontender, nondistended, positive bowel sounds Extremities: no edema Skin: No rash or subQ nodules Objective Data Vital Signs Vital Signs: Vital Signs - 24 hr 02/27/23 13:58 02/27/23 19:25 02/27/23 20:00 Temperature 97.8 F 98.8 F Pulse Rate 65 63 63 Respiratory Rate 16 16 Blood Pressure 135/61 109/53 L Pulse Oximetry 100 98 Oxygen Delivery 02/27/23 20:00 02/28/23 05:00 02/28/23 07:54 Temperature 98.2 F Pulse Rate 63 63 Respiratory Rate 16 16 Blood Pressure 172/70 H Pulse Oximetry 99 99 Oxygen Delivery Room Air Room Air Intake/Output Intake/Output: Intake & Output 02/25/23 02/26/23 02/27/23 02/28/23 23:59 23:59 23:59 23:59 Intake Total 1570 1200 1280 560 Output Total 650 070 858 4289 Balance 920 550 430 -1490 Meds/Results Medications: Active Medications Generic Name Dose Route Start Last Admin Trade Name Freq PRN Reason Stop Dose Admin Acetaminophen 650 mg 02/23/23 16:48 Acetaminophen 325 Mg Tablet PO Q6H PRN Mild Pain (1-3) or Fever Hydrocodone Bitart/Acetaminophen 1 tab 02/23/23 16:48 02/28/23 07:51 Hydrocodone/Acetaminophen (*Crx) 5-325 Mg Tablet PO 1 tab Q3H PRN Administration Pain Rated 4-6 Hydrocodone Bitart/Acetaminophen 2 tab 02/23/23 16:48 02/26/23 01:01 Hydrocodone/Acetaminophen (*Crx) 5-325 Mg Tablet PO 2 tab Q6H PRN Administration Pain Rated 7-10 Aspirin 81 mg 02/20/23 09:00 02/28/23 08:12 Aspirin 81 Mg Enteric Tablet PO 81 mg DAILY MARI Administration Carvedilol 25 mg 02/20/23 09:00 02/28/23 08:12 Carvedilol 25 Mg Tablet PO 25 mg Q12HR MARI Administration Famotidine 20 mg 02/20/23 21:00 02/28/23 08:12 Famotidine 20 Mg Tablet PO 20 mg Q12HR MARI Administration Ferrous Sulfate 325 mg 02/20/23 09:00 02/28/23 08:12 Ferrous Sulfate [address] BY MOUTH 325 mg DAILY MARI Administration Furosemide 20 mg 02/27/23 17:00
[2023-02-28 13:09] VITALS: BP 99/53; PULSE 67; RESP 16; TEMP 35.9; O2SAT 100
[2023-02-28] MEDS: RIVAROXABAN 10 MG TABLET PO (16:27)
[2023-02-28 20:00] VITALS: PULSE 62; RESP 12; O2SAT 98
[2023-02-28 20:28] VITALS: PULSE 60
[2023-02-28 20:58] VITALS: BP 90/53; PULSE 62; RESP 12; TEMP 36.7; O2SAT 98
[2023-03-01 05:28] LABS: Basophils Percent Auto 0.5 % (0.2-1.2); Eosinophils Absolute Auto 0.2 K/mm3 (0-0.3); Eosinophils Percent Auto 4.1 % (0-4.4); Hematocrit 24.2 % (37.0-47.0); Hemoglobin 7.6 g/dL (12.0-15.0); Immature Granulocyte Absolute 0.02 K/mm3 (0.00-0.031); Immature Granulocyte Percent A 0.5 % (0-0.5); Lymphocytes Absolute Auto 0.64 K/mm3 (0.9-3.2); Lymphocytes Percent Auto 17.4 % (18.3-44.2); Mean Corpuscular HGB Conc 31.4 g/dl (32-36); Mean Corpuscular Hemoglobin 30.3 pg (26-34); Mean Corpuscular Volume 96.4 fl (80-100); Monocytes Absolute Auto 0.5 K/mm3 (0.1-0.6); Monocytes Percent Auto 13.3 % (2.6-8.5); Neutrophils Absolute Auto 2.4 K/mm3 (1.3-6.7); Neutrophils Percent Auto 64.2 % (45.5-73.1); Platelet Count Result 198 k/mm3 (150-375); Red Blood Count 2.51 M/mm3 (4.2-5.4); Red Cell Distribution Width 20.1 % (11.5-14.5); White Blood Count 3.7 K/mm3 (4.5-10.0)
[2023-03-01 05:35] LABS: Alanine Aminotransferase 13 U/L (6-35); Albumin Level 2.3 g/dL (3.5-5.1); Alkaline Phosphatase 57 U/L (38-126); Anion Gap 2 mmol/L (8-16); Aspartate Amino Transferase 25 U/L (14-36); Bilirubin,Total 0.4 mg/dL (0.2-1.3); Blood Urea Nitrogen 22 mg/dL (7-17); Calcium 9.1 mg/dL (8.4-10.2); Carbon Dioxide 28 mmol/L (22-30); Chloride 97 mmol/L (98-107); Estimated CRCL calculation 45 ml/min; Estimated Glomerular Filt Rate > 60; Glucose 92 mg/dL (65-110); Magnesium 1.8 mg/dL (1.6-2.3); Phosphorus 4.5 mg/dL (2.5-4.5); Potassium 4.2 mmol/L (3.4-5.0); Sodium 127 mmol/L (137-145)
[2023-03-01 05:51] VITALS: BP 142/72; PULSE 66; RESP 16; TEMP 36.7; O2SAT 98
[2023-03-01 08:00] VITALS: PULSE 80; RESP 16; O2SAT 98
[2023-03-01 08:42] VITALS: PULSE 80
[2023-03-01] MEDS: carvediloL 25 MG TABLET PO (08:42)
[2023-03-01] MEDS: FUROSEMIDE 20 MG TABLET PO ×2 (08:42→17:53)
[2023-03-01] MEDS: SODIUM CHLORIDE 1 GM TABLET PO ×2 (08:42→17:53)
[2023-03-01] MEDS: VERAPAMIL HCL ER 240 MG TABLET.ER PO ×2 (08:43→17:53)
[2023-03-01] MEDS: FAMOTIDINE 20 MG TABLET PO (08:43)
[2023-03-01] MEDS: HYDROcodone/acetaminophen (*CRX) 5-325 MG TABLET 1 TAB PO (08:43)
[2023-03-01] MEDS: FERROUS SULFATE 325 MG TABLET DR BY MOUTH (08:43)
[2023-03-01] MEDS: LORATADINE 10 MG TABLET PO (08:43)
[2023-03-01] MEDS: SENNA/DOCUSATE SODIUM TABLET 2 TAB PO ×2 (08:43→17:53)
[2023-03-01] MEDS: LOSARTAN POTASSIUM 100 MG TABLET PO (08:43)
[2023-03-01] MEDS: ASPIRIN 81 MG ENTERIC TABLET PO (08:43)
[2023-03-01] MEDS: GABAPENTIN 100 MG CAPSULE 200 MG PO ×3 (08:43→17:54)
--- NOTE | 2023-03-01 11:02 | PM.DS ---
DS: Admitting Diagnosis Discharge Date 03/01/2023 Admitting Diagnosis hyponatremia, right hip pain, multiple myeloma, chronic anemia, CKD stage 3 DS: Discharge Diagnosis Discharge Diagnosis (1) Hyponatremia: Code(s): E87.1 - Hypo-osmolality and hyponatremia Status: Acute (2) Right hip pain: Code(s): M25.551 - Pain in right hip Status: Acute (3) Multiple myeloma: Qualifiers: Multiple myeloma remission status: in relapse Qualified Code(s): C90.02 - Multiple myeloma in relapse Code(s): C90.00 - Multiple myeloma not having achieved remission Status: Acute (4) Chronic anemia: Code(s): D64.9 - Anemia, unspecified Status: Acute (5) Chronic kidney disease, stage 3: Code(s): N18.30 - Chronic kidney disease, stage 3 unspecified Status: Acute (6) Severe protein-calorie malnutrition: Code(s): E43 - Unspecified severe protein-calorie malnutrition Status: Acute (7) Fracture of femoral neck, right: Code(s): S72.001A - Fracture of unspecified part of neck of right femur, initial encounter for closed fracture Status: Acute (8) Urinary retention: Code(s): R33.9 - Retention of urine, unspecified Status: Acute DS: Summary Hospital Course Hospital Course: Patient is known to me from yesterday, caring for her at our [facility] location. She was admitted at [facility] as a swing bed after an acute hospitalization for diarrhea due to chemotherapy for multiple myeloma. She was participating in therapy but has had continued episodes of acute on chronic hyponatremia and weakness. She was going to discharge yesterday but her morning labs showed a sodium of 123. There were concerns for her having increased water intake so I instituted a water restriction and rechecked her labs in the afternoon. Unfortunately her sodium dropped to 121 so it was decided to transfer her to [facility] for a nephrology consult. 02/20- This morning her sodium is 119.? I spoke with Dr. Ryan this morning and discussed her case.? He recommended restarting salt tabs 1 g t.i.d. and adding Lasix 20 mg t.i.d. as well.? Will recheck her sodium at noon today.? I went ahead and added on Q 3 are BMP as well.? Aurea is seen resting in bed this morning.? Her swelling to her lower extremities, particularly her feet seem increased from yesterday she has +2-3 pitting edema.? Her lower extremities appear okay but she also has Paavn hose in place.? She is complaining about this right hip pain that travels through her right leg that she describes as sharp, shooting and constant. This is the 1st time she has mention it to me.? A CT of her right hip has been obtained and we are just waiting on the read.? PT and OT are consulted to follow again with her and recommendations are appreciated.? I added on low-dose oxycodone p.r.n. q.4 hours for pain. 02/21-Ms. Villar is doing well this morning.? She does say that she has been having increased difficulty with grasping her silverware 10 cups to feed herself.? She reports numbness and tingling in her hands and legs and this she says has been going on since she started chemotherapy.? It does not appear that she has received gabapentin for neuropathy so I told her I would start her on low-dose treatment today.? Her sodium plateaued at 122 today.? I spoke with Dr. Ryan this morning who is planning to right for 3% Na Cl.? Sodium goal for surgery would be closer to 128. 02/22-her surgery is scheduled for tomorrow at 2:00 p.m..? She continues to have numbness and tingling to her fingers despite initiation of gabapentin.? Will increase her dose today.? Otherwise her only complaint is lower extremity weakness and intermittent pain with position changes.? She says that the pain medication she is receiving is controlling her pain.? She says that she is eating and drinking well and has had a recent bowel movement without constipation or diarrhea.? Will make her NPO at midnight for
[2023-03-01 13:00] VITALS: BP 103/55; PULSE 61; RESP 15; TEMP 36.6; O2SAT 100
[2023-03-01 13:30] LABS: SARS-CoV-2 RNA PCR Negative (Negative)
[2023-03-01] MEDS: RIVAROXABAN 10 MG TABLET PO (17:53)
== END 2023-03-01 18:26 | DRG 981 ==
PROVIDERS: Internal Medicine Nephrology; Nurse Practitioner Acute Care; Orthopaedic Surgery; Physician Assistant; Admitting Provider Student in an Organized Health Care Education/Training Program; PCP Internal Medicine; Visit Provider Nurse Practitioner
PROC: 0QH634Z Insertion of Internal Fixation Device into Right Upper Femur, Percutaneous Approach (ICD-10-PCS; principal; 2023-02-23 14:00)
DX: E87.1 Hypo-osmolality and hyponatremia (principal); E43 Unspecified severe protein-calorie malnutrition; S72.011A Unspecified intracapsular fracture of right femur, initial encounter for closed fracture; C90.00 Multiple myeloma not having achieved remission; K52.1 Toxic gastroenteritis and colitis; T45.1X5A Adverse effect of antineoplastic and immunosuppressive drugs, initial encounter; D64.9 Anemia, unspecified; I12.9 Hypertensive chronic kidney disease with stage 1 through stage 4 chronic kidney disease, or unspecified chronic kidney disease; N18.30 Chronic kidney disease, stage 3 unspecified; S92.152A Displaced avulsion fracture (chip fracture) of left talus, initial encounter for closed fracture; W19.XXXA Unspecified fall, initial encounter; D63.0 Anemia in neoplastic disease; Z68.21 Body mass index [BMI] 21.0-21.9, adult; R33.9 Retention of urine, unspecified; G62.9 Polyneuropathy, unspecified; M21.372 Foot drop, left foot; E86.0 Dehydration; M81.0 Age-related osteoporosis without current pathological fracture; E21.3 Hyperparathyroidism, unspecified; Z11.52 Encounter for screening for COVID-19; Z95.0 Presence of cardiac pacemaker; Z98.42 Cataract extraction status, left eye; Z98.41 Cataract extraction status, right eye; Z79.82 Long term (current) use of aspirin
CPT/HCPCS: 36415; 36430; 62305; 72126; 72128; 72129; 72131; 72132; 73030; 73700; 80048; 80053; 82533; 82550; 82570; 83735; 84100; 84295; 84300; 84443; 84540; 85025; 85027; 85610; 85730; 86850; 86900; 86901; 86923; 87040; 87635; 97110; 97112; 97161; 97166; 97530; 97535; 99199; A9270; C1713; C1769; G0378; J0690; J0834; J1100; J2405; J2704; J7030; J7040; J7050; J7131; P9016; Q9967

== ENCOUNTER 2023-03-14 09:26 | Inpatient (IN) | payer MEDICARE, SELFPAY ==
[2023-03-14] VITALS (21 sets, daily range): BP systolic 90–137; BP diastolic 48–67; PULSE 55–74; RESP 13–20; TEMP 36.4–36.7; O2SAT 96–100; BMI 19.3
--- NOTE | ~2023-03-14 | XR_ITS ---
XR chest 1V portable DATE: 03/14/2023 09:54 INDICATION: Anemia. Increased weakness today. Pacemaker. TECHNIQUE: Portable AP chest on 03/14/2023 at 0954 hours COMPARISON: 01/31/2023 AP and lateral chest FINDINGS: Left transvenous pacemaker device with leads overlying right atrium and right ventricle. Right Port-A-Cath catheter tip overlies superior vena cava. Cardiomegaly. Aortic arch calcification. There is mild patchy infiltrate or atelectasis in the lower lung zones. The lungs are hyperinflated w ith relative flattening the diaphragm, suggesting COPD. No pleural effusion or pulmonary vascular congestion or pneumothorax is detected. There is dextroscoliosis and degenerative change of the thoracic spine and lumbar levoscoliosis. Ther e is osteopenia. IMPRESSION: COPD Mild patchy infiltrate or atelectasis in the lower lung zones Reviewed, dictated and finalized at location A.
--- NOTE | ~2023-03-14 | CT_ITS ---
EXAMINATION: CT abdomen pelvis wo con DATE: 03/15/2023 14:01 INDICATION: UTI. Urinary retention. Possible obstructive uropathy. TECHNIQUE: Computed tomography (CT) of the abdomen and pelvis was performed without intravenous contr ast. The dose-length product was 289.63 mGy-cm. Automated exposure control and iterative reconstructi on technique were employed. COMPARISON: No prior studies for comparison. FINDINGS: Small pleural effusions, right greater than left. Small pericardial effusion. There is depe ndent atelectasis. Heart size is normal. There is atherosclerosis. No evidence for aneurysm. There is diffuse subcutaneous edema. Small hiatal hernia. Mild bilateral hydronephrosis. No free air. Gallbla dder is present. The liver, spleen, adrenal glands are unremarkable. There is bilateral hydronephrosi s.There is a 1.4 cm millimeters cystic mass of the pancreatic head. IMPRESSION: 1. Small pleural effusions, right greater than left. 2: Small pericardial effusion. 3: Bilateral hydronephrosis. No definite obstructing stone or mass seen. Perez catheter present in th e bladder which is decompressed. 4: Pancreatic cystic mass measuring 1.4 cm. The differential diagnosis includes pseudocyst, intraduct al papillary mucinous neoplasm (IPMN), mucinous cystic neoplasm (MCN), and the less common serous cys tadenoma and neuroendocrine tumor. Reviewed, dictated and finalized at location A. IMPRESSION: 1. Small pleural effusions, right greater than left. 2: Small pericardial effusion. 3: Bilateral hydronephrosis. No definite obstructing stone or mass seen. Perez catheter present in the bladder which is decompressed. 4: Pancreatic cystic mass measuring 1.4 cm. The differential diagnosis includes pseudocyst, intraductal papillary mucinous neoplasm (IPMN), mucinous cystic ne oplasm (MCN), and the less common serous cystadenoma and neuroendocrine tumor.
--- NOTE | 2023-03-14 09:54 | ED.GENADULT ---
HPI - General Adult General Chief complaint: Recheck/Abnormal Lab/Rx Stated complaint: anemia Time Seen by Provider: 03/14/23 09:36 Source: patient, RN notes reviewed, old records reviewed and other (SNF) Mode of arrival: wheelchair Limitations: no limitations History of Present Illness HPI narrative: Patient is an 82-year-old female sent in from the SNF due to anemia of her workup and blood work. She has recently had a right hip fracture and she is at the SNF for rehabilitation. She has no complaints at this time except for a slight cough and congestion. She has a left chest pacemaker and a right chest central port for prior heart arrhythmia. her medications do have anemia notation taking her iron supplementation. Onset (ago): unknown ( anemia) Location: lower extremity ( Recent right hip fracture) Radiation: extremity ( right hip) Severity: mild Severity scale (1-10): 2 Quality: aching Pain Consistency: intermittent Relieving factors: immobilization Exacerbating factors: movement Associated symptoms: denies other symptoms Treatments prior to arrival: none Related Data Home Medications Medication Instructions Recorded Confirmed carvedilol 25 mg tablet (Coreg) 25 mg PO BID 03/29/19 02/19/23 losartan 100 mg tablet (Cozaar) 100 mg PO DAILY 03/29/19 02/19/23 multivitamin (Daily Multi-Vitamin 1 tablet PO DAILY 03/29/19 02/19/23 tablet) ondansetron HCl 4 mg tablet 4 mg PO Q8H PRN Nausea 03/29/19 02/20/23 verapamil 240 mg tablet,extended 240 mg PO BID 03/29/19 02/20/23 release ferrous sulfate 325 mg (65 mg 325 mg PO DAILY 06/15/19 02/20/23 iron) tablet (Iron (ferrous sulfate)) aspirin 81 mg tablet,delayed 81 mg PO DAILY 05/20/20 02/20/23 release (Adult Low Dose Aspirin) omeprazole magnesium 20 mg 20 mg PO DAILY 11/05/20 02/20/23 tablet,delayed release (Prilosec OTC) cetirizine 10 mg tablet (Zyrtec) 10 mg PO DAILY 01/26/22 02/20/23 Allergies Allergy/AdvReac Type Severity Reaction Status Date / Time clams Allergy Severe Difficulty Verified 03/14/23 09:49 Breathing crab Allergy Severe Difficulty Verified 03/14/23 09:49 Breathing spironolactone Allergy Severe RASH, Verified 03/14/23 09:49 FACIAL SWELLING tramadol Allergy Severe SEVERE RASH Verified 03/14/23 09:49 Iodinated Contrast Media Allergy Intermediate DIZZY, Verified 03/14/23 09:49 HEADACHE shellfish derived Allergy Intermediate Rash Verified 03/14/23 09:49 Sulfa (Sulfonamide Allergy Intermediate Rash Verified 03/14/23 09:49 Antibiotics) amlodipine Allergy Unknown Rash Verified 03/14/23 09:49 banana Allergy Unknown Rash Verified 03/14/23 09:49 clindamycin Allergy Unknown Rash Verified 03/14/23 09:49 codeine Allergy Unknown Rash Verified 03/14/23 09:49 iodine Allergy Unknown Rash Verified 03/14/23 09:49 kiwi Allergy Unknown Rash Verified 03/14/23 09:49 latex Allergy Unknown Rash Verified 03/14/23 09:49 lisinopril AdvReac Unknown Cough Verified 03/14/23 09:49 Lobster Allergy Severe CONGESTION, Uncoded 03/14/23 09:49 DIFFICULTY BREATHING Review of Systems Review of Systems: All systems reviewed & are unremarkable except as noted in HPI and below Constitutional: Constitutional: Reports no additional constitutional complaints Eyes: Eyes: Reports no additional eye complaints ENT: Reports system reviewed and no additional complaints, except as documented Cardiovascular: Cardiovascular: Reports no additional cardiovascular complaints Respiratory: Respiratory: Reports no additional respiratory complaints Gastrointestinal: Gastrointestinal: Reports no additional gastrointestinal complaints Genitourinary: Genitourinary: Reports no additional female genitourinary complaints Musculoskeletal: Musculoskeletal: Reports no additional musculoskeletal complaints Integumentary/Breasts: Skin/Breast: Reports system reviewed and no additional complaints, except as docu Neurologic: Reports system reviewed and no addit
[2023-03-14 10:11] LABS: Basophils Absolute Auto 0.02 K/mm3 (0.00-0.10); Basophils Percent Auto 0.2 % (0.0-1.0); Eosinophils Absolute Auto 0.07 K/mm3 (0.02-0.50); Eosinophils Percent Auto 0.8 % (1.0-6.0); Hematocrit 30.3 % (35.0-42.0); Hemoglobin 9.7 g/dL (11.7-13.8); Immature Granulocyte Absolute 0.04 K/mm3 (0.00-0.00); Immature Granulocyte Percent A 0.5 % (0.0-0.0); Lymphocytes Absolute Auto 0.69 K/mm3 (1.10-4.50); Lymphocytes Percent Auto 8.3 % (18.0-42.0); Mean Corpuscular Hemoglobin 31.7 pg (27.0-31.0); Mean Platelet Volume 8.6 fl (9.2-11.8); Monocytes Absolute Auto 0.71 K/mm3 (0.10-0.90); Monocytes Percent Auto 8.6 % (2.0-11.0); Neutrophils Absolute Auto 6.8 K/mm3 (1.7-7.2); Neutrophils Percent Auto 81.6 % (50.0-70.0); Platelet Count Result 380 K/mm3 (150-420); Red Blood Count 3.06 M/mm3 (4.20-5.40); Red Cell Distribution Width 18.7 % (11.6-14.4); White Blood Count 8.3 K/mm3 (4.8-10.8)
[2023-03-14 10:24] LABS: Partial Thromboplastin Time 27.3 SEC (23.90-30.70); Prothrombin Time 11.4 Seconds (9.50-12.10)
[2023-03-14 10:26] LABS: Alanine Aminotransferase 22 U/L (14-59); Albumin Level 2.4 g/dL (3.4-5.0); Alkaline Phosphatase 104 U/L (46-116); Anion Gap 9 mmol/L (8-16); Aspartate Amino Transferase 13 U/L (15-37); Bilirubin,Total 0.4 mg/dL (0.00-1.00); Blood Urea Nitrogen 22 mg/dL (7-18); Carbon Dioxide 25 mmol/L (21-32); Chloride 97 mmol/L (98-108); Estimated CRCL calculation 33 ml/min; Estimated Glomerular Filt Rate 56; Glucose 110 mg/dL (70-99); Osmolality Calculated 276 mOsm/kg (285-295); Potassium 4.7 mmol/L (3.5-5.1); Sodium 131 mmol/L (136-145); Total Protein 5.5 g/dL (6.4-8.2)
[2023-03-14 10:33] LABS: Lactic Acid Reflex 1.9 mmol/L (0.4-2.0)
[2023-03-14 10:44] LABS: Influenza A QL RT-PCR Negative (Negative); Influenza B QL RT-PCR Negative (Negative); RSV RNA, RT-PCR Negative (Negative); SARS-CoV-2 RNA PCR Negative (Negative)
[2023-03-14] MEDS: PIPERACILLN/TAZ 3.375GM/NS50ML 3.375 GM/50 ML BAG IVPB (10:49)
--- NOTE | 2023-03-14 10:53 | PM.IMHP ---
H&P: HPI History of Present Illness Date/Time: 03/14/23 10:53 Chief Complaint: cough Narrative: This is an 82 year old female patient with history of hyponatremia, multiple myeloma with bone metastases, chronic anemia, and chronic kidney disease who [facility] since recent prolonged hospitalization. Patient was reportedly sent to the ER for blood transfusion from the [facility]. However, labs obtained in ER show normal, even improved, Hemoglobin from previous results in our records. Further workup showed evidence of pulmonary infiltrate on CXR. Patient is essentially bed confined due to lower extremity progressive loss of function starting 1 month ago. Patient had subtle right hip fracture and underwent operative repair. Postoperatively patient noted to have involuntary flexion at both knees and foot drop both legs when attempting to stand. Lumbar pathology suspected. Patient unable to get MRI due to implanted Pacemaker. Neurosurgery previously consulted on patient without plans for intervention. Today patient notes an irritating periodic cough and pain of right hip but denies any other symptoms at all. ER workup relatively benign but patient's blood pressure somewhat low on arrival to the floor without tachycardia. Patient started on aggressive IV antibiotics for healthcare acquired pneumonia by ER provider. Review of Systems Review of Systems: All systems reviewed & are unremarkable except as noted in HPI and below PMFSH Past Medical History Medical History Bone metastases Chemotherapy induced diarrhea Chronic anemia Chronic kidney disease, stage 3 Hyperparathyroidism Hyponatremia Multiple myeloma Osteoporosis Surgical History Surgical History History of bilateral cataract extraction History of permanent cardiac pacemaker placement Family History Family History Father Malignant neoplasm of prostate Acute myocardial infarction Heart disease Sibling Chronic obstructive pulmonary disease Other Family history of migraine headaches Social History Social History Social History: Surrogate medical decision maker: Shirley or Jem Boyd (daughter and son-in-law). Code status: Full code. Smoking status: Never smoker Second hand tobacco smoke exposure: Yes Alcohol intake: never Substance use: never Substance use type: does not use Lack of Transportation: No Lack of Food: Never True Current Housing: I Have Housing Concerned About Future Housing: No Difficulty Paying Gas/Electric Bills: No Difficulty Paying for Meds: No Currently Unemployed: No Education: Associate Degree Difficulty w/ Childcare or Family Care: No Living arrangements: alone Spiritual care concerns: No Meds Home Medications and Allergies Home Medications Medication Instructions Recorded Confirmed Type carvedilol 25 mg tablet (Coreg) 25 mg PO BID 03/29/19 03/14/23 History losartan 100 mg tablet (Cozaar) 100 mg PO DAILY 03/29/19 03/14/23 History multivitamin (Daily Multi-Vitamin 1 tablet PO DAILY 03/29/19 03/14/23 History tablet) ondansetron HCl 4 mg tablet 4 mg PO Q8H PRN Nausea 03/29/19 03/14/23 History verapamil 240 mg tablet,extended 240 mg PO BID 03/29/19 03/14/23 History release ferrous sulfate 325 mg (65 mg 325 mg PO DAILY 06/15/19 03/14/23 History iron) tablet (Iron (ferrous sulfate)) aspirin 81 mg tablet,delayed 81 mg PO DAILY 05/20/20 03/14/23 History release (Adult Low Dose Aspirin) omeprazole magnesium 20 mg 20 mg PO DAILY 11/05/20 03/14/23 History tablet,delayed release (Prilosec OTC) cetirizine 10 mg tablet (Zyrtec) 10 mg PO DAILY 01/26/22 03/14/23 History famotidine 20 mg tablet 20 mg PO Q12HR #0 tabs 02/27/23
[2023-03-14] MEDS: VANCOMYCIN 1,250 MG/NS 250 ML BAG 166.67 MG IVPB (11:19)
--- NOTE | 2023-03-14 12:00 | ADMGEN ---
This patient, Aurea Hussein, was admitted to 2nd Floor Room 205-1 for 23 hr obs admit, telemetry. Patient/family oriented to hospital policies and general routines including ID bracelet, bed and alarms, visiting hours, pain management, procedures, bathroom and other care routines, personal items, smoking policy, room service/diet, and visiting hours. Information on how to activate the Rapid Response Team has been discussed. Patient/Family are encouraged to report perceived risks to care and to ask questions if they do not understand what they are told or what they should do.
[2023-03-14] MEDS: AZITHROMYCIN 250 MG TABLET 500 MG PO (13:40)
[2023-03-14] MEDS: IPRATROPIUM 0.5 MG/ALBUTEROL SULFATE 2.5 MG AMPUL.NEB 3 ML INHALATION ×3 (13:41→23:21)
[2023-03-14] MEDS: GABAPENTIN 100 MG CAPSULE 200 MG PO ×2 (13:47→17:10)
[2023-03-14] MEDS: CEFEPIME 2 GM/NS 50 ML 2 GM/50 ML BAG IVPB ×2 (14:01→21:30)
--- NOTE | 2023-03-14 14:19 | PC.NURSE ---
Urine collected as per order for specimens. Pt assisted to bedpan and was able to urinate s difficulty. Noted cloudy and medicinal smelling urine.
[2023-03-14 14:37] LABS: Magnesium 2.1 mg/dL (1.8-2.4)
[2023-03-14] MEDS: LACTATED RINGERS 500 ML IV CONT (15:47)
[2023-03-14] MEDS: LACTATED RINGERS 1,000 ML 75 ML IV CONT (16:24)
[2023-03-14] MEDS: SENNA/DOCUSATE SODIUM TABLET 1 TAB PO (17:10)
[2023-03-14] MEDS: SODIUM CHLORIDE 1 GM TABLET PO (17:10)
[2023-03-14] MEDS: FUROSEMIDE 20 MG TABLET PO (17:10)
[2023-03-14] MEDS: RIVAROXABAN 10 MG TABLET PO (17:10)
[2023-03-14] MEDS: ACETAMINOPHEN 325 MG TABLET 650 MG PO (21:29)
[2023-03-14] MEDS: carvediloL 12.5 MG TABLET 25 MG PO (21:30)
[2023-03-14] MEDS: FAMOTIDINE 20 MG TABLET PO (21:30)
[2023-03-14 22:02] LABS: Add Urine Microscopic? YES; Appearance Urine Turbid (Clear); Bilirubin Urine Negative (Negative); Blood Urine 2+ (Negative); Color Urine Light Yellow (Yellow); Glucose Urine UA Negative (Negative); Ketones Urine Negative (Negative); Leukocyte Esterase Ur 3+ LEU/UL (Negative); Nitrate Urine Positive (Negative); Protein Urine Negative (Negative); Specific Grav Ur 1.015 (1.010-1.020); Urobilinogen Urine 0.2 mg/dL (0.2-1.0)
[2023-03-14 22:03] LABS: Bacteria Urine 4+ /hpf; RBC Urine >75 /hpf (0-2); WBC Clumps Urine Present /hpf; WBC Urine >100 /hpf (0-3)
[2023-03-15] VITALS (15 sets, daily range): BP systolic 116–150; BP diastolic 58–74; PULSE 70–84; RESP 16–18; TEMP 35.6–36.6; O2SAT 95–99
[2023-03-15] MEDS: IPRATROPIUM 0.5 MG/ALBUTEROL SULFATE 2.5 MG AMPUL.NEB 3 ML INHALATION ×3 (05:12→16:53)
[2023-03-15 05:15] LABS: Basophils Absolute Auto 0.03 K/mm3 (0.00-0.10); Basophils Percent Auto 0.4 % (0.0-1.0); Eosinophils Absolute Auto 0.11 K/mm3 (0.02-0.50); Eosinophils Percent Auto 1.4 % (1.0-6.0); Hemoglobin 9.1 g/dL (11.7-13.8); Immature Granulocyte Absolute 0.04 K/mm3 (0.00-0.00); Immature Granulocyte Percent A 0.5 % (0.0-0.0); Lymphocytes Absolute Auto 0.74 K/mm3 (1.10-4.50); Lymphocytes Percent Auto 9.3 % (18.0-42.0); Mean Corpuscular HGB Conc 31.4 g/dL (32.0-36.0); Mean Corpuscular Hemoglobin 31.8 pg (27.0-31.0); Mean Corpuscular Volume 101.4 fL (78.0-102.0); Mean Platelet Volume 9.1 fl (9.2-11.8); Monocytes Absolute Auto 0.68 K/mm3 (0.10-0.90); Monocytes Percent Auto 8.5 % (2.0-11.0); Neutrophils Absolute Auto 6.4 K/mm3 (1.7-7.2); Neutrophils Percent Auto 79.9 % (50.0-70.0); Platelet Count Result 301 K/mm3 (150-420); Red Blood Count 2.86 M/mm3 (4.20-5.40); Red Cell Distribution Width 18.3 % (11.6-14.4)
[2023-03-15 05:28] LABS: Albumin Level 2.3 g/dL (3.4-5.0); Anion Gap 9 mmol/L (8-16); Blood Urea Nitrogen 24 mg/dL (7-18); Calcium 9.8 mg/dL (8.5-10.1); Carbon Dioxide 24 mmol/L (21-32); Chloride 98 mmol/L (98-108); Estimated CRCL calculation 38 ml/min; Estimated Glomerular Filt Rate > 60; Glucose 94 mg/dL (70-99); Osmolality Calculated 276 mOsm/kg (285-295); Phosphorus 3.4 mg/dL (2.6-4.7); Potassium 4.4 mmol/L (3.5-5.1); Sodium 131 mmol/L (136-145)
[2023-03-15] MEDS: CEFEPIME 2 GM/NS 50 ML 2 GM/50 ML BAG IVPB ×3 (05:55→22:05)
--- NOTE | 2023-03-15 06:08 | PC.NURSE ---
Patient has an order for a sputum culture, but has been unable to produce any sputum. RT has tried twice this evening, and nursing has also attempted collection, but patient does not produce any sputum at this time.
[2023-03-15] MEDS: LACTATED RINGERS 1,000 ML 75 ML IV CONT (06:55)
--- NOTE | 2023-03-15 07:37 | PM.IMPN ---
Progress Note: A&P Assessment and Plan (1) HCAP (healthcare-associated pneumonia): Code(s): J18.9 - Pneumonia, unspecified organism Status: Acute Assessment and Plan: 03/15: Continue treatment with IV antibiotics, unable to induce sputum culture. Awaiting MRSA nasal screen and results of urine culture to deescalate antibiotics. (2) UTI (urinary tract infection): Code(s): N39.0 - Urinary tract infection, site not specified Status: Acute Assessment and Plan: 03/15: UA indicative of UTI. Urine culture pending. Will check post void residual due to history of urinary retention. Continue current antibiotics pending urine culture results. Urinary retention noted, insert Perez and await urine cultures to ensure adequate source control and proper treatment, no prior urine culture results available. (3) Urinary retention: Code(s): R33.9 - Retention of urine, unspecified Status: Acute Assessment and Plan: 999 mL on bladder scan post void residual. Perez catheter ordered to drain urine and obtain source control for UTI. Obtain CT scan to rule out obstructive uropathy -Perez output nearly 4 liters after insertion with thickened urine and milky sediment towards the end of draining. (4) Multiple myeloma: Qualifiers: Multiple myeloma remission status: in relapse Qualified Code(s): C90.02 - Multiple myeloma in relapse Code(s): C90.00 - Multiple myeloma not having achieved remission Status: Chronic Assessment and Plan: Was on chemotherapy until admitted to hospital in January 2023 (5) Chronic kidney disease, stage 3: Code(s): N18.30 - Chronic kidney disease, stage 3 unspecified Status: Chronic Assessment and Plan: Stable renal function, avoid nephrotoxins, monitor (6) Hyponatremia: Code(s): E87.1 - Hypo-osmolality and hyponatremia Status: Chronic Assessment and Plan: Previously as low as 119, is now 131 on admission, continue salt tabs per home medications. (7) Right hip pain: Code(s): M25.551 - Pain in right hip Status: Chronic Assessment and Plan: Operative repair on 02/23, surgical site open to air with few steri-strips in place. Treat with PRN pain medications as ordered. (8) Chronic anemia: Code(s): D64.9 - Anemia, unspecified Status: Chronic Assessment and Plan: Patient reportedly sent to ER for blood transfusion but HGB 9.7 on admit. Will monitor. Plan Q4H Vitals and Telemetry, Pacemaker in place but also prior history of atrial fibrillation IV and oral antibiotics for possible Healthcare Associated Pneumonia and evidence of UTI Rachell lift to chair, patient not safe to try to stand due to lower extremity dysfunction Blood pressure improved after IV fluids yesterday. Patient eating and drinking well. DC IV fluid rate. Perez catheter for urinary retention in setting of UTI. Obtain CT scan to rule out obstructive uropathy Time Spent With Patient Time with patient: Greater than 35 minutes Subjective Date/time seen: 03/15/23 07:37 Interval history: 03/14: This is an 82 year old female patient with history of hyponatremia, multiple myeloma with bone metastases, chronic anemia, and chronic kidney disease who [facility] since recent prolonged hospitalization.? Patient was reportedly [facility] to [facility].? However, labs obtained in ER show normal, even improved, Hemoglobin from previous results in our records.? Further workup showed evidence of pulmonary infiltrate on CXR.? Patient is essentially bed confined due to lower extremity progressive loss of function starting 1 month ago.? Patient had subtle right hip fracture and underwent operative repair.? Postoperatively patient noted to have involuntary flexion at both knees and foot drop both legs when attempting to stand.? Lumbar pathology suspected.? Patient shalini
[2023-03-15] MEDS: HYDROcodone/acetaminophen (*CRX) 5-325 MG TABLET 1 TAB PO (07:42)
[2023-03-15] MEDS: SODIUM CHLORIDE 1 GM TABLET PO ×2 (09:10→17:05)
[2023-03-15] MEDS: GABAPENTIN 100 MG CAPSULE 200 MG PO ×3 (09:10→17:05)
[2023-03-15] MEDS: carvediloL 12.5 MG TABLET 25 MG PO ×2 (09:10→21:18)
[2023-03-15] MEDS: MULTIVITAMINS THERAPEUTIC TAB (*BKC) 1 TABLET PO (09:11)
[2023-03-15] MEDS: LOSARTAN POTASSIUM 50 MG TABLET 100 MG PO (09:11)
[2023-03-15] MEDS: AZITHROMYCIN 250 MG TABLET 500 MG PO (09:11)
[2023-03-15] MEDS: FAMOTIDINE 20 MG TABLET PO ×2 (09:11→21:18)
[2023-03-15] MEDS: LORATADINE 10 MG TABLET PO (09:11)
[2023-03-15] MEDS: ASPIRIN 81 MG ENTERIC TABLET PO (09:11)
[2023-03-15] MEDS: SENNA/DOCUSATE SODIUM TABLET 1 TAB PO ×2 (09:11→17:05)
[2023-03-15] MEDS: FERROUS SULFATE 325 MG TABLET DR BY MOUTH (09:12)
[2023-03-15] MEDS: FUROSEMIDE 20 MG TABLET PO ×2 (09:12→17:05)
[2023-03-15] MEDS: PANTOPRAZOLE SOD SESQUIHYDRATE 20 MG TAB PO (09:12)
[2023-03-15] MEDS: polyethylene glycoL 3350 17 GM POWD.PACK PO (09:12)
[2023-03-15] MEDS: SACCHAROMYCES BOULARDII 250 MG CAPSULE PO ×3 (09:24→17:05)
--- NOTE | 2023-03-15 11:42 | PC.NURSE ---
0945 patient claims she has to void brief is damp. bed polo applied. voids only dibbles in polo. claims she is done. abd remains rock hard and distended. claims it is not tender. cont to dribble urine when cleaned up. bladder scan done and shows 999ml of urine. holli business services officer aware and briggs inserted. immediate return of dk alok urine 600ml. briggs clamped. abd still hard and cont deny pain or the feeling to void. underpad under her was saturated with urine before we could get briggs started. 1015 briggs unclamped with immediate return of 750ml urine and briggs clamped again. denies any cramping. 1035 briggs unclamped again and immediate return of 800ml urine. alok in color and glue bone crusher than before. briggs clamped again. 1100 briggs unclamped again at this time. immediate return of 700ml glue bone crusher alok urine. briggs reclamped at this time. abd is not distended and is soft. still no pain. 1130 briggs unclamped and 400ml of thick yellow/white urine returned. repositioned her and ready for lunch.
--- NOTE | 2023-03-15 11:54 | PC.NURSE ---
1001 patient changed to inpatient.
--- NOTE | 2023-03-15 13:07 | PC.NURSE ---
500ml urine in briggs bag. still cloudy milky like but not as thick.
--- NOTE | 2023-03-15 14:03 | PC.NURSE ---
400 ml of pale yellow clear urine emptied from briggs bag.
--- NOTE | 2023-03-15 17:00 | PC.NURSE ---
Pt assisted c RN help and PT eval to sitting position and placed in jorje steady to chair for dinner. She was able to assist c x2 to pulling herself up and is able to tolerate chair, legs elevated and call jordan at side, pt awaiting dinner tray.
[2023-03-15] MEDS: ACETAMINOPHEN 325 MG TABLET 650 MG PO (17:05)
[2023-03-15] MEDS: RIVAROXABAN 10 MG TABLET PO (17:05)
--- NOTE | 2023-03-15 18:23 | PC.NURSE ---
Pt remains in chair and has TV on watching [employer]. She has no c/o, call jordan at side.
[2023-03-15] MEDS: VERAPAMIL HCL ER 120 MG TABLET 240 MG PO (21:19)
[2023-03-15] MEDS: VANCOMYCIN 1,000 MG/NS 250 ML 1,000 MG/250 ML BAG 250 MG IVPB (23:08)
[2023-03-16] VITALS (12 sets, daily range): BP systolic 101–158; BP diastolic 57–76; PULSE 62–80; RESP 14–20; TEMP 35.7–36.9; O2SAT 96–100
[2023-03-16] MEDS: IPRATROPIUM 0.5 MG/ALBUTEROL SULFATE 2.5 MG AMPUL.NEB 3 ML INHALATION ×4 (00:05→19:23)
[2023-03-16 05:40] LABS: Basophils Absolute Auto 0.04 K/mm3 (0.00-0.10); Basophils Percent Auto 0.7 % (0.0-1.0); Eosinophils Percent Auto 1.7 % (1.0-6.0); Hematocrit 24.4 % (35.0-42.0); Immature Granulocyte Absolute 0.03 K/mm3 (0.00-0.00); Immature Granulocyte Percent A 0.5 % (0.0-0.0); Lymphocytes Absolute Auto 0.73 K/mm3 (1.10-4.50); Lymphocytes Percent Auto 12.7 % (18.0-42.0); Mean Corpuscular HGB Conc 32.8 g/dL (32.0-36.0); Mean Corpuscular Hemoglobin 32.3 pg (27.0-31.0); Mean Corpuscular Volume 98.4 fL (78.0-102.0); Mean Platelet Volume 8.4 fl (9.2-11.8); Monocytes Absolute Auto 0.62 K/mm3 (0.10-0.90); Monocytes Percent Auto 10.8 % (2.0-11.0); Neutrophils Absolute Auto 4.2 K/mm3 (1.7-7.2); Neutrophils Percent Auto 73.6 % (50.0-70.0); Platelet Count Result 222 K/mm3 (150-420); Red Blood Count 2.48 M/mm3 (4.20-5.40); Red Cell Distribution Width 18.1 % (11.6-14.4); White Blood Count 5.8 K/mm3 (4.8-10.8)
[2023-03-16 05:54] LABS: Albumin Level 2.1 g/dL (3.4-5.0); Anion Gap 7 mmol/L (8-16); Blood Urea Nitrogen 18 mg/dL (7-18); Calcium 9.6 mg/dL (8.5-10.1); Carbon Dioxide 26 mmol/L (21-32); Chloride 100 mmol/L (98-108); Estimated CRCL calculation 44 ml/min; Estimated Glomerular Filt Rate > 60; Glucose 93 mg/dL (70-99); Osmolality Calculated 277 mOsm/kg (285-295); Phosphorus 2.9 mg/dL (2.6-4.7); Potassium 3.8 mmol/L (3.5-5.1); Sodium 133 mmol/L (136-145)
[2023-03-16] MEDS: CEFEPIME 2 GM/NS 50 ML 2 GM/50 ML BAG IVPB ×3 (06:02→21:18)
--- NOTE | 2023-03-16 06:47 | PC.NURSE ---
Patient was sitting in the chair when the shift started. Day shift nurses indicated they moved her to the chair using the Ashwini Stedy and an assist of 2. It was very difficult to return her to the bed using the same method. Patient would be safer using the benjamin in the evening. Patient was scared she was going to fall, and very anxious during transfer and for some time after. As a result, the patient had difficulty falling asleep. Once asleep she slept well until 0500 when lab came to draw blood. Patient was needy, with difficulty finding comfortable positioning in the bed. She needed her blankets smoothed, and pillows rearranged frequently.
[2023-03-16] MEDS: HYDROcodone/acetaminophen (*CRX) 5-325 MG TABLET 1 TAB PO (07:12)
--- NOTE | 2023-03-16 08:54 | PM.IMPN ---
Progress Note: A&P Assessment and Plan (1) HCAP (healthcare-associated pneumonia): Code(s): J18.9 - Pneumonia, unspecified organism Status: Acute Assessment and Plan: 03/15: Continue treatment with IV antibiotics, unable to induce sputum culture. Awaiting MRSA nasal screen and results of urine culture to deescalate antibiotics. (2) UTI (urinary tract infection): Code(s): N39.0 - Urinary tract infection, site not specified Status: Acute Assessment and Plan: 03/15: UA indicative of UTI. Urine culture pending. Will check post void residual due to history of urinary retention. Continue current antibiotics pending urine culture results. Urinary retention noted, insert Perez and await urine cultures to ensure adequate source control and proper treatment, no prior urine culture results available. (3) Urinary retention: Code(s): R33.9 - Retention of urine, unspecified Status: Acute Assessment and Plan: 999 mL on bladder scan post void residual. Perez catheter ordered to drain urine and obtain source control for UTI. Obtain CT scan to rule out obstructive uropathy -Perez output nearly 4 liters after insertion with thickened urine and milky sediment towards the end of draining. (4) Multiple myeloma: Qualifiers: Multiple myeloma remission status: in relapse Qualified Code(s): C90.02 - Multiple myeloma in relapse Code(s): C90.00 - Multiple myeloma not having achieved remission Status: Chronic Assessment and Plan: Was on chemotherapy until admitted to hospital in January 2023 (5) Chronic kidney disease, stage 3: Code(s): N18.30 - Chronic kidney disease, stage 3 unspecified Status: Chronic Assessment and Plan: Stable renal function, avoid nephrotoxins, monitor (6) Hyponatremia: Code(s): E87.1 - Hypo-osmolality and hyponatremia Status: Chronic Assessment and Plan: Previously as low as 119, is now 131 on admission, continue salt tabs per home medications. (7) Right hip pain: Code(s): M25.551 - Pain in right hip Status: Chronic Assessment and Plan: Operative repair on 02/23, surgical site open to air with few steri-strips in place. Treat with PRN pain medications as ordered. (8) Chronic anemia: Code(s): D64.9 - Anemia, unspecified Status: Chronic Assessment and Plan: Patient reportedly sent to ER for blood transfusion but HGB 9.7 on admit. Will monitor. 03/16: HgB 8.0 with no signs of bleeding. This is patient's usual baseline findings. Plan DC Telemetry and move VS to Q8H as she is stable IV and oral antibiotics for possible Healthcare Associated Pneumonia and evidence of UTI Rachell lift to chair, patient not safe to try to stand due to lower extremity dysfunction Patient eating and drinking well. IV fluids discontinued Perez catheter for urinary retention in setting of UTI had over 3 liters out on insertion. Anticipate this remaining in place permanently. Time Spent With Patient Time with patient: Greater than 35 minutes Subjective Date/time seen: 03/16/23 08:54 Interval history: 03/14: This is an 82 year old female patient with history of hyponatremia, multiple myeloma with bone metastases, chronic anemia, and chronic kidney disease who resides at the local long-term since recent prolonged hospitalization.? Patient was reportedly sent to the ER for blood transfusion from the long-term.? However, labs obtained in ER show normal, even improved, Hemoglobin from previous results in our records.? Further workup showed evidence of pulmonary infiltrate on CXR.? Patient is essentially bed confined due to lower extremity progressive loss of function starting 1 month ago.? Patient had subtle right hip fracture and underwent operative repair.? Postoperatively patient noted to have involuntary flexion at both knees and foot drop both legs when attempting to stand.? Lumbar
[2023-03-16] MEDS: GABAPENTIN 100 MG CAPSULE 200 MG PO (09:00)
[2023-03-16] MEDS: VERAPAMIL HCL ER 120 MG TABLET 240 MG PO ×2 (09:07→20:28)
[2023-03-16] MEDS: SODIUM CHLORIDE 1 GM TABLET PO ×2 (09:07→16:41)
[2023-03-16] MEDS: FAMOTIDINE 20 MG TABLET PO ×2 (09:07→20:27)
[2023-03-16] MEDS: LOSARTAN POTASSIUM 50 MG TABLET 100 MG PO (09:07)
[2023-03-16] MEDS: SACCHAROMYCES BOULARDII 250 MG CAPSULE PO ×3 (09:08→16:41)
[2023-03-16] MEDS: FERROUS SULFATE 325 MG TABLET DR BY MOUTH (09:08)
[2023-03-16] MEDS: MULTIVITAMINS THERAPEUTIC TAB (*BKC) 1 TABLET PO (09:08)
[2023-03-16] MEDS: SENNA/DOCUSATE SODIUM TABLET 1 TAB PO ×2 (09:08→16:41)
[2023-03-16] MEDS: LORATADINE 10 MG TABLET PO (09:08)
[2023-03-16] MEDS: polyethylene glycoL 3350 17 GM POWD.PACK PO (09:08)
[2023-03-16] MEDS: ACETAMINOPHEN 325 MG TABLET 650 MG PO (09:08)
[2023-03-16] MEDS: carvediloL 12.5 MG TABLET 25 MG PO ×2 (09:09→20:28)
[2023-03-16] MEDS: PANTOPRAZOLE SOD SESQUIHYDRATE 20 MG TAB PO (09:09)
[2023-03-16] MEDS: ASPIRIN 81 MG ENTERIC TABLET PO (09:09)
[2023-03-16] MEDS: FUROSEMIDE 20 MG TABLET PO ×2 (09:10→16:41)
[2023-03-16] MEDS: AZITHROMYCIN 250 MG TABLET 500 MG PO (09:16)
[2023-03-16] MEDS: GABAPENTIN 300 MG CAPSULE PO ×2 (12:53→16:40)
[2023-03-16] MEDS: RIVAROXABAN 10 MG TABLET PO (16:41)
[2023-03-16 16:48] LABS: Pneumococcal Antigen Urine Not Detected (Not Detected)
[2023-03-17] VITALS (10 sets, daily range): BP systolic 102–149; BP diastolic 51–71; PULSE 62–78; RESP 16–18; TEMP 35.9–36.5; O2SAT 96–100
[2023-03-17] MEDS: HYDROcodone/acetaminophen (*CRX) 5-325 MG TABLET 1 TAB PO ×2 (02:45→21:02)
[2023-03-17 05:15] LABS: Basophils Absolute Auto 0.02 K/mm3 (0.00-0.10); Basophils Percent Auto 0.5 % (0.0-1.0); Eosinophils Absolute Auto 0.13 K/mm3 (0.02-0.50); Eosinophils Percent Auto 3.1 % (1.0-6.0); Hematocrit 23.4 % (35.0-42.0); Hemoglobin 7.5 g/dL (11.7-13.8); Immature Granulocyte Absolute 0.02 K/mm3 (0.00-0.00); Immature Granulocyte Percent A 0.5 % (0.0-0.0); Lymphocytes Absolute Auto 0.73 K/mm3 (1.10-4.50); Lymphocytes Percent Auto 17.2 % (18.0-42.0); Mean Corpuscular HGB Conc 32.1 g/dL (32.0-36.0); Mean Corpuscular Hemoglobin 31.9 pg (27.0-31.0); Mean Corpuscular Volume 99.6 fL (78.0-102.0); Monocytes Absolute Auto 0.55 K/mm3 (0.10-0.90); Monocytes Percent Auto 12.9 % (2.0-11.0); Neutrophils Absolute Auto 2.8 K/mm3 (1.7-7.2); Neutrophils Percent Auto 65.8 % (50.0-70.0); Platelet Count Result 219 K/mm3 (150-420); Red Blood Count 2.35 M/mm3 (4.20-5.40); Red Cell Distribution Width 18.3 % (11.6-14.4); White Blood Count 4.3 K/mm3 (4.8-10.8)
[2023-03-17 05:27] LABS: Albumin Level 1.8 g/dL (3.4-5.0); Anion Gap 4 mmol/L (8-16); Blood Urea Nitrogen 15 mg/dL (7-18); Calcium 9.1 mg/dL (8.5-10.1); Carbon Dioxide 28 mmol/L (21-32); Chloride 100 mmol/L (98-108); Estimated CRCL calculation 44 ml/min; Estimated Glomerular Filt Rate > 60; Glucose 98 mg/dL (70-99); Osmolality Calculated 274 mOsm/kg (285-295); Phosphorus 2.8 mg/dL (2.6-4.7); Sodium 132 mmol/L (136-145)
[2023-03-17] MEDS: CEFEPIME 2 GM/NS 50 ML 2 GM/50 ML BAG IVPB (05:28)
[2023-03-17] MEDS: IPRATROPIUM 0.5 MG/ALBUTEROL SULFATE 2.5 MG AMPUL.NEB 3 ML INHALATION ×3 (05:33→18:22)
--- NOTE | 2023-03-17 07:21 | PM.IMPN ---
Progress Note: A&P Assessment and Plan (1) HCAP (healthcare-associated pneumonia): Code(s): J18.9 - Pneumonia, unspecified organism Status: Acute Assessment and Plan: 03/15: Continue treatment with IV antibiotics, unable to induce sputum culture. Awaiting MRSA nasal screen and results of urine culture to deescalate antibiotics. 03/17:MRSA still pending. Continuing with PO azithromycin and IV cefepime and vancomycin. Afebrile and blood pressures are stable. (2) UTI (urinary tract infection): Code(s): N39.0 - Urinary tract infection, site not specified Status: Acute Assessment and Plan: 03/15: UA indicative of UTI. Urine culture pending. Will check post void residual due to history of urinary retention. Continue current antibiotics pending urine culture results. Urinary retention noted, insert Perez and await urine cultures to ensure adequate source control and proper treatment, no prior urine culture results available. 03/17: Urine culture was negative however given the high volume of urine retention and the report from the U/A, will complete antibiotics for UTI. (3) Urinary retention: Code(s): R33.9 - Retention of urine, unspecified Status: Acute Assessment and Plan: 999 mL on bladder scan post void residual. Perez catheter ordered to drain urine and obtain source control for UTI. Obtain CT scan to rule out obstructive uropathy -Perez output nearly 4 liters after insertion with thickened urine and milky sediment towards the end of draining. (4) Multiple myeloma: Qualifiers: Multiple myeloma remission status: in relapse Qualified Code(s): C90.02 - Multiple myeloma in relapse Code(s): C90.00 - Multiple myeloma not having achieved remission Status: Chronic Assessment and Plan: Was on chemotherapy until admitted to hospital in January 2023 (5) Chronic kidney disease, stage 3: Code(s): N18.30 - Chronic kidney disease, stage 3 unspecified Status: Chronic Assessment and Plan: Stable renal function, avoid nephrotoxins, monitor 03/17: Cr stable at 0.71/ BUN 15. (6) Hyponatremia: Code(s): E87.1 - Hypo-osmolality and hyponatremia Status: Chronic Assessment and Plan: Previously as low as 119, is now 131 on admission, continue salt tabs per home medications. 03/17: 132 (7) Right hip pain: Code(s): M25.551 - Pain in right hip Status: Chronic Assessment and Plan: Operative repair on 02/23, surgical site open to air with few steri-strips in place. Treat with PRN pain medications as ordered. (8) Chronic anemia: Code(s): D64.9 - Anemia, unspecified Status: Chronic Assessment and Plan: Patient reportedly sent to ER for blood transfusion but HGB 9.7 on admit. Will monitor. 03/16: HgB 8.0 with no signs of bleeding. This is patient's usual baseline findings. 03/17: HgB 9.7-->9.1-->8.0--->7.5 today. Blood pressures are stable, no complaints of bloody, tarry stools. Last bowel movement was 2 days ago per patient reports. Chronic anemia 2/2 CKD, multiple myeloma. Previously was on Epogen/Recrit back in January while on chemotherapy. Re-starting with Epogen 5000 units weekly today. Plan DC Telemetry and move VS to Q8H as she is stable IV and oral antibiotics for possible Healthcare Associated Pneumonia and evidence of UTI Rachell lift to chair, patient not safe to try to stand due to lower extremity dysfunction Patient eating and drinking well. IV fluids discontinued Perez catheter for urinary retention in setting of UTI had over 3 liters out on insertion. Anticipate this remaining in place permanently. Awaiting MRSA swab to de-escalate Repeat HgB in the am for possible transfusion prior to d/c. Re-starting Epogen 5000 units weekly today. Subjective Date/time seen: 03/17/23 07:21 Interval history: HPI obtained from the chart with interval hx through 03/16, This is an 82 y
[2023-03-17] MEDS: MULTIVITAMINS THERAPEUTIC TAB (*BKC) 1 TABLET PO (08:17)
[2023-03-17] MEDS: polyethylene glycoL 3350 17 GM POWD.PACK PO (08:17)
[2023-03-17] MEDS: SODIUM CHLORIDE 1 GM TABLET PO ×2 (08:17→17:30)
[2023-03-17] MEDS: FUROSEMIDE 20 MG TABLET PO ×2 (08:17→17:29)
[2023-03-17] MEDS: LOSARTAN POTASSIUM 50 MG TABLET 100 MG PO (08:18)
[2023-03-17] MEDS: carvediloL 12.5 MG TABLET 25 MG PO ×2 (08:19→21:01)
[2023-03-17] MEDS: FERROUS SULFATE 325 MG TABLET DR BY MOUTH (08:19)
[2023-03-17] MEDS: AZITHROMYCIN 250 MG TABLET 500 MG PO (08:21)
[2023-03-17] MEDS: VERAPAMIL HCL ER 120 MG TABLET 240 MG PO ×2 (08:22→21:02)
[2023-03-17] MEDS: SENNA/DOCUSATE SODIUM TABLET 1 TAB PO ×2 (08:22→17:30)
[2023-03-17] MEDS: FAMOTIDINE 20 MG TABLET PO ×2 (08:23→21:02)
[2023-03-17] MEDS: LORATADINE 10 MG TABLET PO (08:23)
[2023-03-17] MEDS: PANTOPRAZOLE SOD SESQUIHYDRATE 20 MG TAB PO (08:24)
[2023-03-17] MEDS: SACCHAROMYCES BOULARDII 250 MG CAPSULE PO ×3 (08:24→17:29)
[2023-03-17] MEDS: GABAPENTIN 300 MG CAPSULE PO ×3 (08:25→17:30)
[2023-03-17] MEDS: ASPIRIN 81 MG ENTERIC TABLET PO (08:25)
[2023-03-17] MEDS: EPOETIN ALFA-EPBX 4,000 UNITS/ML VIAL 5000 UNITS SUB-Q (08:25)
[2023-03-17 11:00] LABS: Vancomycin Trough 7.9 ug/mL (10.0-15.0)
--- NOTE | 2023-03-17 16:03 | PC.NURSE ---
Patient in bed sleeping when nurse entered room. Awakens easily. Denies pain. Repositioned for comfort, refused SCDs at this time. SR up x2. Bed alarm on. Call light and belongings within reach.
[2023-03-17] MEDS: RIVAROXABAN 10 MG TABLET PO (17:29)
--- NOTE | 2023-03-17 17:47 | PC.NURSE ---
Patient sitting up in bed feeding self supper. Perez cath intact and draining clear alok urine. Call light and belongings within reach.
[2023-03-17] MEDS: AMOXICILLIN/CLAVULANATE K 875-125 MG TAB 1 TABLET PO (21:02)
[2023-03-18] VITALS: BP 168/77; PULSE 68; RESP 16; TEMP 36.1; O2SAT 99
[2023-03-18 05:16] LABS: Hemoglobin 8.2 g/dL (11.7-13.8); Mean Corpuscular HGB Conc 31.5 g/dL (32.0-36.0); Mean Corpuscular Hemoglobin 31.3 pg (27.0-31.0); Mean Corpuscular Volume 99.2 fL (78.0-102.0); Mean Platelet Volume 9.1 fl (9.2-11.8); Platelet Count Result 264 K/mm3 (150-420); Red Blood Count 2.62 M/mm3 (4.20-5.40); Red Cell Distribution Width 17.8 % (11.6-14.4); White Blood Count 3.6 K/mm3 (4.8-10.8)
[2023-03-18 05:31] LABS: Anion Gap 6 mmol/L (8-16); Blood Urea Nitrogen 15 mg/dL (7-18); Calcium 9.6 mg/dL (8.5-10.1); Carbon Dioxide 28 mmol/L (21-32); Chloride 100 mmol/L (98-108); Estimated CRCL calculation 48 ml/min; Estimated Glomerular Filt Rate > 60; Glucose 91 mg/dL (70-99); Osmolality Calculated 278 mOsm/kg (285-295); Phosphorus 2.4 mg/dL (2.6-4.7); Sodium 134 mmol/L (136-145)
[2023-03-18 05:34] LABS: Band Neutrophils Percent 0 % (0-6); Basophils Absolute Manual 0.03 K/mm3 (0-0.1); Basophils Percent Manual 1 % (0-1); Eosinophils Percent Manual 3 % (1-6); Lymphocytes Absolute Manual 0.64 K/mm3 (1.1-4.5); Lymphocytes Percent Manual 18 % (18-44); Monocytes Absolute Manual 0.39 K/mm3 (0.1-0.90); Monocytes Percent Manual 11 % (3-9); Neutrophils Absolute Manual 2.41 K/mm3 (1.7-7.2); Neutrophils Percent Manual 67 % (46-73); Total Cells Counted 100
[2023-03-18 05:35] LABS: Platelet Estimate Adequate (Adequate)
[2023-03-18 06:02] LABS: Legionella pneumophila Ag Ur Not Detected (Not Detected)
--- NOTE | 2023-03-18 07:06 | PM.DS ---
DS: Admitting Diagnosis Discharge Date 03/18 Admitting Diagnosis cough DS: Discharge Diagnosis Discharge Diagnosis (1) HCAP (healthcare-associated pneumonia): Code(s): J18.9 - Pneumonia, unspecified organism Status: Acute Assessment and Plan: 03/15: Continue treatment with IV antibiotics, unable to induce sputum culture. Awaiting MRSA nasal screen and results of urine culture to deescalate antibiotics. 03/17:MRSA still pending. Continuing with PO azithromycin and IV cefepime and vancomycin. Afebrile and blood pressures are stable. (2) UTI (urinary tract infection): Code(s): N39.0 - Urinary tract infection, site not specified Status: Acute Assessment and Plan: 03/15: UA indicative of UTI. Urine culture pending. Will check post void residual due to history of urinary retention. Continue current antibiotics pending urine culture results. Urinary retention noted, insert Perez and await urine cultures to ensure adequate source control and proper treatment, no prior urine culture results available. 03/17: Urine culture was negative however given the high volume of urine retention and the report from the U/A, will complete antibiotics for UTI. (3) Urinary retention: Code(s): R33.9 - Retention of urine, unspecified Status: Acute Assessment and Plan: 999 mL on bladder scan post void residual. Perez catheter ordered to drain urine and obtain source control for UTI. Obtain CT scan to rule out obstructive uropathy -Perez output nearly 4 liters after insertion with thickened urine and milky sediment towards the end of draining. (4) Multiple myeloma: Qualifiers: Multiple myeloma remission status: in relapse Qualified Code(s): C90.02 - Multiple myeloma in relapse Code(s): C90.00 - Multiple myeloma not having achieved remission Status: Chronic Assessment and Plan: Was on chemotherapy until admitted to hospital in January 2023 (5) Chronic kidney disease, stage 3: Code(s): N18.30 - Chronic kidney disease, stage 3 unspecified Status: Chronic Assessment and Plan: Stable renal function, avoid nephrotoxins, monitor 03/17: Cr stable at 0.71/ BUN 15. (6) Hyponatremia: Code(s): E87.1 - Hypo-osmolality and hyponatremia Status: Chronic Assessment and Plan: Previously as low as 119, is now 131 on admission, continue salt tabs per home medications. 03/17: 132 (7) Right hip pain: Code(s): M25.551 - Pain in right hip Status: Chronic Assessment and Plan: Operative repair on 02/23, surgical site open to air with few steri-strips in place. Treat with PRN pain medications as ordered. (8) Chronic anemia: Code(s): D64.9 - Anemia, unspecified Status: Chronic Assessment and Plan: Patient reportedly sent to ER for blood transfusion but HGB 9.7 on admit. Will monitor. 03/16: HgB 8.0 with no signs of bleeding. This is patient's usual baseline findings. 03/17: HgB 9.7-->9.1-->8.0--->7.5 today. Blood pressures are stable, no complaints of bloody, tarry stools. Last bowel movement was 2 days ago per patient reports. Chronic anemia 2/2 CKD, multiple myeloma. Previously was on Epogen/Recrit back in January while on chemotherapy. Re-starting with Epogen 5000 units weekly today. (9) Peripheral neuropathy: Code(s): G62.9 - Polyneuropathy, unspecified Status: Acute Plan DC Telemetry and move VS to Q8H as she is stable IV and oral antibiotics for possible Healthcare Associated Pneumonia and evidence of UTI Rachell lift to chair, patient not safe to try to stand due to lower extremity dysfunction Patient eating and drinking well. IV fluids discontinued Perez catheter for urinary retention in setting of UTI had over 3 liters out on insertion. Anticipate this remaining in place permanently. Awaiting MRSA swab to de-escalate Repeat HgB in the am for possible transfusion prior to d/c. Re-starti
[2023-03-18 08:00] VITALS: BP 164/78; PULSE 72; RESP 16; TEMP 36.4; O2SAT 96
[2023-03-18] MEDS: SENNA/DOCUSATE SODIUM TABLET 1 TAB PO (09:03)
[2023-03-18] MEDS: AMOXICILLIN/CLAVULANATE K 875-125 MG TAB 1 TABLET PO (09:03)
[2023-03-18] MEDS: VERAPAMIL HCL ER 120 MG TABLET 240 MG PO (09:03)
[2023-03-18] MEDS: SODIUM CHLORIDE 1 GM TABLET PO (09:03)
[2023-03-18] MEDS: SACCHAROMYCES BOULARDII 250 MG CAPSULE PO (09:04)
[2023-03-18] MEDS: HYDROcodone/acetaminophen (*CRX) 5-325 MG TABLET 1 TAB PO (09:04)
[2023-03-18] MEDS: LOSARTAN POTASSIUM 50 MG TABLET 100 MG PO (09:05)
[2023-03-18] MEDS: polyethylene glycoL 3350 17 GM POWD.PACK PO (09:06)
[2023-03-18] MEDS: FUROSEMIDE 20 MG TABLET PO (09:06)
[2023-03-18] MEDS: LORATADINE 10 MG TABLET PO (09:06)
[2023-03-18] MEDS: FAMOTIDINE 20 MG TABLET PO (09:06)
[2023-03-18] MEDS: FERROUS SULFATE 325 MG TABLET DR BY MOUTH (09:06)
[2023-03-18] MEDS: carvediloL 12.5 MG TABLET 25 MG PO (09:07)
[2023-03-18] MEDS: ASPIRIN 81 MG ENTERIC TABLET PO (09:07)
[2023-03-18] MEDS: PANTOPRAZOLE SOD SESQUIHYDRATE 20 MG TAB PO (09:07)
[2023-03-18] MEDS: AZITHROMYCIN 250 MG TABLET 500 MG PO (09:07)
[2023-03-18] MEDS: GABAPENTIN 300 MG CAPSULE PO (09:07)
--- NOTE | 2023-03-18 10:49 | PC.NURSE ---
discharge back to nursing with attendent. report was given to de. briggs is alok in briggs bag.
--- NOTE | 2023-03-19 14:46 | PCPTNOTE ---
pt refused treatment this am due to increased pain and nauseous.
--- NOTE | 2023-03-23 08:26 | PC.NURSE ---
Discharged to [facility] distant, no questions or concerns from facility.
== END 2023-03-18 10:30 | DRG 194 ==
LOC: CHSED 10:57 → CHS2ND 11:05
PROVIDERS: Nurse Practitioner; Admitting Provider Internal Medicine; Emergency Provider Emergency Medicine; PCP Internal Medicine; Visit Provider Internal Medicine
DX: J18.9 Pneumonia, unspecified organism (principal); C90.00 Multiple myeloma not having achieved remission; N39.0 Urinary tract infection, site not specified; E87.1 Hypo-osmolality and hyponatremia; K52.1 Toxic gastroenteritis and colitis; N18.30 Chronic kidney disease, stage 3 unspecified; D64.9 Anemia, unspecified; E21.3 Hyperparathyroidism, unspecified; L89.300 Pressure ulcer of unspecified buttock, unstageable; M21.372 Foot drop, left foot; M21.371 Foot drop, right foot; G62.9 Polyneuropathy, unspecified; R33.9 Retention of urine, unspecified; Y95 Nosocomial condition; T45.1X5A Adverse effect of antineoplastic and immunosuppressive drugs, initial encounter; S72.001D Fracture of unspecified part of neck of right femur, subsequent encounter for closed fracture with routine healing; Z95.0 Presence of cardiac pacemaker; Z79.82 Long term (current) use of aspirin; Z74.01 Bed confinement status
CPT/HCPCS: 36415; 71045; 74176; 80053; 80069; 80202; 81001; 83605; 83735; 85025; 85610; 85730; 87040; 87081; 87086; 87449; 87637; 87899; 94640; 96361; 96365; 96366; 96367; 97110; 97162; 97530; 99285; A9270; G0378; J0692; J2543; J3370; J7120; Q5105

== ENCOUNTER 2023-08-17 07:05 | Outpatient (CLI) | payer MEDICARE, SELFPAY ==
[2023-08-17 08:33] LABS: Basophils Absolute Auto 0.04 K/mm3 (0.00-0.10); Basophils Percent Auto 0.9 % (0.0-1.0); Eosinophils Percent Auto 6.7 % (1.0-6.0); Hematocrit 20.1 % (35.0-42.0); Immature Granulocyte Absolute 0.02 K/mm3 (0.00-0.00); Immature Granulocyte Percent A 0.4 % (0.0-0.0); Lymphocytes Absolute Auto 0.97 K/mm3 (1.10-4.50); Lymphocytes Percent Auto 21.6 % (18.0-42.0); Mean Corpuscular HGB Conc 30.3 g/dL (32-36); Mean Corpuscular Hemoglobin 29.6 pg (27.0-31.0); Mean Corpuscular Volume 97.6 fL (78.0-102.0); Mean Platelet Volume 10.2 fl (9.2-11.8); Monocytes Percent Auto 11.1 % (2.0-11.0); Neutrophils Absolute Auto 2.66 K/mm3 (1.70-7.20); Neutrophils Percent Auto 59.3 % (50.0-70.0); Platelet Count Result 289 K/mm3 (150-420); Red Blood Count 2.06 M/mm3 (4.20-5.40); Red Cell Distribution Width 15.6 % (11.6-14.4); White Blood Count 4.5 K/mm3 (4.8-10.8)
[2023-08-17 08:39] LABS: Hemoglobin 6.1 g/dL (11.7-13.8)
[2023-08-17 09:05] LABS: Alanine Aminotransferase 14 U/L (14-59); Albumin Level 2.2 g/dL (3.4-5.0); Alkaline Phosphatase 81 U/L (46-116); Anion Gap 8 mmol/L (4-12); Aspartate Amino Transferase 11 U/L (15-37); Bilirubin,Total 0.2 mg/dL (0.00-1.00); Blood Urea Nitrogen 32 mg/dL (7-18); Calcium 9.6 mg/dL (8.5-10.1); Carbon Dioxide 27 mmol/L (21-32); Chloride 103 mmol/L (98-108); Estimated Glomerular Filt Rate > 60; Ferritin 91 ng/mL (8-252); Glucose 86 mg/dL (70-99); Iron 17 ug/dL (50-170); Osmolality Calculated 291 mOsm/kg (285-295); Potassium 4.6 mmol/L (3.5-5.1); Sodium 138 mmol/L (136-145); Total Protein 4.9 g/dL (6.4-8.2)
[2023-08-17 12:33] VITALS: BP 103/62; PULSE 74; RESP 16; TEMP 36.1; O2SAT 99
[2023-08-17] MEDS: SODIUM CHLORIDE 0.9% IV 250 ML 10 ML IVPB (12:58)
[2023-08-17 13:00] VITALS: BP 125/62; PULSE 76; RESP 16; TEMP 36.2; O2SAT 99
[2023-08-17 13:31] VITALS: BP 141/57; PULSE 78; RESP 18; TEMP 36.2; O2SAT 98
--- NOTE | 2023-08-17 13:35 | PC.NURSE ---
1155 Patient brought to floor per wheelchair from senior care.
--- NOTE | 2023-08-17 13:37 | PC.NURSE ---
1245 blood tranfusion started without difficulty.
--- NOTE | 2023-08-17 13:38 | PC.NURSE ---
1300 second set of vital signs completed on patient. Patient tolerating blood tranfusion well. No complaints at this time.
--- NOTE | 2023-08-17 13:38 | PC.NURSE ---
1330 blood tranfusion continues to infuse. patient tolerating well. Vital signs obtained.
[2023-08-17 14:25] VITALS: BP 109/59; PULSE 83; RESP 16; TEMP 36.7; O2SAT 98
--- NOTE | 2023-08-17 14:25 | PC.NURSE ---
Pt tolerating blood tranfusion well.
[2023-08-17 16:00] VITALS: BP 120/60; PULSE 66; RESP 14; TEMP 36.8; O2SAT 97
--- NOTE | 2023-08-17 16:27 | PC.NURSE ---
Patient sitting in wheelchair. Call light and belongings within reach. No c/o offered.
[2023-08-17 17:30] LABS: Hematocrit 26.3 % (35.0-42.0); Hemoglobin 8.2 g/dL (11.7-13.8)
--- NOTE | 2023-08-17 18:16 | PC.NURSE ---
1715 Unit of blood infusion completed. NS running into line. Patient tolerated blood infusion well. No c/o offered.
--- NOTE | 2023-08-17 18:26 | PC.NURSE ---
9339 Lab here to draw follow up Hgb and Hct. Dinner tray brought to patient. [facility] notified that patient is ready to be picked up.
--- NOTE | 2023-08-17 18:41 | PC.NURSE ---
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 Patient offered not c/o.
--- NOTE | 2023-08-18 16:39 | PC.NURSE ---
1625 IV removed from right arm. Pressure applied to site. Pressure dressing applied.Patient tolerated well.
== END 2023-08-17 07:06 | disposition home or self-care (01) ==
LOC: CHSLAB 11:34 → CHSTREATRM 11:37
PROVIDERS: PCP Internal Medicine; Visit Provider Internal Medicine
DX: D64.9 Anemia, unspecified (principal); C90.00 Multiple myeloma not having achieved remission; I10 Essential (primary) hypertension
CPT/HCPCS: 36415; 36430; 80053; 82728; 83540; 85014; 85018; 85025; 86850; 86900; 86901; 86920; J7050; P9016

== ENCOUNTER 2023-08-24 07:21 | Outpatient (CLI) | payer MEDICARE, SELFPAY ==
--- NOTE | ~2023-08-24 | US_ITS ---
EXAMINATION: US arterial ankle brachial ind DATE: 08/24/2023 08:10 INDICATION: Other specified symptoms and signs involving the circulatory system. Wound at the right f oot. TECHNIQUE: Segmental pressures and plethysmographic and Doppler waveforms of the brachial and lower e xtremity arteries were obtained. COMPARISON: None. FINDINGS: Right and left brachial artery pressures of 150 mm Hg and 146 mm Hg, respectively, are concordant (no rmal difference <= 30 mmHg). The right ankle-brachial index (BLANCHE) is 1.22 (normal >= 0.9-1.0). The right great toe-brachial index (TBI) is 0.92 (normal >= 0.65). Arterial Doppler waveforms are biphasic at the right dorsalis pedis a rtery and monophasic at the right posterior tibial artery, both with brisk systolic upstrokes. The left BLANCHE is 1.21. The left TBI is 0.85. Arterial Doppler waveforms are biphasic at the left dorsa lis pedis artery and monophasic at the left posterior tibial artery, both with brisk systolic upstrok es. IMPRESSION: 1. No significant arterial occlusive disease to either lower limb with normal bilateral ABIs and TBIs . Reviewed, dictated and finalized at location B. IMPRESSION: 1. No significant arterial occlusive disease to either lower limb with normal b ilateral ABIs and TBIs.
== END 2023-08-24 07:22 | disposition home or self-care (01) ==
PROVIDERS: PCP Internal Medicine
DX: G62.9 Polyneuropathy, unspecified (principal); R09.89 Other specified symptoms and signs involving the circulatory and respiratory systems
CPT/HCPCS: 93922

== ENCOUNTER 2023-08-31 10:28 | Inpatient (IN) | payer MEDICARE, SELFPAY ==
[2023-08-31] VITALS (59 sets, daily range): BP systolic 67–106; BP diastolic 35–56; PULSE 60–72; RESP 11–24; TEMP 36.3–36.9; O2SAT 90–100; BMI 15.6
--- NOTE | ~2023-08-31 | CT_ITS ---
EXAMINATION: CT BRAIN W/O DATE: 08/31/2023 11:53 INDICATION: Altered mental status. Lethargy. TECHNIQUE: Computed tomography (CT) of the head was performed without intravenous contrast. The dose- length product was 605.33 mGy-cm. Automated exposure control and iterative reconstruction technique w ere employed. COMPARISON: CT dated 01/31/2023 FINDINGS: Generalized atrophy. There are scattered severe periventricular and subcortical white matte r changes, most likely related to small vessel ischemic disease (microangiopathy). No ventriculomegaly or midline shift. Midline sagittal images demonstrate a normal corpus callosum, c raniovertebral junction and sella turcica. Basilar cisterns are patent. Paranasal sinuses and mastoids are pneumatized. No depressed skull fractures. IMPRESSION: 1. No acute intracranial abnormality. 2: Chronic age-related findings. Reviewed, dictated and finalized at location B.
--- NOTE | ~2023-08-31 | XR_ITS ---
Portable chest x-ray Comparison: 1029.3 Clinical History: Sepsis Findings: Right-sided Mediport unchanged. Lungs are clear, without definite consolidation or pleural effusion. Cardiomediastinal silhouette is stable, with pacemaker device. Bones and soft tissues are unremarkable. Impression: No definite pulmonary abnormality seen. Pacemaker device and Mediport. Reviewed, dictated and finalized at [facility]. Impression: No definite pulmonary abnormality seen. Pacemaker device and Mediport.
--- NOTE | ~2023-08-31 | CT_ITS ---
EXAMINATION: CT abdomen pelvis wo con DATE: 08/31/2023 11:54 INDICATION: Generalized abdominal pain and hematuria TECHNIQUE: Computed tomography (CT) of the abdomen and pelvis was performed without intravenous contr ast. Automated exposure control and iterative reconstruction technique were employed. The dose-length product was 267.87 mGy-cm. COMPARISON: 03/15/2023 FINDINGS: Very small bilateral pleural effusions with dependent atelectasis in the bilateral lower lobes. Elong ated somewhat nodular opacity in the dependent right middle lobe most likely atelectasis and/or mucou s impacted bronchus. Mild cardiomegaly. Dual-lead cardiac pacemaker with lead tips at the right atriu m and right ventricle. No pericardial effusion. Liver, spleen and bilateral adrenal glands are normal . Gallbladder is mildly dilated to 4.6 similar but without abnormal wall thickening or pericholecysti c infiltrate stranding to suggest acute cholecystitis. 1.7 x 1.4 cm cystic lesion at the neck of the pancreas. Kidneys are normal with no nephrolithiasis or hydronephrosis. No evident stones along the e xpected course of the ureters. Bladder is decompressed with a Perez catheter in place. Small calcifie d uterine fibroid. Linear densities suggesting a suture line at the region of the left adnexa. Correl ate for history of possible left oophorectomy. The appendix is not visualized. No pericecal inflammat ory change to suggest acute appendicitis. No bowel obstruction. There is diffuse mesenteric and body wall edema. No free intraperitoneal gas or fluid. No pathologically enlarged abdominal or pelvic lymp hadenopathy. Lumbar levoscoliosis with severe spondylosis. Leg screw fixation at the right femoral he ad and neck. IMPRESSION: 1. No nephrolithiasis or hydronephrosis. 2. Small bilateral pleural effusions with diffuse mesenteric and body wall edema. 3. Elongated somewhat nodular opacity in the dependent right middle lobe most likely atelectasis and/ or mucous impacted bronchus but would recommend 3 month follow-up low-dose noncontrast chest CT. 4. Calcified uterine fibroid. 5. No significant change in a nonspecific 1.7 cm cystic pancreatic mass. The differential diagnosis i ncludes pseudocyst, intraductal papillary mucinous neoplasm (IPMN), mucinous cystic neoplasm (MCN), a nd the less common serous cystadenoma and neuroendocrine tumor. Correlate for history of pancreatitis . Reviewed, dictated and finalized at location A. IMPRESSION: 1. No nephrolithiasis or hydronephrosis. 2. Small bilateral pleural effusions with diffuse mesenteric and body wall dominique a. 3. Elongated somewhat nodular opacity in the dependent right middle lobe most l ikely atelectasis and/or mucous impacted bronchus but would recommend 3 month f ollow-up low-dose noncontrast chest CT. 4. Calcified uterine fibroid. 5. No significant change in a nonspecific 1.7 cm cystic pancreatic mass. The di fferential diagnosis includes pseudocyst, intraductal papillary mucinous neopla sm (IPMN), mucinous cystic neoplasm (MCN), and the less common serous cystadeno ma and neuroendocrine tumor. Correlate for history of pancreatitis.
[2023-08-31] MEDS: SODIUM CHLORIDE 0.9% IV 1,000 ML 999 ML IV CONT ×2 (10:35→11:10)
--- NOTE | 2023-08-31 10:35 | ECG_ITS ---
SEE SCANNED COPY FOR CONFIRMED REPORT MTDD
--- NOTE | 2023-08-31 10:39 | ED.GENADULT ---
HPI - General Adult General Chief complaint: Altered Mental Status Stated complaint: ALTERED MENTAL STATUS/WEAKNESS Time Seen by Provider: 08/31/23 10:34 History of Present Illness HPI narrative: Patient is an 83-year-old female with history of hyponatremia, multiple myeloma with bone metastasis, chronic anemia, CKD, here from senior care across the street with altered mental status. Patient was reportedly her normal self yesterday. She is reportedly bedridden at baseline but can hold conversations and is reportedly awake and oriented x4. Today they noted she was less altered than this and checked her blood pressure and it was 70s/40s and called EMS. She is reportedly full code. They deny recent cough, congestion, fever. She does have an indwelling Perez catheter. Patient states she feels okay and denies any pain at this time. S EMS transport noted BP of 60s/30s and no interventions performed en route. Related Data Home Medications Medication Instructions Recorded Confirmed carvedilol 25 mg tablet (Coreg) 12.5 mg PO BID 03/29/19 08/31/23 losartan 100 mg tablet (Cozaar) 100 mg PO DAILY 03/29/19 08/31/23 multivitamin (Daily Multi-Vitamin 1 tablet PO DAILY 03/29/19 08/31/23 tablet) ondansetron HCl 4 mg tablet 4 mg PO Q8H PRN Nausea 03/29/19 08/31/23 verapamil 240 mg tablet,extended 240 mg PO BID 03/29/19 08/31/23 release ferrous sulfate 325 mg (65 mg 325 mg PO DAILY 06/15/19 08/31/23 iron) tablet (Iron (ferrous sulfate)) aspirin 81 mg tablet,delayed 81 mg PO DAILY 05/20/20 08/31/23 release (Adult Low Dose Aspirin) omeprazole magnesium 20 mg 20 mg PO DAILY 11/05/20 08/31/23 tablet,delayed release (Prilosec OTC) cetirizine 10 mg tablet (Zyrtec) 10 mg PO DAILY 01/26/22 08/31/23 ascorbic acid (vitamin C) 500 mg DAILY 08/17/23 08/31/23 Allergies Allergy/AdvReac Type Severity Reaction Status Date / Time clams Allergy Severe Difficulty Verified 08/31/23 11:20 Breathing crab Allergy Severe Difficulty Verified 08/31/23 18:26 Breathing spironolactone Allergy Severe RASH, Verified 08/31/23 11:20 FACIAL SWELLING tramadol Allergy Severe SEVERE RASH Verified 08/31/23 11:20 Iodinated Contrast Media Allergy Intermediate DIZZY, Verified 08/31/23 11:20 HEADACHE shellfish derived Allergy Intermediate Rash Verified 08/31/23 11:20 Sulfa (Sulfonamide Allergy Intermediate Rash Verified 08/31/23 11:20 Antibiotics) amlodipine Allergy Unknown Rash Verified 08/31/23 11:20 banana Allergy Unknown Rash Verified 08/31/23 11:20 clindamycin Allergy Unknown Rash Verified 08/31/23 11:20 codeine Allergy Unknown Rash Verified 08/31/23 11:20 iodine Allergy Unknown Rash Verified 08/31/23 11:20 kiwi Allergy Unknown Rash Verified 08/31/23 11:20 latex Allergy Unknown Rash Verified 08/31/23 11:20 lisinopril AdvReac Unknown Cough Verified 08/31/23 11:20 Lobster Allergy Severe CONGESTION, Uncoded 03/14/23 09:49 DIFFICULTY BREATHING Review of Systems Review of Systems: ROS unobtainable: Yes unobtainable due to mental status PMFSH Past Medical History Medical History Bone metastases Chemotherapy induced diarrhea Chronic anemia Chronic kidney disease, stage 3 Hyperparathyroidism Hyponatremia Multiple myeloma Osteoporosis Surgical History Surgical History History of bilateral cataract extraction History of permanent cardiac pacemaker placement Family History Family History Father Malignant neoplasm of prostate Acute myocardial infarction Heart disease Sibling Chronic obstructive pulmonary disease Other Family history of migraine headaches Social History Social History Social History: Surrogate medical decision maker: Shirley or Jem Boyd (daughter and son-in
[2023-08-31 11:13] LABS: Mean Corpuscular HGB Conc 31.7 g/dL (32-36); Mean Corpuscular Hemoglobin 29.5 pg (27.0-31.0); Mean Corpuscular Volume 93.3 fL (78.0-102.0); Mean Platelet Volume 10.2 fl (9.2-11.8); Platelet Count Result 181 K/mm3 (150-420); Red Blood Count 1.93 M/mm3 (4.20-5.40); Red Cell Distribution Width 14.6 % (11.6-14.4); White Blood Count 12.9 K/mm3 (4.8-10.8)
[2023-08-31 11:18] LABS: Hemoglobin 5.7 g/dL (11.7-13.8)
[2023-08-31 11:24] LABS: SARS-CoV-2 RNA PCR Negative (Negative)
[2023-08-31 11:29] LABS: INR 1.3; Partial Thromboplastin Time 32.6 Sec (23.9-30.70); Prothrombin Time 14.3 Seconds (9.50-12.1)
[2023-08-31 11:29] LABS: Influenza A QL RT-PCR Negative (Negative); Influenza B QL RT-PCR Negative (Negative); RSV RNA, RT-PCR Negative (Negative)
[2023-08-31 11:32] LABS: Alanine Aminotransferase 19 U/L (14-59); Albumin Level 1.8 g/dL (3.4-5.0); Alkaline Phosphatase 108 U/L (46-116); Anion Gap 12 mmol/L (4-12); Aspartate Amino Transferase 22 U/L (15-37); Bilirubin,Total 0.2 mg/dL (0.00-1.00); Blood Urea Nitrogen 52 mg/dL (7-18); Calcium 8.8 mg/dL (8.5-10.1); Carbon Dioxide 22 mmol/L (21-32); Chloride 98 mmol/L (98-108); Estimated Glomerular Filt Rate 29; Glucose 138 mg/dL (70-99); Lactic Acid Reflex 4.3 mmol/L (0.4-2.0); Osmolality Calculated 290 mOsm/kg (285-295); Potassium 4.1 mmol/L (3.5-5.1); Sodium 132 mmol/L (136-145); Total Protein 4.8 g/dL (6.4-8.2); Troponin I 31.9 ng/L (0.00-60.4)
[2023-08-31 11:35] LABS: CRP 18.8 mg/dL (0.0-0.9)
[2023-08-31 11:36] LABS: Appearance Urine Cloudy (Clear); Bilirubin Urine Negative (Negative); Blood Urine 4+ (Negative); Color Urine Light Red (Yellow); Creatine Kinase 304 U/L (26-192); Glucose Urine UA Negative (Negative); Ketones Urine Negative (Negative); Magnesium 1.7 mg/dL (1.8-2.4); Nitrate Urine Negative (Negative); Protein Urine 2+ (Negative); Specific Grav Ur 1.015 (1.010-1.020)
[2023-08-31 11:37] LABS: Add Urine Microscopic? YES; Leukocyte Esterase Ur 3+ LEU/UL (Negative); Urobilinogen Urine 0.2 mg/dL (0.2-1.0)
[2023-08-31 11:39] LABS: WBC Urine >75 /hpf (0-3)
[2023-08-31 11:40] LABS: Bacteria Urine 3+ /hpf; Squamous Epithelial Cell Urine Rare /hpf (Few)
[2023-08-31 11:45] LABS: Band Neutrophils Percent 2 % (0-6); Lymphocytes Absolute Manual 0.38 K/mm3 (1.1-4.5); Lymphocytes Percent Manual 3 % (18-44); Metamyelocytes Percent 4 %; Monocytes Absolute Manual 0.38 K/mm3 (0.1-0.90); Monocytes Percent Manual 3 % (3-9); Neutrophils Absolute Manual 11.61 K/mm3 (1.7-7.2); Neutrophils Percent Manual 88 % (46-73); Platelet Estimate Adequate (Adequate); Total Cells Counted 100
[2023-08-31] MEDS: CEFEPIME 2 GM/NS 50 ML 2 GM/50 ML BAG IVPB (12:00)
[2023-08-31] MEDS: VANCOMYCIN 1,250 MG/NS 250 ML 1,250 MG/250 ML BAG 166.67 MG IVPB (12:34)
[2023-08-31 12:46] LABS: Lipase 19 U/L (16-77)
[2023-08-31 13:35] LABS: Occult Blood Negative (Negative)
[2023-08-31 13:59] LABS: Hematocrit 26.1 % (35.0-42.0); Hemoglobin 8.1 g/dL (11.7-13.8)
[2023-08-31] MEDS: SODIUM CHLORIDE 0.9% IV 250 ML 30 ML IV CONT (14:00)
[2023-08-31 14:04] LABS: Reflex Lactic Acid Yes or No Add Lactic
[2023-08-31 14:20] LABS: Lactic Acid 2.2 mmol/L (0.4-2.0)
[2023-08-31] MEDS: PANTOPRAZOLE SODIUM IV 40 MG VIAL IV PUSH (14:30)
--- NOTE | 2023-08-31 15:45 | ADMGEN ---
This patient, Aurea Hussein, was admitted to 2nd Floor Room 209-1. Patient/family oriented to hospital policies and general routines including ID bracelet, bed and alarms, visiting hours, pain management, procedures, bathroom and other care routines, personal items, smoking policy, room service/diet, and visiting hours. Family has met with venice to discuss comfort care/DNR paperwork. Information on how to activate the Rapid Response Team has been discussed. Patient/Family are encouraged to report perceived risks to care and to ask questions if they do not understand what they are told or what they should do.
[2023-08-31] MEDS: SODIUM CHLORIDE 1 GM TABLET PO (17:35)
[2023-09-01] VITALS: BP 108/47; PULSE 70; RESP 18; TEMP 36.8; O2SAT 95
--- NOTE | 2023-09-01 | PC.NURSE ---
Pt resting comfortably but awakens to verbal. Pt is A&O x2 at present. Pt denies any c/o at this time. Lights dimmed, call jordan in pt reach.
--- NOTE | 2023-09-01 02:24 | PC.NURSE ---
Pt cleaned and changed of incontinent stool. Soft BM in diaper. Pt c/o some Lt hip pain and discomfort c rolling and turning. Pt given Tylenol as per order for pain. Soft heel protectors applied and legs/feet elevated off bed.
[2023-09-01] MEDS: ACETAMINOPHEN 325 MG TABLET 650 MG PO ×2 (02:30→14:31)
[2023-09-01 05:07] LABS: Basophils Absolute Auto 0.03 K/mm3 (0.00-0.10); Basophils Percent Auto 0.3 % (0.0-1.0); Eosinophils Absolute Auto 0.05 K/mm3 (0.02-0.50); Eosinophils Percent Auto 0.5 % (1.0-6.0); Hematocrit 32.4 % (35.0-42.0); Hemoglobin 10.5 g/dL (11.7-13.8); Immature Granulocyte Absolute 0.08 K/mm3 (0.00-0.00); Immature Granulocyte Percent A 0.7 % (0.0-0.0); Lymphocytes Absolute Auto 0.38 K/mm3 (1.10-4.50); Lymphocytes Percent Auto 3.5 % (18.0-42.0); Mean Corpuscular HGB Conc 32.4 g/dL (32-36); Mean Corpuscular Hemoglobin 29.2 pg (27.0-31.0); Mean Platelet Volume 9.7 fl (9.2-11.8); Monocytes Absolute Auto 0.82 K/mm3 (0.10-0.90); Monocytes Percent Auto 7.6 % (2.0-11.0); Neutrophils Percent Auto 87.4 % (50.0-70.0); Platelet Count Result 206 K/mm3 (150-420); Red Cell Distribution Width 15.3 % (11.6-14.4); White Blood Count 10.8 K/mm3 (4.8-10.8)
[2023-09-01 05:19] LABS: Anion Gap 7 mmol/L (4-12); Blood Urea Nitrogen 43 mg/dL (7-18); Calcium 8.8 mg/dL (8.5-10.1); Carbon Dioxide 25 mmol/L (21-32); Chloride 104 mmol/L (98-108); Estimated CRCL calculation 27 ml/min; Estimated Glomerular Filt Rate 49; Glucose 101 mg/dL (70-99); Osmolality Calculated 292 mOsm/kg (285-295); Potassium 3.8 mmol/L (3.5-5.1); Sodium 136 mmol/L (136-145)
[2023-09-01 08:00] VITALS: BP 121/61; PULSE 76; RESP 14; TEMP 36.6; O2SAT 98
--- NOTE | 2023-09-01 08:21 | PM.IMHP ---
H&P: HPI History of Present Illness Date/Time: 09/01/23 08:21 Chief Complaint: Anemic, hypotensive, dehydrated , acute on chronic kidney disease Narrative: This is an 83 year old female patient with history of hyponatremia, multiple myeloma with bone metastases, chronic anemia, and chronic kidney disease who resides at the local senior living since recent prolonged hospitalization.? Patient was reportedly sent to the ER due to hypotension senior living gave all of patient blood pressure medication and checked patient blood pressure afterwards and she was 67/40 upon arrival patient hgb 5 and required 2 units of blood transfusion.? Patient has a urinary tract infection and cultures pending. Patient has had 2 positive blood cultures and we will treat with IV antibiotics she negative bacilli patient is on Vanco, cefipime we will wait for urine cultures to determine if we keep the vancomycin or not. Patient is essentially bed confined due to lower extremity progressive loss of function .Patient is alert and orientated today and she is eating and her blood pressure remains stable. Patient will be treated with IV antibiotic for a couple of day and then we will convert her to oral prior to sending her back to the senior living. Hospice has been consulted and will see if they will accept. Review of Systems Review of Systems: hypotension , anemia, weakness All systems reviewed & are unremarkable except as noted in HPI and below PMFSH Past Medical History Medical History Bone metastases Chemotherapy induced diarrhea Chronic anemia Chronic kidney disease, stage 3 Hyperparathyroidism Hyponatremia Multiple myeloma Osteoporosis Surgical History Surgical History History of bilateral cataract extraction History of permanent cardiac pacemaker placement Family History Family History Father Malignant neoplasm of prostate Acute myocardial infarction Heart disease Sibling Chronic obstructive pulmonary disease Other Family history of migraine headaches Social History Social History Social History: Surrogate medical decision maker: Shirley or Jem Boyd (daughter and son-in-law). Code status: Full code. Smoking status: Never smoker Second hand tobacco smoke exposure: Yes Alcohol intake: never Substance use: never Substance use type: does not use Lack of Transportation: No Lack of Food: Never True Current Housing: I Have Housing Concerned About Future Housing: No Difficulty Paying Gas/Electric Bills: No Difficulty Paying for Meds: No Currently Unemployed: No Education: Associate Degree Difficulty w/ Childcare or Family Care: No Living arrangements: alone Spiritual care concerns: No Meds Home Medications and Allergies Home Medications Medication Instructions Recorded Confirmed Type carvedilol 25 mg tablet (Coreg) 12.5 mg PO BID 03/29/19 08/31/23 History losartan 100 mg tablet (Cozaar) 100 mg PO DAILY 03/29/19 08/31/23 History multivitamin (Daily Multi-Vitamin 1 tablet PO DAILY 03/29/19 08/31/23 History tablet) ondansetron HCl 4 mg tablet 4 mg PO Q8H PRN Nausea 03/29/19 08/31/23 History verapamil 240 mg tablet,extended 240 mg PO BID 03/29/19 08/31/23 History release ferrous sulfate 325 mg (65 mg 325 mg PO DAILY 06/15/19 08/31/23 History iron) tablet (Iron (ferrous sulfate)) aspirin 81 mg tablet,delayed 81 mg PO DAILY 05/20/20 08/31/23 History release (Adult Low Dose Aspirin) omeprazole magnesium 20 mg 20 mg PO DAILY 11/05/20 08/31/23 History tablet,delayed release (Prilosec OTC) cetirizine 10 mg tablet (Zyrtec) 10 mg PO DAILY 01/26/22 08/31/23 History famotidine 20 mg tablet 20 mg PO Q12HR #0 tabs 02/27/23 08/31/23 Rx furosemide 20 mg tabl
[2023-09-01] MEDS: ASPIRIN 81 MG ENTERIC TABLET PO (09:05)
[2023-09-01] MEDS: PANTOPRAZOLE SODIUM IV 40 MG VIAL IV PUSH (09:05)
[2023-09-01] MEDS: SODIUM CHLORIDE 1 GM TABLET PO ×2 (09:05→16:09)
[2023-09-01] MEDS: CEFEPIME 1 GM/NS 50 ML 1 GM/50 ML BAG IVPB ×2 (09:06→20:46)
[2023-09-01 16:00] VITALS: BP 138/76; PULSE 77; RESP 16; TEMP 37.7; O2SAT 98
[2023-09-01] MEDS: CYCLOBENZAPRINE HCL 5 MG TABLET PO (16:09)
[2023-09-02] VITALS: BP 147/84; PULSE 80; RESP 18; TEMP 36.1; O2SAT 97
[2023-09-02 05:19] LABS: Hematocrit 36.1 % (35.0-42.0); Hemoglobin 11.7 g/dL (11.7-13.8); Mean Corpuscular HGB Conc 32.4 g/dL (32-36); Mean Corpuscular Volume 89.4 fL (78.0-102.0); Mean Platelet Volume 9.9 fl (9.2-11.8); Platelet Count Result 214 K/mm3 (150-420); Red Blood Count 4.04 M/mm3 (4.20-5.40); Red Cell Distribution Width 15.1 % (11.6-14.4); White Blood Count 8.8 K/mm3 (4.8-10.8)
[2023-09-02 05:31] LABS: Anion Gap 8 mmol/L (4-12); Blood Urea Nitrogen 26 mg/dL (7-18); Calcium 8.5 mg/dL (8.5-10.1); Carbon Dioxide 25 mmol/L (21-32); Chloride 102 mmol/L (98-108); Estimated CRCL calculation 36 ml/min; Estimated Glomerular Filt Rate > 60; Glucose 94 mg/dL (70-99); Osmolality Calculated 284 mOsm/kg (285-295); Potassium 3.6 mmol/L (3.5-5.1); Sodium 135 mmol/L (136-145)
--- NOTE | 2023-09-02 07:51 | PM.IMPN ---
Progress Note: A&P Assessment and Plan (1) Acute UTI: Code(s): N39.0 - Urinary tract infection, site not specified Status: Acute Assessment and Plan: Vancomycin , Cefipime awaiting urine cultures (2) Acute hypotension: Code(s): I95.9 - Hypotension, unspecified Status: Acute Assessment and Plan: Hold blood pressure medication (3) Generalized weakness: Code(s): R53.1 - Weakness Status: Acute (4) Anemia: Code(s): D64.9 - Anemia, unspecified Status: Acute Assessment and Plan: 2 units of blood given we will check daily labs we will recheck HH @1400 if below 8 we will transfuse one unit today Patient will discharge in the morning on hospice Plan Negative bacilli in blood we will treat with IV antibioitcs and then convert to oral antibiotics Subjective Date/time seen: 09/02/23 07:51 Interval history: Patient hgb is 8 today and she is awake although she is not short of breath and her blood pressure is up at this time. Patient will not be restarted on all of her blood pressure medication . We may just start one back but at this time we will continue to monitor. Patient is complaining that her hip hurt and would like something for pain. nurse informed. Review of Systems Review of Systems: All systems reviewed & are unremarkable except as noted in HPI and below Exam Narrative: GENERAL: Cachectic, chronically ill-appearing, HEAD: Normocephalic, atraumatic. EYES: PERRLA and EOMI. ENT: Nares clear. Mucous membranes dry. NECK: Supple. CHEST: Clear to auscultation. No respiratory distress. HEART: Regular rate and rhythm. Normal peripheral pulses. ABDOMEN: Soft, nontender, nondistended. EXTREMITIES: Normal range of motion. No edema. SKIN: Warm, dry, no rash. NEURO: No focal deficits. Alert and oriented x1 Const: General: comfortable and no acute distress Eyes: General: appearance normal, both eyes and all related structures Pupils: Equal, round and reactive pupils present Resp: Effort & Inspection: normal respiratory effort Cardio: Rate: regular rate Urinary Catheter: Urinary Catheter: patent and draining and urine clear Skin: General skin exam: normal color and no rashes or lesions noted Neuro: General: gait normal Cranial nerves: Yes Equal, round and reactive pupils present Speech: normal speech Extrem: General: normal to inspection Psych: Mental Status: mental status grossly normal Affect: normal affect Objective Data Vital Signs Vital Signs: Vital Signs - 24 hr 09/01/23 08:00 09/01/23 16:00 09/01/23 20:00 Temperature 97.8 F 99.8 F H Pulse Rate 76 77 Respiratory Rate 14 16 Blood Pressure 121/61 138/76 Pulse Oximetry 98 98 Oxygen Delivery Room Air Room Air Room Air 09/02/23 00:00 Temperature 97 F L Pulse Rate 80 Respiratory Rate 18 Blood Pressure 147/84 H Pulse Oximetry 97 Oxygen Delivery Room Air Intake/Output Intake/Output: Intake & Output 08/30/23 08/31/23 09/01/23 09/02/23 23:59 23:59 23:59 23:59 Intake Total 3740 1470 250 Output Total 350 1050 650 Balance 3390 420 -400 Meds/Results Medications: Active Medications Generic Name Dose Route Start Last Admin Trade Name Freq PRN Reason Stop Dose Admin Acetaminophen 650 mg 08/31/23 14:44 09/01/23 14:31 Acetaminophen 325 Mg Tablet PO 650 mg Q4H PRN Administration Mild Pain (1-3) or Fever Aspirin 81 mg 09/01/23 09:00 09/01/23 09:05 Aspirin 81 Mg Enteric Tablet PO 81 mg DAILY MARI Administration Cyclobenzaprine HCl 5 mg 09/01/23 15:50 09/01/23 16:09 Cyclobenzaprine Hcl 5 Mg Tablet PO 5 mg Q12H PRN Administration Muscle Spasm Cefepime HCl 1 gm in 50 mls @ 100 mls/hr 09/01/23 09:00 09/01/23 21:16 Maxipime 1 Gm/Ns 50 Ml IVPB Infused Q12HR MARI Infusion Ibuprofen 600 mg 09/01/23 15:50 Ibuprofen 600 Mg Tablet PO Q6H PRN Cramping Ondansetron HCl 4 mg 08/15
[2023-09-02 08:00] VITALS: BP 146/58; PULSE 64; RESP 18; TEMP 36.6; O2SAT 96
[2023-09-02] MEDS: PANTOPRAZOLE SODIUM IV 40 MG VIAL IV PUSH (08:50)
[2023-09-02] MEDS: CYCLOBENZAPRINE HCL 5 MG TABLET PO (08:50)
[2023-09-02] MEDS: CEFEPIME 1 GM/NS 50 ML 1 GM/50 ML BAG IVPB ×2 (08:50→20:33)
[2023-09-02] MEDS: ASPIRIN 81 MG ENTERIC TABLET PO (08:50)
[2023-09-02] MEDS: SODIUM CHLORIDE 1 GM TABLET PO ×2 (08:50→17:56)
[2023-09-02 13:59] LABS: Hematocrit 36.9 % (35.0-42.0)
[2023-09-02 16:00] VITALS: BP 134/74; PULSE 78; RESP 18; TEMP 36.1; O2SAT 95
[2023-09-03] VITALS: BP 157/59; PULSE 76; RESP 16; TEMP 36.6; O2SAT 98
--- NOTE | 2023-09-03 07:58 | PM.DS ---
DS: Admitting Diagnosis Discharge Date 09/26/2023 Admitting Diagnosis hypotension , UtI, Anemia DS: Discharge Diagnosis Discharge Diagnosis (1) Acute UTI: Code(s): N39.0 - Urinary tract infection, site not specified Status: Acute Assessment and Plan: Vancomycin , Cefipime awaiting urine cultures (2) Acute hypotension: Code(s): I95.9 - Hypotension, unspecified Status: Acute Assessment and Plan: Hold blood pressure medication (3) Generalized weakness: Code(s): R53.1 - Weakness Status: Acute (4) Anemia: Code(s): D64.9 - Anemia, unspecified Status: Acute Assessment and Plan: 2 units of blood given we will check daily labs we will recheck HH @1400 if below 8 we will transfuse one unit today Patient will discharge in the morning on hospice Plan Negative bacilli in blood we will treat with IV antibioitcs and then convert to oral antibiotics DS: Summary Hospital Course Reason for hospitalization: Hypotension, weaklness, unresponsive Hospital Course: Patient is 83 year old who was admitted to the hospital with hypotension . Patient blood pressure has improved greatly due to we held all of her blood pressure medication and she has been stable. Patient received IV antibiotic for positive blood cultures and it is showing E coli. Patient is alert and feeding herself she is having pain. She has continued to remain afebrile and she is more active. Patient is ready to go back to the senior living where she is going to be on [facility]. Patient is having hip pain and prn medication . Time Spent with Patient Time attestation: Total time spent providing and/or coordinating discharge services: Exam Narrative: GENERAL: Cachectic, chronically ill-appearing, HEAD: Normocephalic, atraumatic. EYES: PERRLA and EOMI. ENT: Nares clear. Mucous membranes dry. NECK: Supple. CHEST: Clear to auscultation. No respiratory distress. HEART: Regular rate and rhythm. Normal peripheral pulses. ABDOMEN: Soft, nontender, nondistended. EXTREMITIES: Normal range of motion. No edema. SKIN: Warm, dry, no rash. NEURO: No focal deficits. Alert and oriented x1 DS: Data Data Completed and Pending Labs on day of discharge: Labs from last 24 hours 09/02/23 13:55 Hgb 12.0 Hct 36.9 Additional Comments Additional comments: Patient will go home on hospice and she will also be on cipro due to E coli of the blood. Discharge Plan Discharge Attending physician on discharge: Bhavik Awad Consulting providers: Jen Orellana; Rufus David; John Altamirano; Byron Delgado Discharging Clinician: Jen Orellana Anticipated Discharge Date/Time: 09/03/23 07:47 Patient Disposition: NH Half-Way/Asst Living Activity: may shower Diet: regular Wound Care Instructions: follow printed instructions Discharge Instructions: Hospice will continue Patient Instructions: Antibiotic Form, Amoxicillin/Clavulanate Potassium (By mouth), Hospice Care (GEN), Fall Prevention for Older Adults (DC), Hypotension (DC), Weakness (DC), Bacteremia (DC) Stand Alone Forms: General Discharge Information, Residential Discharge Follow-up/Referrals: Eros Layne MD [Primary Care Provider] - (residential and hospice will make needed follow up appointments) Discharge Medications: New amoxicillin-pot clavulanate 875-125 mg tablet 1 tablet PO TID Qty: 10 0RF Continued ascorbic acid (vitamin C) 500 mg 500 mg DAILY carvedilol [Coreg] 25 mg Tablet 12.5 mg PO BID multivitamin [Daily Multi-Vitamin] Tablet 1 tablet PO DAILY ondansetron HCl 4 mg Tablet 4 mg PO Q8H PRN (Reason: Nausea) ferrous sulfate [Iron (ferrous sulfate)] 325 mg (65 mg iron) Tablet 325 mg PO DAILY aspirin [Adult Low Dose Aspirin] 81 mg Tablet,Delayed Release (Dr/Ec) 81 mg PO DAILY cetirizine [Zyrtec] 10 mg Tablet
[2023-09-03 08:00] VITALS: BP 138/80; PULSE 74; RESP 20; TEMP 36.1; O2SAT 97
--- NOTE | 2023-09-03 08:57 | PC.NURSE ---
Faxed discharge paperwork to [facility]
[2023-09-03] MEDS: CEFEPIME 1 GM/NS 50 ML 1 GM/50 ML BAG IVPB (09:16)
[2023-09-03] MEDS: PANTOPRAZOLE SODIUM IV 40 MG VIAL IV PUSH (09:17)
[2023-09-03] MEDS: ASPIRIN 81 MG ENTERIC TABLET PO (09:17)
[2023-09-03] MEDS: SODIUM CHLORIDE 1 GM TABLET PO (09:17)
[2023-09-03] MEDS: CYCLOBENZAPRINE HCL 5 MG TABLET PO (09:19)
--- NOTE | 2023-09-03 13:57 | PC.NURSE ---
1125 report given to marcela at [facility]. they sent a wc to pick here up. orders sent with them. benjamin lift to .
--- NOTE | 2023-09-06 09:09 | PC.NURSE ---
discharged to senior care on hospice, no questions upon discharge
== END 2023-09-03 11:25 | DRG 698 ==
LOC: CHSED 11:03 → CHS2ND 14:47
PROVIDERS: Nurse Practitioner Family; Admitting Provider Internal Medicine; Emergency Provider Student in an Organized Health Care Education/Training Program; PCP Internal Medicine; Visit Provider Internal Medicine
DX: T83.511A Infection and inflammatory reaction due to indwelling urethral catheter, initial encounter (principal); A41.51 Sepsis due to Escherichia coli [E. coli]; C90.00 Multiple myeloma not having achieved remission; N39.0 Urinary tract infection, site not specified; D64.9 Anemia, unspecified; I95.9 Hypotension, unspecified; N18.30 Chronic kidney disease, stage 3 unspecified; E21.3 Hyperparathyroidism, unspecified; M81.0 Age-related osteoporosis without current pathological fracture; B96.20 Unspecified Escherichia coli [E. coli] as the cause of diseases classified elsewhere; Z95.0 Presence of cardiac pacemaker; Z79.82 Long term (current) use of aspirin
CPT/HCPCS: 36415; 36430; 70450; 71045; 74176; 80048; 80053; 81001; 82272; 82550; 83605; 83690; 83735; 84484; 85014; 85018; 85025; 85027; 85610; 85730; 86140; 86850; 86900; 86901; 86920; 87040; 87086; 87088; 87147; 87186; 87637; 93005; 96361; 96365; 96367; 96375; 99285; A9270; C9113; G0378; J0692; J3370; J7030; J7050; P9016

== ENCOUNTER 2023-11-21 08:49 | Outpatient (NON) | payer OTHER, MEDICARE, SELFPAY ==
[2023-11-21 10:37] LABS: Bilirubin Urine Negative (Negative); Blood Urine 1+ (Negative); Color Urine Yellow (Yellow); Glucose Urine UA Negative (Negative); Ketones Urine Negative (Negative); Leukocyte Esterase Ur 3+ LEU/UL (Negative); Nitrate Urine Positive (Negative); Protein Urine Trace (Negative); Specific Grav Ur <= 1.005 (1.010-1.020); Urobilinogen Urine 0.2 mg/dL (0.2-1.0)
[2023-11-21 10:48] LABS: Add Urine Microscopic? YES; Appearance Urine Cloudy (Clear); WBC Clumps Urine Present /hpf; WBC Urine >75 /hpf (0-3)
[2023-11-21 10:49] LABS: Amorphous Sediment Urine Heavy; Bacteria Urine 4+ /hpf
== END 2023-11-21 08:50 | disposition home or self-care (01) ==
LOC: CHSLAB 08:51
PROVIDERS: Visit Provider Family Medicine
DX: N39.0 Urinary tract infection, site not specified (principal); R82.90 Unspecified abnormal findings in urine
CPT/HCPCS: 81001; 87086; 87088

== ENCOUNTER 2024-06-19 14:24 | Outpatient (CLI) | payer MEDICARE, SELFPAY ==
[2024-06-19 15:13] LABS: Alanine Aminotransferase 20 U/L (14-59); Albumin Level 2.6 g/dL (3.4-5.0); Alkaline Phosphatase 184 U/L (46-116); Anion Gap 8 mmol/L (4-12); Aspartate Amino Transferase 28 U/L (15-37); Bilirubin,Total 0.3 mg/dL (0.00-1.00); Blood Urea Nitrogen 27 mg/dL (7-18); Carbon Dioxide 27 mmol/L (21-32); Chloride 100 mmol/L (98-108); Estimated Glomerular Filt Rate > 60; Glucose 102 mg/dL (70-99); Osmolality Calculated 285 mOsm/kg (285-295); Potassium 3.7 mmol/L (3.5-5.1); Sodium 135 mmol/L (136-145); Total Protein 6.2 g/dL (6.4-8.2)
--- OUTSIDE RECORDS SUMMARY | 2024-06-19 15:17 | XMS_ITS | Encounter Summary ---
Author Organization [facility] Address [facility] [facility] [address] [place] [address] Care Team Providers Care Manager Nuclear Name Role Phone Eros Layne MD Primary Care Provider [phone] Taco Stokes MD Unavailable Unavailabl e Jered Alfaro MD Unavailable Lavelle Dunbar MD Unavailable Alia Fierro APRN, ELECTRONEURODIAGNOSTIC TECHNOLOGIST-C Unavailable Alonso Huynh MD Unavailable [phone] Lavelle Dunbar MD Unavailable Encounter Details Date Type Department Care Team (Late st Contact Info) Description 08/18/2012 Abstract [facility] [address] [place] [address] Taco Stokes MD Social History Tobacco Use Types Packs/Day Years Used Date Smoking Tobacco: Never Alcohol Use Standard Drinks/Week Comments No 0 (1 standard drink = 0.6 oz pur e alcohol) Comments Unknown Sex and Gender Information Value Date Recorded Sex Assigned at Not on file Legal Sex Female 2:43 AM CDT Gender Identity Not on file Sexual Orientation Not on file 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 Not on file documented as of this encounter Plan of Treatment Not on file documented as of this encounter Visit Diagnoses Not on filedocumented in this encounter Care Teams Manager Nuclear Relationship Specialty Start Date End Date Eros Layne MD [address] [place] [address] PCP - General INTERNAL MEDICINE 09/02/16 Taco Stokes MD [address] [place] [address] CARDIOVASCULAR DISEASE 09/02/16 Jered Alfaro MD [address] [place] [phone] [place] [employer] CLINICAL CARDIAC ELECTROPHYSIOLOGY 12/24/16 Lavelle Dunbar MD [address] [place] [phone] Vascular/Cardiologis t INTERNAL MEDICINE 08/08/18 12/01/21 Alia Fierro, PLANER OPERATOR / GRADER, ELECTRONEURODIAGNOSTIC TECHNOLOGIST-C [address] [facility][1] [id number] [place] [phone] NURSE PRACTITIONER 12/09/20 Alonso Huynh MD [address] [place] [phone] Referring Physician OPHTHALMOLOGY 12/09/20 Lavelle Dunbar MD [address] [place], [place] [id number] Consulting Physician INTERNAL MEDICINE 12/02/21 documented as of this encounter
--- OUTSIDE RECORDS SUMMARY | 2024-06-19 15:17 | XMS_ITS | Clinical Summary ---
Author Organization [facility] Address [address] [place] [id number] Phone Care Team Providers Care Teaching Specialists Name Role Phone Eros Layne MD Primary Care Provider [phone] Allergies Active Allergy Reactions Criticality Noted Date Comments Amlodipine Rash Low 10/25/2015 Clindamycin Rash Low Codeine Hydrochlorothiazide Other (see comments) 09/04/2016 Increased renal suff Iodine Nausea And Vomiting 10/25/2015 Lisinopril Cough 10/25/2015 Prednisone & Diphenhydramine Other (see comments) Other: flushed nausea Other: flushed nausea Sulfa Antibiotics Rash Low Tramadol Medications Medication Sig Dispensed Refills Start Date End Date Status aspirin (ASPIR-LOW) 81 MG EC tablet 1 daily 0 07/04/2018 Active carvedilol (COREG) 25 MG tablet 1 bid 0 07/04/2018 Active cholecalciferol (VITAMIN D-3) 1000 units tablet 1 dsaily 0 07/04/2018 Active Multiple Vitamin (MULTIVITAMIN) capsule 1 daily 0 07/04/2018 Ac tive acetaminophen (TYLENOL) 325 MG tablet 1 prn 0 07/04/2018 Active docusate sodium (COLACE) 100 MG capsule as needed 0 07/04/2018 Active furosemide (LASIX) 20 MG tablet 1 daily 0 07/04/2018 Active verapamil SR (CALAN-SR) 240 MG CR tablet 1 daily 0 07/04/2018 Active raNITIdine (ZANTAC) 75 MG tablet 1 daily 0 07/04/2018 Active losartan (COZAAR) 100 MG tablet 1 daily 0 07/04/2018 Active Active Problems Problem Noted Date Diagnosed Date Chronic venous insufficiency 08/30/2018 Superficial skin ulcer of lower limb 08/30/2018 Varicose veins of lower extremity 08/30/2018 Chronic kidney disease, stage 4 (severe) 019 Cardiac pacemaker in situ 04/20/2017 Sinus node dysfunction 12/25/2016 Syncope 12/25/2016 Bradycardia 12/18/2016 Hypotension 12/18/2016 Essential hypertension 09/04/2016 Gastroesophageal reflux disease 09/04/2016 Mixed hyperlipidemia 09/04/2016 Immunizations Name Administration Dates Next Due Pneumococcal Conjugate 03/17/2017 Family History Medical History Relation Comments Kidney disease Neg Hx Social History Tobacco Use Types Packs/Day Years Used Date Smoking Tobacco: Never Smokeless Tobacco: Never Alcohol Use Standard Drinks/Week Comments Yes 0 (1 standard drink = 0.6 oz pur e alcohol) Alcoholic Drinks/day: rare Sex and Gender Information Value Date Recorded Sex Assigned at Not on file Gender Identity Not on file Sexual Orientation Not on file Last Filed Vital Signs Vital Sign Reading Time Taken Comments Blood Pressure 126/70 11/30/2018 11:52 AM CDT Pulse 84 11/30/2018 11:52 AM CDT Temperature 35.8 ??C (96.5 ??F) 11/30/2018 11:52 AM C DT Respiratory Rate - - Oxygen Saturation - - Inhaled Oxygen Concentration - - Weight 56.7 kg (125 lb) 11/30/2018 11:52 AM CDT Height 170.2 cm (5' 7 ) 11/30/2018 11:52 AM CDT Body Mass Index 19.58 11/30/2018 11:52 AM CDT Plan of Treatment Health Maintenance Due Date Last Done Comments Pneumococcal PPSV23/PCV13 65 + Years / Low and Medium Risk (1 of 4 - PCV) 2004 Influenza Vaccine (#1) 2024 Care Teams Teaching Specialists Relationship Specialty Start Date End Date Eros Layne MD [address] [place] [address] PCP - General Internal Medicine 08/31/18
--- OUTSIDE RECORDS SUMMARY | 2024-06-19 15:17 | XMS_ITS | Clinical Summary ---
Author Organization [facility] Address [facility] [address] [place] [place] [address] [place] [address] Care Team Providers Care Process Tank Tender Name Role Phone Eros Layne MD Primary Care Provider [phone] Taco Stokes MD Unavailable Unavailabl e Jered Alfaro MD Unavailable Alia Fierro APRN, CORE BAKER-C Unavailable Alonso Huynh MD Unavailable [phone] Lavelle Dunbar MD Unavailable Allergies Active Allergy Reactions Criticality Noted Date Comments Amlodipine Rash Low 10/25/2015 Banana Unknown 10/25/2015 Clindamycin Rash Low Codeine Unknown,Rash Low 10/25/2015 Crab (Diagnostic) Unknown 10/25/2015 Hydrochlorothiazide Other (see comment) 09/04/2016 Increased renal suff Other reaction(s): Other (See Comments) Increased renal suff Iodine Nausea and Vomiting,Rash Low 10/25/2015 Latex Rash Low 01/02/2019 Lisinopril Cough,Rash Low 10/25/2015 Prednisone Rash Low 02/26/2020 Other: flushed nausea Prednisone & Diphenhydramine Other (see comment) Other: flushed nausea Shellfish-Derived Products Unknown 6 Sulfa Antibiotics Rash Low 02/26/2020 Sulfamethoxazole-Trimethopri m Rash Low 01/02/2019 Tramadol Unknown,Rash,Swell ing Low 01/02/2019 Medications aspirin 81 MG chewable tablet Chew 1 tablet (81 mg total) by mouth daily. 3 Active Docusate Sodium (COLACE OR) Take 1 tablet by mouth daily. 3 Active Cholecalciferol (VITAMIN D) 1000 UNIT tablet Take 1 tablet (25 mcg total) by mouth daily. 3 Active losartan 100 MG tablet Take 1 tablet (100 mg total) by mouth daily. 7 Active verapamil ER 240 MG tablet Take 1 tablet (240 mg total) by mouth 2 (two) times daily. Active furosemide 20 MG tablet Take 1 tablet (20 mg total) by mouth daily. 90 tablet 3 7 Active DME COMPRESSION STOCKINGS 30-40 MMHg Compression Stocking Pantyhose open or closed toe 893 2 Container 6 9 Active ketorolac 0.5 % ophthalmic solution 1 Active ferrous sulfate, 65 mg elemental, 325 (65 FE) MG tablet Take 1 tablet (325 mg total) by mouth daily. Active Multiple Vitamin (DAILY-ARABELLA) Tab Take 1 tablet by mouth daily. Active omeprazole 20 MG capsule Take 1 capsule (20 mg total) by mouth every other day. Active hydrALAZINE 50 MG tablet Take 1 tablet (50 mg total) by mouth 2 (two) times daily. As directed 2 Active cephALEXin (KEFLEX) 500 MG capsule 2 Active carvedilol (COREG) 25 MG tablet TAKE ONE TABLET BY MOUTH TWICE A DAY 60 tablet 11 3 Active mupirocin (BACTROBAN) 2 % ointment 3 Active doxycycline hyclate (VIBRA-TABS) 100 MG tablet 3 Active Active Problems Problem Noted Date Diagnosed Date Palpitations 11/20/2019 Multiple myeloma not having achieved remission ([facility]) 05/31/2019 Plasma cell disorder 01/02/2019 Chronic venous insufficiency 08/30/2018 Varicose veins of bilateral lower extremities with other complications 08/30/2018 Ulcer of right lower extremi ty, limited to breakdown of skin ([facility]) 08/30/2018 Non-pressure chronic ulcer o f unspecified part of unspecified lower leg with bone involvement without evidence of necrosis ([facility]) 08/30/2018 CKD (chronic kidney disease) stage 4, GFR 15-29 ml/min ([facility]) 07/04/2018 Cardiac pacemaker in situ 04/20/2017 Syncope 12/25/2016 Sinus node dysfunction ([facility]) 017 Bradycardia 12/18/2016 Hypotension 12/18/2016 Benign hypertension 09/04/2016 Mixed hyperlipidemia 09/04/2016 Hyperparathyroidism ([facility]) 09/04/2016 GERD (gastroesophageal reflux disease) 7 H/O multiple myeloma Family History Medical History Relation Comments Coronary artery disease Father Relation Status Comments Father Maternal Grandfather Maternal Grandmother Mother (Age 80) during he art cath Paternal Grandfather Paternal Grandmother Social History Tobacco Use Types Packs/Day Years Used Date Smoking Tobacco: Never Smokeless Tobacco: Never Alcohol Use Standard Drinks/Week Comments Yes 0 (1 standard drink = 0.6 oz pur e alcohol) occasionally Comments Unknown Sex and Gender Information Value Date Recorded Sex Assigned at Not on file Legal Sex Female 2:43 AM CDT Gender Identity Not on file Sexual Orientation Not on file 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 Not on file Last Filed Vital Signs Vital Sign Reading Time Taken Comments Blood Pressure 149/74 09/16/2022 3:00 PM CDT Pulse 70 09/16/2022 3:00 PM CDT Temperature - - Respiratory Rate 18 09/16/2022 3:00 PM CDT Oxygen Saturation 97% 09/16/2022 3:00 PM CDT Inhaled Oxygen Concentration - - Weight 51.3 kg (113 lb) 09/16/2022 3:00 PM CDT Height 170.2 cm (5' 7 ) 09/16/2022 3:00 PM CDT Body Mass Index 17.7 09/16/2022 3:00 PM CDT Plan of Treatment Health Maintenance Due Date Last Done Comments DTaP, Tdap and Td Vaccines ( 1 - Tdap) 1959 Zoster Vaccines (1 of 2) 1959 Annual Medicare Wellness Visit 2004 Dexa Scan (General) 2004 RSV Immunization or 60+ Years (1 - 1-dose 75+ series) 2014 COVID-19 Vaccine ( 2023-2 5 season) 2024 03/17/2021, 07/26/2020, 07/05/2020 Influenza Adult (#1) 2024 01/29/2021, 05/13/2020 Pneumococcal Vaccine: 65+ Years Completed 04/10/2019, 03/17/2017, 10/29/2014 Meningococcal B Vaccine Aged Out No l onger eligible based on patient's age to complete this topic Meningococcal Vaccine Aged Out No jerel michelle eligible based on patient's age to complete this topic RSV Immunizations Under 20 Months Aged Out No longer eligible b ased on patient's age to complete this topic Medical Devices Implanted Type Area Optical Model Maker And Tester Device Identifier Shelf Expiration Date Model / Serial / Lot Jones-Ra-12/17 Implanted: by Jered Alfaro MD (Quantity not on file) Lead Implant [employer] 2088TC-46 / [id number] / Jones-Rv-12/17 Implanted: by Jered lAfaro MD (Quantity not on file) Lead Implant [employer] 2088TC-52 / [id number] / St Rickie Dual Chamber Ppmabbott/ Assurity Mri-01/14/2017 Implanted: by Jered Alfaro MD (Quantity not on file) Pacemaker [employer] [id number] / [id number] / Insurance MEDICARE [facility] MEDICARE Care Teams Process Tank Tender Relationship Specialty Start Date End Date Eros Layne MD [address] [place] [address] PCP - General INTERNAL MEDICINE 09/02/16 Taco Stokes MD [address] [place] [address] CARDIOVASCULAR DISEASE 09/02/16 Jered Alfaro MD [address] [place] [phone] [place] Night Shift Manager CLINICAL CARDIAC ELECTROPHYSIOLOGY 12/24/16 Alia Fierro, OTHER SALES SUPPORT WORKER, CORE BAKER-C [address] [id number] [place] [address] NURSE PRACTITIONER 12/09/20 Alonso Huynh MD [address] [place] [address] Referring Physician OPHTHALMOLOGY 12/09/20 Lavelle Dunbar MD [address] [place] [address] Consulting Physician INTERNAL MEDICINE 12/02/21
--- OUTSIDE RECORDS SUMMARY | 2024-06-19 15:17 | XMS_ITS | Patient Health Summary ---
Author Organization [facility] Address [address] [place] [address] Care Team Providers Care Affiliate Manager Name Role Phone Unavailable Primary Care Provider Unavailabl e Note from [facility],non-owned Affiliates and Associated Physician Practices is amultiple site organization consisting of ambulatory clinics and hospital sitesin [place], [place], [place] and [place]. This disclosure is being madepursuant to the Care Everywhere program and may not contain all information available regarding this patient. Last updated 18.[facility] Social History Tobacco Use Types Packs/Day Years Used Date Smoking Tobacco: Never Assessed Sex and Gender Information Value Date Recorded Sex Assigned at Not on file Gender Identity Not on file Sexual Orientation Not on file Procedures * BONE MARROW BIOPSY (STL)(Performed 09/25/2022) Performed for Illness, unspecified * FLOW CYTOMETRY BONE MARROW(Performed 09/25/2022) Performed for Multiple myeloma not having achieved remission ([facility]) * BONE MARROW BIOPSY (STL)(Performed 01/18/2019) * FLOW CYTOMETRY BONE MARROW(Performed 01/18/2019) Performed for Disorder of white blood cells Results * FLOW CYTOMETRY BONE MARROW (09/25/2022 9:16 AM CDT) Only the most recent of2 resultswithin the time period is included. Case Report Flow Cytometry ?Case: [id number] ? Authorizing Provider: ??Michael Moody MD ?Collected: ? 09/25/2022 09:16 AM ? Ordering Location: ? [facility] Pathology Lab ? Received: ?09/25/2022 04:32 PM ? Pathologist: ? Randy Matson MD ? Specimen: ?Bone Marrow ? 09/29/2022 10:40 AM [facility] PATHOLOGY LAB Final Diagnosis Bone marrow, flow cytometric immunophenotypic analysis: - The bone marrow specimen shows involvement by 63% plasma cell [place] light chain monotypic expression (17% of total events). - No evidence of non-Hodgkin lymphoma or high-grade myeloid neoplasm. - See interpretation. - Note: Correlation with clinical findings, the concurrent bone marrow core biopsy, and relevant cytogenetic/molecu lar studies is required. 09/29/2022 10:40 AM [facility] Flow Cytometry Interpretation The bone marrow specimen has a viability of 80%. Within the lymphocyte gate (19% of all events), there is no monoclonal B-cell population identified (kappa: lambda ratio = 2.2:1). There is no aberrant co-expression of CD5 or CD10 on B-cells. There is no expanded T-cell population seen. By CD34, 11% of all flow events analyzed are blasts with normal myeloid maturation. Within the plasma cell gate, there is an abnormal monoclonal plasma cell population (63% of all events) expressing CD38, CD138, dim CD45, retained expression of CD19, and monotypic for cytoplasmic [place] light chain, and co-expression of abnormal CD56 and CD117 in a small subset. This population lacks significant co-expression of CD20. By CD38/CD138 co-expression, 90% of all events analyzed are monotypic plasma cells. A bone marrow aspirate smear prepared from the flow cytometry specimen is reviewed for quality control tech raw materials purposes. 09/29/2022 10:40 AM [facility] Flow Cytometry Results Differential Result Comment Flow Cell Count /uL 32,400 Total Viability % 80.0 Lymphocytes % 19 Dim CD45 Region % 12 Monocytes % 18 Granulocytes % 51 09/29/2022 10:40 AM [facility] Reason for test Multiple myeloma not having achieved remission ([facility]) 203.00 09/29/2022 10:40 AM [facility] PATH[facility] Client Specimen ID # [id number] 09/29/2022 10:40 AM [facility] Number of markers 14 were performed. A-1 Flow CD10 A-3 Flow CD20 A-6 Flow CD117 A-7 FLOW CD138 A-11 Flow CD13 A-2 Flow CD19 A-4 Flow CD38 A-5 Flow CD56 A-10 Flow CD5 A-12 Flow CD33 A-13 Flow CD34 A-14 Flow CD45 A-8 cyKappa+CD138+ A-9 cyLambda+CD138 09/29/2022 10:40 AM [facility] Disclaimer Test performed at [facility], [address] [place] [address], [address]. *The established laboratory minimum viability is 70%. Values below the minimum may result in the failure to find an abnormal population of cells. This test was developed and its performance characteristics determined by the Flow Cytometry Laboratory. It has not been cleared by the [place] Food and Drug Administration (FDA). The FDA has determined that such clearance or approval is not necessary. This test is used for clinical purposes. It should not be regarded as investigational or for research. This laboratory is regulated under the Clinical Laboratory Improvement Amendments of 1998 (CLIA) as a qualified to perform high complexity clinical testing. 09/29/2022 10:40 AM [facility] PATH[facility] LAB Embedded Images 10:40 AM [facility] PATH[facility] LAB Pathology/Cytolo gy BONE MARROW SPECIMEN / Unknown 09/25/2022 9:16 AM CDT 09/25/2022 4:32 PM CDT Michael Moody MD LAB - PATHOLOGY/CYTO LOGY ORDERABLES [facility] PATHOLOGY LAB [address] [place] [address], [facility] [phone] * BONE MARROW BIOPSY (STL) (09/25/2022 9:16 AM CDT) Only the most recent of2 resultswithin the time period is included. Case Report Bone Marrow Patholog y Report ?Case: [id number] ? Authorizing Provider: ??Michael Moody MD ?Collected: ? 09/25/2022 09:16 AM ? Ordering Location: ? [facility] Pathology Lab ? Received: ?09/29/2022 11:57 AM ? Pathologist: ? Randy Matson MD ? Specimens: ?? A) - Bone Marrow Clot, Right Hip Bx ? B) - Bone Marrow Core, Right Hip BM Bx ? 09/30/2022 5:18 PM [facility] PATH[facility] Final Diagnosis Bone marrow, aspirate, clot section, and core biopsy: - Plasma cell (estimated 30% involvement by CD138 immunohistochemistry) . - See description. Note: 82 yo female, with PMH of plasma cell neoplasm. 09/30/2022 5:18 PM [facility] Peripheral Smear Description Manual Differential Count (100 cells): 50% neutrophils, 32% lymphocytes, 16% monocytes, 2% eosinophils, and 0% basophils. Leukocyte number: normal. Granulocyte morphology: normal. Lymphocyte morphology: normal. Erythrocyte number: normal. Erythrocyte morphology: normochromic. Anisopoikilocytosis: moderate Polychromasia: moderate. Platelet number: normal. Platelet morphology: normal. 09/30/2022 5:18 PM [facility] Bone Marrow Aspirate Differential count (300 cells): 0% blasts, 46% maturing myeloid precursors, 27% erythroid progenitors, 0% monocytes, 0% eosinophils, 5% lymphocytes, 22% plasma cells. Specimen quality: adequate. Spicules: many. Trilineage Hematopoiesis: present. Myeloid:Erythroid ratio: normal. Myeloid Maturation: normal. Erythroid Maturation: normal. Megakaryocyte morphology: normal size. Immunostains performed on the core biopsy with adequate controls show: CD138 highlights diffuse interstitial infiltrate with few large clusters of plasma cells with up to 40% of cellularity focally. [place] red is negative for amyloid. Storage iron (by special stain): adequate. Sideroblastic iron (by special stain): no ring sideroblasts. 09/30/2022 5:18 PM [facility] Bone Marrow Core Biopsy and Clot Section Description Specimen quality:adequate with 2.5 cm of evaluable marrow. Cellularity: 25% Trilineage Hematopoiesis: present. Myeloid to Erythroid ratio: normal. Myeloid maturation and localization: normal. Erythroid maturation and localization: normal. Megakaryocyte number: normal. Megakaryocyte distribution: normal. Lymphoid aggregates: absent. Bone trabeculae: thin. Blood vessels: normal. Plasma cells: increased and mildly enlarged in interstitial infiltrate. Clot section marrow particles: few. Clot section morphology: peripheral blood with few admixed marrow elements. 09/30/2022 5:18 PM [facility] Flow Cytometry Summary [[id number]] flow cytometric report: the bone marrow specimen shows involvement by 63% plasma cell [place] light chain monotypic expression (17% of total events). 09/30/2022 5:18 PM CDT [facility] Clinical History 09/30/2022 5:18 PM CDT [facility] Materials Received Received are twenty slide(s), and three blocks (A1; A2; B1), labeled [id number] along with a copy of the outside pathology report. The materials originate from [facility], [address] [place] [address]. All original materials are returned to the referring institution, along with a copy of our final report. 09/30/2022 5:18 PM CDT [facility] Pathologist Location at [facility] 09/30/2022 5:18 PM CDT [facility] Disclaimer The performance characteristics of all immunohistochemical and indirect immunofluorescence stains (if any) cited in this report were determined by the Histopathology Laboratory of [facility]. Some of these tests were developed by our own laboratory and have not been cleared or approved by the US Food and Drug Administration. The FDA does not require this test to go through premarket FDA review. These tests are used for clinical purposes. They should not be regarded as investigational or for research. This laboratory is certified under the Clinical Laboratory Improvement Amendments (CLIA) as qualified to perform high complexity clinical laboratory testing. This case has been personally reviewed and interpreted by the attending (teaching) pathologist. 09/30/2022 5:18 PM CDT [facility] Embedded Images 09/30/2022 5:18 PM CDT [facility] Pathology/Cytology BONE MARROW SPECIMEN / Unknown 09/25/2022 9:16 AM CDT 09/29/2022 11:57 AM CDT Miscellaneous samples (specimen) BONE MARROW SPECIMEN / Unknown 09/25/2022 9:16 AM CDT 09/29/2022 11:57 AM CDT Michael Moody MD LAB - PATHOLOGY/CYTO LOGY ORDERABLES [facility] [place] [address], [facility] [phone]
--- OUTSIDE RECORDS SUMMARY | 2024-06-19 15:17 | XMS_ITS | Encounter Summary ---
Author Organization [facility] Address [address] [place] [address] Care Team Providers Care Garment Tag Stringer Name Role Phone Unavailable Primary Care Provider Unavailabl e Encounter Details Date Type Department Care Team (Late st Contact Info) Description 09/29/2022 Lab Requisition [facility] - Pathology Lab [address] [place] [id number] Michael Moody MD [address], [place] [id number] Illness, unspecified Social History Tobacco Use Types Packs/Day Years Used Date Smoking Tobacco: Never Assessed Sex and Gender Information Value Date Recorded Sex Assigned at Not on file Gender Identity Not on file Sexual Orientation Not on file documented as of this encounter Plan of Treatment Not on file documented as of this encounter Procedures Procedure Name Priority Date/Time Associated Diagnosis Comments BONE MARROW BIOPSY (STL) Routine 09/25/2022 9:16 AM CDT Illness, unspecified documented in this encounter Results * BONE MARROW BIOPSY (STL) (09/25/2022 9:16 AM CDT) Case Report Bone Marrow Patholog y Report ?Case: [id number] ? Authorizing Provider: ??Michael Moody MD ?Collected: ? 09/25/2022 09:16 AM ? Ordering Location: ? [facility] Care Pathology Lab ? Received: ?09/29/2022 11:57 AM ? Pathologist: ? Randy Matson MD ? Specimens: ?? A) - Bone Marrow Clot, Right Hip Bx ? B) - Bone Marrow Core, Right Hip BM Bx ? 09/30/2022 5:18 PM [facility] PATH[facility] Final Diagnosis Bone marrow, aspirate, clot section, and core biopsy: - Plasma cell (estimated 30% involvement by CD138 immunohistochemistry) . - See description. Note: 82 yo female, with PMH of plasma cell neoplasm. 09/30/2022 5:18 PM [facility] Peripheral Smear Description Manual Differential Count (100 cells): 50% neutrophils, 32% lymphocytes, 16% monocytes, 2% eosinophils, and 0% basophils. Leukocyte number: normal. Granulocyte morphology: normal. Lymphocyte morphology: normal. Erythrocyte number: normal. Erythrocyte morphology: normochromic. Anisopoikilocytosis: moderate Polychromasia: moderate. Platelet number: normal. Platelet morphology: normal. 09/30/2022 5:18 PM [facility] Bone Marrow Aspirate Differential count [...] stain): no ring sideroblasts. 09/30/2022 5:18 PM [facility] Bone Marrow Core Biopsy and [...] few admixed marrow elements. 09/30/2022 5:18 PM [facility] Flow Cytometry Summary [[id number]] flow cytometric report: the bone marrow specimen shows involvement by 63% plasma cell [place] light chain monotypic expression (17% of total events). 09/30/2022 5:18 PM [facility] Clinical History 09/30/2022 5:18 PM [facility] Materials Received Received are twenty slide(s), and three blocks (A1; A2; B1), labeled [id number] along with a copy of the outside pathology report. The materials originate from [facility], [address] [place] [address]. All original materials are returned to the referring institution, along with a copy of our final report. 09/30/2022 5:18 PM [facility] Pathologist Location at [facility] 09/30/2022 5:18 PM [facility] Disclaimer The performance characteristics of all immunohistochemical and indirect immunofluorescence stains (if any) cited in this report were determined by the Histopathology Laboratory of [facility]. Some of these tests were developed by [...] attending (teaching) pathologist. 09/30/2022 5:18 PM CDT [facility] PATHOLOGY LAB Embedded Images 09/30/2022 5:18 PM CDT [facility] PATH[facility] Pathology/Cytology BONE MARROW SPECIMEN / Unknown 09/25/2022 9:16 AM CDT 09/29/2022 11:57 AM CDT Miscellaneous samples (specimen) BONE MARROW SPECIMEN / Unknown 09/25/2022 9:16 AM CDT 09/29/2022 11:57 AM CDT Michael Moody MD LAB - PATHOLOGY/CYTO LOGY ORDERABLES Performing Organization Address City/State/[facility] Co de Phone Number [facility] PATHOLOGY LAB [address] [phone] documented in this encounter Visit Diagnoses Diagnosis Illness, unspecified documented in this encounter
--- OUTSIDE RECORDS SUMMARY | 2024-06-19 15:17 | XMS_ITS | Clinical Summary ---
Author Organization [facility] Address [address] [place] [address] Care Team Providers Care Wool Spotter Name Role Phone Unavailable Primary Care Provider Unavailabl e Source Comments [facility] [place],non-owned Affiliates and Associated Physician Practices is amultiple site organization consisting of ambulatory clinics and hospital sitesin [place], [place], [place] and [place]. This disclosure is being madepursuant to the Care Everywhere program and may not contain all information available regarding this patient. Last updated 18.[facility] [place] Social History Tobacco Use Types Packs/Day Years Used Date Smoking Tobacco: Never Assessed Sex and Gender Information Value Date Recorded Sex Assigned at Not on file Gender Identity Not on file Sexual Orientation Not on file Plan of Treatment Health Maintenance Due Date Last Done Comments BONE DENSITY TESTING 1940 MEDICARE AWV ? 12 MONTHS 1940 DTAP/TDAP/TD VACCINES (1 - Tdap) 1958 PNEUMOCOCCAL VACCINE 50+ (1 of 1 - PCV) 1989 ZOSTER VACCINE (1 of 2) 1989 Respiratory Syncytial Virus (RSV) Vaccine Pt: or over 60 yrs (1 - 1-dose 75+ series) 2014 COVID-19 VACCINE (2023-2 5 season) 2024 INFLUENZA VACCINE (#1) 2024 DEPRESSION SCREENING 05/17/2024 HEPATITIS B VACCINE Aged Out No longe r eligible based on patient's age to complete this topic HIB VACCINE Aged Out No longer eligi ble based on patient's age to complete this topic HPV VACCINE Aged Out No longer eligi ble based on patient's age to complete this topic MENINGOCOCCAL (Group B) VACCINE Aged Out No longer eligible based on patient's age to complete this topic MENINGOCOCCAL VACCINE Aged Out No jerel michelle eligible based on patient's age to complete this topic
--- OUTSIDE RECORDS SUMMARY | 2024-06-19 15:17 | XMS_ITS | Referral Summary ---
Author Organization [facility] Address [address] [place] [address] Care Team Providers Care Falsework Builder Name Role Phone Unavailable Primary Care Provider Unavailabl e Source Comments [facility],non-owned Affiliates and Associated Physician Practices is amultiple site organization consisting of ambulatory clinics and hospital sitesin [place], [place], [place] and [place]. This disclosure is being madepursuant to the Care Everywhere program and may not contain all information available regarding this patient. Last updated 18.[facility] [employer] Social History Tobacco Use Types Packs/Day Years Used Date Smoking Tobacco: Never Assessed Sex and Gender Information Value Date Recorded Sex Assigned at Not on file Gender Identity Not on file Sexual Orientation Not on file Plan of Treatment Not on file
--- OUTSIDE RECORDS SUMMARY | 2024-06-19 15:17 | XMS_ITS | Encounter Summary ---
Author Organization [facility] Address [address] [place] [address] Care Team Providers Care Director Title Name Role Phone Unavailable Primary Care Provider Unavailabl e Encounter Details Date Type Department Care Team (Late st Contact Info) Description 01/20/2019 Lab Requisition [facility] Care Pathology Lab [address] [place] [address] Elmo Cruz MD [address] [address] Social History Tobacco Use Types Packs/Day Years [...] Diagnosis Comments BONE MARROW BIOPSY (STL) Routine 01/18/2019 9:10 AM CDT documented in this encounter Results * BONE MARROW BIOPSY (STL) (01/18/2019 9:10 AM CDT) Case Report Bone Marrow Patholog y Report ?Case: [id number] ? Authorizing Provider: ??Elmo Cruz MD ?Collected: ? 01/18/2019 09:10 AM ? Ordering Location: ? [facility] ? Received: ?01/20/2019 09:02 AM ? Pathologist: ? Selam Morales MD ? Specimens: ?? A) - Bone Marrow Core, [id number] ? B) - Bone Marrow Clot, [id number] ? C) - Blood Peripheral, [id number] ? D) - Bone Marrow Aspirate, [id number] ? 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 - See description. 01/20/2019 3:42 PM [facility] Comment Overall, the bone marrow specimen is hypocellular for age with maturing trilineage hematopoiesis and shows involvement by a plasma cell dyscrasia. Concurrent bone marrow flow cytometry ([id number]) corroborates this diagnosis. Correlation with clinical findings and relevant cytogenetic/molecular testing is required. AQ/HOSEA 01/20/2019 3:42 PM [facility] Bone Marrow Aspirate Due to the aspicular, paucicellular, and hemodilute nature of the specimen, microscopic assessment of the bone marrow aspirate is not performed. Please note that due to the lack of spicules, the morphologic assessment is limited. Specimen quality: suboptimal. Spicules: absent. Trilineage Hematopoiesis: present. Myeloid:Erythroid ratio: normal. Myeloid Maturation: normal. Erythroid Maturation: normal. Megakaryocyte morphology: too few to assess. Storage iron (by special stain): non-contributory due to the hemodilute nature of the specimen. Sideroblastic iron (by special stain): non-contributory due to the hemodilute nature of the specimen. 01/20/2019 3:42 PM [facility] Bone Marrow Core Biopsy and Clot Section Description Specimen quality: adequate. Cellularity: hypocellular, 15% Trilineage Hematopoiesis: adequate. Myeloid to Erythroid ratio: normal. Myeloid maturation and localization: normal. Erythroid maturation and localization: normal. Megakaryocyte number: normal. Megakaryocyte distribution: normal. Lymphoid aggregates: absent. Bone trabeculae: normal. Blood vessels: normal. Clot section marrow particles: few. Clot section morphology: similar to core biopsy. Immunohistochemical staining with appropriate controls are performed with the following results: CD138 a plasma cell population comprising 5-10% of the specimen. 01/20/2019 3:42 PM [facility] Clinical History 01/20/2019 3:42 PM [facility] Materials Received Received are 16 slides and 3 blocks labeled as [id number] along with the outside pathology report. [place] [address]. All materials are returned to the referring institution, along with a copy of our final report. 01/20/2019 3:42 PM [facility] Disclaimer The performance characteristics of all immunohistochemical and indirect immunofluorescence stains (if any) cited in this report were determined by the Histopathology Laboratory of [facility]. Some of these tests were developed by [...] and interpreted by the attending (teaching) pathologist. 01/20/2019 3:42 PM CDT [facility] Embedded Images 01/20/2019 3:42 PM CDT [facility] Pathology/Cytology SPECIMEN FROM BONE MARROW OBTAINED BY ASPIRATION / Unknown 01/18/2019 9:10 AM CDT 01/20/2019 9:02 AM CDT Miscellaneous samples (specimen) BONE MARROW CLOT SPECIMEN / Unknown 01/18/2019 9:10 AM CDT 01/20/2019 9:02 AM CDT Miscellaneous samples (specimen) PERIPHERAL BLOOD / Unknown 01/18/2019 9:10 AM CDT 01/20/2019 9:02 AM CDT Miscellaneous samples (specimen) SPECIMEN FROM BONE MARROW OBTAINED BY ASPIRATION / Unknown 01/18/2019 9:10 AM CDT 01/20/2019 9:02 AM CDT Elmo Cruz MD LAB - PATHOLOGY/CYTO LOGY ORDERABLES Performing Organization Address City/State/[facility] Co de Phone Number [facility] [address] [place], [place] [id number] [place] [address] documented in this encounter Visit Diagnoses Not on filedocumented in this encounter
--- OUTSIDE RECORDS SUMMARY | 2024-06-19 15:17 | XMS_ITS | Encounter Summary ---
Author Organization [facility] Address [address] [place] [address] Care Team Providers Care News Copy Editor Name Role Phone Unavailable Primary Care Provider Unavailabl e Encounter Details Date Type Department Care Team (Late st Contact Info) Description 09/25/2022 Lab Requisition [facility] Care Pathology Lab [address] [place], [place] [id number] Michael Moody MD [address] [place] [address] Multiple myeloma not having achieved remission (HCC) Social History Tobacco Use Types Packs/Day Years Used Date Smoking Tobacco: Never Assessed Sex and Gender Information Value Date Recorded Sex Assigned at Not on file Gender Identity Not on file Sexual Orientation Not on file documented as of this encounter Plan of Treatment Not on file documented as of this encounter Procedures Procedure Name Priority Date/Time Associated Diagnosis Comments FLOW CYTOMETRY BONE MARROW Routine 09/25/2022 9:16 AM CDT Multiple myeloma not having achieved remission ([facility]/HCC) documented in this encounter Results * FLOW CYTOMETRY BONE MARROW (09/25/2022 9:16 AM CDT) Case Report Flow Cytometry ?Case: [id number] ? Authorizing Provider: ??Michael Moody MD ?Collected: ? 09/25/2022 09:16 AM ? Ordering Location: ? [facility] ? Received: ?09/25/2022 04:32 PM ? Pathologist: ? Randy Matson MD ? Specimen: ?Bone Marrow ? 09/29/2022 10:40 AM [facility] Final Diagnosis Bone marrow, flow cytometric immunophenotypic analysis: - The bone marrow specimen shows involvement by 63% plasma cell [place] light chain monotypic expression (17% of total events). - No evidence of non-Hodgkin lymphoma or high-grade myeloid neoplasm. - See interpretation. - Note: Correlation with clinical findings, the concurrent bone marrow core biopsy, and relevant cytogenetic/molecu lar studies is required. 09/29/2022 10:40 AM [facility] Flow Cytometry Interpretation The [...] expression of CD19, and monotypic for cytoplasmic [place] light chain, and co-expression of abnormal CD56 and CD117 in a small subset. This population lacks significant co-expression of CD20. By CD38/CD138 co-expression, 90% of all events analyzed are monotypic plasma cells. A bone marrow aspirate smear prepared from the flow cytometry specimen is reviewed for quality assurance supervisor trim purposes. 09/29/2022 10:40 AM [facility] Flow Cytometry Results Differential Result Comment Flow Cell Count /uL 32,400 Total Viability % 80.0 Lymphocytes % 19 Dim CD45 Region % 12 Monocytes % 18 Granulocytes % 51 09/29/2022 10:40 AM [facility] Reason for test Multiple myeloma not having achieved remission (CMS/HCC) 203.00 09/29/2022 10:40 AM [facility] Client Specimen ID # [id number] 09/29/2022 10:40 AM [facility] Number of markers 14 were performed. A-1 Flow CD10 A-3 Flow CD20 A-6 Flow CD117 A-7 FLOW CD138 A-11 Flow CD13 A-2 Flow CD19 A-4 Flow CD38 A-5 Flow CD56 A-10 Flow CD5 A-12 Flow CD33 A-13 Flow CD34 A-14 Flow CD45 A-8 cyKappa+CD138+ A-9 cyLambda+CD138 09/29/2022 10:40 AM [facility] Disclaimer Test performed at [facility], [address] [place] [address], [id number]. *The established laboratory minimum viability is 70%. [...] high complexity clinical testing. 09/29/2022 10:40 AM [facility] Embedded Images 10:40 AM [facility] Pathology/Cytolo gy BONE MARROW SPECIMEN / Unknown 09/25/2022 9:16 AM CDT 09/25/2022 4:32 PM CDT Michael Moody MD LAB - PATHOLOGY/CYTO LOGY ORDERABLES [facility] [address] [facility] [place] [place] [id number] [place] [address] documented in this encounter Visit Diagnoses Diagnosis Multiple myeloma not having achieved remission (HCC) Multiple myeloma, without mention of having achieved remission documented in this encounter
--- OUTSIDE RECORDS SUMMARY | 2024-06-19 15:17 | XMS_ITS | Encounter Summary ---
Author Organization [facility] Address [address] [place] [address] Care Team Providers Care Hard Metals Engraver Hand Name Role Phone Unavailable Primary Care Provider Unavailabl e Encounter Details Date Type Department Care Team (Late st Contact Info) Description 01/18/2019 Lab Requisition [facility] [address] [place] [address] Elmo Cruz MD [address] [place] [address] [address] Disorder of white blood cells Social History Tobacco Use Types Packs/Day Years [...] Diagnosis Comments FLOW CYTOMETRY BONE MARROW Routine 01/18/2019 9:10 AM CDT Disorder of white blood cells documented in this encounter Results * FLOW CYTOMETRY BONE MARROW (01/18/2019 9:10 AM CDT) Case Report Flow Cytometry ?Case: [id number] ? Authorizing Provider: ??Elmo Cruz MD ?Collected: ? 01/18/2019 09:10 AM ? Ordering Location: ? [facility] ? Received: ?01/18/2019 11:36 AM ? Pathologist: ? Selam Morales MD ? Specimen: ?Bone Marrow ? 01/18/2019 3:01 PM [facility] Final Diagnosis Bone marrow, flow cytometric immunophenotypic analysis: - Plasma cell dyscrasia. - No evidence of non-Hodgkin lymphoma or high-grade myeloid neoplasm. - See interpretation 01/18/2019 3:01 PM [facility] Flow Cytometry Interpretation The bone marrow specimen has a viability of 95%. Within the lymphocyte gate, there is no monoclonal B-cell population identified (kappa: lambda ratio = 1.8:1). There is no aberrant co-expression of CD5 or CD10 on B-cells. There is no expanded T-cell population seen. By CD34, 0.5% of all flow events analyzed are blasts. Within the plasma cell gate, there is an abnormal monoclonal plasma cell population expressing CD38, CD138, dim CD45, CD117, CD56 and cytoplasmic kappa light chains. This population lacks significant co-expression of CD10, CD19 and CD20. By CD38/CD138 co-expression, 4.6% of all events analyzed are monotypic plasma cells. A bone marrow aspirate smear prepared from the flow cytometry specimen is reviewed for quality consultant purposes. Correlation with bone marrow biopsy , clinical findings and relevant cytogenetic/molecu lar studies is required 01/18/2019 3:01 PM [facility] Flow Cytometry Results Differential Result Comment Flow Cell Count /uL 22,200 Total Viability % 95.0 Lymphocytes % 15 Dim CD45 Region % 7 Monocytes % 7 Granulocytes % 70 01/18/2019 3:01 PM [facility] Reason for test Disorder of white blood cells 288.9 01/18/2019 3:01 PM [facility] Client Specimen ID # [id number] 01/18/2019 3:01 PM [facility] Number of markers 14 were performed. A-2 Flow CD10 A-3 Flow CD13 A-5 Flow CD20 A-13 Flow CD117 A-14 FLOW CD138 A-1 Flow CD5 A-4 Flow CD19 A-6 Flow CD33 A-7 Flow CD34 A-8 Flow CD45 A-11 Flow CD38 A-12 Flow CD56 A-9 Queets+CD19+ A-10 Lambda+CD19+ 01/18/2019 3:01 PM [facility] Disclaimer Test performed at [facility], [address] [place] [address], [facility]. *The established laboratory minimum viability is 70%. [...] qualified to perform high complexity clinical testing. 01/18/2019 3:01 PM [facility] Embedded Images 3:01 PM [facility] Pathology/Cytolo gy BONE MARROW SPECIMEN / Unknown 01/18/2019 9:10 AM CDT 01/18/2019 11:36 AM CDT Elmo Cruz MD LAB - PATHOLOGY/CYTO LOGY ORDERABLES [facility] [address] [place] [address]. [address] [phone] documented in this encounter Visit Diagnoses Diagnosis Disorder of white blood cells Unspecified disease of white blood cells documented in this encounter
== END 2024-06-19 14:25 | disposition home or self-care (01) ==
LOC: CHSLAB 14:25
PROVIDERS: PCP Internal Medicine; Visit Provider Internal Medicine
DX: R11.10 Vomiting, unspecified (principal)
CPT/HCPCS: 36415; 80053